=== PATIENT | female | born 1945 | race Caucasian/White ===

== ENCOUNTER 2018-01-26 10:36 | Inpatient (IN) | payer OTHER, SELFPAY ==
[2018-01-13 10:47] VITALS: BMI 28.1
[2018-01-26] VITALS (17 sets, daily range): BP systolic 82–134; BP diastolic 48–83; PULSE 60–78; RESP 8–18; TEMP 36.2–37.2; O2SAT 94–99; BMI 28.1
--- NOTE | 2018-01-26 | DI.RAD.S_ITS ---
PROCEDURE: XR LUMBAR SPINE 2-3V INDICATIONS: L4-5 XLIF TECHNIQUE: 2 intraoperative fluoroscopic views of the lumbar spine were acquired. COMPARISON: [facility], , L-SPINE 2-3 VIEWS, 11/13/2006, 13:15. FINDINGS: Bones: Intraoperative fluoroscopic images of lower lumbar spine shows transpedicular fusion of L4 and L5 vertebral bodies with intervertebral spacer placement. Grade 1 anterolisthesis of L4 on L5 is seen. IMPRESSION: Fluoroscopy guidance was provided intraoperatively for posterior fusion of L4 and L5 vertebral bodies. Dictated by: Santino Dupree M.D. on 01/26/2018 at 18:10 Approved by: Santino Dupree M.D. on 01/26/2018 at 18:11
[2018-01-26] MEDS: LACTATED RINGERS 1,000 ML 42 ML IV ×3 (11:45→16:58)
--- NOTE | 2018-01-26 11:46 | PM.PREOP ---
Pre-operative Note Interval Note Pre-op Check: Yes History & Physical Reviewed by Physician and Yes Exam Performed Changes: No
--- NOTE | 2018-01-26 11:48 | P.OP_ITS ---
Operative Date/Time/Diagnoses Date of procedure: 01/26/18 Time of procedure: 16:32 Pre-op diagnosis: Lumbar stenosis with radiculopathy Lumbar spondylolisthesis Post-op diagnosis: same Procedure & Clinicians Procedure: L4-5 anterior fusion with cage L4-5 posterior fusion with screws Iliac crest bone graft L4-5 laminectomy Use of microscope Placement of epidural catheter Same procedure as scheduled: Yes Indications: [age] year old female with intractable pain from stenosis. They had failed conservative management and requested operative intervention. Risks and benefits of surgery were discussed and appropriate consents were obtained. Surgeon: Alexander Hadley Physical Sciences Instructor: Candace Hudson Anesthesia Type: General Operative Notes Findings: Incidental durotomy, repaired primarily Closure Type: primary Specimen(s): none sent Implants & Drains: NuVasive XLIF cage and Reline MAS screws Applied: catheter Estimated Blood Loss (mL): 100 Procedure in detail: Patient was brought to the operating room and intubated on the table. Time-out was performed. They were then rolled over to the lateral decubitus position with the [id number]. The table was bent and they were taped down in the correct position. X-rays were taken to confirm a true AP and lateral. Preoperative antibiotics were given. The left flank was prepped and draped in standard sterile fashion. Using fluoroscopy, a 3 cm incision was made slightly anterior to the iliac crest oblique to the disc line. We bluntly dissected down with Metzenbaum scissors and split the 3 abdominal muscle layers. We dissected out the retroperitoneal space and used the lighted retractor to visualize the psoas. Using finger guidance, brought our 1st dilator down to the psoas muscle. Using neuromonitoring and fluoroscopy, we placed it through the psoas onto the L4-5 disc space in an anterior position. We placed our guidewire forward at an angle under fluoroscopy and measured our depth for the retractor. We then dilated with the next 2 dilators and then placed our retractor over the dilators. Position was confirmed with fluoroscopy and the retractor was locked down to the bar. We opened up the retractor and checked with neuro monitoring. An annulotomy was performed. We then passed an angled Mei down and across the opposite side and two views of fluoroscopy and released the lateral annulus. We then performed a complete diskectomy with pituitaries and curettes. We then used sequentially larger trials and confirmed under fluoroscopy. An XLIF cage was packed with Osteocell bone graft and impacted into the L4-5 disc space with fluoroscopy for the anterior fusion at this level. The wound was irrigated. The retractor was closed down. We carefully removed the retractor with direct visualization to make sure there was no neurovascular or abdominal injury. Final x-rays were taken. The muscle fascia was closed, superficial tissue was closed. The skin was closed. Sterile dressing was placed. The patient was then rolled over on the well-padded prone position on the John table. Using fluoroscopy, we made a 4 cm incision to the left of the midline. We then percutaneously placed a Jamshidi needles down the left pedicles of L4 and L5 with fluoroscopy and neuro monitoring. These were changed to guidewires, tapped and then the screws and retractor blades were placed. We opened up the retractor and cleared the soft tissue. We exposed the gutter and decorticated the transverse processes of L4 and L5 with a bur. We cleared out medially exposing the lamina. We brought in the microscope. A right-sided laminectomy was performed at L4-5 with a bur and Kerrison rongeurs. We carefully depressed the dura to reach to the opposite side and decompress the entire central canal. We cleared out the neural foramen. We performed the majority of a facetectomy at the L4-5 level. There was a very large adherent facet cyst coming off the joint. As we tried cleaning this up we did get a small gonzalez in the dura. This was primarily closed with a 6-0 silk. This was a watertight seal under Valsalva. We finished out her decompression. In the end the ball probe could be placed cephalad and caudally across to the opposite side in the foramen and everything was opened. The wound was copiously irrigated. An epidural catheter was primed with 4mL of 0.5% bupivacaine, 100 mcg fentanyl, 4 mg Duramorph, 1 mg Stadol. The dura was depressed under the cephalad lamina with a ball probe and the epidural catheter was gently advanced 6 cm cephalad. A piece of DuraGen was laid over the durotomy site. We then removed our retractor. We placed our Tulip heads on the screws. The tayo was measured placed and tightened down. A stab incision was made over the PSIS. We advanced a Jamshidi needle down the PSIS into the pelvis and aspirated 5 mL of bone marrow aspirate. This was mixed with the remaining bone graft as well as the locally harvested bone graft and placed on the posterolateral gutter for the posterior fusion at L4-5. The fascia was then closed. The epidural was then injected without resistance. The catheter was pulled and we closed more over the fascia. Vancomycin powder was placed in the wound. The superficial and skin were closed. We then made a 4 cm incision to the right of midline with fluoroscopy. Again using fluoroscopy and neuro monitoring Jamshidi needles were advanced on the right pedicles of L4 and L5. These were switched to guidewires, tapped and then percutaneous screws were placed. A tayo was placed and locked down. Final x-rays were taken. The wound was irrigated. The fascia was closed. Vancomycin powder was placed in the wound. Superficial skin were closed. Sterile dressing was placed. The patient was then rolled over, extubated, brought to the recovery room with no complications. Complications: none Condition: stable Disposition: PACU Plan for aftercare: Overnight bedrest for spinal leak precautions. She can get up in the morning as tolerated.
[2018-01-26] MEDS: CEFAZOLIN 2 GM/100 ML FROZ.PIGGY IV ×2 (12:50→20:53)
--- NOTE | 2018-01-26 13:30 | SUR.OPER ---
Right lateral on padded OR table. Head on pillow, gel axillary roll, pillow to support left arm. Legs flexed, pillows between legs, gel pad under down leg and ankle. Multiple passes of 3 inch cloth tape across shoulder, hip, upper and lower legs to secure patient on OR table.
[2018-01-26] MEDS: BUPIVACAINE 0.5% (PF) 4 ML, MORPHINE-PF 4 MG, BUTORPHANOL 1 MG, fentaNYL 100 MCG INJ (13:49)
[2018-01-26] MEDS: SODIUM CHLORIDE 0.9% 1,000 ML, GENTAMICIN 80 MG IRR (13:52)
[2018-01-26] MEDS: THROMBIN (BOVINE) 5,000 UNIT VIAL 5000 UNIT TOP (13:52)
[2018-01-26] MEDS: VANCOMYCIN 1,000 MG VIAL 1000 MG TOP (13:54)
--- NOTE | 2018-01-26 14:39 | SUR.OPER ---
Prone on spine table, head in foam head support, padded chest and pelvic supports, gel pad at knees, lower legs supported by pillows; nipples, genitalia and toes free of pressure, arms secured on foam padded arm boards at <90 degrees abduction. Tape over blanket at thigh secured to table.
--- NOTE | 2018-01-26 17:32 | SUR.PHASEI ---
care transferred to [facility] report given.
[2018-01-26] MEDS: HYDROMORPHONE 1 MG INJ 0.5 MG IV (18:54)
[2018-01-26] MEDS: LACTATED RINGERS 1,000 ML 125 ML IV (18:55)
--- NOTE | 2018-01-26 19:22 | PC.ADMIT ---
Addendum entered by Martina Wick R.N. 01/26/18 21:12: Pt remains supine. does not want to log roll at this time. Pt refusing oral medication as pt cannot swallow while laying flat. pt reports tolerable level of pain 05/06. PRADEEP scd on and functioning. aviles patent and draining clear yellow. tolerating fluids. eating ice chips and tolerating well. pt states she has a scratchy throat from she thinks her nose running. ice chips help though. Pt cousin, Ivon in town to help pt after discharge. not at bedside, but pt reports we can call her for anything. pt wrapped in blankets and feels fine. denies further needs at this time. bed alarm on, side rails upx4 per pt request. will continue to monitor. Original Note: [id number] Admission Note: The patient,Alice Arriaga,72 y/o, was given written information regarding hospital policies, unit procedures and contact persons. Patient's smoking status: Never smoker. Vital Signs - 8 hr 01/26/18 16:47 01/26/18 16:52 01/26/18 16:56 Temperature 97.1 F L Pulse Rate 60 61 60 Respiratory Rate 8 L 10 L 11 L Blood Pressure 82/48 L 82/50 L 84/51 L Pulse Oximetry 97 95 94 01/26/18 17:01 01/26/18 17:07 01/26/18 17:14 Temperature Pulse Rate 60 60 63 Respiratory Rate 10 L 10 L 12 Blood Pressure 85/51 L 85/51 L 99/74 Pulse Oximetry 96 96 97 01/26/18 17:21 01/26/18 17:30 01/26/18 17:45 Temperature 97.1 F L 97.6 F Pulse Rate 66 64 68 Respiratory Rate 11 L 16 17 Blood Pressure 101/65 114/69 113/73 Pulse Oximetry 98 99 98 01/26/18 18:00 01/26/18 18:20 Temperature 97.7 F Pulse Rate 69 70 Respiratory Rate 16 15 Blood Pressure 109/65 126/68 Pulse Oximetry 94 98 Pt arrived to floor at 1820. Pt awake and alert. aviles patent. pt lying flat. given ice chips at pts request and tolerating. refusing any oral medication ad pt cannot lift hob. Pt scds applied. family, ivon at bedside and will be back in am. fluids started. will hang abx. will continue to monitor. oriented to hospital room and procedures.
[2018-01-27] VITALS (7 sets, daily range): BP systolic 103–117; BP diastolic 55–65; PULSE 61–74; RESP 17–21; TEMP 36.4–37.1; O2SAT 93–100
[2018-01-27] MEDS: LACTATED RINGERS 1,000 ML 125 ML IV (03:30)
[2018-01-27] MEDS: CEFAZOLIN 2 GM/100 ML FROZ.PIGGY IV (05:05)
[2018-01-27] MEDS: HYDROMORPHONE 1 MG INJ 0.2 MG IV ×2 (05:27→12:52)
[2018-01-27 05:28] LABS: Hematocrit 34.9 % (36-46); Hemoglobin 12.1 g/dL (12.0-16.0)
--- NOTE | 2018-01-27 07:41 | PM.PNPO.1 ---
Subjective Date Patient Seen: 01/27/18 Time Patient Seen: 07:41 Interval history: back is starting to get more sore. legs fine. no LAZAR or nausea Exam Vital Signs (past 8 hours): - 01/27/18 00:35 01/27/18 04:45 Temperature 98.2 F 97.6 F Pulse Rate 61 63 Respiratory Rate 18 17 Blood Pressure 111/61 103/56 L Pulse Oximetry 100 98 Oxygen Delivery Method Room Air Oxygen Flow Rate 0 Const Orientation: alert and oriented x3 Back/Spine/Pelvis Other: cdi. 5/5 motor BLE Objective Labs Result Diagrams: 01/27/18 05:00 Labs: Laboratory Results - last 24 hr 01/27/18 05:00 Hgb 12.1 Hct 34.9 L Assessment & Plan Post-op Postoperative Procedures Operation Date: 01/26/18 12:15 Actual Procedures Side Surgeon p L4-5 Laminectomy & Anterior/Posterior Instru Fusion(XLIF)w/Bone Graft Alexander Hadley MD Doing well after surgery. I raised her HOB with no LAZAR or nausea or problems. Dural tear sealed and advance to activity as tolerated. Anticipate 1-2 more days in hospital Quality VTE Deep Vein Thrombosis/Pulmonary Embolism Present on Admission: No
[2018-01-27] MEDS: DOCUSATE 100 MG CAPSULE PO ×2 (07:50→22:16)
[2018-01-27] MEDS: OXYCODONE IR 5 MG TABLET 10 MG PO ×5 (07:51→22:14)
[2018-01-27] MEDS: lamoTRIgine 100 MG TABLET 200 MG PO (07:52)
--- NOTE | 2018-01-27 10:15 | PT.IIE ---
Current Diagnoses Spondylolisthesis, lumbar region (01/26/18) Spinal stenosis, lumbar region with neurogenic claudication (01/26/18) Surgery Performed Operation Date: 01/26/18 12:15 Actual Procedures p L4-5 Laminectomy & Anterior/Posterior Instru Fusion(XLIF)w/Bone Graft - Alexander Hadley MD Surgical History (Last Updated 01/13/18 @ 12:26 by Brianna Bronson, RN) History of arthroplasty of left shoulder (Acute) History of arthroscopy of right shoulder (Acute) Hx of arthroscopy of right knee (Acute) Hx of tubal ligation (Acute) S/P cervical spinal fusion (Acute) Status post bilateral cataract extraction (Acute) Medical History (Last Updated 01/13/18 @ 11:19 by Brianna Bronson RN) Anxiety (Acute) Depression (Acute) Diverticulitis (Acute) HTN (hypertension) (Acute) Hyperlipidemia (Acute) Kidney infection (Acute) Kidney stone (Acute) Numbness and tingling of both legs (Acute) Osteoarthritis (Acute) Amanda teeth removed (Acute) Physical Therapy Inpatient Evaluation/Re-Eval M1 PT/OT-IP Prior Functional Status Start: 01/27/18 13:03 Freq: NEEDED Status: Active Protocol: Document 01/27/18 10:15 AB (Rec: 01/27/18 13:25 AB [id number]) Medical Review Prior Functional Status Medical History Reviewed Yes Communication able to make needs known Mobility and Gait pt stated that she is independent with all mobilities and ambulation without AD Social History Household Members none Living Arrangements House Number of Floors (Floors) Two Floors Number of Stairs To Enter/Railing? has 2 steps to enter without rails but has L post; pt will stay on main level of the house Home Environment High Toilet Walk in Shower Home Equipment Front Wheel Walker Hand Held Shower Employment Status Retired Additional Social History Comment has vanity close by the toilet to assist her with getting up stated that her cousin will stay with her for ~ 1 weeks to assist her at home and afterwards, friends and neighbors can assist her if needed M2 PT-IP Current Condition Start: 01/27/18 13:03 Freq: NEEDED Status: Active Protocol: Document 01/27/18 10:15 AB (Rec: 01/27/18 13:25 AB [id number]) Physical Therapy Current Condition Current Condition Evaluation Date 01/27/18 Treatment Diagnosis s/p L4-5 anterior and posterior fusion & laminectomy ; difficulty in walking Onset Date 01/26/18 Precautions Lumbar Precautions Log Roll No Twisting Limit Bending Lifting Restriction of 10 lbs Gait Belt above Incisional Area M3 PT-IP Subjective Start: 01/27/18 13:03 Freq: NEEDED Status: Active Protocol: Document 01/27/18 10:15 AB (Rec: 01/27/18 13:25 AB [id number]) Subjective Physical Therapy Visit Type Type Initial Evaluation Visit Start Time 10:15 Visit Stop Time 10:55 Total Visit Minutes 40 Number of DRIFT MINER Visits 0 Physical Therapy Visit Comments Patient Comments Pt agreeable to do PT Therapy Pain Assessment Pain When Pain Assessed At Rest Pain Present Pain Present Pain Reported Location Left Leg Intensity 6 Scale Used Numeric (1 - 10) Pain Management Techniques Apply Cold Re-positioning Timing of Activity with Medications M4 PT-IP Mobility and Gait Start: 01/27/18 13:03 Freq: NEEDED Status: Active Protocol: Document 01/27/18 10:15 AB (Rec: 01/27/18 13:25 [id number]) PT-Bed Mobility Assessment Rolling Type of Rolling Log Rolling Level of Assist Contact Guard Assistance Supine to Sit Supine to Sit Standby Assistance Scooting Scooting to Edge of Bed Contact Guard Assistance PT-Transfer Assessment Sit to and From Stand Sit to and from Stand Contact Guard Assistance 1 Person Assistance Use of Upper Extremities Equipment Transfer Assistive Device Gait Belt Front Wheeled Walker Orthotic/Prosthetic Devices or Brace: No Transfers Transfer Destination Chair Transfer Technique pt ambulated to the chair using FWW Comments Mobility Comments BP supine in bed: 99/52 sitting on EOB: 106/54 with c/ o slight dizziness but decreases after a few minutes standing with FWW: 101/57 after ambulation sitting on chair: 103/51 with c/o increase dizziness after ambulation Gait Assessment Gait Gait Assistance Required: Contact Guard Assist Distance (Feet) 15 Able to Maintain Weight Bearing Status Yes During Gait Assistive Devices Assistive Device Gait Belt Front Wheeled Walker Gait Deviations General Gait Pattern Decreased Stride Length Decreased Feet Clearance Factors Limiting Gait Function Factors Limiting Gait Function Decreased Activity Tolerance Decreased Strength Limited Range of Motion Pain Poor Balance Poor Safety Awareness Comments Gait Comments positioned pt on chair after ambulation. cold pack provided. call light and table placed within reach. PT-Balance Assessment Sitting Balance and Reactions Static Sitting Balance Ability Good Dynamic Sitting Balance Ability Good Standing Balance and Reactions Static Standing Balance Ability Fair Dynamic Standing Balance Ability Fair Device Used FWW M5 PT-IP Objective Assessments Start: 01/27/18 13:03 Freq: NEEDED Status: Active Protocol: Document 01/27/18 10:15 AB (Rec: 01/27/18 13:25 AB [id number]) Orientation Orientation/Cognition Level of Alertness Alert Orientation Name Age Birthday Month Date Year Day of Week Place Situation Safety Awareness Understands Safety Issues Memory Description No Deficits Noted Gross Range of Motion Lower Extremity ROM Assessment Within Functional Limits Strength Lower Extremity Strength Assessment Bilaterally Impaired Hip 4-/5 Knee 3+/5 Sensation Assessment Sensation Gross Sensation WNL Muscle Tone Muscle Tone WNL Yes M6 PT-IP Treatment Start: 01/27/18 13:03 Freq: NEEDED Status: Active Protocol: Document 01/27/18 10:15 AB (Rec: 01/27/18 13:25 AB [id number]) Physical Therapy Treatment Education Education Provided Precautions Weight Bearing Status Post-Op Packet Safety M7 PT-IP Assessment and Plan Start: 01/27/18 13:03 Freq: NEEDED Status: Active Protocol: Document 01/27/18 10:15 AB (Rec: 01/27/18 13:25 AB [id number]) PT Summary Assessment and Plan Potential Rehabilitation Potential Good Status of Condition at Evaluation Stable Summary Impairments Pain ROM Strength Balance Coordination Sensation Tone Cognition Bed Mobility Transfers Gait Activity Tolerance Assessment Summary Pt requiring CGA with mobility and plans to go home with her cousin to assist her. caregiver training will be conducted when appropriate and stair climbing training to be completed prior to d/c. Goals Bed Mobility Goal Standby Assistance Transfer Goal Standby Assistance Gait Goal Standby Assistance Gait Distance 150 Other Goals up/down 2 steps without rail Days to Meet Goals 3 Frequency of Treatment Frequency Of Treatment Twice a Day Treatment Plan Physical Therapy Treatment Plan Bed Mobility Training Transfer Training Gait Training Therapeutic Exercise Balance Retraining Post Op Education Discharge Planning Hot or Cold Pack Neuromuscular Re-ed Coordination Retraining Manual Therapy Recommendations To Nursing Amount of Assist Needed 1 Person Assist Discharge Recommendations PT Discharge Recommendations Home with Assistance
[2018-01-27] MEDS: SODIUM CHLORIDE 0.9% FLUSH 10 ML IV (13:16)
--- NOTE | 2018-01-27 15:08 | CM.IDA ---
DCP Assessment Note: Pt is a 72 yo female, [place] resident. Pt admitted for a scheduled spinal surgery w/ Dr Hadley. Pt is indp at baseline. PT has assessed today and pt cleared for return home w/ her cousin to assist. Pt is eager to return home and expects no barriers to safe DC home. Pt/ staff aware this [employer]IV[employer]IES COORDINATOR is available if DC needs or concerns arise and plan changes. JANKI Marie Discharge Planning/Care Management CM Discharge Assessment Start: 01/27/18 15:03 Freq: Status: Active Protocol: Document 01/27/18 15:03 JARETT (Rec: 01/27/18 15:07 JARETT [id number]) Discharge Planning Assessment Assigned Hall Clerk JANKI Purdy DPOA/Assigned Designee Name eduard Del Valle Contact Information [phone] Advance Directives? No Advance Directives on File No History Provided By Patient Medical Record Prior Living Arrangements House Household Members none Type of transporation used prior to Drives own vehicle admit Independent with ADL's Yes Is patient alert and oriented? Yes Barriers to Discharge No Discharge Plan Home Transportation Arrangement Family/friend Referrals Initiated None needed Whiteboard Updated in Patient Room with Yes name and ext. # of Hall Clerk Please Provide Date Initial DC 01/27/18 Assessment Was Performed
--- NOTE | 2018-01-27 15:34 | PT.IPTN ---
Current Diagnoses Spondylolisthesis, lumbar region (01/26/18) Spinal stenosis, lumbar region with neurogenic claudication (01/26/18) Surgery Performed Operation Date: 01/26/18 12:15 Actual Procedures p L4-5 Laminectomy & Anterior/Posterior Instru Fusion(XLIF)w/Bone Graft - Alexander Hadley MD Physical Therapy Treatment Note M2 PT-IP Current Condition Start: 01/27/18 13:03 Freq: NEEDED Status: Active Protocol: Document 01/27/18 10:15 AB (Rec: 01/27/18 13:25 AB [id number]) Physical Therapy Current Condition Current Condition Evaluation Date 01/27/18 Treatment Diagnosis s/p L4-5 anterior and posterior fusion & laminectomy ; difficulty in walking Onset Date 01/26/18 Precautions Lumbar Precautions Log Roll No Twisting Limit Bending Lifting Restriction of 10 lbs Gait Belt above Incisional Area M3 PT-IP Subjective Start: 01/27/18 13:03 Freq: NEEDED Status: Active Protocol: Document 01/27/18 15:34 AB (Rec: 01/27/18 16:32 AB [id number]) Subjective Physical Therapy Visit Type Type Treatment Note Visit Start Time 15:34 Visit Stop Time 15:54 Total Visit Minutes 20 Number of SYNTHETIC SOIL BLOCKS PULPER Visits 0 Physical Therapy Visit Comments Patient Comments pt initially refused PT but then OT informed PT that pt wanted to go for a walk after using the toilet. pt refused to do stair climbing training at this time Therapy Pain Assessment Pain When Pain Assessed At Rest Pain Present Pain Present Pain Reported Location Left Leg Intensity 6 Scale Used Numeric (1 - 10) Pain Management Techniques Apply Cold Re-positioning Timing of Activity with Medications M4 PT-IP Mobility and Gait Start: 01/27/18 13:03 Freq: NEEDED Status: Active Protocol: Document 01/27/18 15:34 AB (Rec: 01/27/18 16:32 AB [id number]) PT-Transfer Assessment Sit to and From Stand Sit to and from Stand Standby Assistance 1 Person Assistance Gait Assessment Gait Gait Assistance Required: Standby Assistance Distance (Feet) 100 Able to Maintain Weight Bearing Status Yes During Gait Assistive Devices Assistive Device Gait Belt Front Wheeled Walker Factors Limiting Gait Function Factors Limiting Gait Function Decreased Activity Tolerance Decreased Strength Limited Range of Motion Pain Poor Balance Poor Safety Awareness M5 PT-IP Objective Assessments Start: 01/27/18 13:03 Freq: NEEDED Status: Active Protocol: Document 01/27/18 10:15 AB (Rec: 01/27/18 13:25 AB [id number]) Orientation Orientation/Cognition Level of Alertness Alert Orientation Name Age Birthday Month Date Year Day of Week Place Situation Safety Awareness Understands Safety Issues Memory Description No Deficits Noted Gross Range of Motion Lower Extremity ROM Assessment Within Functional Limits Strength Lower Extremity Strength Assessment Bilaterally Impaired Hip 4-/5 Knee 3+/5 Sensation Assessment Sensation Gross Sensation WNL Muscle Tone Muscle Tone WNL Yes M6 PT-IP Treatment Start: 01/27/18 13:03 Freq: NEEDED Status: Active Protocol: Document 01/27/18 15:34 AB (Rec: 01/27/18 16:32 AB [id number]) Physical Therapy Treatment Education Education Provided Precautions Weight Bearing Status Post-Op Packet Safety M7 PT-IP Assessment and Plan Start: 01/27/18 13:03 Freq: NEEDED Status: Active Protocol: Document 01/27/18 15:34 AB (Rec: 01/27/18 16:32 AB [id number]) PT Summary Assessment and Plan Potential Rehabilitation Potential Good Summary Impairments Pain ROM Strength Balance Coordination Sensation Tone Cognition Bed Mobility Transfers Gait Activity Tolerance Progress Towards Goals Slow Progress due to Pain Assessment Summary pt requiring SBA for trnasfers and ambulation. set up caregiver training tomorrow with pt's cousin and pt agreed to do stair climbing tomorrow . Goals Bed Mobility Goal Standby Assistance Transfer Goal Standby Assistance Gait Goal Standby Assistance Gait Distance 150 Other Goals up/down 2 steps without rail Days to Meet Goals 3 Frequency of Treatment Frequency Of Treatment Twice a Day Treatment Plan Physical Therapy Treatment Plan Bed Mobility Training Transfer Training Gait Training Therapeutic Exercise Balance Retraining Post Op Education Discharge Planning Hot or Cold Pack Neuromuscular Re-ed Coordination Retraining Manual Therapy Recommendations To Nursing Amount of Assist Needed 1 Person Assist Discharge Recommendations PT Discharge Recommendations Home with Assistance
--- NOTE | 2018-01-27 16:26 | OT.IP.EVAL ---
Current Diagnoses Spondylolisthesis, lumbar region (01/26/18) Spinal stenosis, lumbar region with neurogenic claudication (01/26/18) Surgery Performed Operation Date: 01/26/18 12:15 Actual Procedures p L4-5 Laminectomy & Anterior/Posterior Instru Fusion(XLIF)w/Bone Graft - Alexander Hdaley MD Past Medical History (Last Updated 01/13/18 @ 11:19 by Brianna Bronson, RN) Anxiety (Acute) Depression (Acute) Diverticulitis (Acute) HTN (hypertension) (Acute) Hyperlipidemia (Acute) Kidney infection (Acute) Kidney stone (Acute) Numbness and tingling of both legs (Acute) Osteoarthritis (Acute) [place] teeth removed (Acute) Surgical History (Last Updated 01/13/18 @ 12:26 by Brianna Bronson RN) History of arthroplasty of left shoulder (Acute) History of arthroscopy of right shoulder (Acute) Hx of arthroscopy of right knee (Acute) Hx of tubal ligation (Acute) S/P cervical spinal fusion (Acute) Status post bilateral cataract extraction (Acute) Occupational Therapy Inpatient Evaluation/Re-Eval M1 PT/OT-IP Prior Functional Status Start: 01/27/18 13:03 Freq: NEEDED Status: Active Protocol: Document 01/27/18 16:26 PJRicardo (Rec: 01/27/18 16:54 CONCEPCIÓN [id number]) Medical Review Prior Functional Status Medical History Reviewed Yes Communication WNL Mobility and Gait pt stated that she is independent with all mobilities and ambulation without AD Activities of Daily Living and IADL's Pt indep with self care, IADLS , driving. Social History Household Members none Living Arrangements House Number of Floors (Floors) One Floor Number of Stairs To Enter/Railing? 2 stairs to enter, no rail; pt has sunken living room with one step down, no rail but built in bookcase nearby Home Environment High Toilet Walk in Shower Home Equipment Front Wheel Walker Employment Status Retired Additional Social History Comment pt's cousin from out of state will stay with her for 1 week after d/c, then friends/ neighbors to assist PRN M2 OT-IP Current Condition Start: 01/27/18 16:29 Freq: Status: Active Protocol: Document 01/27/18 16:26 LUDY (Rec: 01/27/18 16:54 [facility] [id number]) Occupational Therapy Current Condition Current Condition Evaluation Date 01/27/18 Treatment Diagnosis decreased self care, functional mobility after L4-5 A/P LIF with aggarwal Diagnosis Onset Date 01/26/18 Post Operative Precautions Lumbar Precautions Log Roll No Twisting Limit Bending Lifting Restriction of 10 lbs Gait Belt above Incisional Area M3 OT- IP Subjective and Pain Start: 01/27/18 16:29 Freq: Status: Active Protocol: Document 01/27/18 16:26 PJ (Rec: 01/27/18 16:54 [facility] [id number]) OT- Subjective Occupational Therapy Visit Type Type Initial Evaluation Visit Start Time 15:49 Visit Stop Time 16:26 Total Visit Minutes 37 Notes Session interrupted; above is total minutes spent with pt Occupational Therapy Visit Comments Patient/Caregiver Goals to be able 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 Pain Assessment Pain When Pain Assessed After Treatment Pain Present Pain Present Pain Reported Location Left Leg Intensity 6 Scale Used Numeric (1 - 10) Description Aching Acute Pain Behaviors Guarding M4 OT- IP ADL's Start: 01/27/18 16:29 Freq: Status: Active Protocol: Document 01/27/18 16:26 PJ (Rec: 01/27/18 16:54 [facility] [id number]) OT [id number] General Evaluation Self-Feeding Ability Independent OT ADL-Grooming General Evaluation Grooming Ability Standby Assistance Areas Needing Assistance Retrieving/Set-up of Grooming Items Comments OT Grooming Comments to wash face in bed OT ADL-Oral Care Comments Oral Care Comments to be assessed, pt declined this session OT ADL-Dressing General Eval Upper Body Dressing Ability Standby Assistance Lower Body Dressing Ability Maximum Assistance Areas Needing Assistance Retrieving/Set-up of Clothing Comments OT Dressing Comments Began education re: use of pest locator and sock aid for lower body dressing; pt wears slip on shoes and declined long shoe horn OT ADL-Toileting General Evaluation Toileting Ability Contact Guard Assistance Areas Needing Assistance Perform Perineal Hygiene Devices Toileting Assistive Devices Commode Comments OT Toileting Comments Pt on BSC when therapist arrived. Pt SBA for reynold care after urination after education re: body mechanics OT ADL-Bathing Comments OT Bathing Comments to be assessed as activity tolerance improves M5 OT- IP IADL's Start: 01/27/18 16:29 Freq: Status: Active Protocol: Document 01/27/18 16:26 PJ (Rec: 01/27/18 16:54 [facility] [id number]) OT-Instrumental Activities of Daily Living Deficits IADL Deficits Identified Deficits Home Safety Awareness Awareness of Need for Assistance at Home Good Awareness Ability to Problem Solve Emergency Able to Problem Solve Situations Home Safety Comments Began education with pt/cousin re: options for feeding dog. Cousin to assist pt with set up for this at home. Medication Management Medication Management No Deficits Identified Money Management Money Management No Deficits Identified Meal Preparation Meal Preparation Caregiver Provides Assist Meal Preparation Comments will have assist for first week from cousin, then friends /neighbors can assist with grocery shopping Disability Liaison Officer Disability Liaison Officer Comments pt will arrange assist with cleaning; provided education re: body mechanics for laundry Driving Driving Caregiver Provides Assist Driving Comments pt will hire taxi or have friends assist until able to drive M6 OT- IP Functional Cognition Start: 01/27/18 16:29 Freq: Status: Active Protocol: Document 01/27/18 16:26 PJ (Rec: 01/27/18 16:54 [facility] [id number]) Cognitive Factors Limiting Selfcare Function Cognitive Ability Level of Alertness Alert Patient Orientation Name Age Birthday Month Date Year Day of Week Place Situation Attention Span Ability Capable of Focused Attention Capable of Sustained Attention Ability to Follow Commands Able to Follow One Step Commands Memory Description No Deficits Noted Safety Awareness No Deficits Noted Problem Solving Ability No deficits Noted Cognitive Comments Cognitive Assessment Comments Appears WNL OT- Vision and Hearing OT- Hearing Assessment OT- Hearing Assessment WFL OT- Vision Assessment Visual Acuity WFL Glasses For Reading Vision Assessment Comments Pt denies any recent changes M7 OT- IP Mobility and Balance Start: 01/27/18 16:29 Freq: Status: Active Protocol: Document 01/27/18 16:26 PJ (Rec: 01/27/18 16:54 [facility] [id number]) OT-Transfer Assessment Sit to and From Stand Sit to and from Stand Contact Guard Assistance Transfers Transfer Ability Contact Guard Assistance Technique Transfer Destination Bedside Commode Chair Transfer Technique Stand Step Pivot Devices Transfer Assistive Devices Gait Belt Front Wheeled Walker OT- Gait Assessment Gait Gait Assistance Required: Contact Guard Assist Distance (Feet) 10 Assistive Devices Assistive Device Gait Belt Front Wheeled Walker OT- Balance Assessment Sitting Balance and Reactions Static Sitting Balance Ability Good Standing Balance and Reactions Static Standing Balance Ability Good Dynamic Standing Balance Ability Good Comments Other Balance Tests/Deviations/Treatment during standing for reynold care : M8 OT- IP Objective Assessments Start: 01/27/18 16:29 Freq: Status: Active Protocol: Document 01/27/18 16:26 PJM (Rec: 01/27/18 16:54 [facility] [id number]) OT Gross Range of Motion Upper Extremity Range of Motion Assessment Within Functional Limits ROM Impairments B shoulder scaption limited to ~90 degrees by stiffness, pt s/p L partial shoulder replacement and needs R TSA eventually per pt OT Strength Upper Extremity Strength Assessment Within Functional Limits OT- Coordination Assessment Comments Coordination Comments BUE WFL OT-Muscle Tone Assessment Muscle Tone WNL Yes OT Sensation Assessment Comments Summary Comments Pt denies deficits in BUE's Edema Edema Absent M9 OT- IP Assessment and Plan Start: 01/27/18 16:29 Freq: Status: Active Protocol: Document 01/27/18 16:26 PJM (Rec: 01/27/18 16:54 PJM [id number]) OT Summary Assessment and Plan Potential Rehabilitation Potential Good Analytic Complexity at Evaluation Low Summary Assessment Summary Low complexity OT assessment completed with emphasis on self care skills within lumbar spine precautions. Began education re: posture, body mechanics and adapted ADLS/IADLS as pt normally lives alone. Pt currently has performance deficits in all functional mobility/transfers, standing tolerance for grooming/IADLS, lower body dressing, bathing and toileting. Anticipate pt will be able to d/c home with live in assist x 4-5 days when medically stable if she continues to progress here. Goals Grooming Goal Independent Dressing Goal Independent Rebar Worker Sock Aid Toileting Goal Independent Toilet Paper Aid Bathing Goal Standby Assistance Toilet Transfer Goal Independent ADA High Toilet Counter Next to Toilet Shower Transfer Goal Standby Assistance Patient/Caregiver Education Goal Demonstrate Post-Op Precautions Demonstrate Energy Conservation and Pacing Caregiver Independent Assisting Patient Days to Meet Goals 3 Frequency of Treatment Frequency Of Treatment Once a Day Treatment Plan OT Treatment Plan ADL Training Functional Mobility Patient/Family Education Discharge Planning Discharge Recommendations OT Discharge Recommendations Home with 17/11 Assist Home Equipment Needs shower seat, pest locator, sock aid
[2018-01-27] MEDS: SENNOSIDES 8.6 MG TABLET 17.2 MG PO (22:16)
[2018-01-27] MEDS: GABAPENTIN 300 MG CAPSULE PO (22:16)
[2018-01-27] MEDS: ROSUVASTATIN 10 MG TABLET PO (22:16)
[2018-01-28] VITALS (7 sets, daily range): BP systolic 117–133; BP diastolic 55–73; PULSE 65–75; RESP 16–20; TEMP 36.3–37.6; O2SAT 94–97
[2018-01-28] MEDS: OXYCODONE IR 5 MG TABLET 10 MG PO ×2 (00:51→07:35)
[2018-01-28] MEDS: ONDANSETRON 4 MG/2 ML INJ IV ×3 (00:55→14:03)
--- NOTE | 2018-01-28 07:32 | PM.PNPO.1 ---
Subjective Date Patient Seen: 01/28/18 Time Patient Seen: 07:32 Interval history: Pain about a 4 at rest. No more sciatic pain but some muscle achiness in legs as she is up with therapy. Mostly low back pain. Exam Vital Signs (past 8 hours): - 01/28/18 00:30 01/28/18 05:00 Temperature 99.7 F H 99.5 F Pulse Rate 75 73 Respiratory Rate 18 18 Blood Pressure 121/61 133/65 Pulse Oximetry 95 94 Oxygen Delivery Method Room Air Oxygen Flow Rate 0 Const Orientation: alert and oriented x3 Back/Spine/Pelvis Other: Dressing clean dry intact. 5/5 motor both lower extremities Objective Labs Result Diagrams: 01/27/18 05:00 Assessment & Plan Post-op Postoperative Procedures Operation Date: 01/26/18 12:15 Actual Procedures Side Surgeon p L4-5 Laminectomy & Anterior/Posterior Instru Fusion(XLIF)w/Bone Graft Alexander Hadley MD She is progressing as expected. Continue with mobilization with therapy. Anticipate discharge home tomorrow. Quality VTE Deep Vein Thrombosis/Pulmonary Embolism Present on Admission: No
[2018-01-28] MEDS: METOPROLOL ER 25 MG TABLET PO (07:34)
[2018-01-28] MEDS: lamoTRIgine 100 MG TABLET 200 MG PO (07:36)
[2018-01-28] MEDS: DOCUSATE 100 MG CAPSULE PO ×2 (07:36→20:45)
--- NOTE | 2018-01-28 10:00 | PT.IPTN ---
Current Diagnoses Spondylolisthesis, lumbar region (01/26/18) Spinal stenosis, lumbar region with neurogenic claudication (01/26/18) Surgery Performed Operation Date: 01/26/18 12:15 Actual Procedures p L4-5 Laminectomy & Anterior/Posterior Instru Fusion(XLIF)w/Bone Graft - Alexander Hadley MD Physical Therapy Treatment Note M2 PT-IP Current Condition Start: 01/27/18 13:03 Freq: NEEDED Status: Active Protocol: Document 01/27/18 10:15 AB (Rec: 01/27/18 13:25 AB [id number]) Physical Therapy Current Condition Current Condition Evaluation Date 01/27/18 Treatment Diagnosis s/p L4-5 anterior and posterior fusion & laminectomy ; difficulty in walking Onset Date 01/26/18 Precautions Lumbar Precautions Log Roll No Twisting Limit Bending Lifting Restriction of 10 lbs Gait Belt above Incisional Area M3 PT-IP Subjective Start: 01/27/18 13:03 Freq: NEEDED Status: Active Protocol: Document 01/28/18 10:00 DLM (Rec: 01/28/18 12:13 DL [id number]) Subjective Physical Therapy Visit Type Type Re-Evaluation Visit Start Time 10:00 Visit Stop Time 10:30 Total Visit Minutes 30 Notes Her Cousin is present for treatment session, she is a nurse Number of BLUEPRINT MACHINE OPERATOR Visits 0 Physical Therapy Visit Comments Patient Comments She got sleepy after taking her medications this AM Therapy Pain Assessment Pain When Pain Assessed At Rest Pain Present Pain Present Pain Reported Location Left Leg Intensity 4 Scale Used Numeric (1 - 10) Description Aching Pain Management Techniques Re-positioning M4 PT-IP Mobility and Gait Start: 01/27/18 13:03 Freq: NEEDED Status: Active Protocol: Document 01/28/18 10:00 DLM (Rec: 01/28/18 12:13 DL [id number]) PT-Bed Mobility Assessment Rolling Type of Rolling Log Rolling Level of Assist Standby Assistance Supine to Sit Supine to Sit Standby Assistance Sit to Supine Sit to Supine Standby Assistance Scooting Scooting to Edge of Bed Standby Assistance PT-Transfer Assessment Sit to and From Stand Sit to and from Stand Standby Assistance Use of Upper Extremities Equipment Transfer Assistive Device Gait Belt Front Wheeled Walker Transfers Transfer Destination Toilet Transfer Technique Stand Step Pivot Transfer Ability Level of Assist Standby Assistance Use of Upper Extremities Comments Mobility Comments reminders to sit slowly on toilet to manage her pain Gait Assessment Gait Gait Assistance Required: Standby Assistance Distance (Feet) 177 Assistive Devices Assistive Device Gait Belt Front Wheeled Walker Factors Limiting Gait Function Factors Limiting Gait Function Decreased Activity Tolerance Pain Comments Gait Comments pt reports needing the FWW to manage her pain Stair Climbing Assessment Evaluation Level of Assist On Stairs Contact Guard Assistance Devices Stair Climbing Assistive Devices Left Railing Right Railing Technique/Endurance Stair Climbing Direction Ascend and Descend Stair Climbing Technique Step to Step Number of Steps Climbed 3 Query Text: Stair Climbing Set # Repetitions (reps) 1 Comments Stair Climbing Comments plan to do stairs without rail to simulate home next visit, pt feels her stairs at home are a little shorter than standard PT-Balance Assessment Sitting Balance and Reactions Static Sitting Balance Ability Good Dynamic Sitting Balance Ability Good Standing Balance and Reactions Static Standing Balance Ability Good Dynamic Standing Balance Ability Good Device Used FWW M5 PT-IP Objective Assessments Start: 01/27/18 13:03 Freq: NEEDED Status: Active Protocol: Document 01/27/18 10:15 AB (Rec: 01/27/18 13:25 AB [id number]) Orientation Orientation/Cognition Level of Alertness Alert Orientation Name Age Birthday Month Date Year Day of Week Place Situation Safety Awareness Understands Safety Issues Memory Description No Deficits Noted Gross Range of Motion Lower Extremity ROM Assessment Within Functional Limits Strength Lower Extremity Strength Assessment Bilaterally Impaired Hip 4-/5 Knee 3+/5 Sensation Assessment Sensation Gross Sensation WNL Muscle Tone Muscle Tone WNL Yes M6 PT-IP Treatment Start: 01/27/18 13:03 Freq: NEEDED Status: Active Protocol: Document 01/28/18 10:00 DLM (Rec: 01/28/18 12:13 [facility] [id number]) Physical Therapy Treatment Exercises Exercises Ankle Pumps Education Education Provided Precautions Safety Other Treatments Other Treatment Performed incorporated caregiver training into treatment session M7 PT-IP Assessment and Plan Start: 01/27/18 13:03 Freq: NEEDED Status: Active Protocol: Document 01/28/18 10:00 DLM (Rec: 01/28/18 12:13 [facility] [id number]) PT Summary Assessment and Plan Treatment Plan Other Recommendations and Next Treatment stairs without rails to Focus simulate home environment Recommendations To Nursing Amount of Assist Needed 1 Person Assist Discharge Recommendations PT Discharge Recommendations Home with Assistance
--- NOTE | 2018-01-28 10:25 | PC.NURSE ---
Noted pt drowsy at beginning of shift but ambulating in hallway with PT midmorning. O2 Sats = 94%. Pt encouraged to take deep breaths and use IS. Dressing to back CDI.
--- NOTE | 2018-01-28 13:38 | CM.DPC ---
DCP Cont: Met w/pt and her cousin Ivon, explained role. Pt has been very drowsy today, RN aware and meds have been adjusted. Pt explains she is not confident about her return home because she didn't expect it to be this hard to move after surgery. PT/OT notes indicate pt is moving quite well for POD#2, Rec.= home w/cousin, which this WANIGAN CLERK shared w/pt. Pt concerned about laundry and house cleaning once her cousin needs to return home to [place]. Ivon expects to cancel her flight [id number] and push back for at least a few days to assist pt. Ivon understands pt will need assist w/ADLs once home. Encouraged pt to consider hiring a private cg and/or laborer hide house if this is financially feasible and pt agreed, stating she was looking into this prior to her surgery. The Dept is currently out of stock of the [facility] Resource Guide for 2018 but there should be copies available at either the [facility] and/or the [facility]. Pt appreciative. Reviewed HH; pt and cousin Ivon feel this might be helpful, no agency preference. This WANIGAN CLERK then left the room because pt was starting to feel nauseous. RN made aware. F2F needs to be signed by Dr Hadley in order for pt to get HH service. Following closely. JANKI Marie
[2018-01-28] MEDS: OXYCODONE IR 5 MG TABLET PO (14:02)
--- NOTE | 2018-01-28 14:39 | PC.NURSE ---
Pt continues to feel drowsy with nausea. She describes it as feeling queazy. Pt given percolone for pain and zofran for nausea at around 1400. Cousin in room assisting with cares..
--- NOTE | 2018-01-28 14:40 | PT.IPTN ---
Current Diagnoses Spondylolisthesis, lumbar region (01/26/18) Spinal stenosis, lumbar region with neurogenic claudication (01/26/18) Surgery Performed Operation Date: 01/26/18 12:15 Actual Procedures p L4-5 Laminectomy & Anterior/Posterior Instru Fusion(XLIF)w/Bone Graft - Alexander Hadley MD Physical Therapy Treatment Note M2 PT-IP Current Condition Start: 01/27/18 13:03 Freq: NEEDED Status: Active Protocol: Document 01/27/18 10:15 AB (Rec: 01/27/18 13:25 AB [id number]) Physical Therapy Current Condition Current Condition Evaluation Date 01/27/18 Treatment Diagnosis s/p L4-5 anterior and posterior fusion & laminectomy ; difficulty in walking Onset Date 01/26/18 Precautions Lumbar Precautions Log Roll No Twisting Limit Bending Lifting Restriction of 10 lbs Gait Belt above Incisional Area M3 PT-IP Subjective Start: 01/27/18 13:03 Freq: NEEDED Status: Active Protocol: Document 01/28/18 13:15 GGD (Rec: 01/28/18 16:13 GGD [id number]) Subjective Physical Therapy Visit Type Type Treatment Note Visit Start Time 14:45 Visit Stop Time 13:15 Total Visit Minutes 30 Number of STAFF PHARMACIST Visits 1 Physical Therapy Visit Comments Patient Comments Pt states she dosen't want to get up, but knows Therapy Pain Assessment Pain When Pain Assessed At Rest Pain Present Pain Present Pain Reported Location Left Leg Intensity 5 Scale Used Numeric (1 - 10) Description Aching M4 PT-IP Mobility and Gait Start: 01/27/18 13:03 Freq: NEEDED Status: Active Protocol: Document 01/28/18 13:15 GGD (Rec: 01/28/18 16:13 GGD [id number]) PT-Bed Mobility Assessment Rolling Type of Rolling Log Rolling Level of Assist Standby Assistance Supine to Sit Supine to Sit Standby Assistance Sit to Supine Sit to Supine Standby Assistance Scooting Scooting to Edge of Bed Standby Assistance PT-Transfer Assessment Sit to and From Stand Sit to and from Stand Standby Assistance Use of Upper Extremities Equipment Transfer Assistive Device Gait Belt Front Wheeled Walker Gait Assessment Gait Gait Assistance Required: Standby Assistance Distance (Feet) 100 Assistive Devices Assistive Device Gait Belt Front Wheeled Walker Factors Limiting Gait Function Factors Limiting Gait Function Decreased Strength Pain Stair Climbing Assessment Evaluation Level of Assist On Stairs Contact Guard Assistance Devices Stair Climbing Assistive Devices None Technique/Endurance Stair Climbing Direction Ascend and Descend Stair Climbing Technique Step to Step Number of Steps Climbed 3 Query Text: Stair Climbing Set # Repetitions (reps) 2 Comments Stair Climbing Comments Hand hold assist on right and family training for assist for stair mobility. M5 PT-IP Objective Assessments Start: 01/27/18 13:03 Freq: NEEDED Status: Active Protocol: Document 01/27/18 10:15 AB (Rec: 01/27/18 13:25 AB [id number]) Orientation Orientation/Cognition Level of Alertness Alert Orientation Name Age Birthday Month Date Year Day of Week Place Situation Safety Awareness Understands Safety Issues Memory Description No Deficits Noted Gross Range of Motion Lower Extremity ROM Assessment Within Functional Limits Strength Lower Extremity Strength Assessment Bilaterally Impaired Hip 4-/5 Knee 3+/5 Sensation Assessment Sensation Gross Sensation WNL Muscle Tone Muscle Tone WNL Yes M6 PT-IP Treatment Start: 01/27/18 13:03 Freq: NEEDED Status: Active Protocol: Document 01/28/18 13:15 GGD (Rec: 01/28/18 16:13 GGD [id number]) Physical Therapy Treatment Education Education Provided Precautions M7 PT-IP Assessment and Plan Start: 01/27/18 13:03 Freq: NEEDED Status: Active Protocol: Document 01/28/18 13:15 GGD (Rec: 01/28/18 16:13 GGD [id number]) PT Summary Assessment and Plan Summary Assessment Summary Pt improving with mobility. She was safe with stair mobility, using hand hold assist for balance. Family was able to assist with stair mobility safety. Frequency of Treatment Frequency Of Treatment Twice a Day Treatment Plan Physical Therapy Treatment Plan Bed Mobility Training Transfer Training Gait Training Therapeutic Exercise Balance Retraining Post Op Education Discharge Planning Hot or Cold Pack Neuromuscular Re-ed Coordination Retraining Manual Therapy Recommendations To Nursing Amount of Assist Needed 1 Person Assist Discharge Recommendations PT Discharge Recommendations Home with Assistance
--- NOTE | 2018-01-28 16:19 | OT.IP.TRT ---
Current Diagnoses Spondylolisthesis, lumbar region (01/26/18) Spinal stenosis, lumbar region with neurogenic claudication (01/26/18) Surgery Performed Operation Date: 01/26/18 12:15 Actual Procedures p L4-5 Laminectomy & Anterior/Posterior Instru Fusion(XLIF)w/Bone Graft - Alexander Hadley MD Occupational Therapy Treatment Note M2 OT-IP Current Condition Start: 01/27/18 16:29 Freq: Status: Active Protocol: Document 01/27/18 16:26 PJM (Rec: 01/27/18 16:54 PJM [id number]) Occupational Therapy Current Condition Current Condition Evaluation Date 01/27/18 Treatment Diagnosis decreased self care, functional mobility after L4-5 A/P LIF with aggarwal Diagnosis Onset Date 01/26/18 Post Operative Precautions Lumbar Precautions Log Roll No Twisting Limit Bending Lifting Restriction of 10 lbs Gait Belt above Incisional Area M3 OT- IP Subjective and Pain Start: 01/27/18 16:29 Freq: Status: Active Protocol: Document 01/28/18 16:08 [facility] (Rec: 01/28/18 16:19 [facility] [email or web address]) OT- Subjective Occupational Therapy Visit Type Type Treatment Note Visit Start Time 15:30 Visit Stop Time 16:00 Total Visit Minutes 30 Occupational Therapy Visit Comments Patient Comments Pt wanting to shower today. Cousin there for family training. OT Pain Assessment Pain When Pain Assessed At Rest Pain Present Pain Present Pain Reported Location Left Leg Intensity 6 Scale Used Numeric (1 - 10) Description Aching M4 OT- IP ADL's Start: 01/27/18 16:29 Freq: Status: Active Protocol: Document 01/28/18 16:08 [facility] (Rec: 01/28/18 16:19 [facility] [email or web address]) OT ADL-Dressing General Eval Upper Body Dressing Ability Standby Assistance Lower Body Dressing Ability Maximum Assistance Comments OT Dressing Comments Pt needing assist to don/doff socks for LB dressing. OT ADL-Toileting General Evaluation Toileting Ability Standby Assistance Devices Toileting Assistive Devices Grab Bars Comments OT Toileting Comments SBA while standing to do pericare needs. OT ADL-Bathing Bathing Type Bathing Type Shower General Evaluation Bathing Ability Moderate Assistance Areas Needing Assistance Wash/Dry Back Wash/Dry Lower Extremities Devices Bathing Equipment Shower Chair with Arms Grab Bars Comments OT Bathing Comments Pt needing assist to wash/dry back, hair and to dry her feet . Pt able to comfortable cross her legs over to wash her feet initially. Pt's family to assist her at home. To get shower chair for home in addition to AED for LB dressing needs. M5 OT- IP IADL's Start: 01/27/18 16:29 Freq: Status: Active Protocol: Document 01/27/18 16:26 PJM (Rec: 01/27/18 16:54 PJM [id number]) OT-Instrumental Activities of Daily Living Deficits IADL Deficits Identified Deficits Home Safety Awareness Awareness of Need for Assistance at Home Good Awareness Ability to Problem Solve Emergency Able to Problem Solve Situations Home Safety Comments Began education with pt/cousin re: options for feeding dog. Cousin to assist pt with set up for this at home. Medication Management Medication Management No Deficits Identified Money Management Money Management No Deficits Identified Meal Preparation Meal Preparation Caregiver Provides Assist Meal Preparation Comments will have assist for first week from cousin, then friends /neighbors can assist with grocery shopping Biometrics Technician Biometrics Technician Comments pt will arrange assist with cleaning; provided education re: body mechanics for laundry Driving Driving Caregiver Provides Assist Driving Comments pt will hire taxi or have friends assist until able to drive M6 OT- IP Functional Cognition Start: 01/27/18 16:29 Freq: Status: Active Protocol: Document 01/28/18 16:08 [facility] (Rec: 01/28/18 16:19 [facility] [id number]) Cognitive Factors Limiting Selfcare Function Cognitive Ability Level of Alertness Alert Patient Orientation Name Age Birthday Month Date Year Day of Week Place Situation Attention Span Ability Capable of Focused Attention Capable of Sustained Attention Ability to Follow Commands Able to Follow Multi-Step Commands Memory Description No Deficits Noted Safety Awareness No Deficits Noted Problem Solving Ability No deficits Noted M7 OT- IP Mobility and Balance Start: 01/27/18 16:29 Freq: Status: Active Protocol: Document 01/28/18 16:08 [facility] (Rec: 01/28/18 16:19 [facility] [email or web address]) OT- Bed Mobility Assessment Rolling Type of Rolling Roll to Right Level of Assistance Bedrails Supine to Sit Supine to Sit Assist Standby Assistance Sit to Supine Sit to Supine Assist Standby Assistance OT-Transfer Assessment Sit to and From Stand Sit to and from Stand Standby Assistance Contact Guard Assistance Transfers Transfer Ability Standby Assistance Contact Guard Assistance Technique Transfer Destination Bed Toilet Transfer Technique Stand Step Pivot Devices Transfer Assistive Devices Gait Belt Front Wheeled Walker Comments Mobility Comments CGA for balance while walking over thereshold of the shower. OT- Balance Assessment Sitting Balance and Reactions Static Sitting Balance Ability Normal Dynamic Sitting Balance Ability Good Standing Balance and Reactions Static Standing Balance Ability Good Dynamic Standing Balance Ability Fair M8 OT- IP Objective Assessments Start: 01/27/18 16:29 Freq: Status: Active Protocol: Document 01/27/18 16:26 PJM (Rec: 01/27/18 16:54 [facility] [id number]) OT Gross Range of Motion Upper Extremity Range of Motion Assessment Within Functional Limits ROM Impairments B shoulder scaption limited to ~90 degrees by stiffness, pt s/p L partial shoulder replacement and needs R TSA eventually per pt OT Strength Upper Extremity Strength Assessment Within Functional Limits OT- Coordination Assessment Comments Coordination Comments BUE WFL OT-Muscle Tone Assessment Muscle Tone WNL Yes OT Sensation Assessment Comments Summary Comments Pt denies deficits in BUE's Edema Edema Absent M9 OT- IP Assessment and Plan Start: 01/27/18 16:29 Freq: Status: Active Protocol: Document 01/28/18 16:08 [facility] (Rec: 01/28/18 16:19 [facility] [email or web address]) OT Summary Assessment and Plan Summary OT Impairments Pain Balance Functional Mobility Bathing Shower Transfers Progress Towards Goals Progressing Toward Goals Assessment Summary Pt and family has good understanding for all back precautions, equipment needs, and looking to go home tomorrow. Goals Days to Meet Goals 1 Frequency of Treatment Frequency Of Treatment Once a Day Treatment Plan OT Treatment Plan Patient/Family Education Discharge Planning Discharge Recommendations OT Discharge Recommendations Home with 17/11 Assist Home Equipment Needs shower seat, roulette dealer, sock aid
[2018-01-28] MEDS: SENNOSIDES 8.6 MG TABLET 17.2 MG PO (20:44)
[2018-01-28] MEDS: ROSUVASTATIN 10 MG TABLET PO (20:44)
[2018-01-28] MEDS: GABAPENTIN 300 MG CAPSULE PO (20:45)
[2018-01-28] MEDS: SODIUM CHLORIDE 0.9% FLUSH 10 ML IV (20:45)
[2018-01-29] VITALS: BP 107/59; PULSE 64; RESP 16; TEMP 37.8; O2SAT 96
[2018-01-29 01:09] VITALS: TEMP 37.5
[2018-01-29 04:20] VITALS: BP 102/53; PULSE 62; RESP 18; TEMP 37.1; O2SAT 95
[2018-01-29] MEDS: OXYCODONE IR 5 MG TABLET PO ×2 (04:36→08:21)
--- NOTE | 2018-01-29 06:19 | PC.NURSE ---
NOC pt AO and pleasant. Started shift denying pain and then increased to a 6/10 after ambulating to bathroom. Administered 5mg oxycodone, pt able to sleep afterwards. Patient has had a decrease in appetite, although denies nausea, did not eat dinner. I educated pt on why she needs to eat, and encouraged foods that she finds appealing. Ordered breakfast.
[2018-01-29 07:45] VITALS: BP 107/61; PULSE 70; RESP 20; TEMP 36.9; O2SAT 96
--- NOTE | 2018-01-29 08:01 | PM.DS.1 ---
History of Present Illness Date Patient Seen: 01/29/18 Time Patient Seen: 08:01 Chief complaint: [id number] L4-5 Narrative: [age] year old female with intractable pain from stenosis. They had failed conservative management and requested operative intervention. Risks and benefits of surgery were discussed and appropriate consents were obtained. Discharge Providers Date of admission: 01/26/18 10:36 Primary care physician: Yenifer Sin PA-C Consults: 01/26/18 18:24 Consult to Occupational Therapy Evaluate & Treat Comment: Physician Instructions: Evaluate and treat Consult to Physical Therapy Evaluate & Treat Comment: bedrest tonight, start PT tomorrow Physician Instructions: Evaluate and Treat Discharge provider: Sherie Alejandra PA-C Discharge Date: 01/29/18 Summary Discharge Diagnosis: s/p lumbar fusion GERD Hypertension Lumbar spinal stenosis hyperlipidemia hydronephrosis of left kidney Hospital Course: Alice was admitted for lumbar fusion with Dr. Hadley, and she consented to procedure. During her procedure she did have a dural tear, throughout her hospital stay she was asymptomatic for headaches. Hospital course was unremarkable. On postop day 3. She was feeling well and wanted to go home. Her pain was well controlled with oxycodone. She states she has a pain contract and her doctor is aware that she is having surgery. She was provided a prescription today for oxycodone to treat her postoperative pain. Through her stay she was up with physical therapy. She is aware of her precautions of no excessive bending, lifting, or twisting. She was eating and voiding without any difficulty or assistance. Exam Vital Signs (past 8 hours): - 01/29/18 01:09 01/29/18 04:20 Temperature 99.5 F 98.7 F Pulse Rate 62 Respiratory Rate 18 Blood Pressure 102/53 L Pulse Oximetry 95 Oxygen Delivery Method Room Air Oxygen Flow Rate 0 Narrative Exam Narrative: Patient lying in bed in no acute distress. Dressings are CDI. Calves are soft, compressible, nontender bilaterally. Sensation intact to light touch throughout bilateral lower extremities. Her pain is well controlled this morning. Denies any chest pain or shortness of breath. Objective Labs Result Diagrams: 01/27/18 05:00 Discharge Plan Discharge Plan Patient Disposition: Home Discharge comment: DC home today with coversite dressing on Discharge Med Rec/Prescriptions Prescriptions: New oxycodone 5 mg Tablet 5 mg PO Q4HR Qty: 40 RF: 0 acetaminophen [Tylenol] 325 mg tablet 325 mg PO Q4H PRN (Reason: pain) Qty: 20 RF: 0 Continue lorazepam 1 MG tablet 1 mg PO Q8HP PRN (Reason: Anxiety) Qty: 0 RF: 0 metoprolol succinate [Toprol XL] 25 MG tablet extended release 24 hr 25 mg PO QDAY Qty: 0 RF: 0 rosuvastatin [Crestor] 10 MG tablet 10 mg PO BEDTIME Qty: 0 RF: 0 ibuprofen [Advil] 200 MG tablet 600 mg PO Q6HP PRN (Reason: pain) Qty: 0 RF: 0 lamotrigine [Lamictal] 200 MG tablet 200 mg PO QDAY Qty: 90 RF: 2 oxycodone 5 MG tablet 5 mg PO Q4HP PRN (Reason: pain) RF: 0 Follow up/Referrals: Yenifer Sin PA-C [Primary Care Provider] - (please follow up with dewayne [phone]) Provider Discharge Instructions Diet: Diet as Tolerated Activity: No excessive bending, lifting, or twisting. Skin/Wound/Dressing Care Report to your healthcare provider any signs of infection, such as:: chills, fever and increased pain Dressing: Leave in place until first appointment Visit Report/Discharge Packet Visit Report Forms: Stroke Signs & Symptoms Discharge Data Primary Care Provider: Yenifer Sin Attending Provider: Alexander Hadley Admit Date/Time: 01/26/18 10:36 Quality VTE Deep Vein Thrombosis/Pulmonary Embolism Present on Admission: No
[2018-01-29] MEDS: lamoTRIgine 100 MG TABLET 200 MG PO (08:20)
[2018-01-29] MEDS: SODIUM CHLORIDE 0.9% FLUSH 10 ML IV (08:20)
[2018-01-29] MEDS: METOPROLOL ER 25 MG TABLET PO (08:20)
[2018-01-29] MEDS: DOCUSATE 100 MG CAPSULE PO (08:21)
--- NOTE | 2018-01-29 09:25 | PT.IPTN ---
Current Diagnoses Spondylolisthesis, lumbar region (01/26/18) Spinal stenosis, lumbar region with neurogenic claudication (01/26/18) Surgery Performed Operation Date: 01/26/18 12:15 Actual Procedures p L4-5 Laminectomy & Anterior/Posterior Instru Fusion(XLIF)w/Bone Graft - Alexander Hadley MD Physical Therapy Treatment Note M2 PT-IP Current Condition Start: 01/27/18 13:03 Freq: NEEDED Status: Active Protocol: Document 01/27/18 10:15 [facility] (Rec: 01/27/18 13:25 AB [id number]) Physical Therapy Current Condition Current Condition Evaluation Date 01/27/18 Treatment Diagnosis s/p L4-5 anterior and posterior fusion & laminectomy ; difficulty in walking Onset Date 01/26/18 Precautions Lumbar Precautions Log Roll No Twisting Limit Bending Lifting Restriction of 10 lbs Gait Belt above Incisional Area M3 PT-IP Subjective Start: 01/27/18 13:03 Freq: NEEDED Status: Active Protocol: Document 01/29/18 09:25 GGD (Rec: 01/29/18 11:01 GGD [id number]) Subjective Physical Therapy Visit Type Type Treatment Note Visit Start Time 09:10 Visit Stop Time 09:25 Total Visit Minutes 15 Number of BANKRUPTCY LEGAL ASSISTANT Visits 2 Physical Therapy Visit Comments Patient Comments Pt states she feeling better and ready to go home. Therapy Pain Assessment Pain When Pain Assessed At Rest Pain Present Pain Present Pain Reported Location Left Leg Intensity 4 Scale Used Numeric (1 - 10) Pain Management Techniques Timing of Activity with Medications M4 PT-IP Mobility and Gait Start: 01/27/18 13:03 Freq: NEEDED Status: Active Protocol: Document 01/29/18 10:57 GGD (Rec: 01/29/18 11:01 GGD [id number]) PT-Bed Mobility Assessment Rolling Type of Rolling Log Rolling Level of Assist Standby Assistance Supine to Sit Supine to Sit Standby Assistance Sit to Supine Sit to Supine Standby Assistance Scooting Scooting to Edge of Bed Standby Assistance PT-Transfer Assessment Sit to and From Stand Sit to and from Stand Standby Assistance Use of Upper Extremities Equipment Transfer Assistive Device Gait Belt Front Wheeled Walker Transfers Transfer Destination Toilet M5 PT-IP Objective Assessments Start: 01/27/18 13:03 Freq: NEEDED Status: Active Protocol: Document 01/27/18 10:15 AB (Rec: 01/27/18 13:25 AB [id number]) Orientation Orientation/Cognition Level of Alertness Alert Orientation Name Age Birthday Month Date Year Day of Week Place Situation Safety Awareness Understands Safety Issues Memory Description No Deficits Noted Gross Range of Motion Lower Extremity ROM Assessment Within Functional Limits Strength Lower Extremity Strength Assessment Bilaterally Impaired Hip 4-/5 Knee 3+/5 Sensation Assessment Sensation Gross Sensation WNL Muscle Tone Muscle Tone WNL Yes M6 PT-IP Treatment Start: 01/27/18 13:03 Freq: NEEDED Status: Active Protocol: Document 01/29/18 10:57 GGD (Rec: 01/29/18 11:01 GGD [id number]) Physical Therapy Treatment Education Education Provided Precautions M7 PT-IP Assessment and Plan Start: 01/27/18 13:03 Freq: NEEDED Status: Active Protocol: Document 01/29/18 10:57 GGD (Rec: 01/29/18 11:01 GGD [email or web address]) PT Summary Assessment and Plan Summary Assessment Summary Pt improving with mobility and pain control. She needs cues for log roll techinque. Frequency of Treatment Frequency Of Treatment Twice a Day Treatment Plan Physical Therapy Treatment Plan Bed Mobility Training Transfer Training Gait Training Therapeutic Exercise Balance Retraining Post Op Education Discharge Planning Hot or Cold Pack Neuromuscular Re-ed Coordination Retraining Manual Therapy Recommendations To Nursing Amount of Assist Needed 1 Person Assist Discharge Recommendations PT Discharge Recommendations Home with Assistance
--- NOTE | 2018-01-29 11:35 | CM.MNRNOTE ---
Discharge pt states pain present in AM especially with movement. pt up to chair and requested pain medication. states decreased her pain from a 4 down to a 3. up with SBA/1 person assist with FWW to bathroom and chair. prior to d/c, pt was asking cousin regarding pain medication at d/c. cousin relays that pt had a Rx for pain meds at home however she was in a lot of pain prior to surgery and she took about 1/3 of the meds already. Had conversation with pt regarding her pain contract with PCP and she states PCP is aware of extra medication intake for surgery. Rx for 40 oxycodone provided to pt's cousin (at pt's request) to get filled. This was filled in outpt pharmacy downstairs prior to d/c. D/c instructions provided to pt and cousin. Pt has apt already scheduled with Dr Hadley's office for f/u. Also notified to make f/u apt with PCP. Notified to contact surgeon with any additional questions or concerns. PIV removed prior to d/c. Pt states she took all belongings with her.
--- NOTE | 2018-01-29 14:24 | CM.DPC ---
DC Note: Reviewed pt's DCP with KATHLEEN Toussaint; Breana explained Dr Barker and Dr Hadley have left (out of town) so there is no one today to sign the F2F for pt's home health. Dr Hadley likes to review all HH requests. Relayed this to pt's cousin as she was heading to fill pt's Rx. She is planning on staying through Thursday and will explain above re: HH to the pt. P: Home today w/cousin via pov. Cousin to assist. They will call Ortho office to request Home Health if it seems pt would benefit once home (especially a bath aid). JANKI Marie
== END 2018-01-29 11:35 | disposition home or self-care (01) | DRG 454 ==
PROVIDERS: Admitting Provider Orthopaedic Surgery; Family Provider Physician Assistant; PCP Physician Assistant; Visit Provider Orthopaedic Surgery
PROC: 0SG00A0 Fusion of Lumbar Vertebral Joint with Interbody Fusion Device, Anterior Approach, Anterior Column, Open Approach (ICD-10-PCS; CPT 22558; principal; 2018-01-26 12:15)
DX: M43.16 Spondylolisthesis, lumbar region (principal); G97.41 Accidental puncture or laceration of dura during a procedure; M48.062 Spinal stenosis, lumbar region with neurogenic claudication; I10 Essential (primary) hypertension; E78.5 Hyperlipidemia, unspecified; K21.9 Gastro-esophageal reflux disease without esophagitis; F32.9 Major depressive disorder, single episode, unspecified; M85.48 Solitary bone cyst, other site
CPT/HCPCS: 36415; 72100; 76001; 85014; 85018; 97116; 97161; 97165; 97530; 97535; C1776; C1788; J0330; J0360; J0595; J0690; J1100; J1170; J2250; J2274; J2405; J2704; J3010

== ENCOUNTER 2018-08-19 13:45 | Outpatient (RCR) | payer OTHER, SELFPAY ==
[2018-01-26 18:58] VITALS: BMI 28.1
--- NOTE | 2018-04-13 17:10 | PT.OIE ---
Current Diagnoses Strain of muscle, fascia and tendon of lower back, subsequent encounter (04/13/18) Arthrodesis status (04/13/18) Past Medical History (Last Updated 01/13/18 @ 11:19 by Brianna Bronson RN) Anxiety (Acute) Depression (Acute) Diverticulitis (Acute) HTN (hypertension) (Acute) Hyperlipidemia (Acute) Kidney infection (Acute) Kidney stone (Acute) Numbness and tingling of both legs (Acute) Osteoarthritis (Acute) [place] teeth removed (Acute) Past Surgical History (Last Updated 01/13/18 @ 12:26 by Brianna Bronson RN) History of arthroplasty of left shoulder (Acute) History of arthroscopy of right shoulder (Acute) Hx of arthroscopy of right knee (Acute) Hx of tubal ligation (Acute) S/P cervical spinal fusion (Acute) Status post bilateral cataract extraction (Acute) Provider Visit Care Team Role Provider Type Yenifer Sin PA-C Family Provider Physician Primary Care Provider Specialty: Internal Medicine Address: [address] [place] [address], [facility] Email: Alexander Hadley MD Attending Provider Physician Specialty: Orthopedic Surgery Address: [address] [place] [address], [id number] Email: [email or web address] Physical Therapy Initial Evaluation PT-OP-A Visit Information Start: 04/13/18 13:41 Freq: Status: Active Protocol: Document 04/13/18 17:15 EA (Rec: 04/13/18 17:24 EA [id number]) Out-Patient Physical Therapy Visit Information Visit Information Visit Type Initial Evaluation Visit Start Time 14:30 Visit Stop Time 15:15 Total Visit Minutes 45 Visit Number 1 Evaluation Information Evaluation Date 04/13/18 Precautions Precautions S/P 8 wks L4-L5 TLIF: Lifting not more than 10 lbs No spinal bending FWD, No extreme rotation PT-OP-B Current Condition Start: 04/13/18 13:41 Freq: Status: Active Protocol: Document 04/13/18 17:15 EA (Rec: 04/13/18 17:24 EA [id number]) Current Condition History of Current Condition Onset Date 01/26/18 Current Complaints S/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 Patient reports low back pain and with numbness to LE happens on 07/2017; states no injury noted or previous surgery to low back prior to low back pain onset. Patient states went to PT but failed to recovered fully. Prior to year 2017, patient reports she has no limitation in mobility . Prior Treatments and Tests None identified after the surgery Future Testing and Treatments Planned None identified Treatment Goals Patient/Caregiver Goals Patient wants to be able to walk more than 15 minutes without increase of low back symptoms Patient would like to perform home activities with increase tolerance to > 30 mins without increase of back symptoms. Prior Functional Status Baseline Function- ADL's Independent Baseline Function- Mobility Independent Baseline Function- Gait Able to amb > 2 block with her dogs prior to initial onset on 07/2017 Baseline Function- Work/School Retired Current Functional Impairments (Reported) Functional Limitations- ADL's Requires frequent rest at home with all ADL's(Every 15 minutes) Functional Limitations- Mobility/Gait Requires to sit before 15 minutes of cont. walk Functional Limitations- Recreation/ Unable to walk with her dog Hobbies outside more than 5 minutes due to increase of back symptoms. PT-OP-C Subjective Start: 04/13/18 13:41 Freq: Status: Active Protocol: Document 04/13/18 17:08 ALEJANDRO (Rec: 04/13/18 17:14 ALEJANDRO [id number]) OP-PT Subjective Patient Comments Patient Comments Pt reports had a fall a week ago landed on her buttocks with no severe increased in low back pain; patient denies tingling and weakness to both LE after the fall; states she decided not to see her surgeon as she feels okay. Pt noted that she feels clumsy at times and feels legs moves in uncontrolled direction. Patient Reported Progress Same Patient Questionnaires Oswestry Low Back Index Oswestry Score 20 Oswestry Impairment 40 to 59% Impaired (Score 40- 59) OP-PT Pain Assessment Pain Assessment Grid Paper Pain Assessment Grid Completed Yes Location Bilateral Lower Back Pain Location Details Low back/paralumbars Intensity 5 Scale Used Numeric (1 - 10) Description Tender Tightness Frequency Intermittent Pain Aggravating Factors Position Standing Walking Lifting Pain Alleviating Factors Medication Home Pain Medication Use Pain Medications Used Yes Home Pain Medication Frequency PRN Pain Behaviors Pain Behaviors Guarding [place] PT-OP-D Balance Start: 04/13/18 13:41 Freq: Status: Active Protocol: Document 04/13/18 17:08 EA (Rec: 04/13/18 17:14 EA [id number]) Balance Tests Romberg Romberg <5 sec Single Limb Standing Single Limb- Right <2 sec Single Limb- Left < 2secs Tandem Tandem Standing unable PT-OP-E Functional Tests Start: 04/13/18 13:41 Freq: Status: Active Protocol: Document 04/13/18 17:52 EA (Rec: 04/14/18 07:53 EA [id number]) Functional Tests Squat Test Score 5 squat no hand support 90deg in 10 seconds PT-OP-G Mobility & Gait Start: 04/13/18 13:41 Freq: Status: Active Protocol: Document 04/14/18 07:53 EA (Rec: 04/14/18 07:55 EA [id number]) OP Mobility Evaluation Bed Mobility Rolling Difficulty due to back stiffness and pain Supine to and from Sit Low roll Transfers Sit to Stand Indep Bed to Chair Transfers inedp Functional Movements Lifting and Carrying 10 lbs restrictions Squats 90 deg indepdent with no hand support OP Gait Assessment Gait Gait Assistance Required: Independent Distance (Feet) 120 Able to Maintain Weight Bearing Status Yes During Gait Assistive Devices Assistive Device None Comments Gait Comments stiffed back with forward trunk beneding PT-OP-H Neuro Start: 04/13/18 13:41 Freq: Status: Active Protocol: Document 04/13/18 17:08 EA (Rec: 04/13/18 17:14 EA [id number]) Coordination Evaluation Lower Extremity Tests Left Alternate Heel to Knee; Heel to Toe Test Normal Performance Heel on [place]onzo Test Normal Performance Foot Tapping Test Normal Performance Toe to Examiner's Finger Test Normal Performance Drawing a [place] w/Foot Test Normal Performance Lower Extremity Fixation/Position Normal Performance Holding Test Right Alternate Heel to Knee; Heel to Toe Test Normal Performance Heel on [place] Test Normal Performance Foot Tapping Test Normal Performance Toe to Examiner's Finger Test Normal Performance Drawing a [place] w/Foot Test Normal Performance Lower Extremity Fixation/Position Normal Performance Holding Test Deep Tendon Reflex & Clonus Assessment Deep Tendon Reflex Bilateral Achilles Deep Tendon Reflex 2+ Normal Patellar Deep Tendon Reflex 2+ Normal PT-OP-J Posture/Palpation/Skin Start: 04/13/18 13:41 Freq: Status: Active Protocol: Document 04/13/18 17:02 EA (Rec: 04/13/18 17:08 EA [id number]) Posture Evaluation Position Standing Evaluation View Lateral Head/C-Spine Posture Forward Head Thorax Posture Neutral L-Spine Posture Flattened Shoulder Posture (L) Rounded (R) Rounded Arm Posture (L) Internally Rotated (R) Internally Rotated Pelvis Posture Posterior Tilted Hip Posture (L) Externally Rotated (R) Externally Rotated Palpation Assessment Location One Palpation Location Paralumbars Palpation Findings Soft Tissue Tightness Muscle Guarding Tenderness Palpation Details Grade 2/4 tenderness Skin Assessment Incisional Assessment Incision Appearance/Comments Healthy skin/scar with signs of good healing at L4-L5 level vertically PT-OP-K Range of Motion Start: 04/13/18 13:41 Freq: Status: Active Protocol: Document 04/13/18 17:02 EA (Rec: 04/13/18 17:08 EA [id number]) Lumbar Spine Range of Motion Lumbar Spine Active Percentage Testing Position Standing Flexion 75 Extension 50 Rotation Left 70 Rotation Right 80 Lateral Flexion Left 35 Lateral Flexion Right 35 ROM Limitations Soft Tissue Tightness Pain PT-OP-M Strength Start: 04/13/18 13:41 Freq: Status: Active Protocol: Document 04/13/18 17:08 EA (Rec: 04/13/18 17:14 EA [id number]) Trunk Strength Trunk Manual Muscle Testing Testing Position Sitting Flexion 4 Good Extension 4 Good Rotation Left 4 Good Rotation Right 4 Good Lateral Flexion Left 4 Good Lateral Flexion Right 4 Good Hip Strength Hip Manual Muscle Testing Left Flexion (L2) 4- Good- Extension (S1) 4- Good- Abduction 4- Good- Adduction 4- Good- External Rotation 4- Good- Internal Rotation 4- Good- Knee Strength Knee Manual Muscle Testing Right Flexion (S2) 5 Normal Extension (L3) 5 Normal Left Flexion (S2) 5 Normal Extension (L3) 5 Normal Ankle/Foot Strength Ankle and Foot Manual Muscle Testing Right Dorsiflexion (L4) 5 Normal Plantarflexion (S1) 5 Normal Inversion 5 Normal Eversion (S1) 5 Normal Left Dorsiflexion (L4) 5 Normal Plantarflexion (S1) 5 Normal Inversion 5 Normal Eversion (S1) 5 Normal PT-OP-Q Treatments Start: 04/13/18 13:41 Freq: Status: Active Protocol: Document 04/13/18 17:02 EA (Rec: 04/13/18 17:08 EA [id number]) Self-Care/Home Management Treatment Education Patient Education Body Mechanics Home Exercise Program Pain Management Posture Safety Other Education HEP given and educated PT-OP-T Assessment and Plan Start: 04/13/18 13:41 Freq: Status: Active Protocol: Document 04/13/18 17:02 EA (Rec: 04/13/18 17:08 EA [id number]) Physical Therapy Assessment Rehab Potential Rehabilitation Potential Good Impairments Impairments Activity Tolerance Pain Posture ROM Soft Tissue Mobility Tone Goals Five Impairment No HEP in place Halfway Goal (LTG) Patient will adhere/comply and perform HEP LTG Duration 3 wks Four Impairment 3 months post surgery 10 lbs lifting restrictions. Halfway Goal (LTG) Patient will lift more than 10 lbs with good body mechanics 3 months after the surgery. LTG Duration 4 wks Three Impairment Impaired walking tolerance Halfway Goal (LTG) Patient will walk more than 15 mins with no increase in low back symptoms LTG Duration 4 wks Two Impairment Impaired standing tolerance Halfway Goal (LTG) Patient will stand > 30 mins with no increase in low back symptoms LTG Duration 4 wks One Impairment Oswestry impairment scale score of 20/50 Halfway Goal (LTG) Patient will have Oswestry functional low back score of at least <10/50 LTG Duration 5 wks Assessment Summary Assessment 72 y/o F patient who is s/p L4 -L5 laminectomy and ant/post instrumented fusion w/ bone graft 01/26/18. Today patient demonstrates stiff back gait with limited trunk movement. Assessment reveals limited lumbosacral ROM and weak trunk control. Bilateral LE strength reveal disused weakness to both hip flexors, rotators and hip extensor with MMT of at least 4-/5. Palpation reveals tender to paralumbars, QL and upper gluteals areas with evidence of lumbar muscle guarding. Skin assessment reveals healthy ~ 2 vertical scars at L2-S1 level. Sensory tests from L1-S2 exhibits no deficits at this time. Due to above body dysfunction, patient has limited functional mobility and will benefit with skilled PT to address the aforementioned issues. Physical Therapy Plan Frequency and Duration Frequency of Treatment 2x/Week Plan of Care Start Date 04/13/18 Plan of Care End Date 06/08/18 Therapeutic Interventions Therapeutic Interventions Gait Training Home Exercise Program Joint Mobilizations Manual Therapy Patient/Caregiver Education Self-Care/Home Management Soft Tissue Mobilization Taping Therapeutic Exercises Modalities Cold Pack/Ice Massage Electric Stimulation Hot Packs Other Referrals/Consults Referrals/Consults Recommended Consult to her surgeon for low back assessment after last week home fall while undergoing to physical therapy with emphasis of focusing on decreasing low back pain. Next Visit Focus/Plan Next Note Type Treatment Note
--- NOTE | 2018-04-13 17:20 | PT.OPPOC ---
Current Diagnoses Strain of muscle, fascia and tendon of lower back, subsequent encounter (04/13/18) Arthrodesis status (04/13/18) Provider Visit Care Team Role Provider Type Yenifer Sin PA-C Family Provider Physician Primary Care Provider Specialty: Internal Medicine Address: [address] [place] [address], [id number] Email: Alexander Hadley MD Attending Provider Physician Specialty: Orthopedic Surgery Address: [address] [place] [address], [id number] Email: [email or web address] Of Care PT-OP-T Assessment and Plan Start: 04/13/18 13:41 Freq: Status: Active Protocol: Document 04/13/18 17:02 EA (Rec: 04/13/18 17:08 EA [id number]) Physical Therapy Assessment Rehab Potential Rehabilitation Potential Good Impairments Impairments Activity Tolerance Pain Posture ROM Soft Tissue Mobility Tone Goals Five Impairment No HEP in place Correction Goal (LTG) Patient will adhere/comply and perform HEP LTG Duration 3 wks Four Impairment 3 months post surgery 10 lbs lifting restrictions. Teacher Private Goal (LTG) Patient will lift more than 10 lbs with good body mechanics 3 months after the surgery. LTG Duration 4 wks Three Impairment Impaired walking tolerance Correction Goal (LTG) Patient will walk more than 15 mins with no increase in low back symptoms LTG Duration 4 wks Two Impairment Impaired standing tolerance Correction Goal (LTG) Patient will stand > 30 mins with no increase in low back symptoms LTG Duration 4 wks One Impairment Oswetry impairment scale score of 20/50 Correction Goal (LTG) Patient will have Oswestry functional low back score of at least <10/50 LTG Duration 5 wks Assessment Summary Assessment 72 y/o F patient who is s/p L4 -L5 laminectomy and ant/post intrumented fusion w/ bone graft 01/26/18. Today patient demonstrates stiff back gait with limited trunk movement. Assessment reveals limited lumbosacral ROM and weak trunk control. Bilateral LE strength reveal disused weakness to both hip flexors, rotators and hip extensor with MMT of at least 4-/5. Palpation reveals tender to paralumbars, QL and upper gluteals areas with evidence of lumbar muscle guarding. Skin assessment reveals healthy ~ 2 vertical scars at L2-S1 level. Sensory tests from L1-S2 exhibits no deficits at this time. Due to above body dysfunction, patient has limited functional mobility and will benefit with skilled PT to address the aforementioned issues. Physical Therapy Plan Frequency and Duration Frequency of Treatment 2x/Week Plan of Care Start Date 04/13/18 Plan of Care End Date 06/08/18 Therapeutic Interventions Therapeutic Interventions Gait Training Home Exercise Program Joint Mobilizations Manual Therapy Patient/Caregiver Education Self-Care/Home Management Soft Tissue Mobilization Taping Therapeutic Exercises Modalities Cold Pack/Ice Massage Electric Stimulation Hot Packs Other Referrals/Consults Referrals/Consults Recommended Consult to her surgeon for low back assessment after last week home fall while undergoing to physical therapy with emphasis of focusing on decreasing low back pain. Next Visit Focus/Plan Next Note Type Treatment Note Plan of Care Dates Plan of Care Start Date 04/13/18 Plan of Care End Date 06/08/18 Please Sign and Return: I have reviewed this Plan of Care and certify that the skilled therapy services above are required to meet the patient?s needs. Physician Signature Date Printed Name and Credentials Clinical Instructor Signature Printed Name and Credentials
--- NOTE | 2018-04-22 16:13 | PT.OTN ---
Current Diagnoses Strain of muscle, fascia and tendon of lower back, subsequent encounter (04/22/18) Arthrodesis status (04/22/18) Physical Therapy Treatment Note PT-OP-A Visit Information Start: 04/13/18 13:41 Freq: Status: Active Protocol: Document 04/22/18 15:19 EA (Rec: 04/22/18 15:24 EA [id number]) Out-Patient Physical Therapy Visit Information Visit Information Visit Type Treatment Note Visit Start Time 15:15 Visit Stop Time 16:00 Total Visit Minutes 45 Visit Number 2 PT-OP-B Current Condition Start: 04/13/18 13:41 Freq: Status: Active Protocol: Document 04/13/18 17:15 EA (Rec: 04/13/18 17:24 EA [id number]) Current Condition History of Current Condition Onset Date 01/26/18 Current Complaints S/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 Patient reports low back pain and with numbness to LE happens on 07/2017; states no injury noted or previous surgery to low back prior to low back pian onset. Patient states went to PT but failed to recovered fully. Prior to year 2017, patient reports she has no limitation in mobility . Prior Treatments and Tests None identified after the surgery Future Testing and Treatments Planned None identified Treatment Goals Patient/Caregiver Goals Patient wants to be able to walk more than 15 minutes without increase of low back symptoms Patient would like to perform home activities with increase tolerance to > 30 mins without increase of back symptoms. Prior Functional Status Baseline Function- ADL's Independent Baseline Function- Mobility Independent Baseline Function- Gait Able to amb > 2 block with her dogs prior to initial onset on 07/2017 Baseline Function- Work/School Retired Current Functional Impairments (Reported) Functional Limitations- ADL's Requires frequent rest at home with all ADL's(Every 15 minutes) Functional Limitations- Mobility/Gait Requires to sit before 15 minutes of cont. walk Functional Limitations- Recreation/ Unable to walk with her dog Hobbies outside more than 5 minutes due to increase of back symptoms. PT-OP-C Subjective Start: 04/13/18 13:41 Freq: Status: Active Protocol: Document 04/22/18 15:19 EA (Rec: 04/22/18 15:24 EA [id number]) OP-PT Subjective Patient Comments Patient Comments Pt reports still difficult to move and lift due to back pain ; states even coughing hurts low back. Patient Reported Progress Same PT-OP-D Balance Start: 04/13/18 13:41 Freq: Status: Active Protocol: Document 04/13/18 17:08 EA (Rec: 04/13/18 17:14 EA [id number]) Balance Tests Romberg Romberg <5 sec Single Limb Standing Single Limb- Right <2 sec Single Limb- Left < 2secs Tandem Tandem Standing unable PT-OP-E Functional Tests Start: 04/13/18 13:41 Freq: Status: Active Protocol: Document 04/13/18 17:52 EA (Rec: 04/14/18 07:53 EA [id number]) Functional Tests Squat Test Score 5 squat no hand support 90deg in 10 seconds PT-OP-G Mobility & Gait Start: 04/13/18 13:41 Freq: Status: Active Protocol: Document 04/14/18 07:53 EA (Rec: 04/14/18 07:55 EA [id number]) OP Mobility Evaluation Bed Mobility Rolling Difficulty due to back stiffness and pain Supine to and from Sit Low roll Transfers Sit to Stand Indep Bed to Chair Transfers inedp Functional Movements Lifting and Carrying 10 lbs restrictions Squats 90 deg indepdent with no hand support OP Gait Assessment Gait Gait Assistance Required: Independent Distance (Feet) 120 Able to Maintain Weight Bearing Status Yes During Gait Assistive Devices Assistive Device None Comments Gait Comments stiffed back with forward trunk beneding PT-OP-H Neuro Start: 04/13/18 13:41 Freq: Status: Active Protocol: Document 04/13/18 17:08 EA (Rec: 04/13/18 17:14 EA [id number]) Coordination Evaluation Lower Extremity Tests Left Alternate Heel to Knee; Heel to Toe Test Normal Performance Heel on [place] Test Normal Performance Foot Tapping Test Normal Performance Toe to Examiner's Finger Test Normal Performance Drawing a [place] w/Foot Test Normal Performance Lower Extremity Fixation/Position Normal Performance Holding Test Right Alternate Heel to Knee; Heel to Toe Test Normal Performance Heel on [place] Test Normal Performance Foot Tapping Test Normal Performance Toe to Examiner's Finger Test Normal Performance Drawing a [place] w/Foot Test Normal Performance Lower Extremity Fixation/Position Normal Performance Holding Test Deep Tendon Reflex & Clonus Assessment Deep Tendon Reflex Bilateral Achilles Deep Tendon Reflex 2+ Normal Patellar Deep Tendon Reflex 2+ Normal PT-OP-J Posture/Palpation/Skin Start: 04/13/18 13:41 Freq: Status: Active Protocol: Document 04/13/18 17:02 EA (Rec: 04/13/18 17:08 EA [id number]) Posture Evaluation Position Standing Evaluation View Lateral Head/C-Spine Posture Forward Head Thorax Posture Neutral L-Spine Posture Flattened Shoulder Posture (L) Rounded (R) Rounded Arm Posture (L) Internally Rotated (R) Internally Rotated Pelvis Posture Posterior Tilted Hip Posture (L) Externally Rotated (R) Externally Rotated Palpation Assessment Location One Palpation Location [place] Palpation Findings Soft Tissue Tightness Muscle Guarding Tenderness Palpation Details Grade 2/4 tenderness Skin Assessment Incisional Assessment Incision Appearance/Comments Healthy skin/scar with signs of good healing at L4-L5 level vertically PT-OP-K Range of Motion Start: 04/13/18 13:41 Freq: Status: Active Protocol: Document 04/13/18 17:02 EA (Rec: 04/13/18 17:08 EA [id number]) Lumbar Spine Range of Motion Lumbar Spine Active Percentage Testing Position Standing Flexion 75 Extension 50 Rotation Left 70 Rotation Right 80 Lateral Flexion Left 35 Lateral Flexion Right 35 ROM Limitations Soft Tissue Tightness Pain PT-OP-M Strength Start: 04/13/18 13:41 Freq: Status: Active Protocol: Document 04/13/18 17:08 EA (Rec: 04/13/18 17:14 EA [id number]) Trunk Strength Trunk Manual Muscle Testing Testing Position Sitting Flexion 4 Good Extension 4 Good Rotation Left 4 Good Rotation Right 4 Good Lateral Flexion Left 4 Good Lateral Flexion Right 4 Good Hip Strength Hip Manual Muscle Testing Left Flexion (L2) 4- Good- Extension (S1) 4- Good- Abduction 4- Good- Adduction 4- Good- External Rotation 4- Good- Internal Rotation 4- Good- Knee Strength Knee Manual Muscle Testing Right Flexion (S2) 5 Normal Extension (L3) 5 Normal Left Flexion (S2) 5 Normal Extension (L3) 5 Normal Ankle/Foot Strength Ankle and Foot Manual Muscle Testing Right Dorsiflexion (L4) 5 Normal Plantarflexion (S1) 5 Normal Inversion 5 Normal Eversion (S1) 5 Normal Left Dorsiflexion (L4) 5 Normal Plantarflexion (S1) 5 Normal Inversion 5 Normal Eversion (S1) 5 Normal PT-OP-Q Treatments Start: 04/13/18 13:41 Freq: Status: Active Protocol: Document 04/22/18 15:19 EA (Rec: 04/22/18 15:24 EA [id number]) Cardio Equipment Recumbent Bicycle Duration (Minutes) 7 Resistance 4 Seat Position 2 Gym Equipment Shuttle Recovery Unilateral Squats Resistance 1.5 Shuttle Recovery Platform Stable Reps/Time x 12 reps Bilateral Squats Details as tolerated range Resistance 2.5 cords Shuttle Recovery Platform Stable Reps/Time x 15 reps Therapeutic Exercises Supine Exercises 3 Supine Exercise Name Bridge as tolerated range Side bilateral Reps/Minutes x 5 reps x 2 sets 2 Supine Exercise Name PPT with SLR partial Side bilateral Reps/Minutes x 5 reps x 2 sets 1 Supine Exercise Name PPT Reps/Minutes x 5SH x 5 reps Standing Exercises 1 Standing Exercise Name Wall posture with PPT and APT Side bilateral Reps/Minutes x 10 reps Manual Therapy Treatment Soft Tissue Mobilization 1 Body Location paralumbars, QL Mobilization Type Myofascial Release Rolling Sustained Pressure Intensity/Depth Moderate Body Position Sitting Comments sitting leaning to the table PT-OP-R Modalities Start: 04/13/18 13:41 Freq: Status: Active Protocol: Document 04/22/18 15:59 EA (Rec: 04/22/18 16:00 EA [id number]) Electric Stimulation Electric Stimulation Interferential Current (IFC) Body Location paralumbars Intensity 16 Patient Position Sitting Combined With Heat/Cold Hot Pack PT-OP-T Assessment and Plan Start: 04/13/18 13:41 Freq: Status: Active Protocol: Document 04/22/18 16:12 EA (Rec: 04/22/18 16:13 EA [id number]) Physical Therapy Assessment Assessment Summary Assessment Patient tolerated treatment well but requires cues during bed mobility. Patient had improved symptoms after session. Physical Therapy Plan Next Visit Focus/Plan Next Note Type Treatment Note Next Visit Plan Continue with current plan.
--- NOTE | 2018-04-29 16:14 | PT.OTN ---
Current Diagnoses Strain of muscle, fascia and tendon of lower back, subsequent encounter (04/29/18) Arthrodesis status (04/29/18) Physical Therapy Treatment Note PT-OP-A Visit Information Start: 04/13/18 13:41 Freq: Status: Active Protocol: Document 04/29/18 16:06 EA (Rec: 04/29/18 16:14 EA [id number]) Out-Patient Physical Therapy Visit Information Visit Information Visit Type Treatment Note Visit Start Time 15:15 Visit Stop Time 16:08 Total Visit Minutes 53 Visit Number 3 PT-OP-B Current Condition Start: 04/13/18 13:41 Freq: Status: Active Protocol: Document 04/13/18 17:15 EA (Rec: 04/13/18 17:24 EA [id number]) Current Condition History of Current Condition Onset Date 01/26/18 Current Complaints S/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 Patient reports low back pain and with numbness to LE happens on 07/2017; states no injury noted or previous surgery to low back prior to low back pian onset. Patient states went to PT but failed to recovered fully. Prior to year 2017, patient reports she has no limitation in mobility . Prior Treatments and Tests None identified after the surgery Future Testing and Treatments Planned None identified Treatment Goals Patient/Caregiver Goals Patient wants to be able to walk more than 15 minutes without increase of low back symptoms Patient would like to perform home activities with increase tolerance to > 30 mins without increase of back symptoms. Prior Functional Status Baseline Function- ADL's Independent Baseline Function- Mobility Independent Baseline Function- Gait Able to amb > 2 block with her dogs prior to initial onset on 07/2017 Baseline Function- Work/School Retired Current Functional Impairments (Reported) Functional Limitations- ADL's Requires frequent rest at home with all ADL's(Every 15 minutes) Functional Limitations- Mobility/Gait Requires to sit before 15 minutes of cont. walk Functional Limitations- Recreation/ Unable to walk with her dog Hobbies outside more than 5 minutes due to increase of back symptoms. PT-OP-C Subjective Start: 04/13/18 13:41 Freq: Status: Active Protocol: Document 04/29/18 16:06 EA (Rec: 04/29/18 16:14 EA [id number]) OP-PT Subjective Patient Comments Patient Comments Pt reports good pain relief last after last session. Patient Reported Progress Improving PT-OP-D Balance Start: 04/13/18 13:41 Freq: Status: Active Protocol: Document 04/13/18 17:08 EA (Rec: 04/13/18 17:14 EA [id number]) Balance Tests Romberg Romberg <5 sec Single Limb Standing Single Limb- Right <2 sec Single Limb- Left < 2secs Tandem Tandem Standing unable PT-OP-E Functional Tests Start: 04/13/18 13:41 Freq: Status: Active Protocol: Document 04/13/18 17:52 EA (Rec: 04/14/18 07:53 EA [id number]) Functional Tests Squat Test Score 5 squat no hand support 90deg in 10 seconds PT-OP-G Mobility & Gait Start: 04/13/18 13:41 Freq: Status: Active Protocol: Document 04/14/18 07:53 EA (Rec: 04/14/18 07:55 EA [id number]) OP Mobility Evaluation Bed Mobility Rolling Difficulty due to back stiffness and pain Supine to and from Sit Low roll Transfers Sit to Stand Indep Bed to Chair Transfers inedp Functional Movements Lifting and Carrying 10 lbs restrictions Squats 90 deg indepdent with no hand support OP Gait Assessment Gait Gait Assistance Required: Independent Distance (Feet) 120 Able to Maintain Weight Bearing Status Yes During Gait Assistive Devices Assistive Device None Comments Gait Comments stiffed back with forward trunk beneding PT-OP-H Neuro Start: 04/13/18 13:41 Freq: Status: Active Protocol: Document 04/13/18 17:08 EA (Rec: 04/13/18 17:14 EA [id number]) Coordination Evaluation Lower Extremity Tests Left Alternate Heel to Knee; Heel to Toe Test Normal Performance Heel on [place] Test Normal Performance Foot Tapping Test Normal Performance Toe to Examiner's Finger Test Normal Performance Drawing a [place] w/Foot Test Normal Performance Lower Extremity Fixation/Position Normal Performance Holding Test Right Alternate Heel to Knee; Heel to Toe Test Normal Performance Heel on [place] Test Normal Performance Foot Tapping Test Normal Performance Toe to Examiner's Finger Test Normal Performance Drawing a [place] w/Foot Test Normal Performance Lower Extremity Fixation/Position Normal Performance Holding Test Deep Tendon Reflex & Clonus Assessment Deep Tendon Reflex Bilateral Achilles Deep Tendon Reflex 2+ Normal Patellar Deep Tendon Reflex 2+ Normal PT-OP-J Posture/Palpation/Skin Start: 04/13/18 13:41 Freq: Status: Active Protocol: Document 04/13/18 17:02 EA (Rec: 04/13/18 17:08 EA [id number]) Posture Evaluation Position Standing Evaluation View Lateral Head/C-Spine Posture Forward Head Thorax Posture Neutral L-Spine Posture Flattened Shoulder Posture (L) Rounded (R) Rounded Arm Posture (L) Internally Rotated (R) Internally Rotated Pelvis Posture Posterior Tilted Hip Posture (L) Externally Rotated (R) Externally Rotated Palpation Assessment Location One Palpation Location [place] Palpation Findings Soft Tissue Tightness Muscle Guarding Tenderness Palpation Details Grade 2/4 tenderness Skin Assessment Incisional Assessment Incision Appearance/Comments Healthy skin/scar with signs of good healing at L4-L5 level vertically PT-OP-K Range of Motion Start: 04/13/18 13:41 Freq: Status: Active Protocol: Document 04/13/18 17:02 EA (Rec: 04/13/18 17:08 EA [id number]) Lumbar Spine Range of Motion Lumbar Spine Active Percentage Testing Position Standing Flexion 75 Extension 50 Rotation Left 70 Rotation Right 80 Lateral Flexion Left 35 Lateral Flexion Right 35 ROM Limitations Soft Tissue Tightness Pain PT-OP-M Strength Start: 04/13/18 13:41 Freq: Status: Active Protocol: Document 04/13/18 17:08 EA (Rec: 04/13/18 17:14 EA [id number]) Trunk Strength Trunk Manual Muscle Testing Testing Position Sitting Flexion 4 Good Extension 4 Good Rotation Left 4 Good Rotation Right 4 Good Lateral Flexion Left 4 Good Lateral Flexion Right 4 Good Hip Strength Hip Manual Muscle Testing Left Flexion (L2) 4- Good- Extension (S1) 4- Good- Abduction 4- Good- Adduction 4- Good- External Rotation 4- Good- Internal Rotation 4- Good- Knee Strength Knee Manual Muscle Testing Right Flexion (S2) 5 Normal Extension (L3) 5 Normal Left Flexion (S2) 5 Normal Extension (L3) 5 Normal Ankle/Foot Strength Ankle and Foot Manual Muscle Testing Right Dorsiflexion (L4) 5 Normal Plantarflexion (S1) 5 Normal Inversion 5 Normal Eversion (S1) 5 Normal Left Dorsiflexion (L4) 5 Normal Plantarflexion (S1) 5 Normal Inversion 5 Normal Eversion (S1) 5 Normal PT-OP-Q Treatments Start: 04/13/18 13:41 Freq: Status: Active Protocol: Document 04/29/18 16:06 EA (Rec: 04/29/18 16:14 EA [id number]) Cardio Equipment Recumbent Bicycle Duration (Minutes) 8 Resistance 4 Seat Position 2 Therapeutic Exercises Supine Exercises 4 Supine Exercise Name Lower trunk isomet Reps/Minutes x 3SH x 10 reps each side 3 Supine Exercise Name Bridge as tolerated range Side bilateral Reps/Minutes x 5 reps x 2 sets 2 Supine Exercise Name PPT with SLR partial Side bilateral Reps/Minutes x 5 reps x 2 sets 1 Supine Exercise Name PPT with marching Reps/Minutes x 5SH x 5 reps Standing Exercises 1 Standing Exercise Name Wall posture with PPT and APT Side bilateral Reps/Minutes x 10 reps Manual Therapy Treatment Soft Tissue Mobilization 1 Body Location paralumbars, QL Mobilization Type Myofascial Release Rolling Sustained Pressure Intensity/Depth Moderate Body Position Sitting Comments sitting leaning to the table PT-OP-R Modalities Start: 04/13/18 13:41 Freq: Status: Active Protocol: Document 04/29/18 16:06 EA (Rec: 04/29/18 16:14 EA [id number]) Electric Stimulation Electric Stimulation Interferential Current (IFC) Body Location paralumbars Intensity 16 Patient Position Sitting Combined With Heat/Cold Hot Pack PT-OP-T Assessment and Plan Start: 04/13/18 13:41 Freq: Status: Active Protocol: Document 04/29/18 16:06 EA (Rec: 04/29/18 16:14 EA [id number]) Physical Therapy Assessment Assessment Summary Assessment Noted Improved strength with good mobility and less discomfort during therex. Patient is progressing well. Physical Therapy Plan Next Visit Focus/Plan Next Note Type Treatment Note Next Visit Plan Continue with current plan.
--- NOTE | 2018-05-04 16:48 | PT.OTN ---
Current Diagnoses Strain of muscle, fascia and tendon of lower back, subsequent encounter (05/04/18) Arthrodesis status (05/04/18) Physical Therapy Treatment Note PT-OP-A Visit Information Start: 04/13/18 13:41 Freq: Status: Active Protocol: Document 05/04/18 15:51 EA (Rec: 05/04/18 15:56 EA [id number]) Out-Patient Physical Therapy Visit Information Visit Information Visit Type Treatment Note Visit Start Time 15:15 Visit Stop Time 16:00 Total Visit Minutes 45 Visit Number 4 PT-OP-B Current Condition Start: 04/13/18 13:41 Freq: Status: Active Protocol: Document 04/13/18 17:15 EA (Rec: 04/13/18 17:24 EA [id number]) Current Condition History of Current Condition Onset Date 01/26/18 Current Complaints S/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 Patient reports low back pain and with numbness to LE happens on 07/2017; states no injury noted or previous surgery to low back prior to low back pian onset. Patient states went to PT but failed to recovered fully. Prior to year 2017, patient reports she has no limitation in mobility . Prior Treatments and Tests None identified after the surgery Future Testing and Treatments Planned None identified Treatment Goals Patient/Caregiver Goals Patient wants to be able to walk more than 15 minutes without increase of low back symptoms Patient would like to perform home activities with increase tolerance to > 30 mins without increase of back symptoms. Prior Functional Status Baseline Function- ADL's Independent Baseline Function- Mobility Independent Baseline Function- Gait Able to amb > 2 block with her dogs prior to initial onset on 07/2017 Baseline Function- Work/School Retired Current Functional Impairments (Reported) Functional Limitations- ADL's Requires frequent rest at home with all ADL's(Every 15 minutes) Functional Limitations- Mobility/Gait Requires to sit before 15 minutes of cont. walk Functional Limitations- Recreation/ Unable to walk with her dog Hobbies outside more than 5 minutes due to increase of back symptoms. PT-OP-C Subjective Start: 04/13/18 13:41 Freq: Status: Active Protocol: Document 05/04/18 15:51 EA (Rec: 05/04/18 15:56 EA [id number]) OP-PT Subjective Patient Comments Patient Comments Pt reports lots of bending on d light weight lifting at home ; states low back is a little sore today. Pt also reports that she has increased outside walking with her dog. Patient Reported Progress Improving PT-OP-D Balance Start: 04/13/18 13:41 Freq: Status: Active Protocol: Document 04/13/18 17:08 EA (Rec: 04/13/18 17:14 EA [id number]) Balance Tests Romberg Romberg <5 sec Single Limb Standing Single Limb- Right <2 sec Single Limb- Left < 2secs Tandem Tandem Standing unable PT-OP-E Functional Tests Start: 04/13/18 13:41 Freq: Status: Active Protocol: Document 04/13/18 17:52 EA (Rec: 04/14/18 07:53 EA [id number]) Functional Tests Squat Test Score 5 squat no hand support 90deg in 10 seconds PT-OP-G Mobility & Gait Start: 04/13/18 13:41 Freq: Status: Active Protocol: Document 04/14/18 07:53 EA (Rec: 04/14/18 07:55 EA [id number]) OP Mobility Evaluation Bed Mobility Rolling Difficulty due to back stiffness and pain Supine to and from Sit Low roll Transfers Sit to Stand Indep Bed to Chair Transfers inedp Functional Movements Lifting and Carrying 10 lbs restrictions Squats 90 deg indepdent with no hand support OP Gait Assessment Gait Gait Assistance Required: Independent Distance (Feet) 120 Able to Maintain Weight Bearing Status Yes During Gait Assistive Devices Assistive Device None Comments Gait Comments stiffed back with forward trunk beneding PT-OP-H Neuro Start: 04/13/18 13:41 Freq: Status: Active Protocol: Document 04/13/18 17:08 EA (Rec: 04/13/18 17:14 EA [id number]) Coordination Evaluation Lower Extremity Tests Left Alternate Heel to Knee; Heel to Toe Test Normal Performance Heel on [place] Test Normal Performance Foot Tapping Test Normal Performance Toe to Examiner's Finger Test Normal Performance Drawing a [place] w/Foot Test Normal Performance Lower Extremity Fixation/Position Normal Performance Holding Test Right Alternate Heel to Knee; Heel to Toe Test Normal Performance Heel on [place] Test Normal Performance Foot Tapping Test Normal Performance Toe to Examiner's Finger Test Normal Performance Drawing a [place] w/Foot Test Normal Performance Lower Extremity Fixation/Position Normal Performance Holding Test Deep Tendon Reflex & Clonus Assessment Deep Tendon Reflex Bilateral Achilles Deep Tendon Reflex 2+ Normal Patellar Deep Tendon Reflex 2+ Normal PT-OP-J Posture/Palpation/Skin Start: 04/13/18 13:41 Freq: Status: Active Protocol: Document 04/13/18 17:02 EA (Rec: 04/13/18 17:08 EA [id number]) Posture Evaluation Position Standing Evaluation View Lateral Head/C-Spine Posture Forward Head Thorax Posture Neutral L-Spine Posture Flattened Shoulder Posture (L) Rounded (R) Rounded Arm Posture (L) Internally Rotated (R) Internally Rotated Pelvis Posture Posterior Tilted Hip Posture (L) Externally Rotated (R) Externally Rotated Palpation Assessment Location One Palpation Location [place] Palpation Findings Soft Tissue Tightness Muscle Guarding Tenderness Palpation Details Grade 2/4 tenderness Skin Assessment Incisional Assessment Incision Appearance/Comments Healthy skin/scar with signs of good healing at L4-L5 level vertically PT-OP-K Range of Motion Start: 04/13/18 13:41 Freq: Status: Active Protocol: Document 04/13/18 17:02 EA (Rec: 04/13/18 17:08 EA [id number]) Lumbar Spine Range of Motion Lumbar Spine Active Percentage Testing Position Standing Flexion 75 Extension 50 Rotation Left 70 Rotation Right 80 Lateral Flexion Left 35 Lateral Flexion Right 35 ROM Limitations Soft Tissue Tightness Pain PT-OP-M Strength Start: 04/13/18 13:41 Freq: Status: Active Protocol: Document 04/13/18 17:08 EA (Rec: 04/13/18 17:14 EA [id number]) Trunk Strength Trunk Manual Muscle Testing Testing Position Sitting Flexion 4 Good Extension 4 Good Rotation Left 4 Good Rotation Right 4 Good Lateral Flexion Left 4 Good Lateral Flexion Right 4 Good Hip Strength Hip Manual Muscle Testing Left Flexion (L2) 4- Good- Extension (S1) 4- Good- Abduction 4- Good- Adduction 4- Good- External Rotation 4- Good- Internal Rotation 4- Good- Knee Strength Knee Manual Muscle Testing Right Flexion (S2) 5 Normal Extension (L3) 5 Normal Left Flexion (S2) 5 Normal Extension (L3) 5 Normal Ankle/Foot Strength Ankle and Foot Manual Muscle Testing Right Dorsiflexion (L4) 5 Normal Plantarflexion (S1) 5 Normal Inversion 5 Normal Eversion (S1) 5 Normal Left Dorsiflexion (L4) 5 Normal Plantarflexion (S1) 5 Normal Inversion 5 Normal Eversion (S1) 5 Normal PT-OP-Q Treatments Start: 04/13/18 13:41 Freq: Status: Active Protocol: Document 05/04/18 15:51 EA (Rec: 05/04/18 15:56 EA [id number]) Therapeutic Exercises Supine Exercises 5 Supine Exercise Name SKTC Reps/Minutes x 15SH x 2 reps 4 Supine Exercise Name Lower trunk isomet Reps/Minutes x 3SH x 10 reps each side 2 Supine Exercise Name PPT with SLR partial Side bilateral Reps/Minutes x 5 reps x 2 sets 1 Supine Exercise Name PPT with marching Reps/Minutes x 5SH x 5 reps Sidelying Exercises 2 Sidelying Exercise Name Clamshell Reps/Minutes x 15 reps 1 Sidelying Exercise Name HIP ABD Side bilateral Comments x 15 reps Standing Exercises 1 Standing Exercise Name Wall posture with PPT and APT Side bilateral Reps/Minutes x 10 reps Manual Therapy Treatment Soft Tissue Mobilization 1 Body Location [place]umb[place], QL Mobilization Type Myofascial Release Rolling Sustained Pressure Intensity/Depth Moderate Body Position Sitting Comments sitting leaning to the table PT-OP-R Modalities Start: 04/13/18 13:41 Freq: Status: Active Protocol: Document 05/04/18 15:51 EA (Rec: 05/04/18 15:56 EA [id number]) Electric Stimulation Electric Stimulation Interferential Current (IFC) Body Location paralumbars Intensity 16 Patient Position Sitting Combined With Heat/Cold Hot Pack PT-OP-T Assessment and Plan Start: 04/13/18 13:41 Freq: Status: Active Protocol: Document 05/04/18 15:51 EA (Rec: 05/04/18 15:56 EA [id number]) Physical Therapy Assessment Assessment Summary Assessment Tolerated treatment well. Decreased tenderness to low back noted at this time. Patient is progressing as to mobility. Physical Therapy Plan Next Visit Focus/Plan Next Note Type Treatment Note Next Visit Plan Progress therex as tolerated
--- NOTE | 2018-05-06 16:44 | PT.OTN ---
Current Diagnoses Strain of muscle, fascia and tendon of lower back, subsequent encounter (05/06/18) Arthrodesis status (05/06/18) Physical Therapy Treatment Note PT-OP-A Visit Information Start: 04/13/18 13:41 Freq: Status: Active Protocol: Document 05/06/18 15:20 EA (Rec: 05/06/18 15:24 EA [id number]) Out-Patient Physical Therapy Visit Information Visit Information Visit Type Treatment Note Visit Start Time 15:15 Visit Stop Time 16:00 Total Visit Minutes 45 Visit Number 5 PT-OP-B Current Condition Start: 04/13/18 13:41 Freq: Status: Active Protocol: Document 04/13/18 17:15 EA (Rec: 04/13/18 17:24 EA [id number]) Current Condition History of Current Condition Onset Date 01/26/18 Current Complaints S/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 Patient reports low back pain and with numbness to LE happens on 07/2017; states no injury noted or previous surgery to low back prior to low back pian onset. Patient states went to PT but failed to recovered fully. Prior to year 2017, patient reports she has no limitation in mobility . Prior Treatments and Tests None identified after the surgery Future Testing and Treatments Planned None identified Treatment Goals Patient/Caregiver Goals Patient wants to be able to walk more than 15 minutes without increase of low back symptoms Patient would like to perform home activities with increase tolerance to > 30 mins without increase of back symptoms. Prior Functional Status Baseline Function- ADL's Independent Baseline Function- Mobility Independent Baseline Function- Gait Able to amb > 2 block with her dogs prior to initial onset on 07/2017 Baseline Function- Work/School Retired Current Functional Impairments (Reported) Functional Limitations- ADL's Requires frequent rest at home with all ADL's(Every 15 minutes) Functional Limitations- Mobility/Gait Requires to sit before 15 minutes of cont. walk Functional Limitations- Recreation/ Unable to walk with her dog Hobbies outside more than 5 minutes due to increase of back symptoms. PT-OP-C Subjective Start: 04/13/18 13:41 Freq: Status: Active Protocol: Document 05/06/18 15:20 EA (Rec: 05/06/18 15:24 EA [id number]) OP-PT Subjective Patient Comments Patient Comments Pt reports last made her back less with pain; states PT is working well. Patient Reported Progress Improving PT-OP-D Balance Start: 04/13/18 13:41 Freq: Status: Active Protocol: Document 04/13/18 17:08 EA (Rec: 04/13/18 17:14 EA [id number]) Balance Tests Romberg Romberg <5 sec Single Limb Standing Single Limb- Right <2 sec Single Limb- Left < 2secs Tandem Tandem Standing unable PT-OP-E Functional Tests Start: 04/13/18 13:41 Freq: Status: Active Protocol: Document 04/13/18 17:52 EA (Rec: 04/14/18 07:53 EA [id number]) Functional Tests Squat Test Score 5 squat no hand support 90deg in 10 seconds PT-OP-G Mobility & Gait Start: 04/13/18 13:41 Freq: Status: Active Protocol: Document 04/14/18 07:53 EA (Rec: 04/14/18 07:55 EA [id number]) OP Mobility Evaluation Bed Mobility Rolling Difficulty due to back stiffness and pain Supine to and from Sit Low roll Transfers Sit to Stand Indep Bed to Chair Transfers inedp Functional Movements Lifting and Carrying 10 lbs restrictions Squats 90 deg indepdent with no hand support OP Gait Assessment Gait Gait Assistance Required: Independent Distance (Feet) 120 Able to Maintain Weight Bearing Status Yes During Gait Assistive Devices Assistive Device None Comments Gait Comments stiffed back with forward trunk beneding PT-OP-H Neuro Start: 04/13/18 13:41 Freq: Status: Active Protocol: Document 04/13/18 17:08 EA (Rec: 04/13/18 17:14 EA [id number]) Coordination Evaluation Lower Extremity Tests Left Alternate Heel to Knee; Heel to Toe Test Normal Performance Heel on [place] Test Normal Performance Foot Tapping Test Normal Performance Toe to Examiner's Finger Test Normal Performance Drawing a [place] w/Foot Test Normal Performance Lower Extremity Fixation/Position Normal Performance Holding Test Right Alternate Heel to Knee; Heel to Toe Test Normal Performance Heel on [place] Test Normal Performance Foot Tapping Test Normal Performance Toe to Examiner's Finger Test Normal Performance Drawing a [place] w/Foot Test Normal Performance Lower Extremity Fixation/Position Normal Performance Holding Test Deep Tendon Reflex & Clonus Assessment Deep Tendon Reflex Bilateral Achilles Deep Tendon Reflex 2+ Normal Patellar Deep Tendon Reflex 2+ Normal PT-OP-J Posture/Palpation/Skin Start: 04/13/18 13:41 Freq: Status: Active Protocol: Document 04/13/18 17:02 EA (Rec: 04/13/18 17:08 EA [id number]) Posture Evaluation Position Standing Evaluation View Lateral Head/C-Spine Posture Forward Head Thorax Posture Neutral L-Spine Posture Flattened Shoulder Posture (L) Rounded (R) Rounded Arm Posture (L) Internally Rotated (R) Internally Rotated Pelvis Posture Posterior Tilted Hip Posture (L) Externally Rotated (R) Externally Rotated Palpation Assessment Location One Palpation Location [place] Palpation Findings Soft Tissue Tightness Muscle Guarding Tenderness Palpation Details Grade 2/4 tenderness Skin Assessment Incisional Assessment Incision Appearance/Comments Healthy skin/scar with signs of good healing at L4-L5 level vertically PT-OP-K Range of Motion Start: 04/13/18 13:41 Freq: Status: Active Protocol: Document 04/13/18 17:02 EA (Rec: 04/13/18 17:08 EA [id number]) Lumbar Spine Range of Motion Lumbar Spine Active Percentage Testing Position Standing Flexion 75 Extension 50 Rotation Left 70 Rotation Right 80 Lateral Flexion Left 35 Lateral Flexion Right 35 ROM Limitations Soft Tissue Tightness Pain PT-OP-M Strength Start: 04/13/18 13:41 Freq: Status: Active Protocol: Document 04/13/18 17:08 EA (Rec: 04/13/18 17:14 EA [id number]) Trunk Strength Trunk Manual Muscle Testing Testing Position Sitting Flexion 4 Good Extension 4 Good Rotation Left 4 Good Rotation Right 4 Good Lateral Flexion Left 4 Good Lateral Flexion Right 4 Good Hip Strength Hip Manual Muscle Testing Left Flexion (L2) 4- Good- Extension (S1) 4- Good- Abduction 4- Good- Adduction 4- Good- External Rotation 4- Good- Internal Rotation 4- Good- Knee Strength Knee Manual Muscle Testing Right Flexion (S2) 5 Normal Extension (L3) 5 Normal Left Flexion (S2) 5 Normal Extension (L3) 5 Normal Ankle/Foot Strength Ankle and Foot Manual Muscle Testing Right Dorsiflexion (L4) 5 Normal Plantarflexion (S1) 5 Normal Inversion 5 Normal Eversion (S1) 5 Normal Left Dorsiflexion (L4) 5 Normal Plantarflexion (S1) 5 Normal Inversion 5 Normal Eversion (S1) 5 Normal PT-OP-Q Treatments Start: 04/13/18 13:41 Freq: Status: Active Protocol: Document 05/06/18 15:20 EA (Rec: 05/06/18 15:24 EA [id number]) Cardio Equipment Recumbent Stepper (Sci-Fit) Duration (Minutes) 5 Resistance 2 Seat Position 9 Gym Equipment Cable Column (Body Solid) Leg Extension Resistance 30# x 15 Hip Adduction Resistance 30# x 15 Hip Abduction Reps/Time 30# x 15 Shuttle Recovery Unilateral Squats Resistance 1.5 Shuttle Recovery Platform Stable Reps/Time x 12 reps Bilateral Squats Details as tolerated range Resistance 3.5cords Shuttle Recovery Platform Stable Reps/Time x 15 reps Therapeutic Exercises Supine Exercises 5 Supine Exercise Name SKTC Reps/Minutes x 15SH x 2 reps 4 Supine Exercise Name Lower trunk isomet Reps/Minutes x 3SH x 10 reps each side 3 Supine Exercise Name Bridge as tolerated range Side bilateral Reps/Minutes x 5 reps x 2 sets 2 Supine Exercise Name PPT with SLR partial Side bilateral Reps/Minutes x 5 reps x 2 sets 1 Supine Exercise Name PPT with marching Reps/Minutes x 5SH x 5 reps Sidelying Exercises 2 Sidelying Exercise Name Clamshell Reps/Minutes x 15 reps 1 Sidelying Exercise Name HIP ABD Side bilateral Comments x 15 reps Standing Exercises 1 Standing Exercise Name Wall posture with PPT and APT Side bilateral Reps/Minutes x 10 reps Manual Therapy Treatment Soft Tissue Mobilization 1 Body Location paralumbars, QL Mobilization Type Myofascial Release Rolling Sustained Pressure Intensity/Depth Moderate Body Position Sitting Comments sitting leaning to the table PT-OP-R Modalities Start: 04/13/18 13:41 Freq: Status: Active Protocol: Document 05/06/18 15:20 EA (Rec: 05/06/18 15:24 EA [id number]) Electric Stimulation Electric Stimulation Interferential Current (IFC) Body Location paralumbars Intensity 16 Patient Position Sitting Combined With Heat/Cold Hot Pack PT-OP-T Assessment and Plan Start: 04/13/18 13:41 Freq: Status: Active Protocol: Document 05/06/18 15:56 EA (Rec: 05/06/18 15:57 EA [id number]) Physical Therapy Assessment Assessment Summary Assessment Improved tolerance to therex at this time with no discomfort to low back. Tenderness is much less during manual. Patient is progressing well. Physical Therapy Plan Next Visit Focus/Plan Next Note Type Treatment Note Next Visit Plan Change HEP
--- NOTE | 2018-05-13 17:10 | PT.OTN ---
Current Diagnoses Strain of muscle, fascia and tendon of lower back, subsequent encounter (05/13/18) Arthrodesis status (05/13/18) Physical Therapy Treatment Note PT-OP-A Visit Information Start: 04/13/18 13:41 Freq: Status: Active Protocol: Document 05/13/18 15:52 EA (Rec: 05/13/18 15:57 EA [id number]) Out-Patient Physical Therapy Visit Information Visit Information Visit Type Treatment Note Visit Start Time 15:15 Visit Stop Time 16:08 Total Visit Minutes 53 Visit Number 5 PT-OP-B Current Condition Start: 04/13/18 13:41 Freq: Status: Active Protocol: Document 04/13/18 17:15 EA (Rec: 04/13/18 17:24 EA [id number]) Current Condition History of Current Condition Onset Date 01/26/18 Current Complaints S/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 Patient reports low back pain and with numbness to LE happens on 07/2017; states no injury noted or previous surgery to low back prior to low back pian onset. Patient states went to PT but failed to recovered fully. Prior to year 2017, patient reports she has no limitation in mobility . Prior Treatments and Tests None identified after the surgery Future Testing and Treatments Planned None identified Treatment Goals Patient/Caregiver Goals Patient wants to be able to walk more than 15 minutes without increase of low back symptoms Patient would like to perform home activities with increase tolerance to > 30 mins without increase of back symptoms. Prior Functional Status Baseline Function- ADL's Independent Baseline Function- Mobility Independent Baseline Function- Gait Able to amb > 2 block with her dogs prior to initial onset on 07/2017 Baseline Function- Work/School Retired Current Functional Impairments (Reported) Functional Limitations- ADL's Requires frequent rest at home with all ADL's(Every 15 minutes) Functional Limitations- Mobility/Gait Requires to sit before 15 minutes of cont. walk Functional Limitations- Recreation/ Unable to walk with her dog Hobbies outside more than 5 minutes due to increase of back symptoms. PT-OP-C Subjective Start: 04/13/18 13:41 Freq: Status: Active Protocol: Document 05/13/18 15:52 EA (Rec: 05/13/18 15:57 EA [id number]) OP-PT Subjective Patient Comments Patient Comments Pt reports had 12 blocks walk last week and feels it was too much to her back. PT-OP-D Balance Start: 04/13/18 13:41 Freq: Status: Active Protocol: Document 04/13/18 17:08 EA (Rec: 04/13/18 17:14 EA [id number]) Balance Tests Romberg Romberg <5 sec Single Limb Standing Single Limb- Right <2 sec Single Limb- Left < 2secs Tandem Tandem Standing unable PT-OP-E Functional Tests Start: 04/13/18 13:41 Freq: Status: Active Protocol: Document 04/13/18 17:52 EA (Rec: 04/14/18 07:53 EA [id number]) Functional Tests Squat Test Score 5 squat no hand support 90deg in 10 seconds PT-OP-G Mobility & Gait Start: 04/13/18 13:41 Freq: Status: Active Protocol: Document 04/14/18 07:53 EA (Rec: 04/14/18 07:55 EA [id number]) OP Mobility Evaluation Bed Mobility Rolling Difficulty due to back stiffness and pain Supine to and from Sit Low roll Transfers Sit to Stand Indep Bed to Chair Transfers inedp Functional Movements Lifting and Carrying 10 lbs restrictions Squats 90 deg indepdent with no hand support OP Gait Assessment Gait Gait Assistance Required: Independent Distance (Feet) 120 Able to Maintain Weight Bearing Status Yes During Gait Assistive Devices Assistive Device None Comments Gait Comments stiffed back with forward trunk beneding PT-OP-H Neuro Start: 04/13/18 13:41 Freq: Status: Active Protocol: Document 04/13/18 17:08 EA (Rec: 04/13/18 17:14 EA [id number]) Coordination Evaluation Lower Extremity Tests Left Alternate Heel to Knee; Heel to Toe Test Normal Performance Heel on [place] Test Normal Performance Foot Tapping Test Normal Performance Toe to Examiner's Finger Test Normal Performance Drawing a [place] w/Foot Test Normal Performance Lower Extremity Fixation/Position Normal Performance Holding Test Right Alternate Heel to Knee; Heel to Toe Test Normal Performance Heel on [place] Test Normal Performance Foot Tapping Test Normal Performance Toe to Examiner's Finger Test Normal Performance Drawing a [place] w/Foot Test Normal Performance Lower Extremity Fixation/Position Normal Performance Holding Test Deep Tendon Reflex & Clonus Assessment Deep Tendon Reflex Bilateral Achilles Deep Tendon Reflex 2+ Normal Patellar Deep Tendon Reflex 2+ Normal PT-OP-J Posture/Palpation/Skin Start: 04/13/18 13:41 Freq: Status: Active Protocol: Document 04/13/18 17:02 EA (Rec: 04/13/18 17:08 EA [id number]) Posture Evaluation Position Standing Evaluation View Lateral Head/C-Spine Posture Forward Head Thorax Posture Neutral L-Spine Posture Flattened Shoulder Posture (L) Rounded (R) Rounded Arm Posture (L) Internally Rotated (R) Internally Rotated Pelvis Posture Posterior Tilted Hip Posture (L) Externally Rotated (R) Externally Rotated Palpation Assessment Location One Palpation Location [place] Palpation Findings Soft Tissue Tightness Muscle Guarding Tenderness Palpation Details Grade 2/4 tenderness Skin Assessment Incisional Assessment Incision Appearance/Comments Healthy skin/scar with signs of good healing at L4-L5 level vertically PT-OP-K Range of Motion Start: 04/13/18 13:41 Freq: Status: Active Protocol: Document 04/13/18 17:02 EA (Rec: 04/13/18 17:08 EA [id number]) Lumbar Spine Range of Motion Lumbar Spine Active Percentage Testing Position Standing Flexion 75 Extension 50 Rotation Left 70 Rotation Right 80 Lateral Flexion Left 35 Lateral Flexion Right 35 ROM Limitations Soft Tissue Tightness Pain PT-OP-M Strength Start: 04/13/18 13:41 Freq: Status: Active Protocol: Document 04/13/18 17:08 EA (Rec: 04/13/18 17:14 EA [id number]) Trunk Strength Trunk Manual Muscle Testing Testing Position Sitting Flexion 4 Good Extension 4 Good Rotation Left 4 Good Rotation Right 4 Good Lateral Flexion Left 4 Good Lateral Flexion Right 4 Good Hip Strength Hip Manual Muscle Testing Left Flexion (L2) 4- Good- Extension (S1) 4- Good- Abduction 4- Good- Adduction 4- Good- External Rotation 4- Good- Internal Rotation 4- Good- Knee Strength Knee Manual Muscle Testing Right Flexion (S2) 5 Normal Extension (L3) 5 Normal Left Flexion (S2) 5 Normal Extension (L3) 5 Normal Ankle/Foot Strength Ankle and Foot Manual Muscle Testing Right Dorsiflexion (L4) 5 Normal Plantarflexion (S1) 5 Normal Inversion 5 Normal Eversion (S1) 5 Normal Left Dorsiflexion (L4) 5 Normal Plantarflexion (S1) 5 Normal Inversion 5 Normal Eversion (S1) 5 Normal PT-OP-Q Treatments Start: 04/13/18 13:41 Freq: Status: Active Protocol: Document 05/13/18 15:52 EA (Rec: 05/13/18 15:57 EA [id number]) Cardio Equipment Treadmill Duration (Minutes) 7 Speed 2-2.5 Incline 0-5 Gym Equipment Cable Column (Body Solid) Leg Extension Resistance 30# x 15 Hip Adduction Resistance 30# x 15 Hip Abduction Reps/Time 30# x 15 Shuttle Recovery Unilateral Squats Resistance 1.5 Shuttle Recovery Platform Stable Reps/Time x 12 reps Therapeutic Exercises Supine Exercises 5 Supine Exercise Name SKTC Reps/Minutes x 15SH x 2 reps 4 Supine Exercise Name Lower trunk isomet Reps/Minutes x 3SH x 10 reps each side 2 Supine Exercise Name PPT with SLR partial Side bilateral Reps/Minutes x 5 reps x 2 sets 1 Supine Exercise Name PPT with marching Reps/Minutes x 5SH x 5 reps Standing Exercises 2 Standing Exercise Name Rails fwd lunges Reps/Minutes x 12 ft x 4 lines 1 Standing Exercise Name side step squat Reps/Minutes x 12 ft lines x 2 Manual Therapy Treatment Soft Tissue Mobilization 1 Body Location [place]umb[place], QL Mobilization Type Myofascial Release Rolling Sustained Pressure Intensity/Depth Moderate Body Position Sitting Comments sitting leaning to the table PT-OP-R Modalities Start: 04/13/18 13:41 Freq: Status: Active Protocol: Document 05/13/18 15:52 EA (Rec: 05/13/18 15:57 EA [id number]) Electric Stimulation Electric Stimulation Interferential Current (IFC) Body Location paralumbars Intensity 16 Patient Position Sitting Combined With Heat/Cold Hot Pack PT-OP-T Assessment and Plan Start: 04/13/18 13:41 Freq: Status: Active Protocol: Document 05/13/18 15:52 EA (Rec: 05/13/18 15:57 EA [id number]) Physical Therapy Assessment Assessment Summary Assessment Noted foot dragged on the treadmill with increasing fatigue. Standing exercises requires rest as patient fatigue quick. Physical Therapy Plan Next Visit Focus/Plan Next Note Type Treatment Note
--- NOTE | 2018-05-18 16:26 | PT.OTN ---
Current Diagnoses Strain of muscle, fascia and tendon of lower back, subsequent encounter (05/18/18) Arthrodesis status (05/18/18) Physical Therapy Treatment Note PT-OP-A Visit Information Start: 04/13/18 13:41 Freq: Status: Active Protocol: Document 05/18/18 15:16 EA (Rec: 05/18/18 15:20 EA [id number]) Out-Patient Physical Therapy Visit Information Visit Information Visit Type Treatment Note Visit Start Time 15:15 Visit Stop Time 16:08 Total Visit Minutes 53 Visit Number 6 PT-OP-B Current Condition Start: 04/13/18 13:41 Freq: Status: Active Protocol: Document 04/13/18 17:15 EA (Rec: 04/13/18 17:24 EA [id number]) Current Condition History of Current Condition Onset Date 01/26/18 Current Complaints S/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 Patient reports low back pain and with numbness to LE happens on 07/2017; states no injury noted or previous surgery to low back prior to low back pian onset. Patient states went to PT but failed to recovered fully. Prior to year 2017, patient reports she has no limitation in mobility . Prior Treatments and Tests None identified after the surgery Future Testing and Treatments Planned None identified Treatment Goals Patient/Caregiver Goals Patient wants to be able to walk more than 15 minutes without increase of low back symptoms Patient would like to perform home activities with increase tolerance to > 30 mins without increase of back symptoms. Prior Functional Status Baseline Function- ADL's Independent Baseline Function- Mobility Independent Baseline Function- Gait Able to amb > 2 block with her dogs prior to initial onset on 07/2017 Baseline Function- Work/School Retired Current Functional Impairments (Reported) Functional Limitations- ADL's Requires frequent rest at home with all ADL's(Every 15 minutes) Functional Limitations- Mobility/Gait Requires to sit before 15 minutes of cont. walk Functional Limitations- Recreation/ Unable to walk with her dog Hobbies outside more than 5 minutes due to increase of back symptoms. PT-OP-C Subjective Start: 04/13/18 13:41 Freq: Status: Active Protocol: Document 05/18/18 15:16 EA (Rec: 05/18/18 15:20 EA [id number]) OP-PT Subjective Patient Comments Patient Comments Pt reports able to partipate on a 45 mins women june last Thursday; states she okay after that. PT-OP-D Balance Start: 04/13/18 13:41 Freq: Status: Active Protocol: Document 04/13/18 17:08 EA (Rec: 04/13/18 17:14 EA [id number]) Balance Tests Romberg Romberg <5 sec Single Limb Standing Single Limb- Right <2 sec Single Limb- Left < 2secs Tandem Tandem Standing unable PT-OP-E Functional Tests Start: 04/13/18 13:41 Freq: Status: Active Protocol: Document 04/13/18 17:52 EA (Rec: 04/14/18 07:53 EA [id number]) Functional Tests Squat Test Score 5 squat no hand support 90deg in 10 seconds PT-OP-G Mobility & Gait Start: 04/13/18 13:41 Freq: Status: Active Protocol: Document 04/14/18 07:53 EA (Rec: 04/14/18 07:55 EA [id number]) OP Mobility Evaluation Bed Mobility Rolling Difficulty due to back stiffness and pain Supine to and from Sit Low roll Transfers Sit to Stand Indep Bed to Chair Transfers inedp Functional Movements Lifting and Carrying 10 lbs restrictions Squats 90 deg indepdent with no hand support OP Gait Assessment Gait Gait Assistance Required: Independent Distance (Feet) 120 Able to Maintain Weight Bearing Status Yes During Gait Assistive Devices Assistive Device None Comments Gait Comments stiffed back with forward trunk beneding PT-OP-H Neuro Start: 04/13/18 13:41 Freq: Status: Active Protocol: Document 04/13/18 17:08 EA (Rec: 04/13/18 17:14 EA [id number]) Coordination Evaluation Lower Extremity Tests Left Alternate Heel to Knee; Heel to Toe Test Normal Performance Heel on [place] Test Normal Performance Foot Tapping Test Normal Performance Toe to Examiner's Finger Test Normal Performance Drawing a [place] w/Foot Test Normal Performance Lower Extremity Fixation/Position Normal Performance Holding Test Right Alternate Heel to Knee; Heel to Toe Test Normal Performance Heel on [place] Test Normal Performance Foot Tapping Test Normal Performance Toe to Examiner's Finger Test Normal Performance Drawing a [place] w/Foot Test Normal Performance Lower Extremity Fixation/Position Normal Performance Holding Test Deep Tendon Reflex & Clonus Assessment Deep Tendon Reflex Bilateral Achilles Deep Tendon Reflex 2+ Normal Patellar Deep Tendon Reflex 2+ Normal PT-OP-J Posture/Palpation/Skin Start: 04/13/18 13:41 Freq: Status: Active Protocol: Document 04/13/18 17:02 EA (Rec: 04/13/18 17:08 EA [id number]) Posture Evaluation Position Standing Evaluation View Lateral Head/C-Spine Posture Forward Head Thorax Posture Neutral L-Spine Posture Flattened Shoulder Posture (L) Rounded (R) Rounded Arm Posture (L) Internally Rotated (R) Internally Rotated Pelvis Posture Posterior Tilted Hip Posture (L) Externally Rotated (R) Externally Rotated Palpation Assessment Location One Palpation Location [place] Palpation Findings Soft Tissue Tightness Muscle Guarding Tenderness Palpation Details Grade 2/4 tenderness Skin Assessment Incisional Assessment Incision Appearance/Comments Healthy skin/scar with signs of good healing at L4-L5 level vertically PT-OP-K Range of Motion Start: 04/13/18 13:41 Freq: Status: Active Protocol: Document 04/13/18 17:02 EA (Rec: 04/13/18 17:08 EA [id number]) Lumbar Spine Range of Motion Lumbar Spine Active Percentage Testing Position Standing Flexion 75 Extension 50 Rotation Left 70 Rotation Right 80 Lateral Flexion Left 35 Lateral Flexion Right 35 ROM Limitations Soft Tissue Tightness Pain PT-OP-M Strength Start: 04/13/18 13:41 Freq: Status: Active Protocol: Document 04/13/18 17:08 EA (Rec: 04/13/18 17:14 EA [id number]) Trunk Strength Trunk Manual Muscle Testing Testing Position Sitting Flexion 4 Good Extension 4 Good Rotation Left 4 Good Rotation Right 4 Good Lateral Flexion Left 4 Good Lateral Flexion Right 4 Good Hip Strength Hip Manual Muscle Testing Left Flexion (L2) 4- Good- Extension (S1) 4- Good- Abduction 4- Good- Adduction 4- Good- External Rotation 4- Good- Internal Rotation 4- Good- Knee Strength Knee Manual Muscle Testing Right Flexion (S2) 5 Normal Extension (L3) 5 Normal Left Flexion (S2) 5 Normal Extension (L3) 5 Normal Ankle/Foot Strength Ankle and Foot Manual Muscle Testing Right Dorsiflexion (L4) 5 Normal Plantarflexion (S1) 5 Normal Inversion 5 Normal Eversion (S1) 5 Normal Left Dorsiflexion (L4) 5 Normal Plantarflexion (S1) 5 Normal Inversion 5 Normal Eversion (S1) 5 Normal PT-OP-Q Treatments Start: 04/13/18 13:41 Freq: Status: Active Protocol: Document 05/18/18 15:16 EA (Rec: 05/18/18 15:20 EA [id number]) Cardio Equipment Treadmill Duration (Minutes) 7 Speed 2-2.5 Incline 0-5 Gym Equipment Cable Column (Body Solid) Leg Extension Resistance 30# x 15 Hip Adduction Resistance 30# x 15 Hip Abduction Reps/Time 30# x 15 Shuttle Recovery Unilateral Squats Resistance 2 Shuttle Recovery Platform Stable Reps/Time x 12 reps Bilateral Squats Details as tolerated range Resistance 4 cords Shuttle Recovery Platform Stable Reps/Time x 15 reps Therapeutic Exercises Supine Exercises 5 Supine Exercise Name SKTC Reps/Minutes x 15SH x 2 reps Comments HEP 4 Supine Exercise Name Lower trunk isomet Reps/Minutes x 3SH x 10 reps each side 3 Supine Exercise Name Bridge as tolerated range Side bilateral Reps/Minutes x 5 reps x 2 sets Comments HEP com 2 Supine Exercise Name PPT with SLR partial Side bilateral Reps/Minutes x 5 reps x 2 sets Comments HEP comp 1 Supine Exercise Name PPT with marching Reps/Minutes x 5SH x 5 reps Sidelying Exercises 2 Sidelying Exercise Name Clamshell Reps/Minutes x 15 reps Comments HEP comp Standing Exercises 2 Standing Exercise Name Rails fwd lunges Reps/Minutes x 12 ft x 4 lines 1 Standing Exercise Name side step squat Reps/Minutes x 12 ft lines x 2 Self-Care/Home Management Treatment Education Patient Education [employer] Home Exercise Program Pain Management Posture PT-OP-R Modalities Start: 04/13/18 13:41 Freq: Status: Active Protocol: Document 05/18/18 15:59 EA (Rec: 05/18/18 15:59 EA [id number]) Electric Stimulation Electric Stimulation Interferential Current (IFC) Body Location [place]umbars Intensity 16 Patient Position Sitting Combined With Heat/Cold Hot Pack PT-OP-T Assessment and Plan Start: 04/13/18 13:41 Freq: Status: Active Protocol: Document 05/18/18 16:00 EA (Rec: 05/18/18 16:01 EA [id number]) Physical Therapy Assessment Assessment Summary Assessment Pt continued to show increased exercises tolerance and improve strength to both LE's. Physical Therapy Plan Next Visit Focus/Plan Next Note Type Treatment Note Next Visit Plan Advance as needed. standing functional exercises
--- NOTE | 2018-05-20 12:19 | PT.OTN ---
Current Diagnoses Strain of muscle, fascia and tendon of lower back, subsequent encounter (05/20/18) Arthrodesis status (05/20/18) Physical Therapy Treatment Note PT-OP-A Visit Information Start: 04/13/18 13:41 Freq: Status: Active Protocol: Document 05/20/18 10:33 EA (Rec: 05/20/18 10:37 EA [id number]) Out-Patient Physical Therapy Visit Information Visit Information Visit Type Treatment Note Total Visit Minutes 53 Visit Number 7 PT-OP-B Current Condition Start: 04/13/18 13:41 Freq: Status: Active Protocol: Document 04/13/18 17:15 EA (Rec: 04/13/18 17:24 EA [id number]) Current Condition History of Current Condition Onset Date 01/26/18 Current Complaints S/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 Patient reports low back pain and with numbness to LE happens on 07/2017; states no injury noted or previous surgery to low back prior to low back pian onset. Patient states went to PT but failed to recovered fully. Prior to year 2017, patient reports she has no limitation in mobility . Prior Treatments and Tests None identified after the surgery Future Testing and Treatments Planned None identified Treatment Goals Patient/Caregiver Goals Patient wants to be able to walk more than 15 minutes without increase of low back symptoms Patient would like to perform home activities with increase tolerance to > 30 mins without increase of back symptoms. Prior Functional Status Baseline Function- ADL's Independent Baseline Function- Mobility Independent Baseline Function- Gait Able to amb > 2 block with her dogs prior to initial onset on 07/2017 Baseline Function- Work/School Retired Current Functional Impairments (Reported) Functional Limitations- ADL's Requires frequent rest at home with all ADL's(Every 15 minutes) Functional Limitations- Mobility/Gait Requires to sit before 15 minutes of cont. walk Functional Limitations- Recreation/ Unable to walk with her dog Hobbies outside more than 5 minutes due to increase of back symptoms. PT-OP-C Subjective Start: 04/13/18 13:41 Freq: Status: Active Protocol: Document 05/20/18 10:33 EA (Rec: 05/20/18 10:37 EA [id number]) OP-PT Subjective Patient Comments Patient Comments Pt reports low pain is improving and her outdoors activities is improving. PT-OP-D Balance Start: 04/13/18 13:41 Freq: Status: Active Protocol: Document 04/13/18 17:08 EA (Rec: 04/13/18 17:14 EA [id number]) Balance Tests Romberg Romberg <5 sec Single Limb Standing Single Limb- Right <2 sec Single Limb- Left < 2secs Tandem Tandem Standing unable PT-OP-E Functional Tests Start: 04/13/18 13:41 Freq: Status: Active Protocol: Document 04/13/18 17:52 EA (Rec: 04/14/18 07:53 EA [id number]) Functional Tests Squat Test Score 5 squat no hand support 90deg in 10 seconds PT-OP-G Mobility & Gait Start: 04/13/18 13:41 Freq: Status: Active Protocol: Document 04/14/18 07:53 EA (Rec: 04/14/18 07:55 EA [id number]) OP Mobility Evaluation Bed Mobility Rolling Difficulty due to back stiffness and pain Supine to and from Sit Low roll Transfers Sit to Stand Indep Bed to Chair Transfers inedp Functional Movements Lifting and Carrying 10 lbs restrictions Squats 90 deg indepdent with no hand support OP Gait Assessment Gait Gait Assistance Required: Independent Distance (Feet) 120 Able to Maintain Weight Bearing Status Yes During Gait Assistive Devices Assistive Device None Comments Gait Comments stiffed back with forward trunk beneding PT-OP-H Neuro Start: 04/13/18 13:41 Freq: Status: Active Protocol: Document 04/13/18 17:08 EA (Rec: 04/13/18 17:14 EA [id number]) Coordination Evaluation Lower Extremity Tests Left Alternate Heel to Knee; Heel to Toe Test Normal Performance Heel on [place] Test Normal Performance Foot Tapping Test Normal Performance Toe to Examiner's Finger Test Normal Performance Drawing a [place] w/Foot Test Normal Performance Lower Extremity Fixation/Position Normal Performance Holding Test Right Alternate Heel to Knee; Heel to Toe Test Normal Performance Heel on [place] Test Normal Performance Foot Tapping Test Normal Performance Toe to Examiner's Finger Test Normal Performance Drawing a [place] w/Foot Test Normal Performance Lower Extremity Fixation/Position Normal Performance Holding Test Deep Tendon Reflex & Clonus Assessment Deep Tendon Reflex Bilateral Achilles Deep Tendon Reflex 2+ Normal Patellar Deep Tendon Reflex 2+ Normal PT-OP-J Posture/Palpation/Skin Start: 04/13/18 13:41 Freq: Status: Active Protocol: Document 04/13/18 17:02 EA (Rec: 04/13/18 17:08 EA [id number]) Posture Evaluation Position Standing Evaluation View Lateral Head/C-Spine Posture Forward Head Thorax Posture Neutral L-Spine Posture Flattened Shoulder Posture (L) Rounded (R) Rounded Arm Posture (L) Internally Rotated (R) Internally Rotated Pelvis Posture Posterior Tilted Hip Posture (L) Externally Rotated (R) Externally Rotated Palpation Assessment Location One Palpation Location [place] Palpation Findings Soft Tissue Tightness Muscle Guarding Tenderness Palpation Details Grade 2/4 tenderness Skin Assessment Incisional Assessment Incision Appearance/Comments Healthy skin/scar with signs of good healing at L4-L5 level vertically PT-OP-K Range of Motion Start: 04/13/18 13:41 Freq: Status: Active Protocol: Document 04/13/18 17:02 EA (Rec: 04/13/18 17:08 EA [id number]) Lumbar Spine Range of Motion Lumbar Spine Active Percentage Testing Position Standing Flexion 75 Extension 50 Rotation Left 70 Rotation Right 80 Lateral Flexion Left 35 Lateral Flexion Right 35 ROM Limitations Soft Tissue Tightness Pain PT-OP-M Strength Start: 04/13/18 13:41 Freq: Status: Active Protocol: Document 04/13/18 17:08 EA (Rec: 04/13/18 17:14 EA [id number]) Trunk Strength Trunk Manual Muscle Testing Testing Position Sitting Flexion 4 Good Extension 4 Good Rotation Left 4 Good Rotation Right 4 Good Lateral Flexion Left 4 Good Lateral Flexion Right 4 Good Hip Strength Hip Manual Muscle Testing Left Flexion (L2) 4- Good- Extension (S1) 4- Good- Abduction 4- Good- Adduction 4- Good- External Rotation 4- Good- Internal Rotation 4- Good- Knee Strength Knee Manual Muscle Testing Right Flexion (S2) 5 Normal Extension (L3) 5 Normal Left Flexion (S2) 5 Normal Extension (L3) 5 Normal Ankle/Foot Strength Ankle and Foot Manual Muscle Testing Right Dorsiflexion (L4) 5 Normal Plantarflexion (S1) 5 Normal Inversion 5 Normal Eversion (S1) 5 Normal Left Dorsiflexion (L4) 5 Normal Plantarflexion (S1) 5 Normal Inversion 5 Normal Eversion (S1) 5 Normal PT-OP-Q Treatments Start: 04/13/18 13:41 Freq: Status: Active Protocol: Document 05/20/18 10:33 EA (Rec: 05/20/18 10:37 EA [id number]) Cardio Equipment Treadmill Duration (Minutes) 7 Speed 2-3.0 Incline 0-5 Other HIIT Gym Equipment Cable Column (Body Solid) Leg Extension Resistance 30# x 15 Hip Adduction Resistance 30# x 15 Hip Abduction Reps/Time 30# x 15 Shuttle Recovery Unilateral Squats Resistance 2.5 Shuttle Recovery Platform Stable Reps/Time x 12 reps Bilateral Squats Details as tolerated range Resistance 4.5 cords Shuttle Recovery Platform Stable Reps/Time x 12-15 reps Therapeutic Exercises Supine Exercises 5 Supine Exercise Name SKTC Reps/Minutes x 15SH x 2 reps Comments HEP 4 Supine Exercise Name Lower trunk isomet Reps/Minutes x 3SH x 10 reps each side 3 Supine Exercise Name Bridge as tolerated range Side bilateral Reps/Minutes x 5 reps x 2 sets Comments HEP com 2 Supine Exercise Name PPT with SLR partial Side bilateral Reps/Minutes x 5 reps x 2 sets Comments HEP comp 1 Supine Exercise Name PPT with marching Reps/Minutes x 5SH x 5 reps Sidelying Exercises 2 Sidelying Exercise Name Clamshell Resistance BTB Reps/Minutes x 15 reps Comments HEP comp Standing Exercises 3 Standing Exercise Name toe and heel walks Reps/Minutes x 2 mins 2 Standing Exercise Name Rails fwd lunges Reps/Minutes x 12 ft x 4 lines 1 Standing Exercise Name side step squat with heel raises Resistance YTB Reps/Minutes x 12 ft lines x 2 PT-OP-R Modalities Start: 04/13/18 13:41 Freq: Status: Active Protocol: Document 05/20/18 10:33 EA (Rec: 05/20/18 10:37 EA [id number]) Electric Stimulation Electric Stimulation Interferential Current (IFC) Body Location [place]ars Intensity 16 Patient Position Sitting Combined With Heat/Cold Hot Pack PT-OP-T Assessment and Plan Start: 04/13/18 13:41 Freq: Status: Active Protocol: Document 05/20/18 10:33 EA (Rec: 05/20/18 10:37 EA [id number]) Physical Therapy Assessment Assessment Summary Assessment Tolerated treatment well. Physical Therapy Plan Next Visit Focus/Plan Next Note Type Treatment Note Next Visit Plan Advance as needed. standing functional exercises
--- NOTE | 2018-06-16 12:29 | PT.OTRE ---
Current Diagnoses Strain of muscle, fascia and tendon of lower back, subsequent encounter (06/16/18) Arthrodesis status (06/16/18) Past Medical History (Last Updated 01/13/18 @ 11:19 by Brianna Bronson RN) Anxiety (Acute) Depression (Acute) Diverticulitis (Acute) HTN (hypertension) (Acute) Hyperlipidemia (Acute) Kidney infection (Acute) Kidney stone (Acute) Numbness and tingling of both legs (Acute) Osteoarthritis (Acute) Bronte teeth removed (Acute) Surgical History (Last Updated 01/13/18 @ 12:26 by Brianna Bronson RN) History of arthroplasty of left shoulder (Acute) History of arthroscopy of right shoulder (Acute) Hx of arthroscopy of right knee (Acute) Hx of tubal ligation (Acute) S/P cervical spinal fusion (Acute) Status post bilateral cataract extraction (Acute) Provider Visit Care Team Role Provider Type Yenifer Sin PA-C Family Provider Physician Primary Care Provider Specialty: Internal Medicine Address: [address] [place] [address], [facility] Email: Alexander Hadley MD Attending Provider Physician Specialty: Orthopedic Surgery Address: [address] [place] [address], [id number] Email: [email or web address] Physical Therapy Re-Evaluation PT-OP-A Visit Information Start: 04/13/18 13:41 Freq: Status: Active Protocol: Document 06/16/18 10:29 EA (Rec: 06/16/18 11:13 EA [id number]) Out-Patient Physical Therapy Visit Information Visit Information Visit Type Treatment Note Visit Note Re-eval performed today Visit Start Time 09:45 Visit Stop Time 10:40 Total Visit Minutes 55 Visit Number 8 PT-OP-B Current Condition Start: 04/13/18 13:41 Freq: Status: Active Protocol: Document 04/13/18 17:15 EA (Rec: 04/13/18 17:24 EA [id number]) Current Condition History of Current Condition Onset Date 01/26/18 Current Complaints S/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 Patient reports low back pain and with numbness to LE happens on 07/2017; states no injury noted or previous surgery to low back prior to low back pian onset. Patient states went to PT but failed to recovered fully. Prior to year 2017, patient reports she has no limitation in mobility . Prior Treatments and Tests None identified after the surgery Future Testing and Treatments Planned None identified Treatment Goals Patient/Caregiver Goals Patient wants to be able to walk more than 15 minutes without increase of low back symptoms Patient would like to perform home activities with increase tolerance to > 30 mins without increase of back symptoms. Prior Functional Status Baseline Function- ADL's Independent Baseline Function- Mobility Independent Baseline Function- Gait Able to amb > 2 block with her dogs prior to initial onset on 07/2017 Baseline Function- Work/School Retired Current Functional Impairments (Reported) Functional Limitations- ADL's Requires frequent rest at home with all ADL's(Every 15 minutes) Functional Limitations- Mobility/Gait Requires to sit before 15 minutes of cont. walk Functional Limitations- Recreation/ Unable to walk with her dog Hobbies outside more than 5 minutes due to increase of back symptoms. PT-OP-C Subjective Start: 04/13/18 13:41 Freq: Status: Active Protocol: Document 06/16/18 10:29 EA (Rec: 06/16/18 11:13 EA [id number]) OP-PT Subjective Patient Comments Patient Comments Pt reports got sick in the past 3 weeks; states unable to perform HEP; states low pain pain rated 1/10. Pt complaint of decreased activity tolerance due to fatigue. PT-OP-D Balance Start: 04/13/18 13:41 Freq: Status: Active Protocol: Document 04/13/18 17:08 EA (Rec: 04/13/18 17:14 EA [id number]) Balance Tests Romberg Romberg <5 sec Single Limb Standing Single Limb- Right >2 sec Single Limb- Left > 2secs Tandem Tandem Standing unable PT-OP-E Functional Tests Start: 04/13/18 13:41 Freq: Status: Active Protocol: Document 04/13/18 17:52 EA (Rec: 04/14/18 07:53 EA [id number]) Functional Tests Squat Test Score 5 squat no hand support 90deg in 10 seconds PT-OP-G Mobility & Gait Start: 04/13/18 13:41 Freq: Status: Active Protocol: Document 06/16/18 10:29 EA (Rec: 06/16/18 11:13 EA [id number]) OP Mobility Evaluation Bed Mobility Rolling indep with no difficulty Supine to and from Sit Log roll Transfers Sit to Stand Indep Bed to Chair Transfers inedp PT-OP-H Neuro Start: 04/13/18 13:41 Freq: Status: Active Protocol: Document 04/13/18 17:08 EA (Rec: 04/13/18 17:14 EA [id number]) Coordination Evaluation Lower Extremity Tests Left Alternate Heel to Knee; Heel to Toe Test Normal Performance Heel on [place]on[place] Test Normal Performance Foot Tapping Test Normal Performance Toe to Examiner's Finger Test Normal Performance Drawing [place] w/Foot Test Normal Performance Lower Extremity Fixation/Position Normal Performance Holding Test Right Alternate Heel to Knee; Heel to Toe Test Normal Performance Heel on [place] Test Normal Performance Foot Tapping Test Normal Performance Toe to Examiner's Finger Test Normal Performance Drawing [place] w/Foot Test Normal Performance Lower Extremity Fixation/Position Normal Performance Holding Test Deep Tendon Reflex & Clonus Assessment Deep Tendon Reflex Bilateral Achilles Deep Tendon Reflex 2+ Normal Patellar Deep Tendon Reflex 2+ Normal PT-OP-J Posture/Palpation/Skin Start: 04/13/18 13:41 Freq: Status: Active Protocol: Document 06/16/18 10:29 EA (Rec: 06/16/18 11:13 EA [id number]) Posture Evaluation Position Standing Evaluation View Lateral Head/C-Spine Posture Forward Head Thorax Posture Neutral L-Spine Posture Flattened Shoulder Posture (L) Rounded (R) Rounded Arm Posture (L) Internally Rotated (R) Internally Rotated Pelvis Posture Posterior Tilted Hip Posture (L) Externally Rotated (R) Externally Rotated PT-OP-K Range of Motion Start: 04/13/18 13:41 Freq: Status: Active Protocol: Document 06/16/18 10:29 EA (Rec: 06/16/18 11:13 EA [id number]) Lumbar Spine Range of Motion Lumbar Spine Active Percentage Testing Position Standing Flexion 85 Extension 60 Rotation Left 85 Rotation Right 85 Lateral Flexion Left 35 Lateral Flexion Right 35 ROM Limitations Soft Tissue Tightness Pain PT-OP-M Strength Start: 04/13/18 13:41 Freq: Status: Active Protocol: Document 06/16/18 10:29 EA (Rec: 06/16/18 11:13 EA [id number]) Hip Strength Hip Manual Muscle Testing Left Flexion (L2) 4 Good Extension (S1) 4 Good Abduction 4 Good Adduction 4 Good External Rotation 4 Good Internal Rotation 4 Good Knee Strength Knee Manual Muscle Testing Right Flexion (S2) 5 Normal Extension (L3) 5 Normal Left Flexion (S2) 5 Normal Extension (L3) 5 Normal PT-OP-Q Treatments Start: 04/13/18 13:41 Freq: Status: Active Protocol: Document 06/16/18 10:29 EA (Rec: 06/16/18 11:13 EA [id number]) Cardio Equipment Treadmill Duration (Minutes) 8 Speed 2-5 Incline 0-5 Other cont Gym Equipment Shuttle Recovery Unilateral Squats Resistance 2.5 Shuttle Recovery Platform Stable Reps/Time x 12 reps x 2 Bilateral Squats Details as tolerated range Resistance 4.5 cords Shuttle Recovery Platform Stable Reps/Time x 12-15 reps x 2 Therapeutic Exercises Supine Exercises 5 Supine Exercise Name SKTC Reps/Minutes x 15SH x 2 reps 4 Supine Exercise Name Lower trunk rotation Reps/Minutes x 15 reps x 2 Comments pain free range 3 Supine Exercise Name Bridge as tolerated range Side bilateral Resistance GTB Reps/Minutes x 5 reps x 2 sets Comments with hip isomet ABD 2 Supine Exercise Name PPT with SLR partial Side bilateral Resistance 2 lbs AW Reps/Minutes x 5 reps x 2 sets 1 Supine Exercise Name PPT with marching Reps/Minutes x 5SH x 5 reps Sidelying Exercises 2 Sidelying Exercise Name Clamshell Resistance BTB Reps/Minutes x 15 reps Comments HEP comp 1 Sidelying Exercise Name HIP ABD Side bilateral Resistance 2 lbsAW Comments x 15 reps Standing Exercises 3 Standing Exercise Name toe and heel walks Reps/Minutes x 2 mins 2 Standing Exercise Name Rails fwd lunges Reps/Minutes x 12 ft x 4 lines 1 Standing Exercise Name side step squat with heel raises Resistance YTB Reps/Minutes x 12 ft lines x 2 Manual Therapy Treatment Soft Tissue Mobilization 1 Body Location paralumbars, QL Mobilization Type Myofascial Release Rolling Sustained Pressure Intensity/Depth Moderate Body Position Sitting Comments sitting leaning to the table PT-OP-R Modalities Start: 04/13/18 13:41 Freq: Status: Active Protocol: Document 06/16/18 10:29 EA (Rec: 06/16/18 11:13 ALEJANDRO [id number]) Hot Pack/Cold Pack Treatment Hot Pack Location low back Patient Position Sitting Treatment Duration (minutes) 15 PT-OP-T Assessment and Plan Start: 04/13/18 13:41 Freq: Status: Active Protocol: Document 06/16/18 10:29 ALEJANDRO (Rec: 06/16/18 11:13 ALEJANDRO [id number]) Physical Therapy Assessment Rehab Potential Rehabilitation Potential Good Impairments Impairments Activity Tolerance Pain Posture ROM Soft Tissue Mobility Tone Goals Five Impairment No HEP in place Occupancy Specialist Goal (LTG) Patient will adhere/comply and perform HEP LTG Duration goal reached Four Impairment 3 months post surgery 10 lbs lifting restrictions. Residential Goal (LTG) Patient will lift more than 15 lbs with good body mechanics 3 months after the surgery. LTG Duration 4 wks Three Impairment Impaired walking tolerance Occupancy Specialist Goal (LTG) Patient will walk more than 30 mins with no increase in low back symptoms LTG Duration 4 wks (progressing well) Two Impairment Impaired standing tolerance Occupancy Specialist Goal (LTG) Patient will stand > 60 mins with no increase in low back symptoms LTG Duration 4 wks One Impairment Oswetry impairment scale score of 20/50 Residential Goal (LTG) Patient will have Oswestry functional low back score of at least <10/50 LTG Duration Reach goal Assessment Summary Assessment 73 y/o female patient s/p lumbar surgery on . Patient has been under my care since March 2018 and shows good improvement as to pain, strength and ROM to lumbar region. In my professional opinion, patient will continue to benefit with skilled PT with less frequent session at this time with aim of improving activity tolerance, further strength to both LE's to reach high functional level . Physical Therapy Plan Frequency and Duration Frequency of Treatment 1x/Week Duration of Treatment 6 wks Plan of Care Start Date 06/16/18 Plan of Care End Date 07/28/18 Therapeutic Interventions Therapeutic Interventions Gait Training Home Exercise Program Joint Mobilizations Manual Therapy Patient/Caregiver Education Self-Care/Home Management Soft Tissue Mobilization Taping Therapeutic Exercises Modalities Cold Pack/Ice Massage Electric Stimulation Hot Packs Next Visit Focus/Plan Next Note Type Treatment Note Next Visit Plan Advance as needed. standing functional exercises
--- NOTE | 2018-06-16 12:29 | PT.OPPOC ---
Current Diagnoses Strain of muscle, fascia and tendon of lower back, subsequent encounter (06/16/18) Arthrodesis status (06/16/18) Provider Visit Care Team Role Provider Type Yenifer Sin PA-C Family Provider Physician Primary Care Provider Specialty: Internal Medicine Address: [address] [place] [address], [id number] Email: Alexander Hadley MD Attending Provider Physician Specialty: Orthopedic Surgery Address: [address] [place] [address], [id number] Email: [email or web address] Plan Of Care PT-OP-T Assessment and Plan Start: 04/13/18 13:41 Freq: Status: Active Protocol: Document 06/16/18 10:29 EA (Rec: 06/16/18 11:13 EA [id number]) Physical Therapy Assessment Rehab Potential Rehabilitation Potential Good Impairments Impairments Activity Tolerance Pain Posture ROM Soft Tissue Mobility Tone Goals Five Impairment No HEP in place Alf Goal (LTG) Patient will adhere/comply and perform HEP LTG Duration goal reached Four Impairment 3 months post surgery 10 lbs lifting restrictions. Alf Goal (LTG) Patient will lift more than 15 lbs with good body mechanics 3 months after the surgery. LTG Duration 4 wks Three Impairment Impaired walking tolerance Alf Goal (LTG) Patient will walk more than 30 mins with no increase in low back symptoms LTG Duration 4 wks (progressing well) Two Impairment Impaired standing tolerance [employer] Goal (LTG) Patient will stand > 60 mins with no increase in low back symptoms LTG Duration 4 wks One Impairment Oswetry impairment scale score of 20/50 [employer] Goal (LTG) Patient will have Oswestry functional low back score of at least <10/50 LTG Duration Reach goal Assessment Summary Assessment 73 y/o female patient s/p lumbar surgery on . Patient has been under my care since March 2018 and shows good improvement as to pain, strength and ROM to lumbar region. In my professional opinion, patient will continue to benefit with skilled PT with less frequent session at this time with aim of improving activity tolerance, further strength to both LE's to reach high functional level . Physical Therapy Plan Frequency and Duration Frequency of Treatment 1x/Week Duration of Treatment 6 wks Plan of Care Start Date 06/16/18 Plan of Care End Date 07/28/18 Therapeutic Interventions Therapeutic Interventions Gait Training Home Exercise Program Joint Mobilizations Manual Therapy Patient/Caregiver Education Self-Care/Home Management Soft Tissue Mobilization Taping Therapeutic Exercises Modalities Cold Pack/Ice Massage Electric Stimulation Hot Packs Next Visit Focus/Plan Next Note Type Treatment Note Next Visit Plan Advance as needed. standing functional exercises Plan of Care Dates Plan of Care Start Date 06/16/18 Plan of Care End Date 07/28/18 Please Sign and Return: I have reviewed this Plan of Care and certify that the skilled therapy services above are required to meet the patient?s needs. Physician Signature Date Printed Name and Credentials Clinical Instructor Signature Printed Name and Credentials
--- NOTE | 2018-06-23 17:14 | PT.OTN ---
Current Diagnoses Strain of muscle, fascia and tendon of lower back, subsequent encounter (06/23/18) Arthrodesis status (06/23/18) Physical Therapy Treatment Note PT-OP-A Visit Information Start: 04/13/18 13:41 Freq: Status: Active Protocol: Document 06/23/18 16:47 EA (Rec: 06/23/18 16:52 EA [id number]) Out-Patient Physical Therapy Visit Information Visit Information Visit Type Treatment Note Total Visit Minutes 55 Visit Number 9 PT-OP-B Current Condition Start: 04/13/18 13:41 Freq: Status: Active Protocol: Document 04/13/18 17:15 EA (Rec: 04/13/18 17:24 EA [id number]) Current Condition History of Current Condition Onset Date 01/26/18 Current Complaints S/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 Patient reports low back pain and with numbness to LE happens on 07/2017; states no injury noted or previous surgery to low back prior to low back pian onset. Patient states went to PT but failed to recovered fully. Prior to year 2017, patient reports she has no limitation in mobility . Prior Treatments and Tests None identified after the surgery Future Testing and Treatments Planned None identified Treatment Goals Patient/Caregiver Goals Patient wants to be able to walk more than 15 minutes without increase of low back symptoms Patient would like to perform home activities with increase tolerance to > 30 mins without increase of back symptoms. Prior Functional Status Baseline Function- ADL's Independent Baseline Function- Mobility Independent Baseline Function- Gait Able to amb > 2 block with her dogs prior to initial onset on 07/2017 Baseline Function- Work/School Retired Current Functional Impairments (Reported) Functional Limitations- ADL's Requires frequent rest at home with all ADL's(Every 15 minutes) Functional Limitations- Mobility/Gait Requires to sit before 15 minutes of cont. walk Functional Limitations- Recreation/ Unable to walk with her dog Hobbies outside more than 5 minutes due to increase of back symptoms. PT-OP-C Subjective Start: 04/13/18 13:41 Freq: Status: Active Protocol: Document 06/23/18 16:47 EA (Rec: 06/23/18 16:52 EA [id number]) OP-PT Subjective Patient Comments Patient Comments Pt reports both legs at times dont know were to place; states almost tripped but able to control; denies knee buckling. PT-OP-D Balance Start: 04/13/18 13:41 Freq: Status: Active Protocol: Document 04/13/18 17:08 EA (Rec: 04/13/18 17:14 EA [id number]) Balance Tests Romberg Romberg <5 sec Single Limb Standing Single Limb- Right >2 sec Single Limb- Left > 2secs Tandem Tandem Standing unable PT-OP-E Functional Tests Start: 04/13/18 13:41 Freq: Status: Active Protocol: Document 04/13/18 17:52 EA (Rec: 04/14/18 07:53 EA [id number]) Functional Tests Squat Test Score 5 squat no hand support 90deg in 10 seconds PT-OP-G Mobility & Gait Start: 04/13/18 13:41 Freq: Status: Active Protocol: Document 06/16/18 10:29 EA (Rec: 06/16/18 11:13 EA [id number]) OP Mobility Evaluation Bed Mobility Rolling indep with no difficulty Supine to and from Sit Log roll Transfers Sit to Stand Indep Bed to Chair Transfers inedp PT-OP-H Neuro Start: 04/13/18 13:41 Freq: Status: Active Protocol: Document 04/13/18 17:08 EA (Rec: 04/13/18 17:14 EA [id number]) Coordination Evaluation Lower Extremity Tests Left Alternate Heel to Knee; Heel to Toe Test Normal Performance Heel on [place]on[place] Test Normal Performance Foot Tapping Test Normal Performance Toe to Examiner's Finger Test Normal Performance Drawing [place] w/Foot Test Normal Performance Lower Extremity Fixation/Position Normal Performance Holding Test Right Alternate Heel to Knee; Heel to Toe Test Normal Performance Heel on [place] Test Normal Performance Foot Tapping Test Normal Performance Toe to Examiner's Finger Test Normal Performance Drawing [place] w/Foot Test Normal Performance Lower Extremity Fixation/Position Normal Performance Holding Test Deep Tendon Reflex & Clonus Assessment Deep Tendon Reflex Bilateral Achilles Deep Tendon Reflex 2+ Normal Patellar Deep Tendon Reflex 2+ Normal PT-OP-J Posture/Palpation/Skin Start: 04/13/18 13:41 Freq: Status: Active Protocol: Document 06/16/18 10:29 EA (Rec: 06/16/18 11:13 EA [id number]) Posture Evaluation Position Standing Evaluation View Lateral Head/C-Spine Posture Forward Head Thorax Posture Neutral L-Spine Posture Flattened Shoulder Posture (L) Rounded (R) Rounded Arm Posture (L) Internally Rotated (R) Internally Rotated Pelvis Posture Posterior Tilted Hip Posture (L) Externally Rotated (R) Externally Rotated PT-OP-K Range of Motion Start: 04/13/18 13:41 Freq: Status: Active Protocol: Document 06/16/18 10:29 EA (Rec: 06/16/18 11:13 EA [id number]) Lumbar Spine Range of Motion Lumbar Spine Active Percentage Testing Position Standing Flexion 85 Extension 60 Rotation Left 85 Rotation Right 85 Lateral Flexion Left 35 Lateral Flexion Right 35 ROM Limitations Soft Tissue Tightness Pain PT-OP-M Strength Start: 04/13/18 13:41 Freq: Status: Active Protocol: Document 06/16/18 10:29 EA (Rec: 06/16/18 11:13 EA [id number]) Hip Strength Hip Manual Muscle Testing Left Flexion (L2) 4 Good Extension (S1) 4 Good Abduction 4 Good Adduction 4 Good External Rotation 4 Good Internal Rotation 4 Good Knee Strength Knee Manual Muscle Testing Right Flexion (S2) 5 Normal Extension (L3) 5 Normal Left Flexion (S2) 5 Normal Extension (L3) 5 Normal PT-OP-Q Treatments Start: 04/13/18 13:41 Freq: Status: Active Protocol: Document 06/23/18 16:47 EA (Rec: 06/23/18 16:52 EA [id number]) Gym Equipment Cable Column (Body Solid) Leg Extension Resistance 30# x 15 Hip Adduction Resistance 30# x 15 Hip Abduction Reps/Time 30# x 15 Shuttle Recovery Unilateral Squats Resistance 2.5 Shuttle Recovery Platform Stable Reps/Time x 12 reps Bilateral Squats Details as tolerated range Resistance 4.5 cords Shuttle Recovery Platform Stable Reps/Time x 12-15 reps x 2 Therapeutic Exercises Supine Exercises 5 Supine Exercise Name SKTC Reps/Minutes x 15SH x 2 reps 4 Supine Exercise Name Lower trunk rotation Reps/Minutes x 15 reps x 2 Comments pain free range 3 Supine Exercise Name Bridge as tolerated range Side bilateral Resistance GTB Reps/Minutes x 5 reps x 2 sets Comments with hip isomet ABD 2 Supine Exercise Name PPT with SLR partial Side bilateral Resistance 2 lbs AW Reps/Minutes x 5 reps x 2 sets 1 Supine Exercise Name PPT with marching Reps/Minutes x 5SH x 5 reps Sidelying Exercises 1 Sidelying Exercise Name HIP ABD Side bilateral Resistance 2 lbsAW Comments x 15 reps Standing Exercises 3 Standing Exercise Name toe and heel walks Reps/Minutes x 2 mins 2 Standing Exercise Name Rails fwd lunges Reps/Minutes x 12 ft x 4 lines 1 Standing Exercise Name side step squat with heel raises Resistance YTB Reps/Minutes x 12 ft lines x 2 Manual Therapy Treatment Soft Tissue Mobilization 1 Body Location Upper gluteal and ITB both sides Mobilization Type Myofascial Release Rolling Sustained Pressure Intensity/Depth Moderate Body Position Sidelying PT-OP-R Modalities Start: 04/13/18 13:41 Freq: Status: Active Protocol: Document 06/23/18 16:52 EA (Rec: 06/23/18 16:52 EA [id number]) Hot Pack/Cold Pack Treatment Hot Pack Location low back Patient Position Sitting Treatment Duration (minutes) 15 PT-OP-T Assessment and Plan Start: 04/13/18 13:41 Freq: Status: Active Protocol: Document 06/23/18 16:47 EA (Rec: 06/23/18 16:52 EA [id number]) Physical Therapy Assessment Assessment Summary Assessment Quick assessment performed and reveal normal knee and ankle DTR's. Advise to cont HEP and add ITB band and piriformis stretch. Physical Therapy Plan Next Visit Focus/Plan Next Note Type Treatment Note Next Visit Plan Advance as needed. standing functional exercises
--- NOTE | 2018-07-01 16:43 | PT.OTN ---
Current Diagnoses Strain of muscle, fascia and tendon of lower back, subsequent encounter (07/01/18) Arthrodesis status (07/01/18) Physical Therapy Treatment Note PT-OP-A Visit Information Start: 04/13/18 13:41 Freq: Status: Active Protocol: Document 07/01/18 15:56 EA (Rec: 07/01/18 16:02 EA [id number]) Out-Patient Physical Therapy Visit Information Visit Information Visit Type Treatment Note Visit Start Time 15:15 Visit Stop Time 16:08 Total Visit Minutes 53 Visit Number 10 PT-OP-B Current Condition Start: 04/13/18 13:41 Freq: Status: Active Protocol: Document 04/13/18 17:15 EA (Rec: 04/13/18 17:24 EA [id number]) Current Condition History of Current Condition Onset Date 01/26/18 Current Complaints S/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 Patient reports low back pain and with numbness to LE happens on 07/2017; states no injury noted or previous surgery to low back prior to low back pian onset. Patient states went to PT but failed to recovered fully. Prior to year 2017, patient reports she has no limitation in mobility . Prior Treatments and Tests None identified after the surgery Future Testing and Treatments Planned None identified Treatment Goals Patient/Caregiver Goals Patient wants to be able to walk more than 15 minutes without increase of low back symptoms Patient would like to perform home activities with increase tolerance to > 30 mins without increase of back symptoms. Prior Functional Status Baseline Function- ADL's Independent Baseline Function- Mobility Independent Baseline Function- Gait Able to amb > 2 block with her dogs prior to initial onset on 07/2017 Baseline Function- Work/School Retired Current Functional Impairments (Reported) Functional Limitations- ADL's Requires frequent rest at home with all ADL's(Every 15 minutes) Functional Limitations- Mobility/Gait Requires to sit before 15 minutes of cont. walk Functional Limitations- Recreation/ Unable to walk with her dog Hobbies outside more than 5 minutes due to increase of back symptoms. PT-OP-C Subjective Start: 04/13/18 13:41 Freq: Status: Active Protocol: Document 07/01/18 15:56 EA (Rec: 07/01/18 16:02 EA [id number]) OP-PT Subjective Patient Comments Patient Comments Pt reports compliant with HEP; states she feels both legs are improved; states tends to lean fwd when back pain occurs . PT-OP-D Balance Start: 04/13/18 13:41 Freq: Status: Active Protocol: Document 04/13/18 17:08 EA (Rec: 04/13/18 17:14 EA [id number]) Balance Tests Romberg Romberg <5 sec Single Limb Standing Single Limb- Right >2 sec Single Limb- Left > 2secs Tandem Tandem Standing unable PT-OP-E Functional Tests Start: 04/13/18 13:41 Freq: Status: Active Protocol: Document 04/13/18 17:52 EA (Rec: 04/14/18 07:53 EA [id number]) Functional Tests Squat Test Score 5 squat no hand support 90deg in 10 seconds PT-OP-G Mobility & Gait Start: 04/13/18 13:41 Freq: Status: Active Protocol: Document 06/16/18 10:29 EA (Rec: 06/16/18 11:13 EA [id number]) OP Mobility Evaluation Bed Mobility Rolling indep with no difficulty Supine to and from Sit Log roll Transfers Sit to Stand Indep Bed to Chair Transfers inedp PT-OP-H Neuro Start: 04/13/18 13:41 Freq: Status: Active Protocol: Document 04/13/18 17:08 EA (Rec: 04/13/18 17:14 EA [id number]) Coordination Evaluation Lower Extremity Tests Left Alternate Heel to Knee; Heel to Toe Test Normal Performance Heel on [place]onzo Test Normal Performance Foot Tapping Test Normal Performance Toe to Examiner's Finger Test Normal Performance Drawing a [place] w/Foot Test Normal Performance Lower Extremity Fixation/Position Normal Performance Holding Test Right Alternate Heel to Knee; Heel to Toe Test Normal Performance Heel on [place] Test Normal Performance Foot Tapping Test Normal Performance Toe to Examiner's Finger Test Normal Performance Drawing a [place] w/Foot Test Normal Performance Lower Extremity Fixation/Position Normal Performance Holding Test Deep Tendon Reflex & Clonus Assessment Deep Tendon Reflex Bilateral Achilles Deep Tendon Reflex 2+ Normal Patellar Deep Tendon Reflex 2+ Normal PT-OP-J Posture/Palpation/Skin Start: 04/13/18 13:41 Freq: Status: Active Protocol: Document 06/16/18 10:29 EA (Rec: 06/16/18 11:13 EA [id number]) Posture Evaluation Position Standing Evaluation View Lateral Head/C-Spine Posture Forward Head Thorax Posture Neutral L-Spine Posture Flattened Shoulder Posture (L) Rounded (R) Rounded Arm Posture (L) Internally Rotated (R) Internally Rotated Pelvis Posture Posterior Tilted Hip Posture (L) Externally Rotated (R) Externally Rotated PT-OP-K Range of Motion Start: 04/13/18 13:41 Freq: Status: Active Protocol: Document 06/16/18 10:29 EA (Rec: 06/16/18 11:13 EA [id number]) Lumbar Spine Range of Motion Lumbar Spine Active Percentage Testing Position Standing Flexion 85 Extension 60 Rotation Left 85 Rotation Right 85 Lateral Flexion Left 35 Lateral Flexion Right 35 ROM Limitations Soft Tissue Tightness Pain PT-OP-M Strength Start: 04/13/18 13:41 Freq: Status: Active Protocol: Document 06/16/18 10:29 EA (Rec: 06/16/18 11:13 EA [id number]) Hip Strength Hip Manual Muscle Testing Left Flexion (L2) 4 Good Extension (S1) 4 Good Abduction 4 Good Adduction 4 Good External Rotation 4 Good Internal Rotation 4 Good Knee Strength Knee Manual Muscle Testing Right Flexion (S2) 5 Normal Extension (L3) 5 Normal Left Flexion (S2) 5 Normal Extension (L3) 5 Normal PT-OP-Q Treatments Start: 04/13/18 13:41 Freq: Status: Active Protocol: Document 07/01/18 15:56 EA (Rec: 07/01/18 16:02 EA [id number]) Cardio Equipment Treadmill Duration (Minutes) 8 Speed 2-5 Incline 0-5 Other cont Gym Equipment Shuttle Recovery Unilateral Squats Resistance 3 Shuttle Recovery Platform Stable Reps/Time x 12 repsx3 Bilateral Squats Details as tolerated range Resistance 4.5 cords Shuttle Recovery Platform Stable Reps/Time x 12-15 reps x 2 Therapeutic Exercises Supine Exercises 5 Supine Exercise Name SKTC Reps/Minutes x 15SH x 2 reps 4 Supine Exercise Name Lower trunk rotation Reps/Minutes x 15 reps x 2 Comments pain free range 3 Supine Exercise Name Bridge as tolerated range Side bilateral Reps/Minutes x 5 reps x 2 sets Comments with marching 2 Supine Exercise Name PPT with SLR partial Side bilateral Resistance 2 lbs AW Reps/Minutes x 5 reps x 2 sets Sidelying Exercises 2 Sidelying Exercise Name Clamshell Resistance BTB Reps/Minutes x 15 reps Comments HEP comp Standing Exercises 4 Standing Exercise Name Core: hip flexion, abduction Resistance 3 lbs AW Reps/Minutes x 10 reps each side Comments pole support: focus on engaging TA 2 Standing Exercise Name Rails fwd lunges Reps/Minutes x 12 ft x 4 lines 1 Standing Exercise Name side step squat with heel raises Resistance YTB Reps/Minutes x 12 ft lines x 2 PT-OP-R Modalities Start: 04/13/18 13:41 Freq: Status: Active Protocol: Document 07/01/18 15:56 EA (Rec: 07/01/18 16:02 EA [id number]) Hot Pack/Cold Pack Treatment Hot Pack Location low back Patient Position Sitting Treatment Duration (minutes) 15 PT-OP-T Assessment and Plan Start: 04/13/18 13:41 Freq: Status: Active Protocol: Document 07/01/18 15:56 EA (Rec: 07/01/18 16:02 EA [id number]) Physical Therapy Assessment Assessment Summary Assessment Improved exercises tolerance with good standing posture noted at this time. Patient is progresing well. Physical Therapy Plan Next Visit Focus/Plan Next Note Type Treatment Note Next Visit Plan Advance as needed. standing functionale= exercises
--- NOTE | 2018-07-15 11:01 | PT.OTN ---
Current Diagnoses Strain of muscle, fascia and tendon of lower back, subsequent encounter (07/15/18) Arthrodesis status (07/15/18) Physical Therapy Treatment Note PT-OP-A Visit Information Start: 04/13/18 13:41 Freq: Status: Active Protocol: Document 07/15/18 10:26 EA (Rec: 07/15/18 10:30 EA [id number]) Out-Patient Physical Therapy Visit Information Visit Information Visit Type Treatment Note Visit Note Re-eval performed today Visit Start Time 09:45 Visit Stop Time 10:30 Total Visit Minutes 50 Visit Number 11 PT-OP-B Current Condition Start: 04/13/18 13:41 Freq: Status: Active Protocol: Document 04/13/18 17:15 EA (Rec: 04/13/18 17:24 EA [id number]) Current Condition History of Current Condition Onset Date 01/26/18 Current Complaints S/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 Patient reports low back pain and with numbness to LE happens on 07/2017; states no injury noted or previous surgery to low back prior to low back pian onset. Patient states went to PT but failed to recovered fully. Prior to year 2017, patient reports she has no limitation in mobility . Prior Treatments and Tests None identified after the surgery Future Testing and Treatments Planned None identified Treatment Goals Patient/Caregiver Goals Patient wants to be able to walk more than 15 minutes without increase of low back symptoms Patient would like to perform home activities with increase tolerance to > 30 mins without increase of back symptoms. Prior Functional Status Baseline Function- ADL's Independent Baseline Function- Mobility Independent Baseline Function- Gait Able to amb > 2 block with her dogs prior to initial onset on 07/2017 Baseline Function- Work/School Retired Current Functional Impairments (Reported) Functional Limitations- ADL's Requires frequent rest at home with all ADL's(Every 15 minutes) Functional Limitations- Mobility/Gait Requires to sit before 15 minutes of cont. walk Functional Limitations- Recreation/ Unable to walk with her dog Hobbies outside more than 5 minutes due to increase of back symptoms. PT-OP-C Subjective Start: 04/13/18 13:41 Freq: Status: Active Protocol: Document 07/15/18 10:26 EA (Rec: 07/15/18 10:30 EA [id number]) OP-PT Subjective Patient Comments Patient Comments Pt reports I feel like I am back to [facility] again; states had a flu in the past weeks and has cancelled llast two session. PT-OP-D Balance Start: 04/13/18 13:41 Freq: Status: Active Protocol: Document 04/13/18 17:08 EA (Rec: 04/13/18 17:14 EA [id number]) Balance Tests Romberg Romberg <5 sec Single Limb Standing Single Limb- Right >2 sec Single Limb- Left > 2secs Tandem Tandem Standing unable PT-OP-E Functional Tests Start: 04/13/18 13:41 Freq: Status: Active Protocol: Document 04/13/18 17:52 EA (Rec: 04/14/18 07:53 EA [id number]) Functional Tests Squat Test Score 5 squat no hand support 90deg in 10 seconds PT-OP-G Mobility & Gait Start: 04/13/18 13:41 Freq: Status: Active Protocol: Document 06/16/18 10:29 EA (Rec: 06/16/18 11:13 EA [id number]) OP Mobility Evaluation Bed Mobility Rolling indep with no difficulty Supine to and from Sit Log roll Transfers Sit to Stand Indep Bed to Chair Transfers inedp PT-OP-H Neuro Start: 04/13/18 13:41 Freq: Status: Active Protocol: Document 04/13/18 17:08 EA (Rec: 04/13/18 17:14 EA [id number]) Coordination Evaluation Lower Extremity Tests Left Alternate Heel to Knee; Heel to Toe Test Normal Performance Heel on [place] Test Normal Performance Foot Tapping Test Normal Performance Toe to Examiner's Finger Test Normal Performance Drawing a [place] w/Foot Test Normal Performance Lower Extremity Fixation/Position Normal Performance Holding Test Right Alternate Heel to Knee; Heel to Toe Test Normal Performance Heel on [place] Test Normal Performance Foot Tapping Test Normal Performance Toe to Examiner's Finger Test Normal Performance Drawing a [place] w/Foot Test Normal Performance Lower Extremity Fixation/Position Normal Performance Holding Test Deep Tendon Reflex & Clonus Assessment Deep Tendon Reflex Bilateral Achilles Deep Tendon Reflex 2+ Normal Patellar Deep Tendon Reflex 2+ Normal PT-OP-J Posture/Palpation/Skin Start: 04/13/18 13:41 Freq: Status: Active Protocol: Document 06/16/18 10:29 EA (Rec: 06/16/18 11:13 EA [id number]) Posture Evaluation Position Standing Evaluation View Lateral Head/C-Spine Posture Forward Head Thorax Posture Neutral L-Spine Posture Flattened Shoulder Posture (L) Rounded (R) Rounded Arm Posture (L) Internally Rotated (R) Internally Rotated Pelvis Posture Posterior Tilted Hip Posture (L) Externally Rotated (R) Externally Rotated PT-OP-K Range of Motion Start: 04/13/18 13:41 Freq: Status: Active Protocol: Document 06/16/18 10:29 EA (Rec: 06/16/18 11:13 EA [id number]) Lumbar Spine Range of Motion Lumbar Spine Active Percentage Testing Position Standing Flexion 85 Extension 60 Rotation Left 85 Rotation Right 85 Lateral Flexion Left 35 Lateral Flexion Right 35 ROM Limitations Soft Tissue Tightness Pain PT-OP-M Strength Start: 04/13/18 13:41 Freq: Status: Active Protocol: Document 06/16/18 10:29 EA (Rec: 06/16/18 11:13 EA [id number]) Hip Strength Hip Manual Muscle Testing Left Flexion (L2) 4 Good Extension (S1) 4 Good Abduction 4 Good Adduction 4 Good External Rotation 4 Good Internal Rotation 4 Good Knee Strength Knee Manual Muscle Testing Right Flexion (S2) 5 Normal Extension (L3) 5 Normal Left Flexion (S2) 5 Normal Extension (L3) 5 Normal PT-OP-Q Treatments Start: 04/13/18 13:41 Freq: Status: Active Protocol: Document 07/15/18 10:26 EA (Rec: 07/15/18 10:30 EA [id number]) Cardio Equipment Recumbent Stepper (Sci-Fit) Duration (Minutes) 6 Resistance 3 Seat Position 9 Gym Equipment Cable Column (Body Solid) Hip Adduction Resistance 30# x 15 Hip Abduction Reps/Time 30# x 15 Shuttle Recovery Unilateral Squats Resistance 3 Shuttle Recovery Platform Stable Reps/Time x 12 repsx3 Bilateral Squats Details as tolerated range Resistance 4.5 cords Shuttle Recovery Platform Stable Reps/Time x 12-15 reps x 2 Therapeutic Exercises Supine Exercises 5 Supine Exercise Name SKTC Reps/Minutes x 15SH x 2 reps 4 Supine Exercise Name Lower trunk rotation Reps/Minutes x 15 reps x 2 Comments pain free range 3 Supine Exercise Name Bridge as tolerated range Side bilateral Reps/Minutes x 5 reps x 2 sets Comments with marching/ with hip ABD 2 Supine Exercise Name PPT with SLR partial Side bilateral Resistance 2 lbs AW Reps/Minutes x 5 reps x 2 sets 1 Supine Exercise Name PPT with marching Reps/Minutes x 5SH x 5 reps Sidelying Exercises 2 Sidelying Exercise Name Clamshell Resistance BTB Reps/Minutes x 15 reps Comments HEP comp 1 Sidelying Exercise Name HIP ABD Side bilateral Resistance 2 lbsAW Comments x 15 reps Standing Exercises 2 Standing Exercise Name Rails fwd lunges Reps/Minutes x 12 ft x 4 lines 1 Standing Exercise Name side step squat with heel raises Resistance YTB Reps/Minutes x 12 ft lines x 2 PT-OP-R Modalities Start: 04/13/18 13:41 Freq: Status: Active Protocol: Document 07/15/18 10:26 EA (Rec: 07/15/18 10:30 EA [id number]) Hot Pack/Cold Pack Treatment Hot Pack Location low back Patient Position Sitting Treatment Duration (minutes) 10 PT-OP-T Assessment and Plan Start: 04/13/18 13:41 Freq: Status: Active Protocol: Document 07/15/18 10:26 EA (Rec: 07/15/18 10:30 EA [id number]) Physical Therapy Assessment Assessment Summary Assessment Pt tolerated treatment well with no signs of discomfort or c/o pain during exercises. Patient will continue to benefit with PT. Physical Therapy Plan Next Visit Focus/Plan Next Note Type Treatment Note Next Visit Plan Advance as needed. standing functional exercises
--- NOTE | 2018-07-22 11:07 | PT.OTN ---
Current Diagnoses Strain of muscle, fascia and tendon of lower back, subsequent encounter (07/22/18) Arthrodesis status (07/22/18) Physical Therapy Treatment Note PT-OP-A Visit Information Start: 04/13/18 13:41 Freq: Status: Active Protocol: Document 07/22/18 09:54 EA (Rec: 07/22/18 11:05 EA [id number]) Out-Patient Physical Therapy Visit Information Visit Information Visit Type Treatment Note Visit Start Time 09:45 Visit Stop Time 10:40 Total Visit Minutes 53 Visit Number 12 PT-OP-B Current Condition Start: 04/13/18 13:41 Freq: Status: Active Protocol: Document 04/13/18 17:15 EA (Rec: 04/13/18 17:24 EA [id number]) Current Condition History of Current Condition Onset Date 01/26/18 Current Complaints S/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 Patient reports low back pain and with numbness to LE happens on 07/2017; states no injury noted or previous surgery to low back prior to low back pian onset. Patient states went to PT but failed to recovered fully. Prior to year 2017, patient reports she has no limitation in mobility . Prior Treatments and Tests None identified after the surgery Future Testing and Treatments Planned None identified Treatment Goals Patient/Caregiver Goals Patient wants to be able to walk more than 15 minutes without increase of low back symptoms Patient would like to perform home activities with increase tolerance to > 30 mins without increase of back symptoms. Prior Functional Status Baseline Function- ADL's Independent Baseline Function- Mobility Independent Baseline Function- Gait Able to amb > 2 block with her dogs prior to initial onset on 07/2017 Baseline Function- Work/School Retired Current Functional Impairments (Reported) Functional Limitations- ADL's Requires frequent rest at home with all ADL's(Every 15 minutes) Functional Limitations- Mobility/Gait Requires to sit before 15 minutes of cont. walk Functional Limitations- Recreation/ Unable to walk with her dog Hobbies outside more than 5 minutes due to increase of back symptoms. PT-OP-C Subjective Start: 04/13/18 13:41 Freq: Status: Active Protocol: Document 07/22/18 09:54 EA (Rec: 07/22/18 11:05 EA [id number]) OP-PT Subjective Patient Comments Patient Comments Pt reports both foot slapping still happening;states could be from firm she heel. PT-OP-D Balance Start: 04/13/18 13:41 Freq: Status: Active Protocol: Document 04/13/18 17:08 EA (Rec: 04/13/18 17:14 EA [id number]) Balance Tests Romberg Romberg <5 sec Single Limb Standing Single Limb- Right >2 sec Single Limb- Left > 2secs Tandem Tandem Standing unable PT-OP-E Functional Tests Start: 04/13/18 13:41 Freq: Status: Active Protocol: Document 04/13/18 17:52 EA (Rec: 04/14/18 07:53 EA [id number]) Functional Tests Squat Test Score 5 squat no hand support 90deg in 10 seconds PT-OP-G Mobility & Gait Start: 04/13/18 13:41 Freq: Status: Active Protocol: Document 06/16/18 10:29 EA (Rec: 06/16/18 11:13 EA [id number]) OP Mobility Evaluation Bed Mobility Rolling indep with no difficulty Supine to and from Sit Log roll Transfers Sit to Stand Indep Bed to Chair Transfers inedp PT-OP-H Neuro Start: 04/13/18 13:41 Freq: Status: Active Protocol: Document 04/13/18 17:08 EA (Rec: 04/13/18 17:14 EA [id number]) Coordination Evaluation Lower Extremity Tests Left Alternate Heel to Knee; Heel to Toe Test Normal Performance Heel on Alonzo Test Normal Performance Foot Tapping Test Normal Performance Toe to Examiner's Finger Test Normal Performance Drawing a [place] w/Foot Test Normal Performance Lower Extremity Fixation/Position Normal Performance Holding Test Right Alternate Heel to Knee; Heel to Toe Test Normal Performance Heel on [place] Test Normal Performance Foot Tapping Test Normal Performance Toe to Examiner's Finger Test Normal Performance Drawing a [place] w/Foot Test Normal Performance Lower Extremity Fixation/Position Normal Performance Holding Test Deep Tendon Reflex & Clonus Assessment Deep Tendon Reflex Bilateral Achilles Deep Tendon Reflex 2+ Normal Patellar Deep Tendon Reflex 2+ Normal PT-OP-J Posture/Palpation/Skin Start: 04/13/18 13:41 Freq: Status: Active Protocol: Document 06/16/18 10:29 EA (Rec: 06/16/18 11:13 EA [id number]) Posture Evaluation Position Standing Evaluation View Lateral Head/C-Spine Posture Forward Head Thorax Posture Neutral L-Spine Posture Flattened Shoulder Posture (L) Rounded (R) Rounded Arm Posture (L) Internally Rotated (R) Internally Rotated Pelvis Posture Posterior Tilted Hip Posture (L) Externally Rotated (R) Externally Rotated PT-OP-K Range of Motion Start: 04/13/18 13:41 Freq: Status: Active Protocol: Document 06/16/18 10:29 EA (Rec: 06/16/18 11:13 EA [id number]) Lumbar Spine Range of Motion Lumbar Spine Active Percentage Testing Position Standing Flexion 85 Extension 60 Rotation Left 85 Rotation Right 85 Lateral Flexion Left 35 Lateral Flexion Right 35 ROM Limitations Soft Tissue Tightness Pain PT-OP-M Strength Start: 04/13/18 13:41 Freq: Status: Active Protocol: Document 06/16/18 10:29 EA (Rec: 06/16/18 11:13 EA [id number]) Hip Strength Hip Manual Muscle Testing Left Flexion (L2) 4 Good Extension (S1) 4 Good Abduction 4 Good Adduction 4 Good External Rotation 4 Good Internal Rotation 4 Good Knee Strength Knee Manual Muscle Testing Right Flexion (S2) 5 Normal Extension (L3) 5 Normal Left Flexion (S2) 5 Normal Extension (L3) 5 Normal PT-OP-Q Treatments Start: 04/13/18 13:41 Freq: Status: Active Protocol: Document 07/22/18 09:54 EA (Rec: 07/22/18 11:05 EA [id number]) Cardio Equipment Treadmill Duration (Minutes) 8 Speed 2-5 Incline 0-5 Other cont Gym Equipment Cable Column (Body Solid) Leg Extension Resistance 30# x 15 Hip Adduction Resistance 30# x 15 Hip Abduction Reps/Time 30# x 15 Shuttle Recovery Unilateral Squats Resistance 3 Shuttle Recovery Platform Stable Reps/Time x 12 repsx3 Bilateral Squats Details as tolerated range Resistance 4.5 cords Shuttle Recovery Platform Stable Reps/Time x 12-15 reps x 2 Therapeutic Exercises Supine Exercises 5 Supine Exercise Name SKTC Reps/Minutes x 15SH x 2 reps 4 Supine Exercise Name Lower trunk rotation Reps/Minutes x 15 reps x 2 Comments pain free range 3 Supine Exercise Name Bridge as tolerated range Side bilateral Reps/Minutes x 5 reps x 2 sets Comments with marching/ with hip ABD 2 Supine Exercise Name PPT with SLR partial Side bilateral Resistance 2 lbs AW Reps/Minutes x 5 reps x 2 sets 1 Supine Exercise Name PPT with marching Reps/Minutes x 5SH x 5 reps Sidelying Exercises 2 Sidelying Exercise Name Clamshell Resistance BTB Reps/Minutes x 15 reps Comments HEP comp 1 Sidelying Exercise Name HIP ABD Side bilateral Resistance 2 lbsAW Comments x 15 reps Standing Exercises 4 Standing Exercise Name Core: hip flexion, abduction Resistance 3 lbs AW Reps/Minutes x 10 reps each side Comments pole support: focus on engaging TA 3 Standing Exercise Name toe and heel walks Reps/Minutes x 2 mins 2 Standing Exercise Name Rails fwd lunges Reps/Minutes x 12 ft x 4 lines 1 Standing Exercise Name side step squat with heel raises Resistance YTB Reps/Minutes x 12 ft lines x 2 PT-OP-R Modalities Start: 04/13/18 13:41 Freq: Status: Active Protocol: Document 07/22/18 09:54 EA (Rec: 07/22/18 11:05 EA [id number]) Hot Pack/Cold Pack Treatment Hot Pack Location low back Patient Position Sitting Treatment Duration (minutes) 10 PT-OP-T Assessment and Plan Start: 04/13/18 13:41 Freq: Status: Active Protocol: Document 07/22/18 09:54 EA (Rec: 07/22/18 11:05 EA [id number]) Physical Therapy Assessment Assessment Summary Assessment Tolerated treatment well; SOB noted at TM speed of 2.5mph. Patient will cont. to benefit with skilled PT. Physical Therapy Plan Next Visit Focus/Plan Next Note Type Re-Evaluation
--- NOTE | 2018-07-29 10:43 | PT.OIE ---
Current Diagnoses Strain of muscle, fascia and tendon of lower back, subsequent encounter (07/29/18) Arthrodesis status (07/29/18) Past Medical History (Last Updated 01/13/18 @ 11:19 by Brianna Bronson RN) Anxiety (Acute) Depression (Acute) Diverticulitis (Acute) HTN (hypertension) (Acute) Hyperlipidemia (Acute) Kidney infection (Acute) Kidney stone (Acute) Numbness and tingling of both legs (Acute) Osteoarthritis (Acute) [place] teeth removed (Acute) Past Surgical History (Last Updated 01/13/18 @ 12:26 by Brianna Bronson RN) History of arthroplasty of left shoulder (Acute) History of arthroscopy of right shoulder (Acute) Hx of arthroscopy of right knee (Acute) Hx of tubal ligation (Acute) S/P cervical spinal fusion (Acute) Status post bilateral cataract extraction (Acute) Provider Visit Care Team Role Provider Type Yenifer Sin PA-C Family Provider Physician Primary Care Provider Specialty: Internal Medicine Address: [address] [place] [address], [facility] Email: Alexander Hadley MD Attending Provider Physician Specialty: Orthopedic Surgery Address: [address] [place] [address], [id number] Email: [email or web address] Physical [facility] Initial Evaluation PT-OP-A Visit Information Start: 04/13/18 13:41 Freq: Status: Active Protocol: Document 07/29/18 10:29 EA (Rec: 07/29/18 10:42 EA [id number]) Out-Patient Physical Therapy Visit Information Visit Information Visit Type Treatment Note Visit Note Re-eval performed today Visit Start Time 09:45 Visit Stop Time 10:40 Total Visit Minutes 53 Visit Number 13 PT-OP-B Current Condition Start: 04/13/18 13:41 Freq: Status: Active Protocol: Document 04/13/18 17:15 EA (Rec: 04/13/18 17:24 EA [id number]) Current Condition History of Current Condition Onset Date 01/26/18 Current Complaints S/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 Patient reports low back pain and with numbness to LE happens on 07/2017; states no injury noted or previous surgery to low back prior to low back pian onset. Patient states went to PT but failed to recovered fully. Prior to year 2017, patient reports she has no limitation in mobility . Prior Treatments and Tests None identified after the surgery Future Testing and Treatments Planned None identified Treatment Goals Patient/Caregiver Goals Patient wants to be able to walk more than 15 minutes without increase of low back symptoms Patient would like to perform home activities with increase tolerance to > 30 mins without increase of back symptoms. Prior Functional Status Baseline Function- ADL's Independent Baseline Function- Mobility Independent Baseline Function- Gait Able to amb > 2 block with her dogs prior to initial onset on 07/2017 Baseline Function- Work/School Retired Current Functional Impairments (Reported) Functional Limitations- ADL's Requires frequent rest at home with all ADL's(Every 15 minutes) Functional Limitations- Mobility/Gait Requires to sit before 15 minutes of cont. walk Functional Limitations- Recreation/ Unable to walk with her dog Hobbies outside more than 5 minutes due to increase of back symptoms. PT-OP-C Subjective Start: 04/13/18 13:41 Freq: Status: Active Protocol: Document 07/29/18 10:29 EA (Rec: 07/29/18 10:42 EA [id number]) OP-PT Subjective Patient Comments Patient Comments Pt reports back to previous home activities; states low back soreness usually happes after long hour of yard work; overall she feels much improve functionally. PT-OP-D Balance Start: 04/13/18 13:41 Freq: Status: Active Protocol: Document 04/13/18 17:08 EA (Rec: 04/13/18 17:14 EA [id number]) Balance Tests Romberg Romberg <5 sec Single Limb Standing Single Limb- Right >2 sec Single Limb- Left > 2secs Tandem Tandem Standing unable PT-OP-E Functional Tests Start: 04/13/18 13:41 Freq: Status: Active Protocol: Document 04/13/18 17:52 EA (Rec: 04/14/18 07:53 EA [id number]) Functional Tests Squat Test Score 5 squat no hand support 90deg in 10 seconds PT-OP-G Mobility & Gait Start: 04/13/18 13:41 Freq: Status: Active Protocol: Document 06/16/18 10:29 EA (Rec: 06/16/18 11:13 EA [id number]) OP Mobility Evaluation Bed Mobility Rolling indep with no difficulty Supine to and from Sit Log roll Transfers Sit to Stand Indep Bed to Chair Transfers inedp PT-OP-H Neuro Start: 04/13/18 13:41 Freq: Status: Active Protocol: Document 04/13/18 17:08 EA (Rec: 04/13/18 17:14 EA [id number]) Coordination Evaluation Lower Extremity Tests Left Alternate Heel to Knee; Heel to Toe Test Normal Performance Heel on Alonzo Test Normal Performance Foot Tapping Test Normal Performance Toe to Examiner's Finger Test Normal Performance Drawing a [place] w/Foot Test Normal Performance Lower Extremity Fixation/Position Normal Performance Holding Test Right Alternate Heel to Knee; Heel to Toe Test Normal Performance Heel on Alonzo Test Normal Performance Foot Tapping Test Normal Performance Toe to Examiner's Finger Test Normal Performance Drawing a [place] w/Foot Test Normal Performance Lower Extremity Fixation/Position Normal Performance Holding Test Deep Tendon Reflex & Clonus Assessment Deep Tendon Reflex Bilateral Achilles Deep Tendon Reflex 2+ Normal Patellar Deep Tendon Reflex 2+ Normal PT-OP-J Posture/Palpation/Skin Start: 04/13/18 13:41 Freq: Status: Active Protocol: Document 06/16/18 10:29 EA (Rec: 06/16/18 11:13 EA [id number]) Posture Evaluation Position Standing Evaluation View Lateral Head/C-Spine Posture Forward Head Thorax Posture Neutral L-Spine Posture Flattened Shoulder Posture (L) Rounded (R) Rounded Arm Posture (L) Internally Rotated (R) Internally Rotated Pelvis Posture Posterior Tilted Hip Posture (L) Externally Rotated (R) Externally Rotated PT-OP-K Range of Motion Start: 04/13/18 13:41 Freq: Status: Active Protocol: Document 06/16/18 10:29 EA (Rec: 06/16/18 11:13 EA [id number]) Lumbar Spine Range of Motion Lumbar Spine Active Percentage Testing Position Standing Flexion 85 Extension 60 Rotation Left 85 Rotation Right 85 Lateral Flexion Left 35 Lateral Flexion Right 35 ROM Limitations Soft Tissue Tightness Pain PT-OP-M Strength Start: 04/13/18 13:41 Freq: Status: Active Protocol: Document 06/16/18 10:29 EA (Rec: 06/16/18 11:13 EA [id number]) Hip Strength Hip Manual Muscle Testing Left Flexion (L2) 4 Good Extension (S1) 4 Good Abduction 4 Good Adduction 4 Good External Rotation 4 Good Internal Rotation 4 Good Knee Strength Knee Manual Muscle Testing Right Flexion (S2) 5 Normal Extension (L3) 5 Normal Left Flexion (S2) 5 Normal Extension (L3) 5 Normal PT-OP-Q Treatments Start: 04/13/18 13:41 Freq: Status: Active Protocol: Document 07/29/18 10:29 EA (Rec: 07/29/18 10:42 EA [id number]) Cardio Equipment Treadmill Duration (Minutes) 8 Speed 2-3 Incline 0-5 Other cont Gym Equipment Cable Column (Body Solid) Other- 1 Details squat row Resistance 10# Reps/Time x 15 reps Shuttle Recovery Unilateral Squats Resistance 3 Shuttle Recovery Platform Stable Reps/Time x 12 repsx3 Bilateral Squats Details as tolerated range Resistance 4.5 cords Shuttle Recovery Platform Stable Reps/Time x 12-15 reps x 2 Shuttle Balance 1 Details For and posture with arm dynamic movement Reps/Duration 7 mins Comments WBOS/NBOS/ tandem Therapeutic Exercises Supine Exercises 5 Supine Exercise Name SKTC Reps/Minutes x 15SH x 2 reps 3 Supine Exercise Name Bridge as tolerated range Side bilateral Reps/Minutes x 5 reps x 2 sets Comments with marching/ with hip ABD 2 Supine Exercise Name PPT with SLR partial Side bilateral Resistance 2 lbs AW Reps/Minutes x 5 reps x 2 sets Standing Exercises 6 Standing Exercise Name FWD partial steady squat walks Resistance YTB Reps/Minutes x 12 ft x 4 lines Comments Focus on trunk stability and posture 5 Standing Exercise Name Partial steady squat side step Resistance GTB Reps/Minutes x 12 ft lines x 4 Comments Focus of trunk posture and stability 2 Standing Exercise Name Rails fwd lunges Reps/Minutes x 12 ft x 4 lines 1 Standing Exercise Name side step squat with heel raises Resistance YTB Reps/Minutes x 12 ft lines x 2 Manual Therapy Treatment Soft Tissue Mobilization 1 Body Location Upper gluteal and ITB both sides Mobilization Type Myofascial Release Rolling Sustained Pressure Intensity/Depth Moderate Body Position Sidelying PT-OP-R Modalities Start: 04/13/18 13:41 Freq: Status: Active Protocol: Document 07/29/18 10:29 EA (Rec: 07/29/18 10:42 ALEJANDRO [id number]) Hot Pack/Cold Pack Treatment Hot Pack Location low back Patient Position Sitting Treatment Duration (minutes) 10 PT-OP-T Assessment and Plan Start: 04/13/18 13:41 Freq: Status: Active Protocol: Document 07/29/18 10:29 ALEJANDRO (Rec: 07/29/18 10:42 ALEJANDRO [id number]) Physical Therapy Assessment Impairments Impairments Activity Tolerance Pain Posture ROM Soft Tissue Mobility Tone Goals Five Impairment No HEP in place Welding Machine Setter Goal (LTG) Patient will adhere/comply and perform HEP LTG Duration goal reached Four Impairment 3 months post surgery 10 lbs lifting restrictions. Correction Goal (LTG) Patient will lift more than 15 lbs with good body mechanics 3 months after the surgery. LTG Duration 4 wks (Excellent improvement) Three Impairment Impaired walking tolerance Correction Goal (LTG) Patient will walk more than 30 mins with no increase in low back symptoms LTG Duration Goal reached Two Impairment Impaired standing tolerance Welding Machine Setter Goal (LTG) Patient will stand > 60 mins with no increase in low back symptoms LTG Duration 4 wks (excellent improvement) One Impairment Oswetry impairment scale score of 20/50 Welding Machine Setter Goal (LTG) Patient will have Oswestry functional low back score of at least <10/50 LTG Duration Reach goal Progress Towards Goals Progress Towards Goals Progressing Toward Goals Assessment Summary Assessment Functional trunk control with improved stability in all dynamic LE movement. SOB is lesser than before with improved tolerance to > 35 mins therex. Overall patient is progressing well and will cont to benefit with skilled PT with main focusing of functional exercises with excellent trunk stability control. Physical Therapy Plan Frequency and Duration Frequency of Treatment 1x/Week Duration of Treatment 6 wks Plan of Care Start Date 07/28/18 Plan of Care End Date 09/09/18 Therapeutic Interventions Therapeutic Interventions Gait Training Home Exercise Program Joint Mobilizations Manual Therapy Patient/Caregiver Education Self-Care/Home Management Soft Tissue Mobilization Taping Therapeutic Exercises Modalities Cold Pack/Ice Massage Electric Stimulation Hot Packs Next Visit Focus/Plan Next Note Type Treatment Note Next Visit Plan Advance as needed. standing functionale exercises
--- NOTE | 2018-07-29 10:43 | PT.OPPOC ---
Current Diagnoses Strain of muscle, fascia and tendon of lower back, subsequent encounter (07/29/18) Arthrodesis status (07/29/18) Provider Visit Care Team Role Provider Type Yenifer Sin PA-C Family Provider Physician Primary Care Provider Specialty: Internal Medicine Address: [address] [place] [address], [id number] Email: Alexander Hadley MD Attending Provider Physician Specialty: Orthopedic Surgery Address: [address] [place] [address], [address] Email: [email or web address] Plan Of Care PT-OP-T Assessment and Plan Start: 04/13/18 13:41 Freq: Status: Active Protocol: Document 07/29/18 10:29 EA (Rec: 07/29/18 10:42 EA [id number]) Physical Therapy Assessment Impairments Impairments Activity Tolerance Pain Posture ROM Soft Tissue Mobility Tone Goals Five Impairment No HEP in place Pre Fabricator Goal (LTG) Patient will adhere/comply and perform HEP LTG Duration goal reached Four Impairment 3 months post surgery 10 lbs lifting restrictions. Alf Goal (LTG) Patient will lift more than 15 lbs with good body mechanics 3 months after the surgery. LTG Duration 4 wks (Excellent improvement) Three Impairment Impaired walking tolerance Pre Fabricator Goal (LTG) Patient will walk more than 30 mins with no increase in low back symptoms LTG Duration Goal reached Two Impairment Impaired standing tolerance Alf Goal (LTG) Patient will stand > 60 mins with no increase in low back symptoms LTG Duration 4 wks (excellent improvement) One Impairment Oswetry impairment scale score of 20/50 Alf Goal (LTG) Patient will have Oswestry functional low back score of at least <10/50 LTG Duration Reach goal Progress Towards Goals Progress Towards Goals Progressing Toward Goals Assessment Summary Assessment Functional trunk control with improved stability in all dynamic LE movement. SOB is lesser than before with improved tolerance to > 35 mins therex. Overall patient is progressing well and will cont to benefit with skilled PT with main focusing of functional exercises with excellent trunk stability control. Physical Therapy Plan Frequency and Duration Frequency of Treatment 1x/Week Duration of Treatment 6 wks Plan of Care Start Date 07/28/18 Plan of Care End Date 09/09/18 Therapeutic Interventions Therapeutic Interventions Gait Training Home Exercise Program Joint Mobilizations Manual Therapy Patient/Caregiver Education Self-Care/Home Management Soft Tissue Mobilization Taping Therapeutic Exercises Modalities Cold Pack/Ice Massage Electric Stimulation Hot Packs Next Visit Focus/Plan Next Note Type Treatment Note Next Visit Plan Advance as needed. standing functionale exercises Plan of Care Dates Plan of Care Start Date 07/28/18 Plan of Care End Date 09/09/18 Please Sign and Return: I have reviewed this Plan of Care and certify that the skilled therapy services above are required to meet the patient?s needs. Physician Signature Date Printed Name and Credentials Clinical Instructor Signature Printed Name and Credentials
--- NOTE | 2018-08-12 16:04 | PT.OTN ---
Current Diagnoses Strain of muscle, fascia and tendon of lower back, subsequent encounter (08/12/18) Arthrodesis status (08/12/18) Physical Therapy Treatment Note PT-OP-A Visit Information Start: 04/13/18 13:41 Freq: Status: Active Protocol: Document 08/12/18 15:19 EA (Rec: 08/12/18 16:04 EA [id number]) Out-Patient Physical Therapy Visit Information Visit Information Visit Type Treatment Note Visit Start Time 13:00 Visit Stop Time 13:55 Total Visit Minutes 55 Visit Number 14 PT-OP-B Current Condition Start: 04/13/18 13:41 Freq: Status: Active Protocol: Document 04/13/18 17:15 EA (Rec: 04/13/18 17:24 EA [id number]) Current Condition History of Current Condition Onset Date 01/26/18 Current Complaints S/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 Patient reports low back pain and with numbness to LE happens on 07/2017; states no injury noted or previous surgery to low back prior to low back pian onset. Patient states went to PT but failed to recovered fully. Prior to year 2017, patient reports she has no limitation in mobility . Prior Treatments and Tests None identified after the surgery Future Testing and Treatments Planned None identified Treatment Goals Patient/Caregiver Goals Patient wants to be able to walk more than 15 minutes without increase of low back symptoms Patient would like to perform home activities with increase tolerance to > 30 mins without increase of back symptoms. Prior Functional Status Baseline Function- ADL's Independent Baseline Function- Mobility Independent Baseline Function- Gait Able to amb > 2 block with her dogs prior to initial onset on 07/2017 Baseline Function- Work/School Retired Current Functional Impairments (Reported) Functional Limitations- ADL's Requires frequent rest at home with all ADL's(Every 15 minutes) Functional Limitations- Mobility/Gait Requires to sit before 15 minutes of cont. walk Functional Limitations- Recreation/ Unable to walk with her dog Hobbies outside more than 5 minutes due to increase of back symptoms. PT-OP-C Subjective Start: 04/13/18 13:41 Freq: Status: Active Protocol: Document 08/12/18 15:19 EA (Rec: 08/12/18 16:04 EA [id number]) OP-PT Subjective Patient Comments Patient Comments Pt reports back is feeling much better and she has been compliant with HEP. Patient Reported Progress Improving PT-OP-D Balance Start: 04/13/18 13:41 Freq: Status: Active Protocol: Document 04/13/18 17:08 EA (Rec: 04/13/18 17:14 EA [id number]) Balance Tests Romberg Romberg <5 sec Single Limb Standing Single Limb- Right >2 sec Single Limb- Left > 2secs Tandem Tandem Standing unable PT-OP-E Functional Tests Start: 04/13/18 13:41 Freq: Status: Active Protocol: Document 04/13/18 17:52 EA (Rec: 04/14/18 07:53 EA [id number]) Functional Tests Squat Test Score 5 squat no hand support 90deg in 10 seconds PT-OP-G Mobility & Gait Start: 04/13/18 13:41 Freq: Status: Active Protocol: Document 06/16/18 10:29 EA (Rec: 06/16/18 11:13 EA [id number]) OP Mobility Evaluation Bed Mobility Rolling indep with no difficulty Supine to and from Sit Log roll Transfers Sit to Stand Indep Bed to Chair Transfers inedp PT-OP-H Neuro Start: 04/13/18 13:41 Freq: Status: Active Protocol: Document 04/13/18 17:08 EA (Rec: 04/13/18 17:14 EA [id number]) Coordination Evaluation Lower Extremity Tests Left Alternate Heel to Knee; Heel to Toe Test Normal Performance Heel on Alonzo Test Normal Performance Foot Tapping Test Normal Performance Toe to Examiner's Finger Test Normal Performance Drawing a [place] w/Foot Test Normal Performance Lower Extremity Fixation/Position Normal Performance Holding Test Right Alternate Heel to Knee; Heel to Toe Test Normal Performance Heel on [place] Test Normal Performance Foot Tapping Test Normal Performance Toe to Examiner's Finger Test Normal Performance Drawing a [place] w/Foot Test Normal Performance Lower Extremity Fixation/Position Normal Performance Holding Test Deep Tendon Reflex & Clonus Assessment Deep Tendon Reflex Bilateral Achilles Deep Tendon Reflex 2+ Normal Patellar Deep Tendon Reflex 2+ Normal PT-OP-J Posture/Palpation/Skin Start: 04/13/18 13:41 Freq: Status: Active Protocol: Document 06/16/18 10:29 EA (Rec: 06/16/18 11:13 EA [id number]) Posture Evaluation Position Standing Evaluation View Lateral Head/C-Spine Posture Forward Head Thorax Posture Neutral L-Spine Posture Flattened Shoulder Posture (L) Rounded (R) Rounded Arm Posture (L) Internally Rotated (R) Internally Rotated Pelvis Posture Posterior Tilted Hip Posture (L) Externally Rotated (R) Externally Rotated PT-OP-K Range of Motion Start: 04/13/18 13:41 Freq: Status: Active Protocol: Document 06/16/18 10:29 EA (Rec: 06/16/18 11:13 EA [id number]) Lumbar Spine Range of Motion Lumbar Spine Active Percentage Testing Position Standing Flexion 85 Extension 60 Rotation Left 85 Rotation Right 85 Lateral Flexion Left 35 Lateral Flexion Right 35 ROM Limitations Soft Tissue Tightness Pain PT-OP-M Strength Start: 04/13/18 13:41 Freq: Status: Active Protocol: Document 06/16/18 10:29 EA (Rec: 06/16/18 11:13 EA [id number]) Hip Strength Hip Manual Muscle Testing Left Flexion (L2) 4 Good Extension (S1) 4 Good Abduction 4 Good Adduction 4 Good External Rotation 4 Good Internal Rotation 4 Good Knee Strength Knee Manual Muscle Testing Right Flexion (S2) 5 Normal Extension (L3) 5 Normal Left Flexion (S2) 5 Normal Extension (L3) 5 Normal PT-OP-Q Treatments Start: 04/13/18 13:41 Freq: Status: Active Protocol: Document 08/12/18 15:19 EA (Rec: 08/12/18 16:04 EA [id number]) Cardio Equipment Recumbent Stepper (Sci-Fit) Duration (Minutes) 6 Resistance 3 Seat Position 9 Gym Equipment Cable Column (Body Solid) Hip Adduction Resistance 30# x 15 Shuttle Recovery Unilateral Squats Resistance 3 Shuttle Recovery Platform Stable Reps/Time x 12 repsx3 Bilateral Squats Details as tolerated range Resistance 4.5 cords Shuttle Recovery Platform Stable Reps/Time x 12-15 reps x 2 Shuttle Balance 1 Details For and posture with arm dynamic movement Reps/Duration 7 mins Comments WBOS/NBOS/ tandem: shoulder front raise and trunk rotation Therapeutic Exercises Supine Exercises 5 Supine Exercise Name SKTC Reps/Minutes x 15SH x 2 reps 4 Supine Exercise Name Lower trunk rotation Reps/Minutes x 15 reps x 2 Comments pain free range 3 Supine Exercise Name Bridge as tolerated range Side bilateral Reps/Minutes x 5 reps x 2 sets Comments with marching/ with hip ABD 2 Supine Exercise Name PPT with SLR partial Side bilateral Resistance 2 lbs AW Reps/Minutes x 5 reps x 2 sets 1 Supine Exercise Name PPT with marching Reps/Minutes x 5SH x 5 reps Sidelying Exercises 2 Sidelying Exercise Name Clamshell Resistance BTB Reps/Minutes x 15 reps Comments HEP comp 1 Sidelying Exercise Name HIP ABD Side bilateral Resistance 2 lbsAW Comments x 15 reps Standing Exercises 7 Standing Exercise Name cable sit to stand 6 Standing Exercise Name FWD partial steady squat walks Resistance YTB Reps/Minutes x 12 ft x 4 lines Comments Focus on trunk stability and posture 5 Standing Exercise Name Partial steady squat side step Resistance GTB Reps/Minutes x 12 ft lines x 4 Comments Focus of trunk posture and stability 4 Standing Exercise Name Core: hip flexion, abduction Resistance 3 lbs AW Reps/Minutes x 10 reps each side Comments pole support: focus on engaging TA 3 Standing Exercise Name toe and heel walks Reps/Minutes x 2 mins 2 Standing Exercise Name Rails fwd lunges Reps/Minutes x 12 ft x 4 lines 1 Standing Exercise Name side step squat with heel raises Resistance RTB Reps/Minutes x 12 ft lines x 2 PT-OP-R Modalities Start: 04/13/18 13:41 Freq: Status: Active Protocol: Document 08/12/18 15:19 EA (Rec: 08/12/18 16:04 EA [id number]) Electric Stimulation Electric Stimulation Interferential Current (IFC) Body Location paralumbars Intensity 16 Patient Position Sitting Combined With Heat/Cold Hot Pack PT-OP-T Assessment and Plan Start: 04/13/18 13:41 Freq: Status: Active Protocol: Document 08/12/18 15:19 EA (Rec: 08/12/18 16:04 EA [id number]) Physical Therapy Assessment Assessment Summary Assessment Patient is progressing well. Physical Therapy Plan Next Visit Focus/Plan Next Note Type Treatment Note Next Visit Plan Advance as needed. standing functionale exercises
--- NOTE | 2018-08-19 16:15 | PT.OTN ---
Current Diagnoses Strain of muscle, fascia and tendon of lower back, subsequent encounter (08/19/18) Arthrodesis status (08/19/18) Physical Therapy Treatment Note PT-OP-A Visit Information Start: 04/13/18 13:41 Freq: Status: Active Protocol: Document 08/19/18 17:33 EA (Rec: 08/19/18 17:38 EA [id number]) Out-Patient Physical Therapy Visit Information Visit Information Visit Type Treatment Note Visit Note discharge to this date Total Visit Minutes 38 Visit Number 15 PT-OP-B Current Condition Start: 04/13/18 13:41 Freq: Status: Active Protocol: Document 04/13/18 17:15 EA (Rec: 04/13/18 17:24 EA [id number]) Current Condition History of Current Condition Onset Date 01/26/18 Current Complaints S/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 Patient reports low back pain and with numbness to LE happens on 07/2017; states no injury noted or previous surgery to low back prior to low back pian onset. Patient states went to PT but failed to recovered fully. Prior to year 2017, patient reports she has no limitation in mobility . Prior Treatments and Tests None identified after the surgery Future Testing and Treatments Planned None identified Treatment Goals Patient/Caregiver Goals Patient wants to be able to walk more than 15 minutes without increase of low back symptoms Patient would like to perform home activities with increase tolerance to > 30 mins without increase of back symptoms. Prior Functional Status Baseline Function- ADL's Independent Baseline Function- Mobility Independent Baseline Function- Gait Able to amb > 2 block with her dogs prior to initial onset on 07/2017 Baseline Function- Work/School Retired Current Functional Impairments (Reported) Functional Limitations- ADL's Requires frequent rest at home with all ADL's(Every 15 minutes) Functional Limitations- Mobility/Gait Requires to sit before 15 minutes of cont. walk Functional Limitations- Recreation/ Unable to walk with her dog Hobbies outside more than 5 minutes due to increase of back symptoms. PT-OP-C Subjective Start: 04/13/18 13:41 Freq: Status: Active Protocol: Document 08/19/18 17:33 EA (Rec: 08/19/18 17:38 EA [id number]) OP-PT Subjective Patient Comments Patient Comments Pt reports went to her doctor and everything is healing well ; reports would like to learn more HEP. PT-OP-D Balance Start: 04/13/18 13:41 Freq: Status: Active Protocol: Document 04/13/18 17:08 EA (Rec: 04/13/18 17:14 EA [id number]) Balance Tests Romberg Romberg <5 sec Single Limb Standing Single Limb- Right >2 sec Single Limb- Left > 2secs Tandem Tandem Standing unable PT-OP-E Functional Tests Start: 04/13/18 13:41 Freq: Status: Active Protocol: Document 04/13/18 17:52 EA (Rec: 04/14/18 07:53 EA [id number]) Functional Tests Squat Test Score 5 squat no hand support 90deg in 10 seconds PT-OP-G Mobility & Gait Start: 04/13/18 13:41 Freq: Status: Active Protocol: Document 06/16/18 10:29 EA (Rec: 06/16/18 11:13 EA [id number]) OP Mobility Evaluation Bed Mobility Rolling indep with no difficulty Supine to and from Sit Log roll Transfers Sit to Stand Indep Bed to Chair Transfers inedp PT-OP-H Neuro Start: 04/13/18 13:41 Freq: Status: Active Protocol: Document 04/13/18 17:08 EA (Rec: 04/13/18 17:14 EA [id number]) Coordination Evaluation Lower Extremity Tests Left Alternate Heel to Knee; Heel to Toe Test Normal Performance Heel on Alonzo Test Normal Performance Foot Tapping Test Normal Performance Toe to Examiner's Finger Test Normal Performance Drawing a [place] w/Foot Test Normal Performance Lower Extremity Fixation/Position Normal Performance Holding Test Right Alternate Heel to Knee; Heel to Toe Test Normal Performance Heel on Alonzo Test Normal Performance Foot Tapping Test Normal Performance Toe to Examiner's Finger Test Normal Performance Drawing a [place] w/Foot Test Normal Performance Lower Extremity Fixation/Position Normal Performance Holding Test Deep Tendon Reflex & Clonus Assessment Deep Tendon Reflex Bilateral Achilles Deep Tendon Reflex 2+ Normal Patellar Deep Tendon Reflex 2+ Normal PT-OP-J Posture/Palpation/Skin Start: 04/13/18 13:41 Freq: Status: Active Protocol: Document 06/16/18 10:29 EA (Rec: 06/16/18 11:13 EA [id number]) Posture Evaluation Position Standing Evaluation View Lateral Head/C-Spine Posture Forward Head Thorax Posture Neutral L-Spine Posture Flattened Shoulder Posture (L) Rounded (R) Rounded Arm Posture (L) Internally Rotated (R) Internally Rotated Pelvis Posture Posterior Tilted Hip Posture (L) Externally Rotated (R) Externally Rotated PT-OP-K Range of Motion Start: 04/13/18 13:41 Freq: Status: Active Protocol: Document 06/16/18 10:29 EA (Rec: 06/16/18 11:13 EA [id number]) Lumbar Spine Range of Motion Lumbar Spine Active Percentage Testing Position Standing Flexion 85 Extension 60 Rotation Left 85 Rotation Right 85 Lateral Flexion Left 35 Lateral Flexion Right 35 ROM Limitations Soft Tissue Tightness Pain PT-OP-M Strength Start: 04/13/18 13:41 Freq: Status: Active Protocol: Document 06/16/18 10:29 EA (Rec: 06/16/18 11:13 EA [id number]) Hip Strength Hip Manual Muscle Testing Left Flexion (L2) 4 Good Extension (S1) 4 Good Abduction 4 Good Adduction 4 Good External Rotation 4 Good Internal Rotation 4 Good Knee Strength Knee Manual Muscle Testing Right Flexion (S2) 5 Normal Extension (L3) 5 Normal Left Flexion (S2) 5 Normal Extension (L3) 5 Normal PT-OP-Q Treatments Start: 04/13/18 13:41 Freq: Status: Active Protocol: Document 08/19/18 17:33 EA (Rec: 08/19/18 17:38 EA [id number]) Cardio Equipment Recumbent Stepper (Sci-Fit) Duration (Minutes) 6 Resistance 3 Seat Position 9 Gym Equipment Shuttle Recovery Unilateral Squats Resistance 3 Shuttle Recovery Platform Stable Reps/Time x 12 repsx3 Bilateral Squats Details as tolerated range Resistance 4.5 cords Shuttle Recovery Platform Stable Reps/Time x 12-15 reps x 2 Shuttle Balance 1 Details For and posture with arm dynamic movement Reps/Duration 7 mins Comments WBOS/NBOS/ tandem: shoulder front raise and trunk rotation Therapeutic Exercises Supine Exercises 5 Supine Exercise Name SKTC Reps/Minutes x 15SH x 2 reps Comments HEP 4 Supine Exercise Name Lower trunk rotation Reps/Minutes x 15 reps x 2 Comments pain free range 3 Supine Exercise Name Bridge as tolerated range Side bilateral Reps/Minutes x 5 reps x 2 sets Comments with marching/ with hip ABD 2 Supine Exercise Name PPT with SLR partial Side bilateral Resistance 2 lbs AW Reps/Minutes x 5 reps x 2 sets 1 Supine Exercise Name PPT with marching Reps/Minutes x 5SH x 5 reps Comments HEP comp Sidelying Exercises 2 Sidelying Exercise Name Clamshell Resistance BTB Reps/Minutes x 15 reps Comments HEP comp Standing Exercises 8 Standing Exercise Name floor to waist lift Resistance 10-15-20# Reps/Minutes x 5 reps x 3 sets 7 Standing Exercise Name cable sit to stand Self-Care/Home Management Treatment Education Patient Education Body Mechanics Home Exercise Program Pain Management Posture Other Education Educated with lifting mechanics; explained pre- cautions and HEP safety. PT-OP-R Modalities Start: 04/13/18 13:41 Freq: Status: Active Protocol: Document 08/12/18 15:19 EA (Rec: 08/12/18 16:04 EA [id number]) Electric Stimulation Electric Stimulation Interferential Current (IFC) Body Location paralumbars Intensity 16 Patient Position Sitting Combined With Heat/Cold Hot Pack PT-OP-T Assessment and Plan Start: 04/13/18 13:41 Freq: Status: Active Protocol: Document 08/19/18 17:33 EA (Rec: 08/19/18 17:38 EA [id number]) Physical Therapy Assessment Assessment Summary Assessment Patient is discharge today. Patient is rehabilitated upon discharge and is fully indep with slight limitation in long distance walk. Physical Therapy Plan Discharge Physical Therapy Discharge Reasons Patient Request
== END 2018-09-07 11:16 ==
LOC: PHYS 13:45
PROVIDERS: Family Provider Physician Assistant; PCP Physician Assistant; Visit Provider Orthopaedic Surgery
DX: Z98.1 Arthrodesis status (principal); S39.012D Strain of muscle, fascia and tendon of lower back, subsequent encounter
CPT/HCPCS: 97010; 97014; 97110; 97140; 97162; 97535; G0283

== ENCOUNTER → 2018-09-10 13:22 | Outpatient (CLI) | payer OTHER, SELFPAY ==
[2018-01-26 18:58] VITALS: BMI 28.1
--- NOTE | 2018-09-10 | DI.MG.S_ITS ---
BILATERAL DIGITAL SCREENING MAMMOGRAM 3D/2D WITH CAD: 09/10/2018 CLINICAL: Routine screening. Comparison is made to exam dated: 04/02/2010 [facility]. The tissue of both breasts is heterogeneously dense. This may lower the sensitivity of mammography. Current study was also evaluated with a Computer Aided Detection (CAD) system. There is an 8 mm oval asymmetry in the left breast anterior depth medial region seen on the craniocaudal view only. No other significant masses, calcifications, or other findings are seen in either breast. IMPRESSION: INCOMPLETE: NEEDS ADDITIONAL IMAGING EVALUATION The 8 mm oval asymmetry in the left breast is indeterminate. A diagnostic mammogram and ultrasound is recommended. This exam was interpreted at Station ID: [id number]. NOTE: For mammograms, a report in lay terms will be sent to the patient. Approximately 15% of breast malignancies will not be visualized mammographically. In the management of a palpable breast mass, a negative mammogram must not discourage biopsy of a clinically suspicious lesion. Electronically Signed By: Mile rosenbaum/:09/10/2018 16:47:27 letter sent: Additional Imaging Needed ACR BI-RADS Category 0: Incomplete [id number]
== END ==
PROVIDERS: Family Provider Physician Assistant; PCP Physician Assistant; Visit Provider Physician Assistant
DX: Z00.00 Encounter for general adult medical examination without abnormal findings (principal); Z12.31 Encounter for screening mammogram for malignant neoplasm of breast; Z78.0 Asymptomatic menopausal state
CPT/HCPCS: 77063; 77067; 77080

== ENCOUNTER → 2018-09-27 10:04 | Outpatient (CLI) | payer OTHER, SELFPAY ==
[2018-01-26 18:58] VITALS: BMI 28.1
--- NOTE | 2018-09-27 | DI.MG.S_ITS ---
UNILATERAL LEFT DIGITAL DIAGNOSTIC MAMMOGRAM 3D/2D WITH ADDITIONAL VIEWS: 09/27/2018 CLINICAL: Additional evaluation requested from prior study. Family history of breast cancer. Comparison is made to exams dated: 09/10/2018 mammogram and 04/02/2010 mammogram - [facility]. The tissue of left breast is heterogeneously dense. This may lower the sensitivity of mammography. Previously noted 8 mm oval asymmetry in the left breast anterior to middle depth medial region seen on the craniocaudal view only on comparison screening mammogram of 09/27/2018 persists with additional views. There are scattered areas of calcified fat necrosis predominantly within the lateral left breast. IMPRESSION: INCOMPLETE: NEEDS ADDITIONAL IMAGING EVALUATION Previously noted 8 mm oval asymmetry in the left breast anterior to middle depth medial region seen on the craniocaudal view only on comparison screening mammogram of 09/27/2018 persists with additional views. A targeted ultrasound is recommended and will be performed immediately following this exam. This exam was interpreted at Station ID: [id number]. NOTE: For mammograms, a report in lay terms will be sent to the patient. Approximately 15% of breast malignancies will not be visualized mammographically. In the management of a palpable breast mass, a negative mammogram must not discourage biopsy of a clinically suspicious lesion. Electronically Signed By: Enrique Shi M.D. ecl/:09/27/2018 11:30:32 copy to: Meli Sabillon [facility] BI-RADS Category 0: Incomplete [id number]
--- NOTE | 2018-09-27 | DI.US.S_ITS ---
LIMITED ULTRASOUND OF LEFT BREAST: 09/27/2018 CLINICAL: Patient returns today to evaluate a focal asymmetry in the left breast. Comparison is made to exams dated: 09/27/2018 mammogram, 09/10/2018 mammogram, and 04/02/2010 mammogram - [facility]. Real-time and Doppler ultrasound of the left breast inner aspect were performed. Billingsley scale images of the real-time examination were reviewed. There is a 0.9 x 0.7 x 0.6 cm oval indistinct hypoechoic probable cyst versus hypoechoic mass in the left breast at 9:00 position 2 cm from the nipple. This finding demonstrates mixed posterior acoustic enhancement and posterior shadowing. There is no vascularity on Doppler ultrasound. This may or may not correlate with findings seen on comparison mammography; while the finding appears to be in a corresponding position, the finding on ultrasound appears to located in the posterior depth of the finding seen on comparison mammography was seen closer to middle depth. IMPRESSION: SUSPICIOUS OF MALIGNANCY 0.9 x 0.7 x 0.6 cm oval indistinct probable complicated cyst versus hypoechoic mass in the left breast at 9:00 position 2 cm from the nipple is at low suspicion for malignancy. An ultrasound guided diagnostic cyst aspiration is recommended for further evaluation, with conversion to ultrasound guided diagnostic biopsy should the finding of concern fail to resolve with aspiration. These results and recommendations were discussed with the patient at the time of the exam by the [facility] Radiologist Dr. Wilver Maguire in person. This exam was interpreted at Station ID: [id number]. Electronically Signed By: Enrique Shi M.D. ecl/:09/27/2018 11:37:36 copy to: Meli Sabillon letter sent: Biopsy Required Ultrasound BI-RADS: 4a Suspicious abnormality - low suspicion for malignancy
== END ==
PROVIDERS: PCP Student in an Organized Health Care Education/Training Program; Visit Provider Physician Assistant
DX: R92.8 Other abnormal and inconclusive findings on diagnostic imaging of breast (principal); Z80.3 Family history of malignant neoplasm of breast; N63.20 Unspecified lump in the left breast, unspecified quadrant
CPT/HCPCS: 76642; 77065; G0279

== ENCOUNTER → 2018-10-13 11:13 | Outpatient (CLI) | payer OTHER, SELFPAY ==
[2018-01-26 18:58] VITALS: BMI 28.1
--- NOTE | 2018-10-13 | DI.US.S_ITS ---
ULTRASOUND GUIDED FINE NEEDLE ASPIRATION LEFT BREAST WITH POST ULTRASOUND IMAGIN10/13/2018 CLINICAL: Left breast mass FNA. Correlation is made to exams dated: 09/27/2018 ultrasound, 09/27/2018 mammogram, 09/10/2018 mammogram, and 04/02/2010 mammogram - [facility]. A fine needle aspiration was performed for the 6 mm cystic mass located in the left breast at 9 o'clock posterior depth 2 cm from the nipple. The skin was prepped in the usual manner. Local anesthetic was administered to the access site. The abnormality was approached from the lateral aspect. Needle was percutaneously placed into the abnormality under ultrasound guidance. Once the needle was documented to be in the correct location, a specimen was obtained. A skin adhesive was applied to the access site. Post procedure ultrasound imaging was obtained. The specimen was sent to the laboratory for cytological analysis. IMPRESSION: FINE NEEDLE ASPIRATION BENIGN Fine needle aspiration of the 6 mm cystic mass in the left breast posterior depth was successful with no apparent post procedure complications. The cyst completely decompressed during aspiration without residual solid component. Cytology indicates no malignant cells with macrophages suggestive of cyst formation. Cytology results are concordant with imaging findings. Return to annual mammogram screening schedule is recommended. This exam was interpreted at Station ID: [id number]. Santino little,aty/:10/27/2018 19:35:02
--- NOTE | 2018-10-13 | PATH_ITS ---
Note [facility] Accession Number: [id number] TESTS RESULT FLAG UNITS REF RANGE LAB Clinician Provided Cytology Information No. of containers..01 ThinPrep Vial LEFT BREAST MASS DIAGNOSIS: LEFT BREAST MASS, FINE NEEDLE ASPIRATION. NEGATIVE FOR MALIGNANT CELLS. MACROPHAGES ARE PRESENT, SUGGESTIVE OF CYST. CLINICAL AND RADIOLOGIC CORRELATION IS RECOMMENDED. THIS INTERPRETATION INCLUDES EVALUATION OF A CELL BLOCK. Pathologist ICD10: N63.20 Efraín Calderon MD, Pathologist NPI- [id number] Papo Lux, Production Statistical Clerk ([facility]) 01 25 CC, PINK, CLOUDY /LCS FLAG LEGEND: L-Low Normal,H-High Normal,LL-Alert Low,HH-Alert High <-Panic Low,>-Panic High,A-Abnormal,AA-Critical Abnormal Performed at: 01 =Z [facility] [address], [place] [address] Mario Patino MD, Performed at: [address] [facility] [address], [place], [place] [id number] MD Mario Patino MD Phone: [phone]
== END ==
PROVIDERS: PCP Student in an Organized Health Care Education/Training Program; Visit Provider Student in an Organized Health Care Education/Training Program
DX: N60.02 Solitary cyst of left breast (principal)
CPT/HCPCS: 10005; 19084

== ENCOUNTER → 2018-12-30 08:17 | Outpatient (CLI) | payer OTHER, SELFPAY ==
[2018-01-26 18:58] VITALS: BMI 28.1
[2018-12-30 09:22] LABS: Add Manual Diff / Slide Review NO; Basophils Absolute Auto 0 /uL (0-100); Basophils Percent Auto 0.7 % (0-2); Eosinophils Absolute Auto 300 /uL (0-450); Eosinophils Percent Auto 4.8 % (2-4); Hematocrit 38.9 % (36-46); Hemoglobin 13.4 g/dL (12.0-16.0); Lymphocytes Absolute Auto 1400 /uL (1100-4500); Lymphocytes Percent Auto 27.1 % (25-40); Mean Corpuscular HGB Conc 34.5 % (30-36); Mean Corpuscular Hemoglobin 29.7 PG (26-34); Monocytes Absolute Auto 400 /uL (0-900); Monocytes Percent Auto 6.7 % (3-14); Neutrophils Absolute Auto 3200 /uL (1500-7000); Neutrophils Percent Auto 60.7 % (50-75); Platelet Count 172 X10^3/uL (150-400); Red Blood Cell Count 4.52 X10^6/uL (4.0-5.2); Red Cell Distribution Width 12.7 % (11.6-14.8); White Blood Cell Count 5.3 X10^3/uL (4.5-11.0)
[2018-12-30 09:50] LABS: Alanine Aminotransferase 23 IU/L (9-52); Albumin 4.2 g/dL (3.5-5.0); Albumin Globulin Ratio 1.8 (1.0-2.8); Alkaline Phosphatase 89 U/L (38-126); Aspartate Aminotransferase 28 IU/L (14-36); BUN Creatinine Ratio 26.7 (6-22); Bilirubin Total 0.3 mg/dL (0.2-1.3); Blood Urea Nitrogen 24 mg/dL (7-17); Calcium 9.1 mg/dL (8.4-10.2); Carbon Dioxide 26 mmol/L (22-32); Chloride 103 mmol/L (98-107); Cholesterol 137 mg/dL (140-199); Estimated Glomerular Filt Rate > 60.0 mL/min (>60); Globulin 2.4 g/dL (1.7-4.1); Glucose 94 mg/dL (80-110); HDL Cholesterol 50 mg/dL (40-60); HEMOLYSIS < 15 (0-50); LDL Cholesterol Calculated 46 mg/dL (<100); Potassium 4.5 mmol/L (3.4-5.1); Sodium 139 mmol/L (137-145); Total Protein 6.6 g/dL (6.3-8.2); Triglycerides 207 mg/dL (35-150)
== END ==
PROVIDERS: PCP Student in an Organized Health Care Education/Training Program; Visit Provider Physician Assistant
DX: I10 Essential (primary) hypertension (principal); E78.2 Mixed hyperlipidemia
CPT/HCPCS: 36415; 80053; 80061; 85025

== ENCOUNTER → 2019-03-11 11:51 | Outpatient (CLI) | payer OTHER, SELFPAY ==
[2018-01-26 18:58] VITALS: BMI 28.1
[2019-03-11 12:43] LABS: Add Manual Diff / Slide Review NO; Basophils Absolute Auto 0 /uL (0-100); Basophils Percent Auto 0.7 % (0-2); Eosinophils Absolute Auto 400 /uL (0-450); Eosinophils Percent Auto 5.5 % (2-4); Hematocrit 40.8 % (36-46); Hemoglobin 13.8 g/dL (12.0-16.0); Lymphocytes Absolute Auto 1500 /uL (1100-4500); Lymphocytes Percent Auto 22.4 % (25-40); Mean Corpuscular HGB Conc 33.8 % (30-36); Mean Corpuscular Hemoglobin 29.3 PG (26-34); Mean Corpuscular Volume 86.8 fL (80-100); Monocytes Absolute Auto 300 /uL (0-900); Monocytes Percent Auto 5.2 % (3-14); Neutrophils Absolute Auto 4300 /uL (1500-7000); Neutrophils Percent Auto 66.2 % (50-75); Platelet Count 190 X10^3/uL (150-400); Red Cell Distribution Width 13.4 % (11.6-14.8); White Blood Cell Count 6.5 X10^3/uL (4.5-11.0)
[2019-03-11 13:06] LABS: Erythrocyte Sedimentation Rate 5 MM/HR (0-20)
[2019-03-11 13:28] LABS: Alanine Aminotransferase 27 IU/L (<35); Albumin 4.4 g/dL (3.5-5.0); Alkaline Phosphatase 93 U/L (38-126); Aspartate Aminotransferase 38 IU/L (14-36); BUN Creatinine Ratio 27.5 (6-22); Bilirubin Total 0.6 mg/dL (0.2-1.3); Blood Urea Nitrogen 22 mg/dL (7-17); Calcium 10.4 mg/dL (8.4-10.2); Carbon Dioxide 27 mmol/L (22-32); Chloride 105 mmol/L (98-107); Estimated Glomerular Filt Rate > 60.0 mL/min (>60); Globulin 2.2 g/dL (1.7-4.1); Glucose 93 mg/dL (80-110); HEMOLYSIS < 15 (0-50); Potassium 4.6 mmol/L (3.4-5.1); Sodium 141 mmol/L (137-145); Total Protein 6.6 g/dL (6.3-8.2)
[2019-03-11 13:30] LABS: C-Reactive Protein Quant < 0.5 mg/dL (<1.0)
[2019-03-11 14:09] LABS: Vitamin B12 466 pg/mL (239-931)
[2019-03-11 15:00] LABS: Vitamin D 25 Hydroxy (D3) 24.4 ng/mL (30.0-100.0)
[2019-03-15 15:55] LABS: Vitamin B6 22.3 ng/mL (2.1-21.7)
[2019-03-15 16:26] LABS: Parathyroid Hormone Int 11 pg/mL (14-64)
== END ==
PROVIDERS: PCP Student in an Organized Health Care Education/Training Program; Visit Provider Physician Assistant
DX: M54.2 Cervicalgia (principal); M25.511 Pain in right shoulder; M25.512 Pain in left shoulder; G56.91 Unspecified mononeuropathy of right upper limb; G56.92 Unspecified mononeuropathy of left upper limb; G62.9 Polyneuropathy, unspecified; E55.9 Vitamin D deficiency, unspecified; E83.52 Hypercalcemia
CPT/HCPCS: 36415; 80053; 82306; 82607; 83970; 84207; 85025; 85651; 86140

== ENCOUNTER → 2019-04-03 09:40 | Outpatient (CLI) | payer OTHER, SELFPAY ==
[2018-01-26 18:58] VITALS: BMI 28.1
--- NOTE | 2019-04-03 | DI.MRI.S_ITS ---
PROCEDURE: MR CERVICAL SPINE WO CON INDICATIONS: Other cervical disc degeneration, unspecified cerv TECHNIQUE: Noncontrast sagittal T1 spin echo and T2 fast spin echo, sagittal STIR, foraminal oblique sagittal T2 fast spin echo, and axial gradient echo or T2 fast spin echo through the cervical spine. COMPARISON: [facility], , CHEST 2 VIEW, 06/04/2016, 9:41. [facility], , C-SPINE WITHOUT CONTRAST, 01/14/2012, 14:44. [facility], , CERVICAL SPINE 2 OR 3 VIEWS, 04/03/2010, 11:56. [facility], CR, CERVICAL SPINE 2 OR 3 VIEWS, 06/08/2012, 15:51. [facility], , THORACIC SPINE 3 VIEWS, 12/07/2016, 13:30. FINDINGS: Image quality: Excellent. Alignment and Curvature: Bony of C3-C5. Anterior fusion at C6-C7. There is normal bony alignment. Bone Marrow: Marrow demonstrates normal overall signal. Spinal Cord: Visualized spinal cord has normal size and signal. No cerebellar tonsillar herniation. Paraspinous Soft Tissues: No paravertebral masses. Prevertebral soft tissues are normal in thickness. C2-C3: Mild loss of disc height and disc desiccation. There is mild posterior disc bulge. The central canal is patent. Mild bilateral foraminal stenosis. C3-C4: Surgically fused. Mild posterior disc osteophyte. Mild central canal stenosis. Severe bilateral foraminal stenosis. C4-C5: Surgically fused. Mild posterior disc osteophyte. There is severe central canal stenosis and severe bilateral foraminal stenosis. Likely bilateral nerve root impingement. C5-C6: Mild loss of disc height and moderate disc desiccation. There is circumferential disc bulge and posterior disc osteophyte complex. The central canal is severely narrowed. Moderate bilateral foraminal stenosis. C6-C7: Severe loss of disc height and moderate disc desiccation. There is circumferential disc bulge and posterior disc osteophyte complex. The central canal is severely narrowed. Moderate left and no right foraminal stenosis. C7-T1: Mild loss of disc height and moderate disc desiccation. There is mild posterior disc bulge. The central canal is patent. No foraminal stenosis. IMPRESSION: 1. Multilevel degenerative and postsurgical changes in cervical spine as described. 2. Severe central canal stenosis C4-C5, C5-C6 and C6-C7. 3. Multilevel foraminal stenosis as described, severe at C3-C4 bilaterally and C4-C5 bilaterally. Dictated by: Bradley Garza M.D. on 04/04/2019 at 11:37 Approved by: Bradley Garza M.D. on 04/04/2019 at 11:53
== END ==
PROVIDERS: PCP Student in an Organized Health Care Education/Training Program; Visit Provider Physician Assistant
DX: M50.322 Other cervical disc degeneration at C5-C6 level (principal); M48.02 Spinal stenosis, cervical region; Z98.1 Arthrodesis status
CPT/HCPCS: 72141

== ENCOUNTER → 2019-06-14 10:24 | Outpatient (CLI) | payer OTHER, SELFPAY ==
[2018-01-26 18:58] VITALS: BMI 28.1
--- NOTE | 2019-06-14 10:27 | DI.RAD.S_ITS ---
PROCEDURE: XR SHOULDER RT MIN 2V INDICATIONS: Progressive right shoulder pain, adhesive capsulitis TECHNIQUE: 3 views of the shoulder were acquired. COMPARISON: [facility], , CHEST 2 VIEW, 06/04/2016, 9:41. [facility], , CHEST 2 VIEW, 12/07/2016, 13:30. [facility], , SHOULDER 1 VIEW LEFT, 08/05/2016, 10:43. 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 Prior acromioplasty has been performed, present on prior chest plain films, and no acute disease is seen. No suspicious bony lesions. Visualized ribs appear intact. Soft tissues: No suspicious soft tissue calcifications. IMPRESSION: Severe arthritic change at the glenohumeral joint, prior acromioplasty, no acute trauma found. Dictated by: Jorge Singh M.D. on 06/14/2019 at 11:22 Approved by: Jorge Singh M.D. on 06/14/2019 at 11:23
== END ==
PROVIDERS: PCP Family Medicine; Referring Provider Family Medicine; Visit Provider Family Medicine
DX: M25.511 Pain in right shoulder (principal); M75.91 Shoulder lesion, unspecified, right shoulder
CPT/HCPCS: 73030

== ENCOUNTER → 2019-11-23 10:26 | Outpatient (CLI) | payer OTHER, SELFPAY ==
[2019-11-15 10:12] VITALS: BMI 28.1
[2019-11-23 12:02] LABS: Add Manual Diff / Slide Review NO; Basophils Absolute Auto 0 /uL (0-100); Basophils Percent Auto 0.9 % (0-2); Eosinophils Absolute Auto 200 /uL (0-450); Eosinophils Percent Auto 4.6 % (2-4); Hematocrit 40.8 % (36-46); Hemoglobin 13.7 g/dL (12.0-16.0); Lymphocytes Absolute Auto 1200 /uL (1100-4500); Lymphocytes Percent Auto 24.2 % (25-40); Mean Corpuscular HGB Conc 33.5 % (30-36); Mean Corpuscular Volume 86.5 fL (80-100); Monocytes Absolute Auto 300 /uL (0-900); Monocytes Percent Auto 5.5 % (3-14); Neutrophils Absolute Auto 3200 /uL (1500-7000); Neutrophils Percent Auto 64.8 % (50-75); Platelet Count 163 X10^3/uL (150-400); Red Blood Cell Count 4.71 X10^6/uL (4.0-5.2); Red Cell Distribution Width 13.2 % (11.6-14.8); White Blood Cell Count 4.9 X10^3/uL (4.5-11.0)
[2019-11-23 12:27] LABS: Creatinine Urine Random 246.9 mg/dL
[2019-11-23 12:30] LABS: Cholesterol 141 mg/dL (140-199); HDL Cholesterol 49 mg/dL (40-60); LDL Cholesterol Calculated 50 mg/dL (<100); Triglycerides 208 mg/dL (35-150)
[2019-11-23 12:42] LABS: Free T4, Direct Thyroxine 0.97 ng/dL (0.78-2.19)
[2019-11-23 12:43] LABS: Microalbumi Creatinin Ratio Ur 7.6 ug/mg CR (<30); Microalbumin Urine Random 1.9 mg/dL (0-1.6)
[2019-11-23 12:56] LABS: Thyroid Stimulating Hormone 0.469 uIU/mL (0.47-4.68)
== END ==
PROVIDERS: PCP Nurse Practitioner; Referring Provider Nurse Practitioner; Visit Provider Nurse Practitioner
DX: R53.83 Other fatigue (principal); R68.89 Other general symptoms and signs; I10 Essential (primary) hypertension; E78.5 Hyperlipidemia, unspecified; Z79.899 Other long term (current) drug therapy
CPT/HCPCS: 36415; 80061; 82043; 82570; 84439; 84443; 85025

== ENCOUNTER → 2020-02-03 07:56 | Outpatient (CLI) | payer OTHER, SELFPAY ==
[2019-11-15 10:12] VITALS: BMI 28.1
[2020-02-03 08:49] LABS: Add Manual Diff / Slide Review NO; Basophils Absolute Auto 0 /uL (0-100); Basophils Percent Auto 0.5 % (0-2); Eosinophils Absolute Auto 300 /uL (0-450); Hematocrit 39.5 % (36-46); Hemoglobin 13.3 g/dL (12.0-16.0); Lymphocytes Absolute Auto 1600 /uL (1100-4500); Lymphocytes Percent Auto 27.7 % (25-40); Mean Corpuscular HGB Conc 33.5 % (30-36); Mean Corpuscular Hemoglobin 28.4 PG (26-34); Mean Corpuscular Volume 84.6 fL (80-100); Monocytes Absolute Auto 300 /uL (0-900); Monocytes Percent Auto 5.4 % (3-14); Neutrophils Absolute Auto 3400 /uL (1500-7000); Neutrophils Percent Auto 60.4 % (50-75); Platelet Count 169 X10^3/uL (150-400); Red Blood Cell Count 4.67 X10^6/uL (4.0-5.2); Red Cell Distribution Width 13.2 % (11.6-14.8); White Blood Cell Count 5.7 X10^3/uL (4.5-11.0)
[2020-02-03 09:27] LABS: Albumin 3.9 g/dL (3.5-5.0); BUN Creatinine Ratio 22.1 (6-22); Blood Urea Nitrogen 19 mg/dL (7-17); Calcium 8.9 mg/dL (8.4-10.2); Carbon Dioxide 30 mmol/L (22-32); Chloride 104 mmol/L (98-107); Estimated Glomerular Filt Rate > 60.0 mL/min (>60); Glucose 99 mg/dL (80-110); HEMOLYSIS < 15 (0-50); Phosphorous 3.8 mg/dL (2.8-4.1); Potassium 4.6 mmol/L (3.4-5.1); Sodium 139 mmol/L (137-145)
[2020-02-03 09:57] LABS: Cortisol AM (Before 10AM) 12.6 ug/dL (4.46-22.7)
[2020-02-03 09:58] LABS: Thyroid Stimulating Hormone 0.016 uIU/mL (0.47-4.68)
[2020-02-03 16:28] LABS: Vitamin D 25 Hydroxy (D3) 21.9 ng/mL (30.0-100.0)
[2020-02-04 12:56] LABS: Parathyroid Hormone Int 45 pg/mL (15-65)
== END ==
PROVIDERS: PCP Nurse Practitioner; Referring Provider Internal Medicine Endocrinology, Diabetes & Metabolism; Visit Provider Internal Medicine Endocrinology, Diabetes & Metabolism
DX: R53.83 Other fatigue (principal); R94.6 Abnormal results of thyroid function studies; E55.9 Vitamin D deficiency, unspecified
CPT/HCPCS: 36415; 80069; 82306; 82533; 83970; 84443; 85025

== ENCOUNTER → 2020-03-28 16:34 | Outpatient (CLI) | payer OTHER, SELFPAY ==
[2019-11-15 10:12] VITALS: BMI 28.1
[2020-03-28 17:08] LABS: COVID19 -Nasal RAPID Negative (Negative)
== END ==
PROVIDERS: PCP Nurse Practitioner; Visit Provider Family Medicine
DX: J34.89 Other specified disorders of nose and nasal sinuses (principal)
CPT/HCPCS: 87635

== ENCOUNTER → 2020-05-31 09:45 | Outpatient (CLI) | payer OTHER, SELFPAY ==
[2019-11-15 10:12] VITALS: BMI 28.1
[2020-05-31 10:59] LABS: Add Manual Diff / Slide Review NO; Basophils Absolute Auto 0 /uL (0-100); Basophils Percent Auto 0.6 % (0-2); Eosinophils Absolute Auto 200 /uL (0-450); Hemoglobin 13.9 g/dL (12.0-16.0); Lymphocytes Absolute Auto 1500 /uL (1100-4500); Lymphocytes Percent Auto 31.1 % (25-40); Mean Corpuscular Hemoglobin 28.8 PG (26-34); Mean Corpuscular Volume 84.8 fL (80-100); Monocytes Absolute Auto 200 /uL (0-900); Monocytes Percent Auto 4.7 % (3-14); Neutrophils Absolute Auto 3000 /uL (1500-7000); Neutrophils Percent Auto 59.6 % (50-75); Platelet Count 163 X10^3/uL (150-400); Red Blood Cell Count 4.84 X10^6/uL (4.0-5.2); Red Cell Distribution Width 13.9 % (11.6-14.8)
[2020-05-31 11:17] LABS: Alanine Aminotransferase 27 IU/L (<35); Albumin 4.4 g/dL (3.5-5.0); Albumin Globulin Ratio 1.6 (1.0-2.8); Alkaline Phosphatase 107 U/L (38-126); Aspartate Aminotransferase 36 IU/L (14-36); BUN Creatinine Ratio 26.4 (6-22); Bilirubin Total 0.4 mg/dL (0.2-1.3); Blood Urea Nitrogen 23 mg/dL (7-17); Calcium 9.3 mg/dL (8.4-10.2); Carbon Dioxide 25 mmol/L (22-32); Chloride 106 mmol/L (98-107); Estimated Glomerular Filt Rate > 60.0 mL/min (>60); Globulin 2.7 g/dL (1.7-4.1); Glucose 104 mg/dL (80-110); HEMOLYSIS < 15 (0-50); Potassium 4.4 mmol/L (3.4-5.1); Sodium 140 mmol/L (137-145); Total Protein 7.1 g/dL (6.3-8.2)
[2020-05-31 11:37] LABS: Vitamin D 25 Hydroxy (D3) 21.2 ng/mL (30.0-100.0)
[2020-05-31 11:52] LABS: Thyroid Stimulating Hormone 1.23 uIU/mL (0.47-4.68)
[2020-06-01 12:38] LABS: Parathyroid Hormone Int 62 pg/mL (15-65)
== END ==
PROVIDERS: PCP Nurse Practitioner; Referring Provider Registered Nurse; Visit Provider Registered Nurse
DX: R53.83 Other fatigue (principal); R68.89 Other general symptoms and signs; R89.9 Unspecified abnormal finding in specimens from other organs, systems and tissues
CPT/HCPCS: 36415; 80053; 82306; 82533; 83970; 84443; 85025

== ENCOUNTER → 2020-07-04 14:20 | Outpatient (CLI) | payer MEDICARE, SELFPAY ==
[2020-06-26 14:03] VITALS: BMI 28.1
[2020-07-04] MEDS: COVID-19 VACC, Ad26(JANSSEN)/PF 0.5 ML IM (14:35)
== END ==
PROVIDERS: PCP Nurse Practitioner; Visit Provider Internal Medicine
DX: Z23 Encounter for immunization (principal)
CPT/HCPCS: 0031A; 91303

== ENCOUNTER 2020-09-12 12:00 | Outpatient (RCR) | payer OTHER, SELFPAY ==
[2020-06-26 14:03] VITALS: BMI 28.1
--- NOTE | 2020-08-06 12:06 | PT.OIE ---
Current Diagnoses Strain of muscle, fascia and tendon of lower back, subsequent encounter (08/06/20) Arthrodesis status (08/06/20) Past Medical History (Last Reviewed 07/16/20 @ 14:51 by Josr Camarillo DO) Anxiety Anxiety disorder due to general medical condition Back pain Breast screening declined Cervical facet syndrome Cervicogenic headache Chronic neck pain Chronic pain syndrome Depression Diverticulitis DJD of right shoulder Fatigue GERD (gastroesophageal reflux disease) HTN (hypertension) Hydronephrosis of left kidney Hyperlipidemia Intolerance to cold Kidney infection Kidney stone Major depressive disorder, recurrent, mild Nephrolithiasis Numbness and tingling of both legs Osteoarthritis Osteoarthritis of shoulder 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 Seasonal allergies Ureterolithiasis Past Surgical History (Last Reviewed 07/16/20 @ 14:51 by Josr Camarillo DO) History of arthroplasty of left shoulder History of arthroscopy of right shoulder History of total replacement of left shoulder joint Hx of arthroscopy of right knee Hx of tubal ligation S/P cervical spinal fusion Status post bilateral cataract extraction Status post cervical spinal fusion Status post lumbar and lumbosacral fusion by anterior technique [place] teeth removed Visit Care Team Role Provider Type MITCH [facility] Family Provider 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 Primary Care Provider Specialty: Family Practice Address: [address] [place] [address], [id number] Email: [email or web address] Marlin Barker MD Attending Provider Physician Referring Provider Specialty: Orthopedic Surgery Address: [address] [place] [address], [id number] Email: [email or web address] Physical Therapy Initial Evaluation PT-OP-A Visit Information Start: 08/06/20 11:26 Freq: Status: Active Protocol: Document 08/06/20 11:31 HH (Rec: 08/06/20 12:06 [email or web address]) Out-Patient Physical Therapy Visit Information Visit Information Visit Type Initial Evaluation Visit Start Time 09:00 Visit Stop Time 09:40 Total Visit Minutes 40 Visit Number 1/15 Number of BRAKE RIDER Visits 0 Evaluation Information Evaluation Date 08/06/20 Precautions Precautions adhesive tape Allergy depression PT-OP-B Current Condition Start: 08/06/20 11:26 Freq: Status: Active Protocol: Document 08/06/20 11:31 (Rec: 08/06/20 12:06 [email or web address]) Current Condition History of Current Condition Onset Date many years ago Current Complaints Chronic neck pain R>L, tension headache History of Current Condition Alice is a 75 yo female here for her chronic neck pain R worse than L , along with tension headache on the R side . Pt reports she has been having worsening neck pain 5/ 10 mostly towards the R side of the neck with tension headache located at her R temporal area in a daily basis . It tends to get worse towards the end of the day and better with laying down/ sitting with good head/ neck support. She has difficulty turning her head especially driving, and doing chores at work such as lifting and using vacuum to clean. Pt has been taking Gabapentin at night and as needed in the morning for pain management. She denies any signifcant numbness/ tingling sensation. Pt had ACDF at C3 through C5 2012 C6-7ACDF, S/P Left Total Shoulder, Right shoulder DJD, status post L4-5 laminectomy and anterior posterior instrumented fusion and bone graft on 01/26/[address] Hadley. Prior Treatments and Tests osteophytic complexes at the C6-7 level with associated facet arthropathy at C5-6 and 6 7 as well as at C3-4 level above and below her fusion Treatment Goals Patient/Caregiver Goals 1. To regain her cervical mobility with less pain 2. To be able to turn her neck to check traffic while driving 3. to be able to complete house chores without discomfort. Personal Factors Other Personal Factors That May Effect depression Therapy/Recovery anxiety disorder chronic pain syndrome multiple surgeries (see above) PT-OP-C Subjective Start: 08/06/20 11:26 Freq: Status: Active Protocol: Document 08/06/20 11:31 (Rec: 08/06/20 12:06 [email or web address]) Patient Questionnaires Neck Disability Index NDI Score 25 Neck Disability Index Impairment 40 to 59% Impaired (Score 20- 29) Quick Dash- Upper Extremity Quick Dash UE Score 50 Quick Dash UE Impairment 40 to 59% Impaired (Score 40- 59) OP-PT Pain Assessment Location neck Pain Location Details C6-C7 Intensity 5 Scale Used Numeric (0 - 10) Description Aching,Dull,Pressure Frequency Constant Pain Aggravating Factors ADL's,Activity,Exercise, Standing,Walking,Bending, Lifting Pain Alleviating Factors Inactivity,Lying Supine PT-OP-F Manual Assessment Start: 08/06/20 11:26 Freq: Status: Active Protocol: Document 08/06/20 11:31 (Rec: 08/06/20 12:06 [email or web address]) Manual Assessments Soft Tissue Assessment Soft Tissue Mobility Assessment hypertonicity at proximal insertion at R suboccipital, bilateral pectoral muscles, SCM and levator scap and trapezius muscle significant tenderness to pressure at R mastoid process Joint Mobility Assessment Joint Mobility Assessment hypomobility noted at CT junction and T1-T3 PT-OP-J Posture/Palpation/Skin Start: 08/06/20 11:26 Freq: Status: Active Protocol: Document 08/06/20 11:31 (Rec: 08/06/20 12:06 [email or web address]) Posture Evaluation Position Standing Evaluation View Lateral Head/C-Spine Posture Forward Head T-Spine Posture Increased Kyphosis Shoulder Posture (L) Rounded,(R) Rounded PT-OP-K Range of Motion Start: 08/06/20 11:26 Freq: Status: Active Protocol: Document 08/06/20 11:31 HH (Rec: 08/06/20 12:06 [email or web address]) Cervical Spine Range of Motion Cervical Spine Active Degrees Testing Position Sitting Flexion 45 Extension 38 Rotation Left 30 Rotation Right 25 Lateral Flexion Left 24 Lateral Flexion Right 22 ROM Limitations Soft Tissue Tightness,Bony Restriction,Muscle Weakness, Muscle Tone,Pain Comments pain@ C6-C7 with extension, R lateral flexion and R rotation Lumbar Spine Range of Motion Lumbar Spine Active Degrees Testing Position Sitting Comments thoracic rotation in seated R= 38 degrees L= 30 degrees PT-OP-L Special Tests Start: 08/06/20 11:26 Freq: Status: Active Protocol: Document 08/06/20 11:31 (Rec: 08/06/20 12:06 [email or web address]) Special Tests Cervical Spine Special Tests Spurling's Test Test Results -ve Comments no neuro sign noted. Passive Neck Flexion Test Results -ve Comments stretching sensation only Traction Test Results +ve Comments pain relief with traction PT-OP-M Strength Start: 08/06/20 11:26 Freq: Status: Active Protocol: Document 08/06/20 11:31 (Rec: 08/06/20 12:06 [email or web address]) Cervical Spine Strength Cervical Spine Manual Muscle Testing Comments will assess next visit. PT-OP-Q Treatments Start: 08/06/20 11:26 Freq: Status: Active Protocol: Document 08/06/20 11:31 HH (Rec: 08/06/20 12:06 [email or web address]) Self-Care/Home Management Treatment Education Patient Education Body Mechanics,Home Exercise Program,Joint Protection,Pain Management,Posture Other Education educated patient on the importance of the effect of increasing thoracic mobility on reducing mechanical stress on lower cervical region. PT-OP-T Assessment and Plan Start: 08/06/20 11:26 Freq: Status: Active Protocol: Document 08/06/20 11:31 HH (Rec: 08/06/20 12:06 [email or web address]) Physical Therapy Assessment Rehab Potential Rehabilitation Potential Good Evaluation Complexity Number of Personal Factors/Comorbidities 3 or More Number of Body Systems Impaired 4 or More Clinical Presentation at Evaluation Stable Impairments Impairments Activity Tolerance,Functional Activities,Functional Mobility ,Pain,Posture,ROM,Sensation, Soft Tissue Mobility,Strength, Tone Goals cervicogenic headache Impairment pt has cervicogenic headache in a daily basis Short Term Goal (STG) pt will not have R sided headache more than 4 times a week to improve her overall quality of life STG Duration 5 weeks Fci Goal (LTG) pt will not have R sided headache more than 2 times a week to improve her overall quality of life LTG Duration 10 weeks ROM Impairment pt lacks of cervical ROM Short Term Goal (STG) pt will shows greater than 15 degrees of ROM improvements in all planes. STG Duration 5 weeks Cigarette Paper Tester Goal (LTG) pt will shows greater than 25 degrees of ROM improvements in all planes so she can turn her head without trunk compensation while checking traffic during driving. LTG Duration 10 weeks NDI Impairment pt scores 25 on NDI Short Term Goal (STG) pt will scores < 18 on NDI to shows improvements of pain and cervical mobility STG Duration 5 weeks Fci Goal (LTG) pt will scores < 12 on NDI to shows improvements of pain and cervical mobility LTG Duration 10 weeks quickdash Impairment pt scores 50 on quickdash Short Term Goal (STG) pt will score <40 on quickdash to show improvements in quality of life which involves UE activities such as openin jars/ house cleaning etc. STG Duration 5 weeks Cigarette Paper Tester Goal (LTG) pt will score <30 on quickdash to show improvements in quality of life which involves UE activities such as openin jars/ house cleaning etc. LTG Duration 10 weeks Assessment Summary Assessment Alice is a 75 yo female here for her chronic neck pain R worse than L , along with tension headache on the R side . Pt also has ACDF at C3 through C5 , C6-7ACDF, S/P Left Total Shoulder, Right shoulder DJD, status post L4-5 fusion over the years. Upon assessment, this therapist noticed pt has very limited upper thoracic rotational and extension mobility ( significant Dowager's hump) which excessively placed mechanical stress at her lower cervical region whose primary pain locates at. Pt also has hypertonicity at proximal insertion of R SCM, trapezius and levator scap region which possibly causes her tension headache. Pt will benefit from skilled therapy to address her aforementioned impairments by improving her upper thoracic mobility, deep cervical muscular strength and postural awareness. However, this is possibly going to be a long course of rehab since pt has chronic pain, multiple DJD, orthopedic surgeries and other commorbidities. Physical Therapy Plan Frequency and Duration Frequency of Treatment 2x/wkx4, 1x/wkx4 Duration of Treatment 10 weeks Plan of Care Start Date 08/06/20 Plan of Care End Date 10/20/20 Therapeutic Interventions Therapeutic Interventions Home Exercise Program,Joint Mobilizations,Manual Therapy, Neuromuscular Re-education, Patient/Caregiver Education, Self-Care/Home Management,Soft Tissue Mobilization,Taping, Therapeutic Activities, Therapeutic Exercises Modalities Biofeedback,Cold Pack/Ice Massage,Electric Stimulation, Hot Packs,Infrared Therapy, Traction- Mechanical, Ultrasound Next Visit Focus/Plan Next Note Type Treatment Note Next Visit Plan check cerical endurance start STM at pec, suboccipital , SCM, trap traction if needed upper thoracic PA mob open book chin tuck
--- NOTE | 2020-08-09 09:49 | PT.OTN ---
Current Diagnoses Strain of muscle, fascia and tendon of lower back, subsequent encounter (08/09/20) Arthrodesis status (08/09/20) Physical Therapy Treatment Note PT-OP-A Visit Information Start: 08/06/20 11:26 Freq: Status: Active Protocol: Document 08/09/20 09:10 HH (Rec: 08/09/20 09:49 HH [id number]) Out-Patient Physical Therapy Visit Information Visit Information Visit Type Treatment Note Visit Start Time 09:04 Visit Stop Time 09:54 Total Visit Minutes 50 Visit Number 06/11 Number of PIANO ASSEMBLER Visits 0 PT-OP-B Current Condition Start: 08/06/20 11:26 Freq: Status: Active Protocol: Document 08/06/20 11:31 HH (Rec: 08/06/20 12:06 HH [email or web address]) Current Condition History of Current Condition Onset Date many years ago Current Complaints Chronic neck pain R>L, tension headache History of Current Condition Alice is a 75 yo female here for her chronic neck pain R worse than L , along with tension headache on the R side . Pt reports she has been having worsening neck pain 5/ 10 mostly towards the R side of the neck with tension headache located at her R temporal area in a daily basis . It tends to get worse towards the end of the day and better with laying down/ sitting with good head/ neck support. She has difficulty turning her head especially driving, and doing chores at work such as lifting and using vacuum to clean. Pt has been taking Gabapentin at night and as needed in the morning for pain management. She denies any signifcant numbness/ tingling sensation. Pt had ACDF at C3 through C5 2012 C6-7ACDF, S/P Left Total Shoulder, Right shoulder DJD, status post L4-5 laminectomy and anterior posterior instrumented fusion and bone graft on 01/26/[address] Hadley. Prior Treatments and Tests osteophytic complexes at the C6-7 level with associated facet arthropathy at C5-6 and 6 7 as well as at C3-4 level above and below her fusion Treatment Goals Patient/Caregiver Goals 1. To regain her cervical mobility with less pain 2. To be able to turn her neck to check traffic while driving 3. to be able to complete house chores without discomfort. Personal Factors Other Personal Factors That May Effect depression Therapy/Recovery anxiety disorder chronic pain syndrome multiple surgeries (see above) PT-OP-C Subjective Start: 08/06/20 11:26 Freq: Status: Active Protocol: Document 08/09/20 09:10 HH (Rec: 08/09/20 09:49 [id number]) OP-PT Subjective Patient Comments Patient Comments I was so sore and painful just from the evaluation Patient Reported Progress Same PT-OP-F Manual Assessment Start: 08/06/20 11:26 Freq: Status: Active Protocol: Document 08/06/20 11:31 HH (Rec: 08/06/20 12:06 [email or web address]) Manual Assessments Soft Tissue Assessment Soft Tissue Mobility Assessment hypertonicity at proximal insertion at R suboccipital, bilateral pectoral muscles, SCM and levator scap and trapezius muscle significant tenderness to pressure at R mastoid process Joint Mobility Assessment Joint Mobility Assessment hypomobility noted at CT junction and T1-T3 PT-OP-J Posture/Palpation/Skin Start: 08/06/20 11:26 Freq: Status: Active Protocol: Document 08/06/20 11:31 HH (Rec: 08/06/20 12:06 [email or web address]) Posture Evaluation Position Standing Evaluation View Lateral Head/C-Spine Posture Forward Head T-Spine Posture Increased Kyphosis Shoulder Posture (L) Rounded,(R) Rounded PT-OP-K Range of Motion Start: 08/06/20 11:26 Freq: Status: Active Protocol: Document 08/06/20 11:31 HH (Rec: 08/06/20 12:06 [email or web address]) Cervical Spine Range of Motion Cervical Spine Active Degrees Testing Position Sitting Flexion 45 Extension 38 Rotation Left 30 Rotation Right 25 Lateral Flexion Left 24 Lateral Flexion Right 22 ROM Limitations Soft Tissue Tightness,Bony Restriction,Muscle Weakness, Muscle Tone,Pain Comments pain@ C6-C7 with extension, R lateral flexion and R rotation Lumbar Spine Range of Motion Lumbar Spine Active Degrees Testing Position Sitting Comments thoracic rotation in seated R= 38 degrees L= 30 degrees PT-OP-L Special Tests Start: 08/06/20 11:26 Freq: Status: Active Protocol: Document 08/06/20 11:31 HH (Rec: 08/06/20 12:06 [email or web address]) Special Tests Cervical Spine Special Tests Spurling's Test Test Results -ve Comments no neuro sign noted. Passive Neck Flexion Test Results -ve Comments stretching sensation only Traction Test Results +ve Comments pain relief with traction PT-OP-M Strength Start: 08/06/20 11:26 Freq: Status: Active Protocol: Document 08/06/20 11:31 HH (Rec: 08/06/20 12:06 [email or web address]) Cervical Spine Strength Cervical Spine Manual Muscle Testing Comments will assess next visit. PT-OP-Q Treatments Start: 08/06/20 11:26 Freq: Status: Active Protocol: Document 08/09/20 09:10 HH (Rec: 08/09/20 09:49 [id number]) Therapeutic Exercises Supine Exercises supine chest stretch Comments unable to tolerate d/t limited shoulder abductoin. Sidelying Exercises open book Side bilateral Reps/Minutes 8 x2 Comments with cervical rotation, R shoulder has limited abd Sitting Exercises neck lateral flexion Side bilateral Reps/Minutes 15 sec hold x 3 Comments for HEP Standing Exercises scap pinch Standing Exercise Name against wall Side bilateral Reps/Minutes 8 x1 Comments cues on scap retraction Manual Therapy Treatment Soft Tissue Mobilization SCM, levator scap Mobilization Type Sustained Pressure,Trigger Point Release Intensity/Depth Moderate Body Position Supine Comments proximal insertion tenderness noted. suboccipital Mobilization Type Sustained Pressure,Trigger Point Release Intensity/Depth Moderate Body Position Supine Comments significant tenderness noted at R >L pecs Mobilization Type Sustained Pressure,Trigger Point Release Intensity/Depth Moderate Body Position Supine Comments significant tenderness noted at R >L PT-OP-R Modalities Start: 08/06/20 11:26 Freq: Status: Active Protocol: Document 08/09/20 09:10 HH (Rec: 08/09/20 09:49 [email or web address]) Hot Pack/Cold Pack Treatment Hot Pack Location lumbar Patient Position Hooklying Treatment Duration (minutes) 10 Patient Tolerance Good PT-OP-T Assessment and Plan Start: 08/06/20 11:26 Freq: Status: Active Protocol: Document 08/09/20 09:10 HH (Rec: 08/09/20 09:49 [id number]) Physical Therapy Assessment Goals cervicogenic headache Impairment pt has cervicogenic headache in a daily basis Short Term Goal (STG) pt will not have R sided headache more than 4 times a week to improve her overall quality of life STG Duration 5 weeks Prison Goal (LTG) pt will not have R sided headache more than 2 times a week to improve her overall quality of life LTG Duration 10 weeks ROM Impairment pt lacks of cervical ROM Short Term Goal (STG) pt will shows greater than 15 degrees of ROM improvements in all planes. STG Duration 5 weeks Supervisor Throwing Department Goal (LTG) pt will shows greater than 25 degrees of ROM improvements in all planes so she can turn her head without trunk compensation while checking traffic during driving. LTG Duration 10 weeks NDI Impairment pt scores 25 on NDI Short Term Goal (STG) pt will scores < 18 on NDI to shows improvements of pain and cervical mobility STG Duration 5 weeks Supervisor Throwing Department Goal (LTG) pt will scores < 12 on NDI to shows improvements of pain and cervical mobility LTG Duration 10 weeks quickdash Impairment pt scores 50 on quickdash Short Term Goal (STG) pt will score <40 on quickdash to show improvements in quality of life which involves UE activities such as openin jars/ house cleaning etc. STG Duration 5 weeks Supervisor Throwing Department Goal (LTG) pt will score <30 on quickdash to show improvements in quality of life which involves UE activities such as openin jars/ house cleaning etc. LTG Duration 10 weeks Assessment Summary Assessment first tx session today and she presents significant tonicity at SCM, levator scap, and pecs. Pt also has very limited R shoulder abd who can not tolerate chest stretch in supine. She overall felt more mobile and less pain after manual therapy. will f.u her symptoms next visit. Physical Therapy Plan Frequency and Duration Frequency of Treatment 2x/wkx4, 1x/wkx4 Duration of Treatment 10 weeks Plan of Care Start Date 08/06/20 Plan of Care End Date 10/20/20 Next Visit Focus/Plan Next Note Type Treatment Note Next Visit Plan check cerical endurance start STM at pec, suboccipital , SCM, trap traction if needed upper thoracic PA mob open book chin tuck
--- NOTE | 2020-08-09 09:52 | PT.OTN ---
Current Diagnoses Strain of muscle, fascia and tendon of lower back, subsequent encounter (08/09/20) Arthrodesis status (08/09/20) Physical Therapy Treatment Note PT-OP-A Visit Information Start: 08/06/20 11:26 Freq: Status: Active Protocol: Document 08/09/20 09:10 HH (Rec: 08/09/20 09:49 HH [id number]) Out-Patient Physical Therapy Visit Information Visit Information Visit Type Treatment Note Visit Start Time 09:04 Visit Stop Time 09:54 Total Visit Minutes 50 Visit Number 06/11 Number of PIGMENT MAKING SUPERVISOR Visits 0 PT-OP-B Current Condition Start: 08/06/20 11:26 Freq: Status: Active Protocol: Document 08/06/20 11:31 HH (Rec: 08/06/20 12:06 HH [email or web address]) Current Condition History of Current Condition Onset Date many years ago Current Complaints Chronic neck pain R>L, tension headache History of Current Condition Alice is a 75 yo female here for her chronic neck pain R worse than L , along with tension headache on the R side . Pt reports she has been having worsening neck pain 5/ 10 mostly towards the R side of the neck with tension headache located at her R temporal area in a daily basis . It tends to get worse towards the end of the day and better with laying down/ sitting with good head/ neck support. She has difficulty turning her head especially driving, and doing chores at work such as lifting and using vacuum to clean. Pt has been taking Gabapentin at night and as needed in the morning for pain management. She denies any signifcant numbness/ tingling sensation. Pt had ACDF at C3 through C5 2012 C6-7ACDF, S/P Left Total Shoulder, Right shoulder DJD, status post L4-5 laminectomy and anterior posterior instrumented fusion and bone graft on 01/26/[address] Hadley. Prior Treatments and Tests osteophytic complexes at the C6-7 level with associated facet arthropathy at C5-6 and 6 7 as well as at C3-4 level above and below her fusion Treatment Goals Patient/Caregiver Goals 1. To regain her cervical mobility with less pain 2. To be able to turn her neck to check traffic while driving 3. to be able to complete house chores without discomfort. Personal Factors Other Personal Factors That May Effect depression Therapy/Recovery anxiety disorder chronic pain syndrome multiple surgeries (see above) PT-OP-C Subjective Start: 08/06/20 11:26 Freq: Status: Active Protocol: Document 08/09/20 09:10 HH (Rec: 08/09/20 09:49 [id number]) OP-PT Subjective Patient Comments Patient Comments I was so sore and painful just from the evaluation Patient Reported Progress Same PT-OP-F Manual Assessment Start: 08/06/20 11:26 Freq: Status: Active Protocol: Document 08/06/20 11:31 HH (Rec: 08/06/20 12:06 [email or web address]) Manual Assessments Soft Tissue Assessment Soft Tissue Mobility Assessment hypertonicity at proximal insertion at R suboccipital, bilateral pectoral muscles, SCM and levator scap and trapezius muscle significant tenderness to pressure at R mastoid process Joint Mobility Assessment Joint Mobility Assessment hypomobility noted at CT junction and T1-T3 PT-OP-J Posture/Palpation/Skin Start: 08/06/20 11:26 Freq: Status: Active Protocol: Document 08/06/20 11:31 HH (Rec: 08/06/20 12:06 [email or web address]) Posture Evaluation Position Standing Evaluation View Lateral Head/C-Spine Posture Forward Head T-Spine Posture Increased Kyphosis Shoulder Posture (L) Rounded,(R) Rounded PT-OP-K Range of Motion Start: 08/06/20 11:26 Freq: Status: Active Protocol: Document 08/06/20 11:31 HH (Rec: 08/06/20 12:06 [email or web address]) Cervical Spine Range of Motion Cervical Spine Active Degrees Testing Position Sitting Flexion 45 Extension 38 Rotation Left 30 Rotation Right 25 Lateral Flexion Left 24 Lateral Flexion Right 22 ROM Limitations Soft Tissue Tightness,Bony Restriction,Muscle Weakness, Muscle Tone,Pain Comments pain@ C6-C7 with extension, R lateral flexion and R rotation Lumbar Spine Range of Motion Lumbar Spine Active Degrees Testing Position Sitting Comments thoracic rotation in seated R= 38 degrees L= 30 degrees PT-OP-L Special Tests Start: 08/06/20 11:26 Freq: Status: Active Protocol: Document 08/06/20 11:31 HH (Rec: 08/06/20 12:06 [email or web address]) Special Tests Cervical Spine Special Tests Spurling's Test Test Results -ve Comments no neuro sign noted. Passive Neck Flexion Test Results -ve Comments stretching sensation only Traction Test Results +ve Comments pain relief with traction PT-OP-M Strength Start: 08/06/20 11:26 Freq: Status: Active Protocol: Document 08/06/20 11:31 HH (Rec: 08/06/20 12:06 [email or web address]) Cervical Spine Strength Cervical Spine Manual Muscle Testing Comments will assess next visit. PT-OP-Q Treatments Start: 08/06/20 11:26 Freq: Status: Active Protocol: Document 08/09/20 09:10 HH (Rec: 08/09/20 09:49 [id number]) Therapeutic Exercises Supine Exercises supine chest stretch Comments unable to tolerate d/t limited shoulder abductoin. Sidelying Exercises open book Side bilateral Reps/Minutes 8 x2 Comments with cervical rotation, R shoulder has limited abd Sitting Exercises neck lateral flexion Side bilateral Reps/Minutes 15 sec hold x 3 Comments for HEP Standing Exercises scap pinch Standing Exercise Name against wall Side bilateral Reps/Minutes 8 x1 Comments cues on scap retraction Manual Therapy Treatment Soft Tissue Mobilization SCM, levator scap Mobilization Type Sustained Pressure,Trigger Point Release Intensity/Depth Moderate Body Position Supine Comments proximal insertion tenderness noted. suboccipital Mobilization Type Sustained Pressure,Trigger Point Release Intensity/Depth Moderate Body Position Supine Comments significant tenderness noted at R >L pecs Mobilization Type Sustained Pressure,Trigger Point Release Intensity/Depth Moderate Body Position Supine Comments significant tenderness noted at R >L PT-OP-R Modalities Start: 08/06/20 11:26 Freq: Status: Active Protocol: Document 08/09/20 09:10 HH (Rec: 08/09/20 09:49 [id number]) Hot Pack/Cold Pack Treatment Hot Pack Location lumbar Patient Position Hooklying Treatment Duration (minutes) 10 Patient Tolerance Good PT-OP-T Assessment and Plan Start: 08/06/20 11:26 Freq: Status: Active Protocol: Document 08/09/20 09:10 HH (Rec: 08/09/20 09:49 [id number]) Physical Therapy Assessment Goals cervicogenic headache Impairment pt has cervicogenic headache in a daily basis Short Term Goal (STG) pt will not have R sided headache more than 4 times a week to improve her overall quality of life STG Duration 5 weeks Halfway Goal (LTG) pt will not have R sided headache more than 2 times a week to improve her overall quality of life LTG Duration 10 weeks ROM Impairment pt lacks of cervical ROM Short Term Goal (STG) pt will shows greater than 15 degrees of ROM improvements in all planes. STG Duration 5 weeks Cigar Brander Goal (LTG) pt will shows greater than 25 degrees of ROM improvements in all planes so she can turn her head without trunk compensation while checking traffic during driving. LTG Duration 10 weeks NDI Impairment pt scores 25 on NDI Short Term Goal (STG) pt will scores < 18 on NDI to shows improvements of pain and cervical mobility STG Duration 5 weeks Cigar Brander Goal (LTG) pt will scores < 12 on NDI to shows improvements of pain and cervical mobility LTG Duration 10 weeks quickdash Impairment pt scores 50 on quickdash Short Term Goal (STG) pt will score <40 on quickdash to show improvements in quality of life which involves UE activities such as openin jars/ house cleaning etc. STG Duration 5 weeks Cigar Brander Goal (LTG) pt will score <30 on quickdash to show improvements in quality of life which involves UE activities such as openin jars/ house cleaning etc. LTG Duration 10 weeks Assessment Summary Assessment first tx session today and she presents significant tonicity at SCM, levator scap, and pecs. Pt also has very limited R shoulder abd who can not tolerate chest stretch in supine. She overall felt more mobile and less pain after manual therapy. will f.u her symptoms next visit. Physical Therapy Plan Frequency and Duration Frequency of Treatment 2x/wkx4, 1x/wkx4 Duration of Treatment 10 weeks Plan of Care Start Date 08/06/20 Plan of Care End Date 10/20/20 Next Visit Focus/Plan Next Note Type Treatment Note Next Visit Plan check cerical endurance start STM at pec, suboccipital , SCM, trap traction if needed upper thoracic PA mob open book chin tuck
--- NOTE | 2020-08-13 15:18 | PT.OTN ---
Current Diagnoses Strain of muscle, fascia and tendon of lower back, subsequent encounter (08/13/20) Arthrodesis status (08/13/20) Physical Therapy Treatment Note PT-OP-A Visit Information Start: 08/06/20 11:26 Freq: Status: Active Protocol: Document 08/13/20 14:37 MA (Rec: 08/13/20 15:18 MA [id number]) Out-Patient Physical Therapy Visit Information Visit Information Visit Type Treatment Note Visit Start Time 14:30 Visit Stop Time 15:10 Total Visit Minutes 40 Visit Number 3/ Number of CABLE MECHANIC Visits 1 PT-OP-B Current Condition Start: 08/06/20 11:26 Freq: Status: Active Protocol: Document 08/06/20 11:31 HH (Rec: 08/06/20 12:06 HH [email or web address]) Current Condition History of Current Condition Onset Date many years ago Current Complaints Chronic neck pain R>L, tension headache History of Current Condition Alice is a 75 yo female here for her chronic neck pain R worse than L , along with tension headache on the R side . Pt reports she has been having worsening neck pain 5/ 10 mostly towards the R side of the neck with tension headache located at her R temporal area in a daily basis . It tends to get worse towards the end of the day and better with laying down/ sitting with good head/ neck support. She has difficulty turning her head especially driving, and doing chores at work such as lifting and using vacuum to clean. Pt has been taking Gabapentin at night and as needed in the morning for pain management. She denies any signifcant numbness/ tingling sensation. Pt had ACDF at C3 through C5 2012 C6-7ACDF, S/P Left Total Shoulder, Right shoulder DJD, status post L4-5 laminectomy and anterior posterior instrumented fusion and bone graft on 01/26/[address] Hadley. Prior Treatments and Tests osteophytic complexes at the C6-7 level with associated facet arthropathy at C5-6 and 6 7 as well as at C3-4 level above and below her fusion Treatment Goals Patient/Caregiver Goals 1. To regain her cervical mobility with less pain 2. To be able to turn her neck to check traffic while driving 3. to be able to complete house chores without discomfort. Personal Factors Other Personal Factors That May Effect depression Therapy/Recovery anxiety disorder chronic pain syndrome multiple surgeries (see above) PT-OP-C Subjective Start: 08/06/20 11:26 Freq: Status: Active Protocol: Document 08/13/20 14:37 MA (Rec: 08/13/20 15:18 MA [id number]) OP-PT Subjective Patient Comments Patient Comments my right side is super sore. I woke up and got an ice pack in the middle of the night last night. PT-OP-F Manual Assessment Start: 08/06/20 11:26 Freq: Status: Active Protocol: Document 08/06/20 11:31 HH (Rec: 08/06/20 12:06 HH [email or web address]) Manual Assessments Soft Tissue Assessment Soft Tissue Mobility Assessment hypertonicity at proximal insertion at R suboccipital, bilateral pectoral muscles, SCM and levator scap and trapezius muscle significant tenderness to pressure at R mastoid process Joint Mobility Assessment Joint Mobility Assessment hypomobility noted at CT junction and T1-T3 PT-OP-J Posture/Palpation/Skin Start: 08/06/20 11:26 Freq: Status: Active Protocol: Document 08/06/20 11:31 HH (Rec: 08/06/20 12:06 HH [email or web address]) Posture Evaluation Position Standing Evaluation View Lateral Head/C-Spine Posture Forward Head T-Spine Posture Increased Kyphosis Shoulder Posture (L) Rounded,(R) Rounded PT-OP-K Range of Motion Start: 08/06/20 11:26 Freq: Status: Active Protocol: Document 08/06/20 11:31 HH (Rec: 08/06/20 12:06 HH [email or web address]) Cervical Spine Range of Motion Cervical Spine Active Degrees Testing Position Sitting Flexion 45 Extension 38 Rotation Left 30 Rotation Right 25 Lateral Flexion Left 24 Lateral Flexion Right 22 ROM Limitations Soft Tissue Tightness,Bony Restriction,Muscle Weakness, Muscle Tone,Pain Comments pain@ C6-C7 with extension, R lateral flexion and R rotation Lumbar Spine Range of Motion Lumbar Spine Active Degrees Testing Position Sitting Comments thoracic rotation in seated R= 38 degrees L= 30 degrees PT-OP-L Special Tests Start: 08/06/20 11:26 Freq: Status: Active Protocol: Document 08/06/20 11:31 HH (Rec: 08/06/20 12:06 HH [email or web address]) Special Tests Cervical Spine Special Tests Spurling's Test Test Results -ve Comments no neuro sign noted. Passive Neck Flexion Test Results -ve Comments stretching sensation only Traction Test Results +ve Comments pain relief with traction PT-OP-M Strength Start: 08/06/20 11:26 Freq: Status: Active Protocol: Document 08/06/20 11:31 HH (Rec: 08/06/20 12:06 HH [email or web address]) Cervical Spine Strength Cervical Spine Manual Muscle Testing Comments will assess next visit. PT-OP-Q Treatments Start: 08/06/20 11:26 Freq: Status: Active Protocol: Document 08/13/20 14:37 MA (Rec: 08/13/20 15:18 MA [id number]) Therapeutic Exercises Supine Exercises Cervical Rotation Side bilateral Reps/Minutes 4x 10 sec hold Chin Tuck Reps/Minutes 5x 5 sec hold Comments added to HEP Sidelying Exercises open book Side bilateral Reps/Minutes 8 x2 Comments with cervical rotation, R shoulder has limited abd Manual Therapy Treatment Soft Tissue Mobilization SCM, levator scap Mobilization Type Sustained Pressure,Trigger Point Release Intensity/Depth Moderate Body Position Supine Comments proximal insertion tenderness noted. suboccipital Mobilization Type Sustained Pressure,Trigger Point Release Intensity/Depth Moderate Body Position Supine Comments significant tenderness noted at R >L pecs Mobilization Type Sustained Pressure,Trigger Point Release Intensity/Depth Moderate Body Position Supine Comments significant tenderness noted at R >L Self-Care/Home Management Treatment Education Patient Education Home Exercise Program Other Education Supine chin tucks added to HEP PT-OP-R Modalities Start: 08/06/20 11:26 Freq: Status: Active Protocol: Document 08/09/20 09:10 HH (Rec: 08/09/20 09:49 HH [id number]) Hot Pack/Cold Pack Treatment Hot Pack Location lumbar Patient Position Hooklying Treatment Duration (minutes) 10 Patient Tolerance Good PT-OP-T Assessment and Plan Start: 08/06/20 11:26 Freq: Status: Active Protocol: Document 08/13/20 14:37 MA (Rec: 08/13/20 15:18 MA [id number]) Physical Therapy Assessment Goals cervicogenic headache Impairment pt has cervicogenic headache in a daily basis Short Term Goal (STG) pt will not have R sided headache more than 4 times a week to improve her overall quality of life STG Duration 5 weeks Detention Goal (LTG) pt will not have R sided headache more than 2 times a week to improve her overall quality of life LTG Duration 10 weeks ROM Impairment pt lacks of cervical ROM Short Term Goal (STG) pt will shows greater than 15 degrees of ROM improvements in all planes. STG Duration 5 weeks Detention Goal (LTG) pt will shows greater than 25 degrees of ROM improvements in all planes so she can turn her head without trunk compensation while checking traffic during driving. LTG Duration 10 weeks NDI Impairment pt scores 25 on NDI Short Term Goal (STG) pt will scores < 18 on NDI to shows improvements of pain and cervical mobility STG Duration 5 weeks Detention Goal (LTG) pt will scores < 12 on NDI to shows improvements of pain and cervical mobility LTG Duration 10 weeks quickdash Impairment pt scores 50 on quickdash Short Term Goal (STG) pt will score <40 on quickdash to show improvements in quality of life which involves UE activities such as openin jars/ house cleaning etc. STG Duration 5 weeks Detention Goal (LTG) pt will score <30 on quickdash to show improvements in quality of life which involves UE activities such as openin jars/ house cleaning etc. LTG Duration 10 weeks Assessment Summary Assessment Pt continues to be tight at SCM, levator, and pecs. She feels the STM helps for a day or two and then she tightens back up. Added chin tucks to HEP 5x5 sec hold while supine. Pt would continue to benefit from skilled therapy to increase cervical ROM and decrease R CS pain and headaches. Physical Therapy Plan Frequency and Duration Frequency of Treatment 2x/wkx4, 1x/wkx4 Duration of Treatment 10 weeks Plan of Care Start Date 08/06/20 Plan of Care End Date 10/20/20 Therapeutic Interventions Therapeutic Interventions Home Exercise Program,Joint Mobilizations,Manual Therapy, Neuromuscular Re-education, Patient/Caregiver Education, Self-Care/Home Management,Soft Tissue Mobilization,Taping, Therapeutic Activities, Therapeutic Exercises Modalities Biofeedback,Cold Pack/Ice Massage,Electric Stimulation, Hot Packs,Infrared Therapy, Traction- Mechanical, Ultrasound Next Visit Focus/Plan Next Note Type Treatment Note Next Visit Plan check cerical endurance start STM at pec, suboccipital , SCM, trap traction if needed upper thoracic PA mob open book chin tuck
--- NOTE | 2020-08-20 14:30 | PT.OTN ---
Current Diagnoses Strain of muscle, fascia and tendon of lower back, subsequent encounter (08/20/20) Arthrodesis status (08/20/20) Physical Therapy Treatment Note PT-OP-A Visit Information Start: 08/06/20 11:26 Freq: Status: Active Protocol: Document 08/20/20 13:47 HH (Rec: 08/20/20 14:30 HH [id number]) Out-Patient Physical Therapy Visit Information Visit Information Visit Type Treatment Note Visit Start Time 13:47 Visit Stop Time 14:30 Total Visit Minutes 43 Visit Number 4/15 Number of LCAC RADAR OPERATOR/NAVIGATOR Visits 0 PT-OP-B Current Condition Start: 08/06/20 11:26 Freq: Status: Active Protocol: Document 08/06/20 11:31 HH (Rec: 08/06/20 12:06 HH [email or web address]) Current Condition History of Current Condition Onset Date many years ago Current Complaints Chronic neck pain R>L, tension headache History of Current Condition Alice is a 75 yo female here for her chronic neck pain R worse than L , along with tension headache on the R side . Pt reports she has been having worsening neck pain 5/ 10 mostly towards the R side of the neck with tension headache located at her R temporal area in a daily basis . It tends to get worse towards the end of the day and better with laying down/ sitting with good head/ neck support. She has difficulty turning her head especially driving, and doing chores at work such as lifting and using vacuum to clean. Pt has been taking Gabapentin at night and as needed in the morning for pain management. She denies any signifcant numbness/ tingling sensation. Pt had ACDF at C3 through C5 2012 C6-7ACDF, S/P Left Total Shoulder, Right shoulder DJD, status post L4-5 laminectomy and anterior posterior instrumented fusion and bone graft on 01/26/[address] Hadley. Prior Treatments and Tests osteophytic complexes at the C6-7 level with associated facet arthropathy at C5-6 and 6 7 as well as at C3-4 level above and below her fusion Treatment Goals Patient/Caregiver Goals 1. To regain her cervical mobility with less pain 2. To be able to turn her neck to check traffic while driving 3. to be able to complete house chores without discomfort. Personal Factors Other Personal Factors That May Effect depression Therapy/Recovery anxiety disorder chronic pain syndrome multiple surgeries (see above) PT-OP-C Subjective Start: 08/06/20 11:26 Freq: Status: Active Protocol: Document 08/20/20 13:47 HH (Rec: 08/20/20 14:30 HH [id number]) OP-PT Subjective Patient Comments Patient Comments I am stiff especially this weekend because of the weather . However, My headaches are not as often. Its every other day now. Patient Reported Progress Improving PT-OP-F Manual Assessment Start: 08/06/20 11:26 Freq: Status: Active Protocol: Document 08/06/20 11:31 HH (Rec: 08/06/20 12:06 [email or web address]) Manual Assessments Soft Tissue Assessment Soft Tissue Mobility Assessment hypertonicity at proximal insertion at R suboccipital, bilateral pectoral muscles, SCM and levator scap and trapezius muscle significant tenderness to pressure at R mastoid process Joint Mobility Assessment Joint Mobility Assessment hypomobility noted at CT junction and T1-T3 PT-OP-J Posture/Palpation/Skin Start: 08/06/20 11:26 Freq: Status: Active Protocol: Document 08/06/20 11:31 HH (Rec: 08/06/20 12:06 [email or web address]) Posture Evaluation Position Standing Evaluation View Lateral Head/C-Spine Posture Forward Head T-Spine Posture Increased Kyphosis Shoulder Posture (L) Rounded,(R) Rounded PT-OP-K Range of Motion Start: 08/06/20 11:26 Freq: Status: Active Protocol: Document 08/06/20 11:31 HH (Rec: 08/06/20 12:06 [email or web address]) Cervical Spine Range of Motion Cervical Spine Active Degrees Testing Position Sitting Flexion 45 Extension 38 Rotation Left 30 Rotation Right 25 Lateral Flexion Left 24 Lateral Flexion Right 22 ROM Limitations Soft Tissue Tightness,Bony Restriction,Muscle Weakness, Muscle Tone,Pain Comments pain@ C6-C7 with extension, R lateral flexion and R rotation Lumbar Spine Range of Motion Lumbar Spine Active Degrees Testing Position Sitting Comments thoracic rotation in seated R= 38 degrees L= 30 degrees PT-OP-L Special Tests Start: 08/06/20 11:26 Freq: Status: Active Protocol: Document 08/06/20 11:31 HH (Rec: 08/06/20 12:06 [email or web address]) Special Tests Cervical Spine Special Tests Spurling's Test Test Results -ve Comments no neuro sign noted. Passive Neck Flexion Test Results -ve Comments stretching sensation only Traction Test Results +ve Comments pain relief with traction PT-OP-M Strength Start: 08/06/20 11:26 Freq: Status: Active Protocol: Document 08/06/20 11:31 HH (Rec: 08/06/20 12:06 HH [email or web address]) Cervical Spine Strength Cervical Spine Manual Muscle Testing Comments will assess next visit. PT-OP-Q Treatments Start: 08/06/20 11:26 Freq: Status: Active Protocol: Document 08/20/20 13:47 HH (Rec: 08/20/20 14:30 HH [id number]) Therapeutic Exercises Supine Exercises Cervical Rotation Side bilateral Reps/Minutes 4x 10 sec hold Chin Tuck Reps/Minutes 5x 5 sec hold Comments added to HEP Sidelying Exercises open book Side bilateral Reps/Minutes 8 x2 Comments with cervical rotation, R shoulder has limited abd Sitting Exercises OH sujata Sitting Exercise Name AAROM for flexion and abduction Side bilateral Reps/Minutes 1 min each direction Standing Exercises scap pinch Standing Exercise Name against wall Side bilateral Equipment Used against bolster Reps/Minutes 8 x2 Comments cues on scap retraction Manual Therapy Treatment Soft Tissue Mobilization SCM, levator scap Mobilization Type Sustained Pressure,Trigger Point Release Intensity/Depth Moderate Body Position Supine Comments proximal insertion tenderness noted. suboccipital Mobilization Type Sustained Pressure,Trigger Point Release Intensity/Depth Moderate Body Position Supine Comments significant tenderness noted at R >L pecs Mobilization Type Sustained Pressure,Trigger Point Release Intensity/Depth Moderate Body Position Supine Comments significant tenderness noted at R >L PT-OP-R Modalities Start: 08/06/20 11:26 Freq: Status: Active Protocol: Document 08/09/20 09:10 HH (Rec: 08/09/20 09:49 HH [id number]) Hot Pack/Cold Pack Treatment Hot Pack Location lumbar Patient Position Hooklying Treatment Duration (minutes) 10 Patient Tolerance Good PT-OP-T Assessment and Plan Start: 08/06/20 11:26 Freq: Status: Active Protocol: Document 08/20/20 13:47 HH (Rec: 08/20/20 14:30 HH [id number]) Physical Therapy Assessment Goals cervicogenic headache Impairment pt has cervicogenic headache in a daily basis Short Term Goal (STG) pt will not have R sided headache more than 4 times a week to improve her overall quality of life STG Duration 5 weeks Detention Goal (LTG) pt will not have R sided headache more than 2 times a week to improve her overall quality of life LTG Duration 10 weeks ROM Impairment pt lacks of cervical ROM Short Term Goal (STG) pt will shows greater than 15 degrees of ROM improvements in all planes. STG Duration 5 weeks Physical Therapy Aides Teacher Goal (LTG) pt will shows greater than 25 degrees of ROM improvements in all planes so she can turn her head without trunk compensation while checking traffic during driving. LTG Duration 10 weeks NDI Impairment pt scores 25 on NDI Short Term Goal (STG) pt will scores < 18 on NDI to shows improvements of pain and cervical mobility STG Duration 5 weeks Physical Therapy Aides Teacher Goal (LTG) pt will scores < 12 on NDI to shows improvements of pain and cervical mobility LTG Duration 10 weeks quickdash Impairment pt scores 50 on quickdash Short Term Goal (STG) pt will score <40 on quickdash to show improvements in quality of life which involves UE activities such as openin jars/ house cleaning etc. STG Duration 5 weeks Detention Goal (LTG) pt will score <30 on quickdash to show improvements in quality of life which involves UE activities such as openin jars/ house cleaning etc. LTG Duration 10 weeks Three LTG Duration Goal reached Assessment Summary Assessment pt stated her headahce is less often ( about every other day .) but it is easily to have flare ups. Pt yael session very well and no c/o in increase discomfort. Physical Therapy Plan Frequency and Duration Frequency of Treatment 2x/wkx4, 1x/wkx4 Duration of Treatment 10 weeks Plan of Care Start Date 08/06/20 Plan of Care End Date 10/20/20 Therapeutic Interventions Therapeutic Interventions Home Exercise Program,Joint Mobilizations,Manual Therapy, Neuromuscular Re-education, Patient/Caregiver Education, Self-Care/Home Management,Soft Tissue Mobilization,Taping, Therapeutic Activities, Therapeutic Exercises Modalities Biofeedback,Cold Pack/Ice Massage,Electric Stimulation, Hot Packs,Infrared Therapy, Traction- Mechanical, Ultrasound Discharge Physical Therapy Discharge Reasons Patient Request Next Visit Focus/Plan Next Note Type Treatment Note Next Visit Plan check cerical endurance start STM at pec, suboccipital , SCM, trap traction if needed upper thoracic PA mob open book chin tuck
--- NOTE | 2020-08-22 17:56 | PT.OTN ---
Current Diagnoses Strain of muscle, fascia and tendon of lower back, subsequent encounter (08/22/20) Arthrodesis status (08/22/20) Physical Therapy Treatment Note PT-OP-A Visit Information Start: 08/06/20 11:26 Freq: Status: Active Protocol: Document 08/22/20 14:34 MA (Rec: 08/22/20 15:16 MA [id number]) Out-Patient Physical Therapy Visit Information Visit Information Visit Type Treatment Note Visit Start Time 14:30 Visit Stop Time 15:15 Total Visit Minutes 45 Visit Number 5/ Number of CAREER CENTER ADVISOR Visits 1 Precautions Precautions adhesive tape Allergy depression PT-OP-B Current Condition Start: 08/06/20 11:26 Freq: Status: Active Protocol: Document 08/06/20 11:31 HH (Rec: 08/06/20 12:06 HH [email or web address]) Current Condition History of Current Condition Onset Date many years ago Current Complaints Chronic neck pain R>L, tension headache History of Current Condition Alice is a 75 yo female here for her chronic neck pain R worse than L , along with tension headache on the R side . Pt reports she has been having worsening neck pain 5/ 10 mostly towards the R side of the neck with tension headache located at her R temporal area in a daily basis . It tends to get worse towards the end of the day and better with laying down/ sitting with good head/ neck support. She has difficulty turning her head especially driving, and doing chores at work such as lifting and using vacuum to clean. Pt has been taking Gabapentin at night and as needed in the morning for pain management. She denies any signifcant numbness/ tingling sensation. Pt had ACDF at C3 through C5 2012 C6-7ACDF, S/P Left Total Shoulder, Right shoulder DJD, status post L4-5 laminectomy and anterior posterior instrumented fusion and bone graft on 01/26/[address] Hadley. Prior Treatments and Tests osteophytic complexes at the C6-7 level with associated facet arthropathy at C5-6 and 6 7 as well as at C3-4 level above and below her fusion Treatment Goals Patient/Caregiver Goals 1. To regain her cervical mobility with less pain 2. To be able to turn her neck to check traffic while driving 3. to be able to complete house chores without discomfort. Personal Factors Other Personal Factors That May Effect depression Therapy/Recovery anxiety disorder chronic pain syndrome multiple surgeries (see above) PT-OP-C Subjective Start: 08/06/20 11:26 Freq: Status: Active Protocol: Document 08/22/20 14:34 MA (Rec: 08/22/20 15:16 MA [id number]) OP-PT Subjective Patient Comments Patient Comments I just got done using an ice pack PT-OP-F Manual Assessment Start: 08/06/20 11:26 Freq: Status: Active Protocol: Document 08/06/20 11:31 HH (Rec: 08/06/20 12:06 HH [email or web address]) Manual Assessments Soft Tissue Assessment Soft Tissue Mobility Assessment hypertonicity at proximal insertion at R suboccipital, bilateral pectoral muscles, SCM and levator scap and trapezius muscle significant tenderness to pressure at R mastoid process Joint Mobility Assessment Joint Mobility Assessment hypomobility noted at CT junction and T1-T3 PT-OP-J Posture/Palpation/Skin Start: 08/06/20 11:26 Freq: Status: Active Protocol: Document 08/06/20 11:31 HH (Rec: 08/06/20 12:06 [email or web address]) Posture Evaluation Position Standing Evaluation View Lateral Head/C-Spine Posture Forward Head T-Spine Posture Increased Kyphosis Shoulder Posture (L) Rounded,(R) Rounded PT-OP-K Range of Motion Start: 08/06/20 11:26 Freq: Status: Active Protocol: Document 08/06/20 11:31 HH (Rec: 08/06/20 12:06 HH [email or web address]) Cervical Spine Range of Motion Cervical Spine Active Degrees Testing Position Sitting Flexion 45 Extension 38 Rotation Left 30 Rotation Right 25 Lateral Flexion Left 24 Lateral Flexion Right 22 ROM Limitations Soft Tissue Tightness,Bony Restriction,Muscle Weakness, Muscle Tone,Pain Comments pain@ C6-C7 with extension, R lateral flexion and R rotation Lumbar Spine Range of Motion Lumbar Spine Active Degrees Testing Position Sitting Comments thoracic rotation in seated R= 38 degrees L= 30 degrees PT-OP-L Special Tests Start: 08/06/20 11:26 Freq: Status: Active Protocol: Document 08/06/20 11:31 HH (Rec: 08/06/20 12:06 HH [email or web address]) Special Tests Cervical Spine Special Tests Spurling's Test Test Results -ve Comments no neuro sign noted. Passive Neck Flexion Test Results -ve Comments stretching sensation only Traction Test Results +ve Comments pain relief with traction PT-OP-M Strength Start: 08/06/20 11:26 Freq: Status: Active Protocol: Document 08/06/20 11:31 HH (Rec: 08/06/20 12:06 HH [email or web address]) Cervical Spine Strength Cervical Spine Manual Muscle Testing Comments will assess next visit. PT-OP-Q Treatments Start: 08/06/20 11:26 Freq: Status: Active Protocol: Document 08/22/20 14:34 MA (Rec: 08/22/20 15:16 MA [id number]) Therapeutic Exercises Supine Exercises Cervical Rotation Side bilateral Reps/Minutes 4x 10 sec hold Chin Tuck Reps/Minutes 5x 5 sec hold Comments added to HEP Sidelying Exercises open book Side bilateral Reps/Minutes 8 x2 Comments with cervical rotation, R shoulder has limited abd Sitting Exercises Cervical Rotation Sitting Exercise Name holding chair and turning contralaterally Side bilateral Reps/Minutes 2x30 sec hold neck lateral flexion Side bilateral Reps/Minutes 2x 30 sec hold Manual Therapy Treatment Soft Tissue Mobilization SCM, levator scap Mobilization Type Sustained Pressure,Trigger Point Release Intensity/Depth Moderate Body Position Supine Comments proximal insertion tenderness noted. suboccipital Mobilization Type Sustained Pressure,Trigger Point Release Intensity/Depth Moderate Body Position Supine Comments significant tenderness noted at R >L Manual Traction Cervical Details CS traction Body Position Supine Reps/Duration 2x 1 min PT-OP-R Modalities Start: 08/06/20 11:26 Freq: Status: Active Protocol: Document 08/09/20 09:10 HH (Rec: 08/09/20 09:49 HH [id number]) Hot Pack/Cold Pack Treatment Hot Pack Location lumbar Patient Position Hooklying Treatment Duration (minutes) 10 Patient Tolerance Good PT-OP-T Assessment and Plan Start: 08/06/20 11:26 Freq: Status: Active Protocol: Document 08/22/20 14:34 MA (Rec: 08/22/20 15:16 MA [id number]) Physical Therapy Assessment Goals cervicogenic headache Impairment pt has cervicogenic headache in a daily basis Short Term Goal (STG) pt will not have R sided headache more than 4 times a week to improve her overall quality of life STG Duration 5 weeks Cell Plasterer Goal (LTG) pt will not have R sided headache more than 2 times a week to improve her overall quality of life LTG Duration 10 weeks ROM Impairment pt lacks of cervical ROM Short Term Goal (STG) pt will shows greater than 15 degrees of ROM improvements in all planes. STG Duration 5 weeks Skilled Nursing Goal (LTG) pt will shows greater than 25 degrees of ROM improvements in all planes so she can turn her head without trunk compensation while checking traffic during driving. LTG Duration 10 weeks NDI Impairment pt scores 25 on NDI Short Term Goal (STG) pt will scores < 18 on NDI to shows improvements of pain and cervical mobility STG Duration 5 weeks Cell Plasterer Goal (LTG) pt will scores < 12 on NDI to shows improvements of pain and cervical mobility LTG Duration 10 weeks quickdash Impairment pt scores 50 on quickdash Short Term Goal (STG) pt will score <40 on quickdash to show improvements in quality of life which involves UE activities such as openin jars/ house cleaning etc. STG Duration 5 weeks Cell Plasterer Goal (LTG) pt will score <30 on quickdash to show improvements in quality of life which involves UE activities such as openin jars/ house cleaning etc. LTG Duration 10 weeks Assessment Summary Assessment Pt feels improvement after manual work today. She feels she is better able to turn her neck seated at end of session compared to when she was driving to therapy. During supine cervical rotation pt had some neck pain on the right side. Once therapist manually assisted with cervical traction while pt kept chin tucked and rotated CS, she had no pain. Physical Therapy Plan Frequency and Duration Frequency of Treatment 2x/wkx4, 1x/wkx4 Duration of Treatment 10 weeks Plan of Care Start Date 08/06/20 Plan of Care End Date 10/20/20 Therapeutic Interventions Therapeutic Interventions Home Exercise Program,Joint Mobilizations,Manual Therapy, Neuromuscular Re-education, Patient/Caregiver Education, Self-Care/Home Management,Soft Tissue Mobilization,Taping, Therapeutic Activities, Therapeutic Exercises Modalities Biofeedback,Cold Pack/Ice Massage,Electric Stimulation, Hot Packs,Infrared Therapy, Traction- Mechanical, Ultrasound Next Visit Focus/Plan Next Note Type Treatment Note Next Visit Plan check cerical endurance start STM at pec, suboccipital , SCM, trap traction if needed upper thoracic PA mob open book chin tuck
--- NOTE | 2020-08-27 14:31 | PT.OTN ---
Current Diagnoses Strain of muscle, fascia and tendon of lower back, subsequent encounter (08/27/20) Arthrodesis status (08/27/20) Physical Therapy Treatment Note PT-OP-A Visit Information Start: 08/06/20 11:26 Freq: Status: Active Protocol: Document 08/27/20 13:44 HH (Rec: 08/27/20 14:31 HH [id number]) Out-Patient Physical Therapy Visit Information Visit Information Visit Type Treatment Note Visit Start Time 13:48 Visit Stop Time 14:30 Total Visit Minutes 42 Visit Number 10/09 Number of PHARMACY SERVICES REPRESENTATIVE Visits 0 PT-OP-B Current Condition Start: 08/06/20 11:26 Freq: Status: Active Protocol: Document 08/06/20 11:31 HH (Rec: 08/06/20 12:06 HH [email or web address]) Current Condition History of Current Condition Onset Date many years ago Current Complaints Chronic neck pain R>L, tension headache History of Current Condition Alice is a 75 yo female here for her chronic neck pain R worse than L , along with tension headache on the R side . Pt reports she has been having worsening neck pain 5/ 10 mostly towards the R side of the neck with tension headache located at her R temporal area in a daily basis . It tends to get worse towards the end of the day and better with laying down/ sitting with good head/ neck support. She has difficulty turning her head especially driving, and doing chores at work such as lifting and using vacuum to clean. Pt has been taking Gabapentin at night and as needed in the morning for pain management. She denies any signifcant numbness/ tingling sensation. Pt had ACDF at C3 through C5 2012 C6-7ACDF, S/P Left Total Shoulder, Right shoulder DJD, status post L4-5 laminectomy and anterior posterior instrumented fusion and bone graft on 01/26/[address] Hadley. Prior Treatments and Tests osteophytic complexes at the C6-7 level with associated facet arthropathy at C5-6 and 6 7 as well as at C3-4 level above and below her fusion Treatment Goals Patient/Caregiver Goals 1. To regain her cervical mobility with less pain 2. To be able to turn her neck to check traffic while driving 3. to be able to complete house chores without discomfort. Personal Factors Other Personal Factors That May Effect depression Therapy/Recovery anxiety disorder chronic pain syndrome multiple surgeries (see above) PT-OP-C Subjective Start: 08/06/20 11:26 Freq: Status: Active Protocol: Document 08/27/20 13:44 HH (Rec: 08/27/20 14:31 [id number]) OP-PT Subjective Patient Comments Patient Comments I was pretty good from last visit until Thursday. Then i had a headache and needed to take some pills to manage that . I think i can turn my head better whle driving too Patient Reported Progress Improving PT-OP-F Manual Assessment Start: 08/06/20 11:26 Freq: Status: Active Protocol: Document 08/06/20 11:31 HH (Rec: 08/06/20 12:06 [email or web address]) Manual Assessments Soft Tissue Assessment Soft Tissue Mobility Assessment hypertonicity at proximal insertion at R suboccipital, bilateral pectoral muscles, SCM and levator scap and trapezius muscle significant tenderness to pressure at R mastoid process Joint Mobility Assessment Joint Mobility Assessment hypomobility noted at CT junction and T1-T3 PT-OP-J Posture/Palpation/Skin Start: 08/06/20 11:26 Freq: Status: Active Protocol: Document 08/06/20 11:31 HH (Rec: 08/06/20 12:06 [email or web address]) Posture Evaluation Position Standing Evaluation View Lateral Head/C-Spine Posture Forward Head T-Spine Posture Increased Kyphosis Shoulder Posture (L) Rounded,(R) Rounded PT-OP-K Range of Motion Start: 08/06/20 11:26 Freq: Status: Active Protocol: Document 08/06/20 11:31 HH (Rec: 08/06/20 12:06 [email or web address]) Cervical Spine Range of Motion Cervical Spine Active Degrees Testing Position Sitting Flexion 45 Extension 38 Rotation Left 30 Rotation Right 25 Lateral Flexion Left 24 Lateral Flexion Right 22 ROM Limitations Soft Tissue Tightness,Bony Restriction,Muscle Weakness, Muscle Tone,Pain Comments pain@ C6-C7 with extension, R lateral flexion and R rotation Lumbar Spine Range of Motion Lumbar Spine Active Degrees Testing Position Sitting Comments thoracic rotation in seated R= 38 degrees L= 30 degrees PT-OP-L Special Tests Start: 08/06/20 11:26 Freq: Status: Active Protocol: Document 08/06/20 11:31 HH (Rec: 08/06/20 12:06 [email or web address]) Special Tests Cervical Spine Special Tests Spurling's Test Test Results -ve Comments no neuro sign noted. Passive Neck Flexion Test Results -ve Comments stretching sensation only Traction Test Results +ve Comments pain relief with traction PT-OP-M Strength Start: 08/06/20 11:26 Freq: Status: Active Protocol: Document 08/06/20 11:31 HH (Rec: 08/06/20 12:06 [email or web address]) Cervical Spine Strength Cervical Spine Manual Muscle Testing Comments will assess next visit. PT-OP-Q Treatments Start: 08/06/20 11:26 Freq: Status: Active Protocol: Document 08/27/20 13:44 HH (Rec: 08/27/20 14:31 [id number]) Therapeutic Exercises Supine Exercises Cervical Rotation Side bilateral Reps/Minutes 4x 10 sec hold supine chest stretch Supine Exercise Name with scap pinch Reps/Minutes 8 x2 Sidelying Exercises open book Side bilateral Reps/Minutes 8 x2 Comments with cervical rotation, R shoulder has limited abd Sitting Exercises seated thoracic rotation Sitting Exercise Name PT assisted. pt's arm crossed Side bilateral Reps/Minutes 5 x2 Cervical Rotation Sitting Exercise Name holding chair and turning contralaterally Side bilateral Reps/Minutes 2x30 sec hold Standing Exercises scap pinch Standing Exercise Name against wall Side bilateral Equipment Used against bolster Reps/Minutes 8 x2 Comments cues on scap retraction Manual Therapy Treatment Soft Tissue Mobilization SCM, levator scap Mobilization Type Sustained Pressure,Trigger Point Release Intensity/Depth Moderate Body Position Supine Comments proximal insertion tenderness noted. suboccipital Mobilization Type Sustained Pressure,Trigger Point Release Intensity/Depth Moderate Body Position Supine Comments significant tenderness noted at R >L pecs Mobilization Type Sustained Pressure,Trigger Point Release Intensity/Depth Moderate Body Position Supine Comments significant tenderness noted at R >L Manual Traction Cervical Details CS traction Body Position Supine Reps/Duration 2x 1 min PT-OP-R Modalities Start: 08/06/20 11:26 Freq: Status: Active Protocol: Document 08/09/20 09:10 HH (Rec: 08/09/20 09:49 [id number]) Hot Pack/Cold Pack Treatment Hot Pack Location lumbar Patient Position Hooklying Treatment Duration (minutes) 10 Patient Tolerance Good PT-OP-T Assessment and Plan Start: 08/06/20 11:26 Freq: Status: Active Protocol: Document 08/27/20 13:44 HH (Rec: 08/27/20 14:31 [id number]) Physical Therapy Assessment Goals cervicogenic headache Impairment pt has cervicogenic headache in a daily basis Short Term Goal (STG) pt will not have R sided headache more than 4 times a week to improve her overall quality of life STG Duration 5 weeks Alf Goal (LTG) pt will not have R sided headache more than 2 times a week to improve her overall quality of life LTG Duration 10 weeks ROM Impairment pt lacks of cervical ROM Short Term Goal (STG) pt will shows greater than 15 degrees of ROM improvements in all planes. STG Duration 5 weeks Alf Goal (LTG) pt will shows greater than 25 degrees of ROM improvements in all planes so she can turn her head without trunk compensation while checking traffic during driving. LTG Duration 10 weeks NDI Impairment pt scores 25 on NDI Short Term Goal (STG) pt will scores < 18 on NDI to shows improvements of pain and cervical mobility STG Duration 5 weeks Calender Machine Operator Helper Goal (LTG) pt will scores < 12 on NDI to shows improvements of pain and cervical mobility LTG Duration 10 weeks quickdash Impairment pt scores 50 on quickdash Short Term Goal (STG) pt will score <40 on quickdash to show improvements in quality of life which involves UE activities such as openin jars/ house cleaning etc. STG Duration 5 weeks Alf Goal (LTG) pt will score <30 on quickdash to show improvements in quality of life which involves UE activities such as openin jars/ house cleaning etc. LTG Duration 10 weeks Assessment Summary Assessment Pt overall feels improvements for her mobility, pain and headache but slowly. Continue to focus on thoracic mobility today and she yael session well. Physical Therapy Plan Frequency and Duration Frequency of Treatment 2x/wkx4, 1x/wkx4 Duration of Treatment 10 weeks Plan of Care Start Date 08/06/20 Plan of Care End Date 10/20/20 Therapeutic Interventions Therapeutic Interventions Home Exercise Program,Joint Mobilizations,Manual Therapy, Neuromuscular Re-education, Patient/Caregiver Education, Self-Care/Home Management,Soft Tissue Mobilization,Taping, Therapeutic Activities, Therapeutic Exercises Modalities Biofeedback,Cold Pack/Ice Massage,Electric Stimulation, Hot Packs,Infrared Therapy, Traction- Mechanical, Ultrasound Discharge Physical Therapy Discharge Reasons Patient Request Next Visit Focus/Plan Next Note Type Treatment Note Next Visit Plan check cerical endurance start STM at pec, suboccipital , SCM, trap traction if needed upper thoracic PA mob open book chin juany
--- NOTE | 2020-08-29 12:46 | PT.OTN ---
Current Diagnoses Strain of muscle, fascia and tendon of lower back, subsequent encounter (08/29/20) Arthrodesis status (08/29/20) Physical Therapy Treatment Note PT-OP-A Visit Information Start: 08/06/20 11:26 Freq: Status: Active Protocol: Document 08/29/20 12:05 MA (Rec: 08/29/20 12:46 MA [id number]) Out-Patient Physical Therapy Visit Information Visit Information Visit Type Treatment Note Visit Start Time 12:00 Visit Stop Time 12:40 Total Visit Minutes 45 Visit Number 11/08 Number of ATTACHER Visits 1 Precautions Precautions adhesive tape Allergy depression PT-OP-B Current Condition Start: 08/06/20 11:26 Freq: Status: Active Protocol: Document 08/06/20 11:31 HH (Rec: 08/06/20 12:06 HH [email or web address]) Current Condition History of Current Condition Onset Date many years ago Current Complaints Chronic neck pain R>L, tension headache History of Current Condition Alice is a 75 yo female here for her chronic neck pain R worse than L , along with tension headache on the R side . Pt reports she has been having worsening neck pain 5/ 10 mostly towards the R side of the neck with tension headache located at her R temporal area in a daily basis . It tends to get worse towards the end of the day and better with laying down/ sitting with good head/ neck support. She has difficulty turning her head especially driving, and doing chores at work such as lifting and using vacuum to clean. Pt has been taking Gabapentin at night and as needed in the morning for pain management. She denies any signifcant numbness/ tingling sensation. Pt had ACDF at C3 through C5 2012 C6-7ACDF, S/P Left Total Shoulder, Right shoulder DJD, status post L4-5 laminectomy and anterior posterior instrumented fusion and bone graft on 01/26/[address] Hadley. Prior Treatments and Tests osteophytic complexes at the C6-7 level with associated facet arthropathy at C5-6 and 6 7 as well as at C3-4 level above and below her fusion Treatment Goals Patient/Caregiver Goals 1. To regain her cervical mobility with less pain 2. To be able to turn her neck to check traffic while driving 3. to be able to complete house chores without discomfort. Personal Factors Other Personal Factors That May Effect depression Therapy/Recovery anxiety disorder chronic pain syndrome multiple surgeries (see above) PT-OP-C Subjective Start: 08/06/20 11:26 Freq: Status: Active Protocol: Document 08/29/20 12:05 MA (Rec: 08/29/20 12:46 MA [id number]) OP-PT Subjective Patient Comments Patient Comments I had to get up and go back to bed with a heating pad this morning because my neck was sore PT-OP-F Manual Assessment Start: 08/06/20 11:26 Freq: Status: Active Protocol: Document 08/06/20 11:31 HH (Rec: 08/06/20 12:06 HH [email or web address]) Manual Assessments Soft Tissue Assessment Soft Tissue Mobility Assessment hypertonicity at proximal insertion at R suboccipital, bilateral pectoral muscles, SCM and levator scap and trapezius muscle significant tenderness to pressure at R mastoid process Joint Mobility Assessment Joint Mobility Assessment hypomobility noted at CT junction and T1-T3 PT-OP-J Posture/Palpation/Skin Start: 08/06/20 11:26 Freq: Status: Active Protocol: Document 08/06/20 11:31 HH (Rec: 08/06/20 12:06 HH [email or web address]) Posture Evaluation Position Standing Evaluation View Lateral Head/C-Spine Posture Forward Head T-Spine Posture Increased Kyphosis Shoulder Posture (L) Rounded,(R) Rounded PT-OP-K Range of Motion Start: 08/06/20 11:26 Freq: Status: Active Protocol: Document 08/06/20 11:31 HH (Rec: 08/06/20 12:06 HH [email or web address]) Cervical Spine Range of Motion Cervical Spine Active Degrees Testing Position Sitting Flexion 45 Extension 38 Rotation Left 30 Rotation Right 25 Lateral Flexion Left 24 Lateral Flexion Right 22 ROM Limitations Soft Tissue Tightness,Bony Restriction,Muscle Weakness, Muscle Tone,Pain Comments pain@ C6-C7 with extension, R lateral flexion and R rotation Lumbar Spine Range of Motion Lumbar Spine Active Degrees Testing Position Sitting Comments thoracic rotation in seated R= 38 degrees L= 30 degrees PT-OP-L Special Tests Start: 08/06/20 11:26 Freq: Status: Active Protocol: Document 08/06/20 11:31 HH (Rec: 08/06/20 12:06 HH [email or web address]) Special Tests Cervical Spine Special Tests Spurling's Test Test Results -ve Comments no neuro sign noted. Passive Neck Flexion Test Results -ve Comments stretching sensation only Traction Test Results +ve Comments pain relief with traction PT-OP-M Strength Start: 08/06/20 11:26 Freq: Status: Active Protocol: Document 08/06/20 11:31 HH (Rec: 08/06/20 12:06 HH [email or web address]) Cervical Spine Strength Cervical Spine Manual Muscle Testing Comments will assess next visit. PT-OP-Q Treatments Start: 08/06/20 11:26 Freq: Status: Active Protocol: Document 08/29/20 12:05 MA (Rec: 08/29/20 12:46 MA [id number]) Therapeutic Exercises Supine Exercises Cervical Rotation Side bilateral Reps/Minutes 4x 10 sec hold Chin Tuck Reps/Minutes 5x 5 sec hold Comments added to HEP Sidelying Exercises open book Side bilateral Reps/Minutes 8 x2 Comments with cervical rotation, R shoulder has limited abd Sitting Exercises seated thoracic rotation Sitting Exercise Name PT assisted. pt's arm crossed Side bilateral Reps/Minutes 5 x2 Cervical Rotation Sitting Exercise Name contralateral arm IR behind back Side bilateral Reps/Minutes 2x30 sec hold neck lateral flexion Sitting Exercise Name stretch with contralateral hand holding plinth Side bilateral Reps/Minutes 2x 30 sec hold Manual Therapy Treatment Soft Tissue Mobilization SCM, levator scap Mobilization Type Sustained Pressure,Trigger Point Release Intensity/Depth Moderate Body Position Supine Comments proximal insertion tenderness noted. suboccipital Mobilization Type Sustained Pressure,Trigger Point Release Intensity/Depth Moderate Body Position Supine Comments significant tenderness noted at R >L Manual Traction Cervical Details CS traction Body Position Supine Reps/Duration 2x 1 min PT-OP-R Modalities Start: 08/06/20 11:26 Freq: Status: Active Protocol: Document 08/09/20 09:10 HH (Rec: 08/09/20 09:49 HH [id number]) Hot Pack/Cold Pack Treatment Hot Pack Location lumbar Patient Position Hooklying Treatment Duration (minutes) 10 Patient Tolerance Good PT-OP-T Assessment and Plan Start: 08/06/20 11:26 Freq: Status: Active Protocol: Document 08/29/20 12:05 MA (Rec: 08/29/20 12:46 MA [id number]) Physical Therapy Assessment Goals cervicogenic headache Impairment pt has cervicogenic headache in a daily basis Short Term Goal (STG) pt will not have R sided headache more than 4 times a week to improve her overall quality of life STG Duration 5 weeks Car Lot Attendant Goal (LTG) pt will not have R sided headache more than 2 times a week to improve her overall quality of life LTG Duration 10 weeks ROM Impairment pt lacks of cervical ROM Short Term Goal (STG) pt will shows greater than 15 degrees of ROM improvements in all planes. STG Duration 5 weeks Penitentiary Goal (LTG) pt will shows greater than 25 degrees of ROM improvements in all planes so she can turn her head without trunk compensation while checking traffic during driving. LTG Duration 10 weeks NDI Impairment pt scores 25 on NDI Short Term Goal (STG) pt will scores < 18 on NDI to shows improvements of pain and cervical mobility STG Duration 5 weeks Car Lot Attendant Goal (LTG) pt will scores < 12 on NDI to shows improvements of pain and cervical mobility LTG Duration 10 weeks quickdash Impairment pt scores 50 on quickdash Short Term Goal (STG) pt will score <40 on quickdash to show improvements in quality of life which involves UE activities such as openin jars/ house cleaning etc. STG Duration 5 weeks Car Lot Attendant Goal (LTG) pt will score <30 on quickdash to show improvements in quality of life which involves UE activities such as openin jars/ house cleaning etc. LTG Duration 10 weeks Assessment Summary Assessment Pt feels her headaches have improved the most since coming to therapy. She feels she can always rotate her CS better after therapy. She had good improvements with CS rotations after STM today. During thoracic rotation she needs manual cues to relax shds and keep hips from rotating while she rotates trunk. Pt would continue to benefit from therapy for increasing CS mobility and decreasing neck/ shd pain. Physical Therapy Plan Frequency and Duration Frequency of Treatment 2x/wkx4, 1x/wkx4 Duration of Treatment 10 weeks Plan of Care Start Date 08/06/20 Plan of Care End Date 10/20/20 Therapeutic Interventions Therapeutic Interventions Home Exercise Program,Joint Mobilizations,Manual Therapy, Neuromuscular Re-education, Patient/Caregiver Education, Self-Care/Home Management,Soft Tissue Mobilization,Taping, Therapeutic Activities, Therapeutic Exercises Modalities Biofeedback,Cold Pack/Ice Massage,Electric Stimulation, Hot Packs,Infrared Therapy, Traction- Mechanical, Ultrasound Next Visit Focus/Plan Next Note Type Treatment Note Next Visit Plan check cerical endurance start STM at pec, suboccipital , SCM, trap traction if needed upper thoracic PA mob open book chin tuck
--- NOTE | 2020-09-03 14:34 | PT.OTN ---
Current Diagnoses Strain of muscle, fascia and tendon of lower back, subsequent encounter (09/03/20) Arthrodesis status (09/03/20) Physical Therapy Treatment Note PT-OP-A Visit Information Start: 08/06/20 11:26 Freq: Status: Active Protocol: Document 09/03/20 13:48 HH (Rec: 09/03/20 14:34 HH [id number]) Out-Patient Physical Therapy Visit Information Visit Information Visit Type Treatment Note Visit Start Time 13:48 Visit Stop Time 14:30 Total Visit Minutes 42 Visit Number 8/15 Number of FLEECER Visits 0 PT-OP-B Current Condition Start: 08/06/20 11:26 Freq: Status: Active Protocol: Document 08/06/20 11:31 HH (Rec: 08/06/20 12:06 HH [email or web address]) Current Condition History of Current Condition Onset Date many years ago Current Complaints Chronic neck pain R>L, tension headache History of Current Condition Alice is a 75 yo female here for her chronic neck pain R worse than L , along with tension headache on the R side . Pt reports she has been having worsening neck pain 5/ 10 mostly towards the R side of the neck with tension headache located at her R temporal area in a daily basis . It tends to get worse towards the end of the day and better with laying down/ sitting with good head/ neck support. She has difficulty turning her head especially driving, and doing chores at work such as lifting and using vacuum to clean. Pt has been taking Gabapentin at night and as needed in the morning for pain management. She denies any signifcant numbness/ tingling sensation. Pt had ACDF at C3 through C5 2012 C6-7ACDF, S/P Left Total Shoulder, Right shoulder DJD, status post L4-5 laminectomy and anterior posterior instrumented fusion and bone graft on 01/26/[address] Hadley. Prior Treatments and Tests osteophytic complexes at the C6-7 level with associated facet arthropathy at C5-6 and 6 7 as well as at C3-4 level above and below her fusion Treatment Goals Patient/Caregiver Goals 1. To regain her cervical mobility with less pain 2. To be able to turn her neck to check traffic while driving 3. to be able to complete house chores without discomfort. Personal Factors Other Personal Factors That May Effect depression Therapy/Recovery anxiety disorder chronic pain syndrome multiple surgeries (see above) PT-OP-C Subjective Start: 08/06/20 11:26 Freq: Status: Active Protocol: Document 09/03/20 13:48 HH (Rec: 09/03/20 14:34 HH [id number]) OP-PT Subjective Patient Comments Patient Comments everything is getting better. My headahce is 98% getting better and usually only happen in the morning then it will go away. My head turns is better too Patient Reported Progress Improving PT-OP-F Manual Assessment Start: 08/06/20 11:26 Freq: Status: Active Protocol: Document 08/06/20 11:31 HH (Rec: 08/06/20 12:06 [email or web address]) Manual Assessments Soft Tissue Assessment Soft Tissue Mobility Assessment hypertonicity at proximal insertion at R suboccipital, bilateral pectoral muscles, SCM and levator scap and trapezius muscle significant tenderness to pressure at R mastoid process Joint Mobility Assessment Joint Mobility Assessment hypomobility noted at CT junction and T1-T3 PT-OP-J Posture/Palpation/Skin Start: 08/06/20 11:26 Freq: Status: Active Protocol: Document 08/06/20 11:31 HH (Rec: 08/06/20 12:06 [email or web address]) Posture Evaluation Position Standing Evaluation View Lateral Head/C-Spine Posture Forward Head T-Spine Posture Increased Kyphosis Shoulder Posture (L) Rounded,(R) Rounded PT-OP-K Range of Motion Start: 08/06/20 11:26 Freq: Status: Active Protocol: Document 08/06/20 11:31 HH (Rec: 08/06/20 12:06 [email or web address]) Cervical Spine Range of Motion Cervical Spine Active Degrees Testing Position Sitting Flexion 45 Extension 38 Rotation Left 30 Rotation Right 25 Lateral Flexion Left 24 Lateral Flexion Right 22 ROM Limitations Soft Tissue Tightness,Bony Restriction,Muscle Weakness, Muscle Tone,Pain Comments pain@ C6-C7 with extension, R lateral flexion and R rotation Lumbar Spine Range of Motion Lumbar Spine Active Degrees Testing Position Sitting Comments thoracic rotation in seated R= 38 degrees L= 30 degrees PT-OP-L Special Tests Start: 08/06/20 11:26 Freq: Status: Active Protocol: Document 08/06/20 11:31 HH (Rec: 08/06/20 12:06 [email or web address]) Special Tests Cervical Spine Special Tests Spurling's Test Test Results -ve Comments no neuro sign noted. Passive Neck Flexion Test Results -ve Comments stretching sensation only Traction Test Results +ve Comments pain relief with traction PT-OP-M Strength Start: 08/06/20 11:26 Freq: Status: Active Protocol: Document 08/06/20 11:31 HH (Rec: 08/06/20 12:06 HH [email or web address]) Cervical Spine Strength Cervical Spine Manual Muscle Testing Comments will assess next visit. PT-OP-Q Treatments Start: 08/06/20 11:26 Freq: Status: Active Protocol: Document 09/03/20 13:48 HH (Rec: 09/03/20 14:34 [id number]) Therapeutic Exercises Supine Exercises Chin Tuck Reps/Minutes 5x 5 sec hold Comments added to HEP Sidelying Exercises open book Side bilateral Reps/Minutes 8 x2 Comments with cervical rotation, R shoulder has limited abd Sitting Exercises seated thoracic rotation Sitting Exercise Name PT assisted. pt's arm crossed Side bilateral Reps/Minutes 5 x2 OH sujata Sitting Exercise Name AAROM for flexion and scaption Side bilateral Reps/Minutes 1 min each direction Comments flexion up to 90-100, scaption 90-100 neck lateral flexion Sitting Exercise Name stretch with contralateral hand holding plinth Side bilateral Reps/Minutes 2x 30 sec hold Manual Therapy Treatment Soft Tissue Mobilization SCM, levator scap Mobilization Type Sustained Pressure,Trigger Point Release Intensity/Depth Moderate Body Position Supine Comments proximal insertion tenderness noted. suboccipital Mobilization Type Sustained Pressure,Trigger Point Release Intensity/Depth Moderate Body Position Supine Comments significant tenderness noted at R >L Joint Mobilizations R GHJ Direction posterior, inferior Grade II Body Position Supine Reps/Duration 4 mins Manual Traction Cervical Details CS traction Body Position Supine Reps/Duration 2x 1 min PT-OP-R Modalities Start: 08/06/20 11:26 Freq: Status: Active Protocol: Document 08/09/20 09:10 HH (Rec: 08/09/20 09:49 HH [id number]) Hot Pack/Cold Pack Treatment Hot Pack Location lumbar Patient Position Hooklying Treatment Duration (minutes) 10 Patient Tolerance Good PT-OP-T Assessment and Plan Start: 08/06/20 11:26 Freq: Status: Active Protocol: Document 09/03/20 13:48 HH (Rec: 09/03/20 14:34 [id number]) Physical Therapy Assessment Goals cervicogenic headache Impairment pt has cervicogenic headache in a daily basis Short Term Goal (STG) pt will not have R sided headache more than 4 times a week to improve her overall quality of life STG Duration 5 weeks Jail Goal (LTG) pt will not have R sided headache more than 2 times a week to improve her overall quality of life LTG Duration 10 weeks ROM Impairment pt lacks of cervical ROM Short Term Goal (STG) pt will shows greater than 15 degrees of ROM improvements in all planes. STG Duration 5 weeks [employer] Goal (LTG) pt will shows greater than 25 degrees of ROM improvements in all planes so she can turn her head without trunk compensation while checking traffic during driving. LTG Duration 10 weeks NDI Impairment pt scores 25 on NDI Short Term Goal (STG) pt will scores < 18 on NDI to shows improvements of pain and cervical mobility STG Duration 5 weeks [employer] Goal (LTG) pt will scores < 12 on NDI to shows improvements of pain and cervical mobility LTG Duration 10 weeks quickdash Impairment pt scores 50 on quickdash Short Term Goal (STG) pt will score <40 on quickdash to show improvements in quality of life which involves UE activities such as openin jars/ house cleaning etc. STG Duration 5 weeks [employer] Goal (LTG) pt will score <30 on quickdash to show improvements in quality of life which involves UE activities such as openin jars/ house cleaning etc. LTG Duration 10 weeks Assessment Summary Assessment Pt reports her headahce and pain are getting better, so does her R shoulder pain but continues to be very limited in ROM. Educated pt to acquire shoulder sujata for HEP. Physical Therapy Plan Frequency and Duration Frequency of Treatment 2x/wkx4, 1x/wkx4 Duration of Treatment 10 weeks Plan of Care Start Date 08/06/20 Plan of Care End Date 10/20/20 Therapeutic Interventions Therapeutic Interventions Home Exercise Program,Joint Mobilizations,Manual Therapy, Neuromuscular Re-education, Patient/Caregiver Education, Self-Care/Home Management,Soft Tissue Mobilization,Taping, Therapeutic Activities, Therapeutic Exercises Modalities Biofeedback,Cold Pack/Ice Massage,Electric Stimulation, Hot Packs,Infrared Therapy, Traction- Mechanical, Ultrasound Next Visit Focus/Plan Next Note Type Treatment Note Next Visit Plan check cerical endurance start STM at pec, suboccipital , SCM, trap traction if needed upper thoracic PA mob open book chin tuck
--- NOTE | 2020-09-10 11:23 | PT-OP ANOTE ---
pt called in and cancelled appt since she is feeling sick.
--- NOTE | 2020-09-12 12:50 | PT.OTN ---
Current Diagnoses Strain of muscle, fascia and tendon of lower back, subsequent encounter (09/12/20) Arthrodesis status (09/12/20) Physical Therapy Treatment Note PT-OP-A Visit Information Start: 08/06/20 11:26 Freq: Status: Active Protocol: Document 09/12/20 12:06 MA (Rec: 09/12/20 12:50 MA [id number]) Out-Patient Physical Therapy Visit Information Visit Information Visit Type Treatment Note Visit Start Time 12:05 Visit Stop Time 12:45 Total Visit Minutes 40 Visit Number 01/09 Number of REHAB SPEC Visits 1 Precautions Precautions adhesive tape Allergy depression PT-OP-B Current Condition Start: 08/06/20 11:26 Freq: Status: Active Protocol: Document 08/06/20 11:31 HH (Rec: 08/06/20 12:06 HH [email or web address]) Current Condition History of Current Condition Onset Date many years ago Current Complaints Chronic neck pain R>L, tension headache History of Current Condition Alice is a 75 yo female here for her chronic neck pain R worse than L , along with tension headache on the R side . Pt reports she has been having worsening neck pain 5/ 10 mostly towards the R side of the neck with tension headache located at her R temporal area in a daily basis . It tends to get worse towards the end of the day and better with laying down/ sitting with good head/ neck support. She has difficulty turning her head especially driving, and doing chores at work such as lifting and using vacuum to clean. Pt has been taking Gabapentin at night and as needed in the morning for pain management. She denies any signifcant numbness/ tingling sensation. Pt had ACDF at C3 through C5 2012 C6-7ACDF, S/P Left Total Shoulder, Right shoulder DJD, status post L4-5 laminectomy and anterior posterior instrumented fusion and bone graft on 01/26/[address] Hadley. Prior Treatments and Tests osteophytic complexes at the C6-7 level with associated facet arthropathy at C5-6 and 6 7 as well as at C3-4 level above and below her fusion Treatment Goals Patient/Caregiver Goals 1. To regain her cervical mobility with less pain 2. To be able to turn her neck to check traffic while driving 3. to be able to complete house chores without discomfort. Personal Factors Other Personal Factors That May Effect depression Therapy/Recovery anxiety disorder chronic pain syndrome multiple surgeries (see above) PT-OP-C Subjective Start: 08/06/20 11:26 Freq: Status: Active Protocol: Document 09/12/20 12:06 MA (Rec: 09/12/20 12:50 MA [id number]) OP-PT Subjective Patient Comments Patient Comments I was very stiff all week. It may have to do with me not being able to make it into therapy because my gut was acting up PT-OP-F Manual Assessment Start: 08/06/20 11:26 Freq: Status: Active Protocol: Document 08/06/20 11:31 HH (Rec: 08/06/20 12:06 HH [email or web address]) Manual Assessments Soft Tissue Assessment Soft Tissue Mobility Assessment hypertonicity at proximal insertion at R suboccipital, bilateral pectoral muscles, SCM and levator scap and trapezius muscle significant tenderness to pressure at R mastoid process Joint Mobility Assessment Joint Mobility Assessment hypomobility noted at CT junction and T1-T3 PT-OP-J Posture/Palpation/Skin Start: 08/06/20 11:26 Freq: Status: Active Protocol: Document 08/06/20 11:31 HH (Rec: 08/06/20 12:06 HH [email or web address]) Posture Evaluation Position Standing Evaluation View Lateral Head/C-Spine Posture Forward Head T-Spine Posture Increased Kyphosis Shoulder Posture (L) Rounded,(R) Rounded PT-OP-K Range of Motion Start: 08/06/20 11:26 Freq: Status: Active Protocol: Document 08/06/20 11:31 HH (Rec: 08/06/20 12:06 HH [email or web address]) Cervical Spine Range of Motion Cervical Spine Active Degrees Testing Position Sitting Flexion 45 Extension 38 Rotation Left 30 Rotation Right 25 Lateral Flexion Left 24 Lateral Flexion Right 22 ROM Limitations Soft Tissue Tightness,Bony Restriction,Muscle Weakness, Muscle Tone,Pain Comments pain@ C6-C7 with extension, R lateral flexion and R rotation Lumbar Spine Range of Motion Lumbar Spine Active Degrees Testing Position Sitting Comments thoracic rotation in seated R= 38 degrees L= 30 degrees PT-OP-L Special Tests Start: 08/06/20 11:26 Freq: Status: Active Protocol: Document 08/06/20 11:31 HH (Rec: 08/06/20 12:06 HH [email or web address]) Special Tests Cervical Spine Special Tests Spurling's Test Test Results -ve Comments no neuro sign noted. Passive Neck Flexion Test Results -ve Comments stretching sensation only Traction Test Results +ve Comments pain relief with traction PT-OP-M Strength Start: 08/06/20 11:26 Freq: Status: Active Protocol: Document 08/06/20 11:31 HH (Rec: 08/06/20 12:06 HH [email or web address]) Cervical Spine Strength Cervical Spine Manual Muscle Testing Comments will assess next visit. PT-OP-Q Treatments Start: 08/06/20 11:26 Freq: Status: Active Protocol: Document 09/12/20 12:06 MA (Rec: 09/12/20 12:50 MA [id number]) Therapeutic Exercises Supine Exercises Chin Tuck Reps/Minutes 5x 5 sec hold Sidelying Exercises open book Side bilateral Reps/Minutes 8 x2 Comments with cervical rotation, R shoulder has limited abd Sitting Exercises OH sujata Sitting Exercise Name AAROM for flexion and scaption Side bilateral Reps/Minutes 1 min each direction Comments flexion up to 90-100, scaption 90-100 neck lateral flexion Sitting Exercise Name stretch with contralateral hand holding plinth Side bilateral Reps/Minutes 2x 30 sec hold Manual Therapy Treatment Soft Tissue Mobilization SCM, levator scap Mobilization Type Sustained Pressure,Trigger Point Release Intensity/Depth Moderate Body Position Supine Comments proximal insertion tenderness noted. suboccipital Mobilization Type Sustained Pressure,Trigger Point Release Intensity/Depth Moderate Body Position Supine Comments significant tenderness noted at R >L pecs Mobilization Type Sustained Pressure,Trigger Point Release Intensity/Depth Moderate Body Position Supine Comments significant tenderness noted at R >L Manual Traction Cervical Details CS traction Body Position Supine Reps/Duration 2x 1 min PT-OP-R Modalities Start: 08/06/20 11:26 Freq: Status: Active Protocol: Document 08/09/20 09:10 HH (Rec: 08/09/20 09:49 HH [id number]) Hot Pack/Cold Pack Treatment Hot Pack Location lumbar Patient Position Hooklying Treatment Duration (minutes) 10 Patient Tolerance Good PT-OP-T Assessment and Plan Start: 08/06/20 11:26 Freq: Status: Active Protocol: Document 09/12/20 12:06 MA (Rec: 09/12/20 12:50 MA [id number]) Physical Therapy Assessment Goals cervicogenic headache Impairment pt has cervicogenic headache in a daily basis Short Term Goal (STG) pt will not have R sided headache more than 4 times a week to improve her overall quality of life STG Duration 5 weeks Mcfp Goal (LTG) pt will not have R sided headache more than 2 times a week to improve her overall quality of life LTG Duration 10 weeks ROM Impairment pt lacks of cervical ROM Short Term Goal (STG) pt will shows greater than 15 degrees of ROM improvements in all planes. STG Duration 5 weeks [employer] Goal (LTG) pt will shows greater than 25 degrees of ROM improvements in all planes so she can turn her head without trunk compensation while checking traffic during driving. LTG Duration 10 weeks NDI Impairment pt scores 25 on NDI Short Term Goal (STG) pt will scores < 18 on NDI to shows improvements of pain and cervical mobility STG Duration 5 weeks Mcfp Goal (LTG) pt will scores < 12 on NDI to shows improvements of pain and cervical mobility LTG Duration 10 weeks quickdash Impairment pt scores 50 on quickdash Short Term Goal (STG) pt will score <40 on quickdash to show improvements in quality of life which involves UE activities such as openin jars/ house cleaning etc. STG Duration 5 weeks [employer] Goal (LTG) pt will score <30 on quickdash to show improvements in quality of life which involves UE activities such as openin jars/ house cleaning etc. LTG Duration 10 weeks Assessment Summary Assessment Pt reports she always feels better for 2-3 days after PT and then will stiffen up again . Discussed pt setting up her pulleys today to use at home. Pt needs minor cues to avoid R shd elevation when L shoulder is flexed. She has relief after STM but continues to be limited in shd ROM causing discomfort when self- stretching CS laterally. Pt would continue to benefit from skilled therapy for increasing cervical and shoulder ROM bilaterally to decrease pain and increase functional mobility for driving. Physical Therapy Plan Frequency and Duration Frequency of Treatment 2x/wkx4, 1x/wkx4 Duration of Treatment 10 weeks Plan of Care Start Date 08/06/20 Plan of Care End Date 10/20/20 Therapeutic Interventions Therapeutic Interventions Home Exercise Program,Joint Mobilizations,Manual Therapy, Neuromuscular Re-education, Patient/Caregiver Education, Self-Care/Home Management,Soft Tissue Mobilization,Taping, Therapeutic Activities, Therapeutic Exercises Modalities Biofeedback,Cold Pack/Ice Massage,Electric Stimulation, Hot Packs,Infrared Therapy, Traction- Mechanical, Ultrasound Next Visit Focus/Plan Next Note Type Treatment Note Next Visit Plan check cerical endurance start STM at pec, suboccipital , SCM, trap traction if needed upper thoracic PA mob open book chin tuck
--- NOTE | 2020-12-20 12:56 | PT.OPDS ---
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 Primary Care Provider Specialty: Family Practice Address: [address] [place] [address], [id number] Email: [email or web address] Marlin Barker MD Attending Provider Physician Referring Provider Specialty: Orthopedic Surgery Address: [address] [place] [address], [id number] Email: [email or web address] Visit Number Visit Number 01/09 Discharge Summary PT-OP-B Current Condition Start: 08/06/20 11:26 Freq: Status: Active Protocol: Document 08/06/20 11:31 HH (Rec: 08/06/20 12:06 [email or web address]) Current Condition History of Current Condition Onset Date many years ago Current Complaints Chronic neck pain R>L, tension headache History of Current Condition Alice is a 75 yo female here for her chronic neck pain R worse than L , along with tension headache on the R side . Pt reports she has been having worsening neck pain 5/ 10 mostly towards the R side of the neck with tension headache located at her R temporal area in a daily basis . It tends to get worse towards the end of the day and better with laying down/ sitting with good head/ neck support. She has difficulty turning her head especially driving, and doing chores at work such as lifting and using vacuum to clean. Pt has been taking Gabapentin at night and as needed in the morning for pain management. She denies any signifcant numbness/ tingling sensation. Pt had ACDF at C3 through C5 2012 C6-7ACDF, S/P Left Total Shoulder, Right shoulder DJD, status post L4-5 laminectomy and anterior posterior instrumented fusion and bone graft on 01/26/[address] Hadley. Prior Treatments and Tests osteophytic complexes at the C6-7 level with associated facet arthropathy at C5-6 and 6 7 as well as at C3-4 level above and below her fusion Treatment Goals Patient/Caregiver Goals 1. To regain her cervical mobility with less pain 2. To be able to turn her neck to check traffic while driving 3. to be able to complete house chores without discomfort. Personal Factors Other Personal Factors That May Effect depression Therapy/Recovery anxiety disorder chronic pain syndrome multiple surgeries (see above) PT-OP-C Subjective Start: 08/06/20 11:26 Freq: Status: Active Protocol: Document 09/12/20 12:06 MA (Rec: 09/12/20 12:50 MA [id number]) OP-PT Subjective Patient Comments Patient Comments I was very stiff all week. It may have to do with me not being able to make it into therapy because my gut was acting up PT-OP-F Manual Assessment Start: 08/06/20 11:26 Freq: Status: Active Protocol: Document 08/06/20 11:31 HH (Rec: 08/06/20 12:06 HH [email or web address]) Manual Assessments Soft Tissue Assessment Soft Tissue Mobility Assessment hypertonicity at proximal insertion at R suboccipital, bilateral pectoral muscles, SCM and levator scap and trapezius muscle significant tenderness to pressure at R mastoid process Joint Mobility Assessment Joint Mobility Assessment hypomobility noted at CT junction and T1-T3 PT-OP-J Posture/Palpation/Skin Start: 08/06/20 11:26 Freq: Status: Active Protocol: Document 08/06/20 11:31 HH (Rec: 08/06/20 12:06 HH [email or web address]) Posture Evaluation Position Standing Evaluation View Lateral Head/C-Spine Posture Forward Head T-Spine Posture Increased Kyphosis Shoulder Posture (L) Rounded,(R) Rounded PT-OP-K Range of Motion Start: 08/06/20 11:26 Freq: Status: Active Protocol: Document 08/06/20 11:31 HH (Rec: 08/06/20 12:06 HH [email or web address]) Cervical Spine Range of Motion Cervical Spine Active Degrees Testing Position Sitting Flexion 45 Extension 38 Rotation Left 30 Rotation Right 25 Lateral Flexion Left 24 Lateral Flexion Right 22 ROM Limitations Soft Tissue Tightness,Bony Restriction,Muscle Weakness, Muscle Tone,Pain Comments pain@ C6-C7 with extension, R lateral flexion and R rotation Lumbar Spine Range of Motion Lumbar Spine Active Degrees Testing Position Sitting Comments thoracic rotation in seated R= 38 degrees L= 30 degrees PT-OP-L Special Tests Start: 08/06/20 11:26 Freq: Status: Active Protocol: Document 08/06/20 11:31 HH (Rec: 08/06/20 12:06 [email or web address]) Special Tests Cervical Spine Special Tests Spurling's Test Test Results -ve Comments no neuro sign noted. Passive Neck Flexion Test Results -ve Comments stretching sensation only Traction Test Results +ve Comments pain relief with traction PT-OP-M Strength Start: 08/06/20 11:26 Freq: Status: Active Protocol: Document 08/06/20 11:31 HH (Rec: 08/06/20 12:06 [email or web address]) Cervical Spine Strength Cervical Spine Manual Muscle Testing Comments will assess next visit. PT-OP-T Assessment and Plan Start: 08/06/20 11:26 Freq: Status: Active Protocol: Document 12/20/20 12:56 HH (Rec: 12/20/20 12:56 [email or web address]) Physical Therapy Plan Discharge Physical Therapy Discharge Reasons No Longer Attending PT Discharge Comments pt is no longer attending PT. DC from PT today.
== END 2020-12-20 14:59 | disposition home or self-care (01) ==
LOC: PHYS 12:00
PROVIDERS: Family Provider Nurse Practitioner; PCP Nurse Practitioner; Referring Provider Orthopaedic Surgery Orthopaedic Surgery of the Spine; Visit Provider Orthopaedic Surgery Orthopaedic Surgery of the Spine
DX: Z98.1 Arthrodesis status (principal); S39.012D Strain of muscle, fascia and tendon of lower back, subsequent encounter
CPT/HCPCS: 97110; 97140; 97162

== ENCOUNTER → 2020-12-27 14:33 | Outpatient (CLI) | payer OTHER, SELFPAY ==
[2020-12-18 14:26] VITALS: BMI 28.1
[2020-12-27 16:15] LABS: Add Manual Diff / Slide Review NO; Basophils Absolute Auto 100 /uL (0-100); Basophils Percent Auto 0.9 % (0-2); Eosinophils Absolute Auto 300 /uL (0-450); Eosinophils Percent Auto 3.8 % (2-4); Hematocrit 39.8 % (36-46); Hemoglobin 13.2 g/dL (12.0-16.0); Lymphocytes Absolute Auto 1600 /uL (1100-4500); Lymphocytes Percent Auto 19.6 % (25-40); Mean Corpuscular HGB Conc 33.1 % (30-36); Mean Corpuscular Volume 84.8 fL (80-100); Monocytes Absolute Auto 400 /uL (0-900); Monocytes Percent Auto 4.7 % (3-14); Neutrophils Absolute Auto 5700 /uL (1500-7000); Platelet Count 255 X10^3/uL (150-400); Red Blood Cell Count 4.69 X10^6/uL (4.0-5.2); Red Cell Distribution Width 13.1 % (11.6-14.8)
[2020-12-27 16:27] LABS: C-Reactive Protein Quant 2.7 mg/dL (<1.0)
[2020-12-27 16:28] LABS: Erythrocyte Sedimentation Rate 20 MM/HR (0-20); Rheumatoid Factor < 8.6 IU/mL (<12.0)
[2020-12-29 14:07] LABS: ANA Screen, IFA Negative (.)
== END ==
PROVIDERS: Family Provider Nurse Practitioner; PCP Nurse Practitioner; Referring Provider Nurse Practitioner; Visit Provider Nurse Practitioner
DX: M25.50 Pain in unspecified joint (principal)
CPT/HCPCS: 36415; 85025; 85651; 86038; 86140; 86430

== ENCOUNTER → 2021-05-10 15:32 | Outpatient (CLI) | payer OTHER, SELFPAY ==
[2020-12-18 14:26] VITALS: BMI 28.1
[2021-05-10 16:51] LABS: Add Manual Diff / Slide Review NO; Basophils Absolute Auto 0 /uL (0-100); Basophils Percent Auto 0.7 % (0-2); Eosinophils Absolute Auto 200 /uL (0-450); Eosinophils Percent Auto 2.9 % (2-4); Hematocrit 41.6 % (36-46); Hemoglobin 13.7 g/dL (12.0-16.0); Lymphocytes Absolute Auto 1400 /uL (1100-4500); Lymphocytes Percent Auto 22.5 % (25-40); Mean Corpuscular Hemoglobin 27.2 PG (26-34); Mean Corpuscular Volume 82.4 fL (80-100); Monocytes Absolute Auto 400 /uL (0-900); Monocytes Percent Auto 6.2 % (3-14); Neutrophils Absolute Auto 4100 /uL (1500-7000); Neutrophils Percent Auto 67.7 % (50-75); Platelet Count 232 X10^3/uL (150-400); Red Blood Cell Count 5.05 X10^6/uL (4.0-5.2); Red Cell Distribution Width 15.7 % (11.6-14.8)
[2021-05-10 17:08] LABS: Alanine Aminotransferase 19 IU/L (<35); Albumin 4.4 g/dL (3.5-5.0); Albumin Globulin Ratio 1.6 (1.0-2.8); Alkaline Phosphatase 129 U/L (38-126); Aspartate Aminotransferase 27 IU/L (14-36); BUN Creatinine Ratio 21.8 (6-22); Bilirubin Total 0.7 mg/dL (0.2-1.3); Blood Urea Nitrogen 19 mg/dL (7-17); Calcium 9.6 mg/dL (8.4-10.2); Carbon Dioxide 27 mmol/L (22-32); Chloride 106 mmol/L (98-107); Estimated Glomerular Filt Rate > 60.0 mL/min (>60); Globulin 2.8 g/dL (1.7-4.1); Glucose 97 mg/dL (80-110); HEMOLYSIS < 15 (0-50); Potassium 4.6 mmol/L (3.4-5.1); Sodium 140 mmol/L (137-145); Total Protein 7.2 g/dL (6.3-8.2)
[2021-05-10 18:05] LABS: C-Reactive Protein Quant < 0.5 mg/dL (<1.0)
[2021-05-10 18:55] LABS: Erythrocyte Sedimentation Rate 4 MM/HR (0-20)
== END ==
PROVIDERS: Family Provider Nurse Practitioner; PCP Nurse Practitioner; Referring Provider Specialist/Technologist Athletic Trainer; Visit Provider Specialist/Technologist Athletic Trainer
DX: I10 Essential (primary) hypertension (principal); M12.9 Arthropathy, unspecified
CPT/HCPCS: 36415; 80053; 85025; 85651; 86140

== ENCOUNTER → 2021-08-28 14:32 | Outpatient (CLI) | payer OTHER, SELFPAY ==
[2020-12-18 14:26] VITALS: BMI 28.1
[2021-08-28 14:59] LABS: Appearance Urine UA CLEAR; Bilirubin Urine UA NEGATIVE (NEGATIVE); Color Urine UA YELLOW; Glucose Urine UA NEGATIVE (Negative); Ketones Urine UA NEGATIVE (NEGATIVE); Leukocyte Esterase Urine UA TRACE (NEGATIVE); Nitrite Urine UA NEGATIVE (Negative); Occult Blood Urine UA TRACE-INTACT (Negative); Protein Urine UA NEGATIVE (Negative); Specific Gravity Urine UA >=1.030 (1.000-1.035); Urobilinogen Urine UA 0.2 E.U./dL (0.2)
[2021-08-28 15:03] LABS: Bacteria Urine None Seen; Culture Indicated Urine Cult Not Indicated; RBC Urine 1-5/HPF (0-5/HPF); Squamous Epithelial Cell Urine 1-5 /HPF (0-5/HPF); WBC Urine None Seen (0-5/HPF)
[2021-08-28 15:04] LABS: Hemoglobin A1C% w Est Avg Glu 5.6 % (4.0-6.0)
[2021-08-28 15:07] LABS: Add Manual Diff / Slide Review NO; Basophils Absolute Auto 0 /uL (0-100); Basophils Percent Auto 0.8 % (0-2); Eosinophils Absolute Auto 100 /uL (0-450); Eosinophils Percent Auto 1.8 % (2-4); Hematocrit 39.1 % (36-46); Hemoglobin 13.2 g/dL (12.0-16.0); Lymphocytes Absolute Auto 1000 /uL (1100-4500); Lymphocytes Percent Auto 18.1 % (25-40); Mean Corpuscular HGB Conc 33.7 % (30-36); Mean Corpuscular Hemoglobin 28.6 PG (26-34); Mean Corpuscular Volume 84.8 fL (80-100); Monocytes Absolute Auto 300 /uL (0-900); Monocytes Percent Auto 5.9 % (3-14); Neutrophils Absolute Auto 4200 /uL (1500-7000); Neutrophils Percent Auto 73.4 % (50-75); Platelet Count 175 X10^3/uL (150-400); Red Blood Cell Count 4.61 X10^6/uL (4.0-5.2); Red Cell Distribution Width 14.6 % (11.6-14.8); White Blood Cell Count 5.7 X10^3/uL (4.5-11.0)
[2021-08-28 15:08] LABS: HEMOLYSIS < 15 (0-50)
[2021-08-28 15:09] LABS: BUN Creatinine Ratio 22.6 (6-22); Blood Urea Nitrogen 21 mg/dL (7-17); Calcium 8.9 mg/dL (8.4-10.2); Carbon Dioxide 24 mmol/L (22-32); Chloride 106 mmol/L (98-107); Estimated Glomerular Filt Rate > 60 mL/min (>60); Glucose 96 mg/dL (80-110); Sodium 140 mmol/L (137-145)
[2021-08-28 15:13] LABS: Potassium 4.2 mmol/L (3.4-5.1)
== END ==
PROVIDERS: Family Provider Nurse Practitioner; PCP Nurse Practitioner; Referring Provider Orthopaedic Surgery; Visit Provider Orthopaedic Surgery
DX: Z01.818 Encounter for other preprocedural examination (principal); R73.9 Hyperglycemia, unspecified; Z01.812 Encounter for preprocedural laboratory examination; N39.0 Urinary tract infection, site not specified
CPT/HCPCS: 36415; 80048; 81001; 83036; 85025; 93005; 93010

== ENCOUNTER → 2021-09-16 13:18 | Outpatient (CLI) | payer OTHER, SELFPAY ==
[2020-12-18 14:26] VITALS: BMI 28.1
[2021-09-16 15:26] LABS: COVID19 -Nasal RAPID Negative (Negative)
== END ==
PROVIDERS: Family Provider Nurse Practitioner; PCP Nurse Practitioner; Visit Provider Family Medicine Sleep Medicine
DX: Z20.822 Contact with and (suspected) exposure to COVID-19 (principal)
CPT/HCPCS: 87635; C9803

== ENCOUNTER 2021-09-17 06:09 | Day surgery (SDC) | payer OTHER, SELFPAY ==
[2020-12-18 14:26] VITALS: BMI 28.1
[2021-09-09 12:47] VITALS: BMI 27.4
[2021-09-17] VITALS (15 sets, daily range): BP systolic 101–147; BP diastolic 54–88; PULSE 63–98; RESP 12–18; TEMP 36.2–36.8; O2SAT 93–100; BMI 27.4
--- NOTE | 2021-09-17 06:34 | DI.RAD.S_ITS ---
PROCEDURE: XR HIP W PEL IF DONE LT 2V INDICATIONS: prosthesis placement TECHNIQUE: 4 intraoperative fluoroscopic of the left hip acquired. COMPARISON: None. FINDINGS: Intraoperative fluoroscopic images shows left total hip arthroplasty in progress. IMPRESSION: Fluoro was provided intraoperatively for left total hip arthroplasty. Dictated by: Santino Dupree M.D. on 09/17/2021 at 11:31 Approved by: Santino Dupree M.D. on 09/17/2021 at 11:33
[2021-09-17] MEDS: ACETAMINOPHEN 325 MG TABLET 975 MG PO (07:11)
[2021-09-17] MEDS: PREGABALIN 75 MG CAPSULE PO (07:12)
[2021-09-17] MEDS: CELECOXIB 200 MG CAPSULE PO (07:12)
[2021-09-17] MEDS: LACTATED RINGERS 1,000 ML 100 ML IV ×3 (07:14→12:58)
[2021-09-17] MEDS: VANCOMYCIN 1,000 MG/200 ML PIGGYBACK 200 MG IV (07:15)
--- NOTE | 2021-09-17 07:45 | P.OP_ITS ---
Operative Date/Time/Diagnoses Date of procedure: 09/17/21 Time of procedure: 08:00 Pre-op diagnosis: left hip OA Post-op diagnosis: same Procedure & Clinicians Procedure: Left total hip arthroplasty anterior approach Same procedure as scheduled: Yes Indications: The patient has had progressively worsening left hip pain with radiographic morris ges consistent with arthritis. Non-operative management has failed and the patient has requested total hip replacement. The risks, benefits and alternatives to surgery were discussed with the patient prior to proceeding. Risks discussed included, but were not limited to, failure to relieve pain, leg length discrepancy, dislocation, stiffness, infection, nerve damage, deep venous thrombosis, pulmonary embolism, stroke, coma, heart attack, permanent paralysis and , as well as the potential need for eventual revision of the prosthetic. Surgeon: Macie Barlow Named Account Executive: Jag Teixeira Anesthesia Type: General and Spinal Operative Notes Findings: Severe left hip osteoarthritis, soft bone adequate stability Closure Type: primary Prosthetic devices, grafts, tissues, transplants, or devices: Barlow [employer] Nephew R3 50, anthology standard offset size 4, neutral poly 32 mm, 32-3 Oxinium, 2 screws Estimated Blood Loss (mL): 250 Procedure in detail: The patient was brought to the operating room. Patient was carefully positioned in the supine position. Time-out was performed and antibiotics were given. Anesthesia was induced. She was positioned in the on the table in order to allow hyperextension of the hip. The leftlower extremity was prepped and draped in a standard sterile fashion. An anterior left hip incision was made 1 fingerbreadth lateral to the anterior superior iliac spine and extended distally towards the greater trochanter. Dissection was carried out through skin and subcutaneous ti ssues. Superficial hemostasis was achieved. The fascia over the tensor fascia aakash was defined and incised with a knife. Two Allis clamps were used to grasp the fascia. Tensor fascia aakash was retracted laterally. A gelpi retractor was placed. Dissection was carried out down along the neck. The circumflex vessels were carefully identified and cauterized with the Aqua Mantis. There was good visualization of the femoral neck. A Cobra was placed superior to the neck and the gluteus fibers were carefully stripped from that superior aspect of the capsule. A 2nd retractor was placed along the inferior aspect of the neck. The rectus insertion along the capsule was partially released. A 3rd retractor that was then gently placed over the rim of the acetabulum under the rectus. Capsule was carefully incised and released from the intertrochanteric line circumferentially superior to the mid sagittal line and inferiorly to the mid sagittal line until the lesser trochanter was palpable. A tag stitch was placed both in the superior and inferior limb of the capsular insertion. Along the acetabulum capsule was also released up to the mid sagittal 12:00 position. A portion of the labrum was resected. A saw was used to perform an osteotomy at the level of the intertrochanteric line and the junction of the superior femoral neck leaving approximately 1 finger breath of residual inferior neck above the lesser trochanter. A 2nd cut was made along the femoral neck at the base of the head and a napkin ring of neck was removed. Corkscrew was placed in the femoral head and the head was removed without difficulty. Retractors were then repositioned around the acetabulum. Residual labrum was resected and additional osteophytes were removed. A reamer that was 4 mm below the templated size was placed by hand in the acetabulum and it was reamed to centralize the acetabulum. It was then reamed up to 2 under the templated size and fluoroscopy was brought in to confirm the position of the reaming and depth of reaming. I reamed 1 under the anticipated size. A trial cup was placed and noted that it was appropriately sized and fluoroscopy confirmed position and depth. The component was open and inserted without difficulty fluoroscopic imaging was used to confirm that the cup had been adequately seated and was well positioned. It was further stabilized with 2 screws. Neutral poly liner was placed. The cup was tested and noted to be stable. Attention was then directed to the femur. The femur was gently hyperextended additional capsular release was performed as needed in order to allow adequate visualization of the proximal femur with elevation of the femur. Patient was placed in a hyperextended slightly adducted position with maximum external rotation. Box osteotome was used to check for any residual neck as well as sclerotic bone along the trochanter. [place] pepper was placed in the femur. Additional broaching was performed. Canal finder was used to determine the al ignment of the canal and position. Size 1 broach was placed. The canal was then appropriately broached up to the templated size as long as there was adequate stability of the broach and serial advancement of the broach without excessive impingement. Specific attention was directed at avoiding varus attempting to direct the distal aspect of the broach more anteriorly and avoiding excessive anteversion. Trial reduction showed acceptable range of motion, good stability, no posterior impingement, scientologist of leg length and appropriate lateral shuck. I also hyperflexed the hip and checked that there was no impingement anteriorly and there was good stability with flexion, adduction and internal rotation. Marcaine and Exparel were injected. The stem was placed without difficulty. Repeat trial reduction and x-ray showed acceptable overall position, length, and no evidence of the femoral fracture. Final head was placed. Wound was meticulously irrigated with normal saline. The hip was reduced and additional Exparel and Marcaine were injected. The capsule was closed with interrupted nonabsorbable sutures. The fascia of the tensor was closed with interrupted and running Vicryl. No drain was placed. Any tensor fascia aakash muscle that appeared to be contused or injured which was a minimal amount was carefully resected. Capsule around the tensor was injected with Exparel and Marcaine. The skin was closed with barbed stitches for the subcutaneous tissue and skin. We also used surgical glue. The wound was dressed sterilely. Brief Betadine soak was also used and was meticulously irrigated with normal saline. Patient was transferred to recovery room in satisfactory condition. Post-operative Condition: stable Disposition: observation Plan for aftercare: The patient will be maintained on a standard total hip replacement protocol with weight bearing as tolerated and anterior hip precautions. The patient will receive Aspirin and sequential compression devices for DVT prophylaxis. The patient will be discharged home when safe for the home environment.
--- NOTE | 2021-09-17 07:45 | PM.PREOP ---
Pre-operative Note COVID-19 COVID-19 status: Negative Interval Note History & Physical reviewed/Exam performed by Physician: Yes Changes to H&P: No
[2021-09-17] MEDS: TRANEXAMIC ACID 1,000 MG VIAL 1000 MG INJ ×2 (08:15→10:47)
[2021-09-17] MEDS: CEFAZOLIN 2 GM/20 ML SYRINGE IV ×2 (08:17→19:43)
--- NOTE | 2021-09-17 08:48 | SUR.OPER ---
Supine on padded [place] table with bilateral legs secured in padded positioning boots and suspended in positioning spars, operative leg in traction per surgeon. Head on one pillow. Arm on non-operative side secured on padded armboard <90 degrees abduction. Arm on operative side padded and resting across chest then secured with tape over sheet. Padded perineal post in place per surgeon.
[2021-09-17] MEDS: BUPIVACAINE 0.25% W/ EPI 30 ML VIAL 60 ML INJ (09:08)
[2021-09-17] MEDS: BUPIVACAINE LIPOSOME 266 MG/20 ML VIAL INJ (09:08)
--- NOTE | 2021-09-17 10:49 | DI.RAD.S_ITS ---
PROCEDURE: XR HIP W PEL IF DONE LT 2V INDICATIONS: POST OP LEFT HIP TECHNIQUE: AP pelvis with lateral view(s) of the left hip(s). COMPARISON: [facility], CR, XR HIP W PEL IF DONE LT 2V, 09/17/2021, 9:45. FINDINGS: Bones: No fractures or dislocations. Pelvic ring appears intact. No suspicious bony lesions. Left hip arthroplasty has been performed. Hardware is intact. Severe right hip joint space narrowing and periarticular osteophyte formation is present. Soft tissues: The visualized bowel gas pattern is normal. No suspicious soft tissue calcifications. IMPRESSION: 1. Expected appearance of left hip arthroplasty. 2. Right hip osteoarthritis. Dictated by: Arun Lr M.D. on 09/17/2021 at 11:49 Approved by: Arun Lr M.D. on 09/17/2021 at 11:49
[2021-09-17] MEDS: fentaNYL 100 MCG/2 ML INJ IV (11:21)
[2021-09-17] MEDS: OXYCODONE/ACETAMINOPHEN 5/325 TABLET 1 TAB PO (11:27)
--- NOTE | 2021-09-17 11:54 | SUR.PHASEI ---
Report called to Francisco NICOLE and an opportunity for questions was given. Return phone number at time of report [phone]. pt being transferred to room 210. pt updated on plan of care and is agreeable.
--- NOTE | 2021-09-17 12:13 | PC.NURSE ---
Addendum entered by Francisco Phillips R.N. 09/17/21 14:56: Pt sleeping soundly. facial expression calm rr even an unlaboured. Original Note: Pt arrived via PACU accompanied by Riky NICOLE. Pt alert and oriented on arrival, aware of change of room. Pt oriented to room. Pt asking appropriate questions. Left hip dressing CDI. no aquacell as Pt is allergic to this tape. Pedal pulses are good bilaterally. Toes warm to touch. Pt able to move leg though tentatively.IV intact. CJ RN doing admit.
[2021-09-17] MEDS: ACETAMINOPHEN 325 MG TABLET 650 MG PO ×2 (12:33→19:42)
[2021-09-17] MEDS: DOCUSATE 100 MG CAPSULE PO (20:02)
[2021-09-17] MEDS: ATORVASTATIN 20 MG TABLET PO (20:02)
[2021-09-17] MEDS: VENLAFAXINE ER 75 MG CAP PO (20:02)
[2021-09-18 00:06] VITALS: BP 115/62; PULSE 82; RESP 17; TEMP 36.4; O2SAT 93
[2021-09-18] MEDS: LACTATED RINGERS 1,000 ML 100 ML IV (00:27)
[2021-09-18] MEDS: ACETAMINOPHEN 325 MG TABLET 650 MG PO ×3 (01:47→12:30)
[2021-09-18] MEDS: CEFAZOLIN 2 GM/20 ML SYRINGE IV (03:24)
[2021-09-18 04:42] VITALS: BP 118/65; PULSE 71; RESP 17; TEMP 36.6; O2SAT 96
[2021-09-18 05:42] LABS: Hematocrit 26.7 % (36-46); Hemoglobin 9.1 g/dL (12.0-16.0)
[2021-09-18 07:00] VITALS: BP 122/57; PULSE 64; RESP 17; TEMP 36.2; O2SAT 97
--- NOTE | 2021-09-18 07:46 | P.DS_ITS ---
History of Present Illness History of Present Illness Chief complaint: LEFT SHERYL *OPB* Discharge Providers Provider Discharge Date: 09/18/21 Primary care physician: MITCH Mccord Consults: 09/17/21 06:34 Consult to Anesthesiology Routine Comment: Consulting Provider: Anesthesiologist Reason for consultation: Regional block for post operative pain control 09/17/21 11:57 Consult to Discharge Planning Routine Comment: Consult to Physical Therapy Evaluate & Treat Comment: Physician Instructions: post op SHERYL protocol Consult to Respiratory Therapy Evaluate & Treat Comment: Physician Instructions: Evaluate and treat Discharge provider: Jag Teixeira PA-C Exam Vital Signs (past 8 hours): - 09/18/21 00:06 09/18/21 04:42 Temperature 97.6 F 97.9 F Pulse Rate 82 71 Respiratory Rate 17 17 Blood Pressure 115/62 118/65 Pulse Oximetry 93 96 Oxygen Delivery Method Nasal Cannula Oxygen Flow Rate 2 Objective Labs Result Diagrams: 09/18/21 05:09 Labs: Laboratory Results - last 24 hr 09/18/21 05:09 Hgb 9.1 L Hct 26.7 L PFSH Medical History (Updated 12/27/20 @ 10:59 by MITCH Mccord) Anxiety Anxiety disorder due to general medical condition Back pain Breast screening declined Cervical facet syndrome Cervicogenic headache Chronic neck pain Chronic pain syndrome Depression Diverticulitis DJD of right shoulder Fatigue GERD (gastroesophageal reflux disease) HTN (hypertension) Hydronephrosis of left kidney Hyperlipidemia Intolerance to cold Joint pain Kidney infection Kidney stone Major depressive disorder, recurrent, mild Nephrolithiasis Numbness and tingling of both legs Osteoarthritis Osteoarthritis of shoulder 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 Seasonal allergies Ureterolithiasis Surgical History (Updated 09/09/21 @ 12:53 by Brianna Bronson RN) History of arthroplasty of left shoulder History of arthroscopy of right shoulder History of lumbar fusion (01/26/18) History of total replacement of left shoulder joint Hx of arthroscopy of right knee Hx of tubal ligation S/P cervical spinal fusion (06/08/12) Status post bilateral cataract extraction Status post cervical spinal fusion Status post lumbar and lumbosacral fusion by anterior technique [place] teeth removed Social History household members: none Smoking Status: Never smoker second hand exposure: Yes (childhood ) alcohol intake: current substance use type: does not use Discharge Plan Discharge Plan Patient Disposition: Home Discharge orders & Medications Discharge Orders: Discharge (Order); Ordered 09/18/21 Ordered By: Jag Teixeira Prescriptions: New acetaminophen 325 mg Tablet 650 mg PO Q6HR Qty: 60 0RF polyethylene glycol 3350 17 gram Powder In Packet 17 g PO DAILY PRN (Reason: Constipation) Qty: 14 0RF oxycodone 5 mg Tablet 5 mg PO Q3HR PRN (Reason: Pain, Moderate (4-6)) Qty: 60 0RF Continued venlafaxine 225 mg tablet extended release 24hr See Rx Instructions .ROUTE .COMPLEX Qty: 30 3RF Dose Instruction: TAKE 1 TABLET BY MOUTH AT BEDTIME Rx Instructions: TAKE 1 TABLET BY MOUTH AT BEDTIME metoprolol succinate 25 mg tablet extended release 24 hr See Rx Instructions .ROUTE .COMPLEX Qty: 90 3RF Dose Instruction: TAKE 1 TABLET BY MOUTH DAILY FOR HYPERTENSION Rx Instructions: TAKE 1 TABLET BY MOUTH DAILY FOR HYPERTENSION rosuvastatin 10 mg tablet See Rx Instructions .ROUTE .COMPLEX Qty: 90 3RF Dose Instruction: TAKE 1 TABLET(10 MG) BY MOUTH DAILY AT BEDTIME FOR CHOLESTEROL Rx Instructions: TAKE 1 TABLET(10 MG) BY MOUTH DAILY AT BEDTIME FOR CHOLESTEROL Discontinued acetaminophen 500 mg Tablet 1,000 mg PO DAILY PRN (Reason: Pain) 0RF Follow up/Referrals: Olya Valencia ARNP [Primary Care Provider] - Macie Barlow MD [Physician] - (2 weeks) Diet/Activity/Treatments Diet: Diet as Tolerated Activity: Weight-bearing as tolerated, anterior hip precautions Cold/Heat Therapy: Ice to hip as needed Skin/Wound/Dressing Care Report to your healthcare provider any signs of infection, such as:: chills, fe mitzy, increased pain, unusual drainage and unusual redness Dressing: Keep incision clean and dry, may remove dressing as needed if any irritation Visit Report/Discharge Packet Instructions: DI for Hip Replacement Stand Alone Forms: Surgery Discharge Discharge Data Primary Care Provider: Olya Valencia Attending Provider: Macie Barlow
--- NOTE | 2021-09-18 08:27 | P.DS_ITS ---
History of Present Illness History of Present Illness Date Patient Seen: 09/18/21 Time Patient Seen: 08:28 Chief complaint: left hip pain Narrative: Left hip pain is mild. Denies fever or chills. No nausea /vomiting. Patient states she is feeling better than she has for months. Discharge Providers Provider Discharge Date: 09/18/21 Primary care physician: MITCH Mccord Consults: 09/17/21 06:34 Consult to Anesthesiology Routine Comment: Consulting Provider: Anesthesiologist Reason for consultation: Regional block for post operative pain control 09/17/21 11:57 Consult to Discharge Planning Routine Comment: Consult to Physical Therapy Evaluate & Treat Comment: Physician Instructions: post op SHERYL protocol Consult to Respiratory Therapy Evaluate & Treat Comment: Physician Instructions: Evaluate and treat Discharge provider: Jag Teixeira PA-C Summary Hospital Course Discharge Diagnosis: Left hip osteoarthritis Hospital Course: Left total hip arthroplasty anterior approach Same procedure as scheduled: Yes Indications: The patient has had progressively worsening left hip pain with radiographic changes consistent with arthritis. Non-operative management has failed and the patient has requested total hip replacement. The risks, benefits and alternatives to surgery were discussed with the patient prior to proceeding. Risks discussed included, but were not limited to, failure to relieve pain, leg length discrepancy, dislocation, stiffness, infection, nerve damage, deep venous thrombosis, pulmonary embolism, stroke, coma, heart attack, permanent paralysis and , as well as the potential need for eventual revision of the prosth etic. Surgeon: Macie Barlow Pre Sales Technical Consultant: Jag Teixeira Anesthesia Type: General and Spinal Operative Notes Findings: Severe left hip osteoarthritis, soft bone adequate stability Closure Type: primary Prosthetic devices, grafts, tissues, transplants, or devices: Barlow [employer] Nephew R3 50, anthology standard offset size 4, neutral poly 32 mm, 32-3 Oxinium, 2 screws Estimated Blood Loss (mL): 250 Patient admitted to the hospital for left total hip arthroplasty, anterior approach. Patient consented to the same. Patient taken operating room on September 17, 2021. Patient back in her room recovering well as in stable condition. Patient be discharged home today after physical therapy if safe for home environment. Exam Vital Signs (past 8 hours): - 09/18/21 04:42 09/18/21 07:00 Temperature 97.9 F 97.2 F L Pulse Rate 71 64 Respiratory Rate 17 17 Blood Pressure 118/65 122/57 L Pulse Oximetry 96 97 Oxygen Delivery Method Nasal Cannula Oxygen Flow Rate 2 Narrative Exam Narrative: Pleasant 76-year-old female resting comfortably in bed in no apparent distress. Motor functions intact bilateral lower extremities. Sensation grossly intact to light touch bilateral lower extremities. Left hip dressing is clean dry and intact. Objective Labs Result Diagrams: 09/18/21 05:09 Labs: Laboratory Results - last 24 hr 09/18/21 05:09 Hgb 9.1 L Hct 26.7 L PFSH Medical History Anxiety Anxiety disorder due to general medical condition Back pain Breast screening declined Cervical facet syndrome Cervicogenic headache Chronic neck pain Chronic pain syndrome Depression Diverticulitis DJD of right shoulder Fatigue GERD (gastroesophageal reflux disease) HTN (hypertension) Hydronephrosis of left kidney Hyperlipidemia Intolerance to cold Joint pain Kidney infection Kidney stone Major depressive disorder, recurrent, mild Nephrolithiasis Numbness and tingling of both legs Osteoarthritis Osteoarthritis of shoulder 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 Seasonal allergies Ureterolithiasis Surgical History History of arthroplasty of left shoulder History of arthroscopy of right shoulder History of lumbar fusion (01/26/18) History of total replacement of left shoulder joint Hx of arthroscopy of right knee Hx of tubal ligation S/P cervical spinal fusion (06/08/12) Status post bilateral cataract extraction Status post cervical spinal fusion Status post lumbar and lumbosacral fusion by anterior technique [place] teeth removed Social History household members: none Smoking Status: Never smoker second hand exposure: Yes (childhood ) alcohol intake: current substance use type: does not use Discharge Assessment & Plan Assessment and Plan Assessment: Patient progressing as expected status post left total hip arthroplasty, anterior approach Plan of Treatment: Anterior hip precautions Multimodal pain management Discharge home today in stable condition. Discharge Plan Discharge Plan Patient Disposition: Home Discharge orders & Medications Discharge Orders: Discharge (Order); Ordered 09/18/21 Ordered By: Jag Teixeira Prescriptions: New acetaminophen 325 mg Tablet 650 mg PO Q6HR Qty: 60 0RF polyethylene glycol 3350 17 gram Powder In Packet 17 g PO DAILY PRN (Reason: Constipation) Qty: 14 0RF oxycodone 5 mg Tablet 5 mg PO Q3HR PRN (Reason: Pain, Moderate (4-6)) Qty: 60 0RF Continued venlafaxine 225 mg tablet extended release 24hr See Rx Instructions .ROUTE .COMPLEX Qty: 30 3RF Dose Instruction: TAKE 1 TABLET BY MOUTH AT BEDTIME Rx Instructions: TAKE 1 TABLET BY MOUTH AT BEDTIME metoprolol succinate 25 mg tablet extended release 24 hr See Rx Instructions .ROUTE .COMPLEX Qty: 90 3RF Dose Instruction: TAKE 1 TABLET BY MOUTH DAILY FOR HYPERTENSION Rx Instructions: TAKE 1 TABLET BY MOUTH DAILY FOR HYPERTENSION rosuvastatin 10 mg tablet See Rx Instructions .ROUTE .COMPLEX Qty: 90 3RF Dose Instruction: TAKE 1 TABLET(10 MG) BY MOUTH DAILY AT BEDTIME FOR CHOLESTEROL Rx Instructions: TAKE 1 TABLET(10 MG) BY MOUTH DAILY AT BEDTIME FOR CHOLESTEROL Discontinued acetaminophen 500 mg Tablet 1,000 mg PO DAILY PRN (Reason: Pain) 0RF Follow up/Referrals: Olya Valencia ARNP [Primary Care Provider] - Macie Barlow MD [Physician] - (2 weeks) Diet/Activity/Treatments Diet: Diet as Tolerated Activity: Weight-bearing as tolerated, anterior hip precautions Cold/Heat Therapy: Ice to hip as needed Skin/Wound/Dressing Care Report to your healthcare provider any signs of infection, such as:: chills, fever, increased pain, unusual drainage and unusual redness Dressing: Keep incision clean and dry, may remove dressing as needed if any irritation Visit Report/Discharge Packet Instructions: DI for Hip Replacement Stand Alone Forms: Surgery Discharge Discharge Data Primary Care Provider: Olya Valencia Attending Provider: Macie Barlow
[2021-09-18 10:00] VITALS: BP 113/56; PULSE 86; RESP 18; O2SAT 96
[2021-09-18] MEDS: DOCUSATE 100 MG CAPSULE PO (10:21)
[2021-09-18 10:57] VITALS: TEMP 36.6
--- NOTE | 2021-09-18 11:35 | PT.IIE ---
Current Diagnoses Unilateral primary osteoarthritis, left hip (09/17/21) Surgery Performed Operation Date: 09/17/21 07:45 Actual Procedures p Total Hip Arthroplasty/Anterior Approach(Left) - Macie Barlow MD Medical History (Last Reviewed 09/18/21 @ 08:31 by Jag Teixeira PA-C) Anxiety Anxiety disorder due to general medical condition Back pain Breast screening declined Cervical facet syndrome Cervicogenic headache Chronic neck pain Chronic pain syndrome Depression Diverticulitis DJD of right shoulder Fatigue GERD (gastroesophageal reflux disease) HTN (hypertension) Hydronephrosis of left kidney Hyperlipidemia Intolerance to cold Joint pain Kidney infection Kidney stone Major depressive disorder, recurrent, mild Nephrolithiasis Numbness and tingling of both legs Osteoarthritis Osteoarthritis of shoulder 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 Seasonal allergies Ureterolithiasis Physical Therapy Inpatient Evaluation/Re-Eval M1 PT/OT-IP Prior Functional Status Start: 09/18/21 13:23 Freq: NEEDED Status: Active Protocol: Document 09/18/21 11:35 AB (Rec: 09/18/21 13:32 AB [id number]) Medical Review Prior Functional Status Medical History Reviewed Yes Communication able to make needs known Mobility and Gait pt stated that she is modified independent withall mobilities and ambulation using a FWW indoors and uses a SPC for outdoor mobility Social History Household Members none Living Arrangements House Number of Floors (Floors) One Floor Number of Stairs To Enter/Railing? 2 platform steps to enter the house 1 step down to kitchen Home Environment High Toilet,Walk in Shower,Tub /Shower Home Equipment Front Wheel Walker,Straight Cane,Hand Held Shower Additional Social History Comment pt plans to just sponge bathe initially upon d/c pt's friend is going to stay with pt for a week to assist her M2 PT-IP Current Condition Start: 09/18/21 13:23 Freq: NEEDED Status: Active Protocol: Document 09/18/21 11:35 AB (Rec: 09/18/21 13:32 AB [id number]) Physical Therapy Current Condition Current Condition Evaluation Date 09/18/21 Treatment Diagnosis s/p L SHERYL anterior approach; difficulty n walking Onset Date 09/17/21 M3 PT-IP Subjective Start: 09/18/21 13:23 Freq: NEEDED Status: Active Protocol: Document 09/18/21 11:35 AB (Rec: 09/18/21 13:32 [id number]) Subjective Physical Therapy Visit Type Type Initial Evaluation Visit Start Time 11:35 Visit Stop Time 12:15 Total Visit Minutes 40 Number of HOSE TESTER Visits 0 Physical Therapy Visit Comments Patient Comments pt is agreeable to do PT Therapy Pain Assessment Pain Present Pain Present Denied Pain M4 PT-IP Mobility and Gait Start: 09/18/21 13:23 Freq: NEEDED Status: Active Protocol: Document 09/18/21 11:35 AB (Rec: 09/18/21 13:32 [id number]) PT-Bed Mobility Assessment Supine to Sit Supine to Sit Standby Assistance PT-Transfer Assessment Sit to and From Stand Sit to and from Stand Standby Assistance,1 Person Assistance,Use of Upper Extremities Equipment Transfer Assistive Device Gait Belt,Front Wheeled Walker Orthotic/Prosthetic Devices or Brace: No Transfers Transfer Destination Chair Transfer Technique ambulated Transfer Ability Level of Assist Standby Assistance,1 Person Assistance,Use of Upper Extremities Comments Mobility Comments pt's friend in room. educated pt and friend regarding pt's anterior hip precautions. pt completed supine to sit SBA. completed sit to stand SBA and ambulated in room using FWW SBA. pt sat on the chair and rested. agreed to do stairs. pt ambulated ~ 30 ft using FWW SBA and completed up/down platform step using FWW CGA and cues. educated friend on how to assist pt. pt repeated stairs with friend assisting and completed SBA. pt ambulated in the hallway ~ 40 ft using FWW SBA. ambulated back to her chair and positioned. call light and table placed within reach. pt and caregiver without any other concerns. Gait Assessment Gait Gait Assistance Required: Standby Assistance Distance (Feet) 40 Able to Maintain Weight Bearing Status Yes During Gait Assistive Devices Assistive Device Gait Belt,Front Wheeled Walker Orthotic/Prosthetic Devices or Brace: No Gait Deviations General Gait Pattern Decreased Stride Length, Decreased Feet Clearance Factors Limiting Gait Function Factors Limiting Gait Function Decreased Activity Tolerance, Decreased Strength,Poor Balance Stair Climbing Assessment Evaluation Level of Assist On Stairs Standby Assistance,Contact Guard Assistance Devices Stair Climbing Assistive Devices Front Wheel Walker Technique/Endurance Stair Climbing Direction Ascend and Descend Stair Climbing Technique Step to Step Number of Steps Climbed 1 Query Text: Stair Climbing Set # Repetitions (reps) 2 PT-Balance Assessment Sitting Balance and Reactions Static Sitting Balance Ability Good Dynamic Sitting Balance Ability Good Standing Balance and Reactions Static Standing Balance Ability Fair Dynamic Standing Balance Ability Fair Device Used FWW M5 PT-IP Objective Assessments Start: 09/18/21 13:23 Freq: NEEDED Status: Active Protocol: Document 09/18/21 11:35 AB (Rec: 09/18/21 13:32 AB [id number]) Orientation Orientation/Cognition Level of Alertness Alert Orientation Name,Age,Birthday,Month,Date, Year,Day of Week,Place, Situation Language Function Ability No Deficits Noted Safety Awareness Understands Safety Issues Memory Description No Deficits Noted Gross Range of Motion Lower Extremity ROM Assessment Within Functional Limits Strength Lower Extremity Strength Assessment Left Impaired Hip 3+/5 Knee 4-/5 Coordination Assessment Gross Coordination Gross Coordination WNL Sensation Assessment Sensation Gross Sensation WNL Muscle Tone Muscle Tone WNL Yes M6 PT-IP Treatment Start: 09/18/21 13:23 Freq: NEEDED Status: Active Protocol: Document 09/18/21 11:35 AB (Rec: 09/18/21 13:32 AB [id number]) Physical Therapy Treatment Education Education Provided Precautions,Weight Bearing Status,Post-Op Packet,Safety M7 PT-IP Assessment and Plan Start: 09/18/21 13:23 Freq: NEEDED Status: Active Protocol: Document 09/18/21 11:35 AB (Rec: 09/18/21 13:32 AB [id number]) PT Summary Assessment and Plan Potential Rehabilitation Potential Good Status of Condition at Evaluation Stable Summary Impairments Pain,ROM,Strength,Balance, Coordination,Sensation,Tone, Cognition,Bed Mobility, Transfers,Gait,Activity Tolerance Assessment Summary pt requiring SBA with mobility using FWW and plans to go home with her friend to assist her. pt may go home when stable. Goals Bed Mobility Goal Independent Transfer Goal Independent,Front Wheeled Walker Gait Goal Independent,Front Wheel Walker Gait Distance 300 Other Goals up/down platform step using FWW mod I Days to Meet Goals 3 Frequency of Treatment Frequency Of Treatment Twice a Day Treatment Plan Physical Therapy Treatment Plan Bed Mobility Training,Transfer Training,Gait Training, Therapeutic Exercise,Balance Retraining,Post Op Education, Discharge Planning,Hot or Cold Pack,Neuromuscular Re-ed, Coordination Retraining,Manual Therapy Precautions Anterior Hip Precautions No Hip Extension,No Hip External Rotation Weight Bearing Status Weight Bearing Status Weight Bear as Tolerated Allowed Weight Bearing Amount (enter % LLE WBAT or #) (%) Recommendations To Nursing Amount of Assist Needed 1 Person Assist Discharge Recommendations PT Discharge Recommendations Home with Assistance, Outpatient PT Transportation Needs at Discharge Private Vehicle
--- NOTE | 2021-09-18 13:20 | PC.NURSE ---
Addendum entered by Wilver Lopez R.N. 09/18/21 13:22: Pt was escorted via wheelchair by hospital personnel to [facility] of support person on 09/18/2021 at 1245. Original Note: pt received discharge paperwork and reports no further questions. All personal effects pt admitted with, were discharged with pt
--- NOTE | 2021-09-18 14:04 | CM.DANOTE ---
Patient is a 76 yo female who was admitted on 09/17/21 for LTHA. Pt has [facility] for insurance and her PCP is Olya Valencia. EMR was reviewed. Per Ortho PA, pt tolerated procedure well and stable for d/c home today pending PT eval. Per PT, pt's cousin was bedside and participated in CG training and recommending d/c home with assist and outpt PT. SW met bedside briefly with pt and explained role and she confirms she lives in [place] alone and is independent with ADL's at baseline and uses a walker and cane at baseline. Pt confirms that she was last admitted in 2018 for Ortho back surgery and was able to d/c home with family staying with her to assist and SW provided her with information on PP CG resources at that time. Pt denies having any other supportive services in place and has not gotten a caregiver or tree and shrub worker yet but is interested and states her cousin staying with her will help. Pt preference is to d/c home with cousin to assist and does not anticipate any SW needs at d/c. Plan: Patient to d/c home today via cousin POV and to stay and assist and outpt PT. No further SW needs at this time. JANKI Borrego Discharge Planning/Care Management CM Discharge Assessment Start: 09/18/21 14:00 Freq: Status: Active Protocol: Document 09/18/21 14:00 (Rec: 09/18/21 14:04 [id number]) Discharge Planning Assessment Assigned Warehouse Shipping Associate JANKI Mckeon Advance Directives? No Advance Directives on File No History Provided By Patient,Family Member,Medical Record Has Patient been admitted in last 30 No days? Prior Living Arrangements House Household Members none Type of transporation used prior to Drives own vehicle admit Independent with ADL's Yes Is patient alert and oriented? Yes Needs Assistance With Home Chores / Shopping Caregiver for Another No DME Already Rented / Owned FWW / Walker,Cane Patient/Family Preference OP PT Therapy Barriers to Discharge No Discharge Plan Home Community Services Physical Therapy Transportation Arrangement Family/friend Referrals Initiated None needed Whiteboard Updated in Patient Room with Yes name and ext. # of Warehouse Shipping Associate Review Status In Process Please Provide Date Initial DC 09/18/21 Assessment Was Performed Next Review Type Continued Stay Review Pre-Anesthesia Assessment Start: 09/09/21 12:47 Freq: Status: Discharge Protocol: Document 09/09/21 12:47 CAB (Rec: 09/09/21 13:19 CAB [id number]) Pre-Anesthesia Assessment Patient Information Reviewed Via Phone Assessment Assessment Completed With Patient Diagnostic Results BMP/CMP,CBC Comment LABS/ECG @ 08/28/21, COVID screen @ 09/16/21 Primary Care Provider Olya Valencia Seen Specialist in Last 12 Months Yes Specialist Seen Orthopedist,Other Primary Language Egyptian Preferred Language Egyptian Inclined Railway Operator Required No Height 157.48 cm Weight 68.039 kg Body Mass Index (BMI) 27.4 Hearing Ability Normal Visual Assist Magnifying Glass Dentition Type Teeth, Natural Present,Teeth, Missing Barriers to Learning None Other Aids No Hx Anesthesia Reactions Yes: Hard to wake me after wisdom teeth removed, hypotension w/RAHUL Hx Family Anesthesia Reaction No Hx Malignant Hyperthermia No Hx Blood Transfusions No Anesthesia Review Requested No Ship Unloader No alcohol intake current alcohol intake frequency a few times a month Smoking Status Never smoker Substance Use Type does not use Pain Present Pain Reported Musculoskeletal Symptoms Abnormal Gait,Difficulty Walking,Joint Pain History of Falling (Recent or History of Yes ) Patient is completely paralyzed or No completely immobile Prosthesis or Orthotic Device Front Wheel Walker Mental Status Oriented to own ability Is patient on oxygen? 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 No Cardiac Clearance Received Not Applicable Diet Type At Home Regular dysphagia No Gastrointestinal Symptoms Reflux Bladder Pattern Incontinent,Nocturia Urinary Catheter Present No Hx Urinary Self Catheterization No Diabetes No HgbA1C 5.6 Date 08/28/21 Patient No Lactating No Hx Drug Resistant Organism No Presence of External or Internal Medical Yes: Lumbar/cervical spine, Devices left shoulder, bilat eye IOLs Have you had any close contact with No someone diagnosed with COVID-19? Received a COVID vaccine? Yes Received all doses? Yes Marital Status / Lives With none Prior Living Arrangements House Number of Floors (Floors) Two Floors Support System Family Does the Patient Have Assistance After Yes Surgery Patient Discharge Plan Description Return Home Comment Cousin will stay with patient to assist with care at [place] Feels Safe in Current Environment Yes Been Physically Hurt or Threatened By a No Person in Current Environment Do you have thoughts of harming yourself None or others? Are you currently considering suicide? No Do you have a plan to hurt yourself or No Plan others? Do You Have Any Spiritual Beliefs That No May Affect Your HC Choices? Do You Have Any Cultural Practices That No May Affect Your HC Choices? Who Can We Speak to About Patient's Care Family, friends Identifying Code for Release of Patient Declines to issue Information Health Care Proxy/Next of Kin Ivon (cousin) Health Care Proxy Emergency Contact Name Ivon (cousin) Emergency Contact Advance Directives? No Advance Directives on File No Power of Compo Caster No PAC Instructions Do not shave/clip surgical site,Durable medical equipment ,Medications to take/avoid, Nasal antibiotic,No ETOH/ petroleum product on skin DOS, NPO,Pre-surgical wash,Sensory aids,Sturdy shoes/comfortable clothes,Do not bring valuables and remove jewelry
== END 2021-09-18 12:55 | disposition home or self-care (01) ==
LOC: OR 06:11 → AC 06:11
PROVIDERS: Family Provider Nurse Practitioner; PCP Nurse Practitioner; Referring Provider Physician Assistant; Visit Provider Orthopaedic Surgery
PROC: (CPT 27130; principal; 2021-09-17 07:45)
DX: M16.12 Unilateral primary osteoarthritis, left hip (principal); M87.052 Idiopathic aseptic necrosis of left femur; I10 Essential (primary) hypertension; E78.5 Hyperlipidemia, unspecified
CPT/HCPCS: 27130; 36415; 73502; 76000; 85014; 85018; 97161; 97530; C1776; C9290; J0690; J1100; J2250; J2274; J2405; J2704; J3010

== ENCOUNTER 2021-09-22 11:33 | Emergency (ER) | payer OTHER, SELFPAY ==
[2021-09-17 12:08] VITALS: BMI 27.4
[2021-09-22 12:00] VITALS: BP 143/66; PULSE 84; RESP 18; TEMP 36.9; O2SAT 98; BMI 27.4
--- NOTE | 2021-09-22 12:32 | DI.US.S_ITS ---
PROCEDURE: US EXTREMITY NONVASC LOWER LT INDICATIONS: RECENT HIP SURGERY. LEFT LEG EDEMA TECHNIQUE: Real-time scanning was performed of the left lower extremity , with image documentation. COMPARISON: None. FINDINGS: The deep veins of the left lower extremity are patent and compressible as visualized with normal waveforms. IMPRESSION: No evidence of left lower extremity DVT. Dictated by: Arun Lr M.D. on 09/22/2021 at 13:23 Approved by: Arun Lr M.D. on 09/22/2021 at 13:24
--- NOTE | 2021-09-22 15:23 | ED.LOWEXIN ---
HPI - Extremity Injury (Lower) General Chief Complaint: Extremity Injury, Lower Stated Complaint: had surgery thursday leg swollen Time Seen by Provider: 09/22/21 12:32 Source: patient Mode of arrival: Ambulatory History of Present Illness HPI Narrative: The patient underwent left SHERYL 5 days ago for osteoarthritis. She has been doing well, up and ambulatory. Her gait is improved since surgery. She has pain that is under control. She has developed persistent left leg edema. She has no chest pain, dyspnea, hemoptysis or syncope. Clinic nurse advised her to be evaluated for DVT. She has no history of DVT. She has no numbness or weakness in the left leg. Right leg is not affected. Related Data Previous Rx's Medication Instructions Recorded metoprolol succinate 25 mg See Rx Instructions .ROUTE 12/17/20 tablet,extended release 24 hr .COMPLEX #90 tab rosuvastatin 10 mg tablet See Rx Instructions .ROUTE 05/23/21 .COMPLEX #90 tab venlafaxine 225 mg tablet,extended See Rx Instructions .ROUTE 08/21/21 release 24 hr .COMPLEX #30 tab acetaminophen 325 mg tablet 650 mg PO Q6HR #60 tab 09/18/21 oxycodone 5 mg tablet 5 mg PO Q3HR PRN #60 tab 09/18/21 polyethylene glycol 3350 17 gram 17 g PO DAILY PRN #14 ea 09/18/21 oral powder packet Allergies Allergy/AdvReac Type Severity Reaction Status Date / Time adhesive tape Allergy Severe Blisters Verified 09/17/21 07:05 chloramphenicol Allergy Mild joints Verified 03/19/21 13:35 [From CHLOROMYCETIN] itchy, red, swollen naproxen [From Aleve] Allergy Mild hands and Verified 09/17/21 07:05 face itching/ red Review of Systems Review of Systems ROS Unobtainable: All systems reviewed & are unremarkable except as noted in HPI and below Patient History Medical History (Updated 09/22/21 @ 15:32 by Josr Clements MD) Anxiety Anxiety disorder due to general medical condition Back pain Breast screening declined Cervical facet syndrome Cervicogenic headache Chronic neck pain Chronic pain syndrome Depression Diverticulitis DJD of right shoulder Fatigue GERD (gastroesophageal reflux disease) HTN (hypertension) Hydronephrosis of left kidney Hyperlipidemia Intolerance to cold Joint pain Kidney infection Kidney stone Major depressive disorder, recurrent, mild Nephrolithiasis Numbness and tingling of both legs Osteoarthritis Osteoarthritis of shoulder Other correction (current) drug therapy Seasonal allergies Ureterolithiasis Surgical History (Updated 09/22/21 @ 15:32 by Josr Clements MD) History of arthroplasty of left shoulder History of arthroscopy of right shoulder History of lumbar fusion (01/26/18) History of total replacement of left shoulder joint Hx of arthroscopy of right knee Hx of tubal ligation S/P cervical spinal fusion (06/08/12) Status post bilateral cataract extraction Status post cervical spinal fusion Status post left hip replacement Status post lumbar and lumbosacral fusion by anterior technique [place] teeth removed Social History household members: none Smoking Status: Never smoker second hand exposure: Yes (childhood ) alcohol intake: current substance use type: does not use Smoking Status: Never smoker alcohol intake frequency: a few times a month Substance Use Type: does not use Exam Initial Vital Signs Initial Vital Signs: Vital Signs Temperature 98.4 F 09/22/21 12:00 Pulse Rate 84 09/22/21 12:00 Respiratory Rate 18 09/22/21 12:00 Blood Pressure 143/66 H 09/22/21 12:00 Pulse Oximetry 98 09/22/21 12:00 Const General: cooperative, healthy appearing, comfortable and No acute distress HENNE Head: normocephalic and atraumatic Resp Auscultation: clear to auscultation bilaterally Cardio Rate: regular rate Rhythm: regular rhythm Heart Sounds: S1 normal, S2 normal and no murmurs Neuro General: patient alert, patient awake, patient oriented x3 and no focal motor deficits Extrem Other: The left hip incision site is healing well. No erythema or edema. Appropriate range of motion left hip. Left leg shows edema down to the foot. Left dorsalis pedis pulses normal. Homans sign is negative. Psych Mental Status: mental status grossly normal Course Course Course Narrative: The patient has postop edema. The wound site is healing well. There is no ultrasound evidence of DVT. If symptoms escalate she should return for repeat analysis. Orders Ordered: ED Orders 09/22/21 12:32 US extremity nonvasc lower lt Stat Vital Signs Vital signs: Vital Signs - 8 hr 09/22/21 12:00 Temperature 98.4 F Pulse Rate 84 Respiratory Rate 18 Blood Pressure 143/66 H Pulse Oximetry 98 MDM - Extremity Injury (Lower) Imaging Data Left leg Doppler ultrasound:: Radiologist's Impression: No evidence of DVT Discharge Plan Departure Patient Disposition: Home Clinical Impression: Postoperative edema Instructions: Edema Activity Restrictions/Additional Instructions: Continue your postop management plan. Elevate your leg and rest her leg periodically. If you develop increasing pain, chest pain or difficulty breathing you should be evaluated again Prescriptions: No Action venlafaxine 225 mg tablet extended release 24hr See Rx Instructions .ROUTE .COMPLEX Qty: 30 3RF Dose Instruction: TAKE 1 TABLET BY MOUTH AT BEDTIME Rx Instructions: TAKE 1 TABLET BY MOUTH AT BEDTIME metoprolol succinate 25 mg tablet extended release 24 hr See Rx Instructions .ROUTE .COMPLEX Qty: 90 3RF Dose Instruction: TAKE 1 TABLET BY MOUTH DAILY FOR HYPERTENSION Rx Instructions: TAKE 1 TABLET BY MOUTH DAILY FOR HYPERTENSION rosuvastatin 10 mg tablet See Rx Instructions .ROUTE .COMPLEX Qty: 90 3RF Dose Instruction: TAKE 1 TABLET(10 MG) BY MOUTH DAILY AT BEDTIME FOR CHOLESTEROL Rx Instructions: TAKE 1 TABLET(10 MG) BY MOUTH DAILY AT BEDTIME FOR CHOLESTEROL acetaminophen 325 mg Tablet 650 mg PO Q6HR Qty: 60 0RF polyethylene glycol 3350 17 gram Powder In Packet 17 g PO DAILY PRN (Reason: Constipation) Qty: 14 0RF oxycodone 5 mg Tablet 5 mg PO Q3HR PRN (Reason: Pain, Moderate (4-6)) Qty: 60 0RF Referrals: Olya Valencia ARNP [Primary Care Provider] -
[2021-09-22 15:49] VITALS: BP 135/69; PULSE 71; RESP 18; O2SAT 100
--- NOTE | 2021-09-22 15:50 | PC.NURSE ---
Wound dressing change @ provider request. Wound appears to be healing well.
== END 2021-09-22 15:51 | disposition home or self-care (01) ==
PROVIDERS: Emergency Provider Emergency Medicine; Family Provider Nurse Practitioner; PCP Nurse Practitioner
DX: Z98.890 Other specified postprocedural states (principal); R60.0 Localized edema
CPT/HCPCS: 76882; 99281; 99283

== ENCOUNTER → 2022-06-16 09:50 | Outpatient (CLI) | payer OTHER, SELFPAY ==
[2021-09-17 12:08] VITALS: BMI 27.4
[2022-06-16 11:21] LABS: Creatinine Urine Random 178.7 mg/dL
[2022-06-16 11:39] LABS: Alanine Aminotransferase 39 IU/L (<35); Albumin 4.3 g/dL (3.5-5.0); Albumin Globulin Ratio 1.5 (1.0-2.8); Alkaline Phosphatase 97 U/L (38-126); Aspartate Aminotransferase 41 IU/L (14-36); BUN Creatinine Ratio 17.9 (6-22); Bilirubin Total 0.8 mg/dL (0.2-1.3); Blood Urea Nitrogen 17 mg/dL (7-17); Calcium 9.3 mg/dL (8.4-10.2); Carbon Dioxide 24 mmol/L (22-32); Chloride 105 mmol/L (98-107); Cholesterol 150 mg/dL (140-199); Estimated Glomerular Filt Rate > 60 mL/min (>60); Globulin 2.8 g/dL (1.7-4.1); Glucose 97 mg/dL (80-110); HDL Cholesterol 45 mg/dL (40-60); HEMOLYSIS 25 (0-50); LDL Cholesterol Calculated 53 mg/dL (<100); Potassium 4.6 mmol/L (3.4-5.1); Sodium 141 mmol/L (137-145); Total Protein 7.1 g/dL (6.3-8.2); Triglycerides 260 mg/dL (35-150)
[2022-06-16 12:07] LABS: Free T3, Triiodothyronine Free 3.83 pg/mL (2.77-5.27); Free T4, Direct Thyroxine 1.18 ng/dL (0.78-2.19)
[2022-06-16 12:20] LABS: Thyroid Stimulating Hormone 1.73 uIU/mL (0.47-4.68)
[2022-06-16 15:53] LABS: Hep C Virus Ab w/Reflex Quant NEGATIVE s/c (NEGATIVE)
[2022-06-18 15:54] LABS: Microalbumi Creatinin Ratio Ur 17.9 ug/mg CR (<30); Microalbumin Urine Random 3.2 mg/dL (0-1.6)
== END ==
PROVIDERS: Family Provider Nurse Practitioner; PCP Nurse Practitioner; Referring Provider Nurse Practitioner; Visit Provider Nurse Practitioner
DX: E78.5 Hyperlipidemia, unspecified (principal); F33.1 Major depressive disorder, recurrent, moderate; I10 Essential (primary) hypertension; R53.82 Chronic fatigue, unspecified; Z79.899 Other long term (current) drug therapy; Z11.59 Encounter for screening for other viral diseases
CPT/HCPCS: 36415; 80053; 80061; 82043; 82570; 84439; 84443; 84481; 86803

== ENCOUNTER → 2022-08-07 14:14 | Outpatient (CLI) | payer OTHER, SELFPAY ==
[2021-09-17 12:08] VITALS: BMI 27.4
--- NOTE | 2022-08-07 14:16 | DI.RAD.S_ITS ---
Bone Density Report Name: LENNY ROBLES Age: 77 Sex: Female Ethnicity: White Date of : 1945 Indication: osteopenia; Referring Provider: GRACE WILSON Study: Bone densitometry was performed. Exam Date: August 07, 2022 Accession number: [id number] Bone Density: Region BMD T-score Z-score Classification Femoral Neck (Right) 0.828 -0.2 2.0 Normal Total Hip (Right) 0.815 -1.0 0.9 Normal Total Forearm (Left) 0.513 -1.2 1.6 Osteopenia 1/3 Forearm (Left) 0.601 -1.5 1.4 Osteopenia UD Forearm (Left) 0.401 -0.7 1.4 Normal World Health Organization criteria for BMD impression classify patients as: Normal (T-score at or above -1.0), Osteopenia (T-score between -1.0 and -2.5), or Osteoporosis (T-score at or below -2.5). 10-year Fracture Risk: FRAX not reported because: All T-scores for Spine Total, Hip Total, Femoral Neck at or above -1.0 Previous Exams: -- Region Exam Age BMD T-score BMD Change BMD Change Date g/cm2 vs Baseline vs Previous -- Total Hip(Right) 08/07/2022 77 0.815 -1.0 0.002 (0.3%)# 0.002 (0.3%)# 09/10/2018 73 0.813 -1.1 -- *Denotes significance at 95% confidence level, LSC for Total Hip = 0.027 g/cm2 # Denotes dissimilar scan types or analysis methods Impression: The patient has normal bone mass. No significant bone loss was observed. Discussion: BONE DENSITY IS ABOVE THE MINIMUM DESIRABLE LEVEL AT ALL SKELETAL SITES TESTED. This patient's bone mineral density is above the minimum desirable level (T-score -1.0 or better) at all sites measured. The patient should follow a healthful lifestyle (good nutrition with adequate calcium and vitamin D, and appropriate weight-bearing exercise). Follow-Up: Consider repeating this study in 5 years or sooner if there is some new clinical indication. Reported by: GERARDO LUTHER M.D. on 08/07/2022 3:04:00 PM.
--- NOTE | 2022-08-07 14:16 | DI.MG.S_ITS ---
BILATERAL DIGITAL SCREENING MAMMOGRAM 3D/2D WITH CAD: 08/07/2022 CLINICAL: Routine screening. Comparison is made to exams dated: 09/27/2018 ultrasound, 09/27/2018 mammogram, 09/10/2018 mammogram, and 04/02/2010 mammogram - [facility]. Both breasts are heterogeneously dense, which may obscure small masses (category c / 51-75% glandular tissue). Current study was also evaluated with a Computer Aided Detection (CAD) system. There are benign calcifications in both breasts. No significant masses, calcifications, or other findings are seen in either breast. There has been no significant interval change. IMPRESSION: BENIGN There is no mammographic evidence of malignancy. A 1 year screening mammogram is recommended. Based on the Tyrer Cuzick model (a risk assessment model) the patient's lifetime risk is 3.1% and her 10 year risk is 0.0%. According to the ACR, ACS, and NCCN guidelines, an annual breast MRI exam along with mammogram is recommended if the patient's lifetime risk is 20% or greater. This exam was interpreted at Station ID: [id number]. NOTE: For mammograms, a report in lay terms will be sent to the patient. Approximately 15% of breast malignancies will not be visualized mammographically. In the management of a palpable breast mass, a negative mammogram must not discourage biopsy of a clinically suspicious lesion. Electronically Signed By: Dao rangel/yumiko:08/08/2022 12:25:19 letter sent: Normal Exam ACR BI-RADS Category 2: Benign Finding(s) [id number]
== END ==
PROVIDERS: Family Provider Nurse Practitioner; PCP Nurse Practitioner; Referring Provider Nurse Practitioner; Visit Provider Nurse Practitioner
DX: Z12.31 Encounter for screening mammogram for malignant neoplasm of breast (principal); Z78.0 Asymptomatic menopausal state
CPT/HCPCS: 77063; 77067; 77080; 77081

== ENCOUNTER → 2022-08-11 11:05 | Outpatient (CLI) | payer OTHER, SELFPAY ==
[2021-09-17 12:08] VITALS: BMI 27.4
[2022-08-11 12:38] LABS: Add Manual Diff / Slide Review NO; Basophils Absolute Auto 0 /uL (0-100); Basophils Percent Auto 0.6 % (0-2); Eosinophils Absolute Auto 100 /uL (0-450); Eosinophils Percent Auto 1.8 % (2-4); Hematocrit 41.5 % (36-46); Hemoglobin 13.9 g/dL (12.0-16.0); Lymphocytes Absolute Auto 1100 /uL (1100-4500); Lymphocytes Percent Auto 16.7 % (25-40); Mean Corpuscular HGB Conc 33.4 % (30-36); Mean Corpuscular Volume 86.9 fL (80-100); Monocytes Absolute Auto 400 /uL (0-900); Neutrophils Absolute Auto 4900 /uL (1500-7000); Neutrophils Percent Auto 74.9 % (50-75); Platelet Count 168 X10^3/uL (150-400); Red Blood Cell Count 4.78 X10^6/uL (4.0-5.2); Red Cell Distribution Width 14.3 % (11.6-14.8); White Blood Cell Count 6.5 X10^3/uL (4.5-11.0)
[2022-08-11 12:54] LABS: Alanine Aminotransferase 34 IU/L (<35); Albumin 4.2 g/dL (3.5-5.0); Albumin Globulin Ratio 1.3 (1.0-2.8); Alkaline Phosphatase 100 U/L (38-126); Aspartate Aminotransferase 33 IU/L (14-36); BUN Creatinine Ratio 19.8 (6-22); Bilirubin Total 0.9 mg/dL (0.2-1.3); Blood Urea Nitrogen 20 mg/dL (7-17); Calcium 9.2 mg/dL (8.4-10.2); Carbon Dioxide 26 mmol/L (22-32); Chloride 105 mmol/L (98-107); Estimated Glomerular Filt Rate 57 mL/min (>60); Globulin 3.2 g/dL (1.7-4.1); Glucose 101 mg/dL (80-110); HEMOLYSIS < 15 (0-50); Potassium 4.7 mmol/L (3.4-5.1); Sodium 140 mmol/L (137-145); Total Protein 7.4 g/dL (6.3-8.2)
== END ==
PROVIDERS: Family Provider Nurse Practitioner; PCP Nurse Practitioner; Referring Provider Nurse Practitioner; Visit Provider Nurse Practitioner
DX: D64.9 Anemia, unspecified (principal); R79.89 Other specified abnormal findings of blood chemistry
CPT/HCPCS: 36415; 80053; 85025

== ENCOUNTER → 2023-02-24 11:00 | Outpatient (CLI) | payer OTHER, SELFPAY ==
[2023-02-23 13:02] VITALS: BMI 27.4
[2023-02-24 13:06] LABS: Add Manual Diff / Slide Review NO; Basophils Absolute Auto 0 /uL (0-100); Basophils Percent Auto 0.5 % (0-2); Eosinophils Absolute Auto 100 /uL (0-450); Eosinophils Percent Auto 2.4 % (2-4); Hematocrit 40.6 % (36-46); Hemoglobin 13.9 g/dL (12.0-16.0); Lymphocytes Absolute Auto 1000 /uL (1100-4500); Mean Corpuscular HGB Conc 34.2 % (30-36); Mean Corpuscular Hemoglobin 30.3 PG (26-34); Mean Corpuscular Volume 88.7 fL (80-100); Monocytes Absolute Auto 300 /uL (0-900); Monocytes Percent Auto 5.6 % (3-14); Neutrophils Absolute Auto 4300 /uL (1500-7000); Neutrophils Percent Auto 73.5 % (50-75); Platelet Count 176 X10^3/uL (150-400); Red Blood Cell Count 4.58 X10^6/uL (4.0-5.2); Red Cell Distribution Width 13.7 % (11.6-14.8); White Blood Cell Count 5.8 X10^3/uL (4.5-11.0)
[2023-02-24 13:28] LABS: HEMOLYSIS < 15 (0-50); Iron 125 ug/dL (37-170)
[2023-02-24 13:30] LABS: Alanine Aminotransferase 53 IU/L (<35); Albumin 4.3 g/dL (3.5-5.0); Albumin Globulin Ratio 1.5 (1.0-2.8); Alkaline Phosphatase 91 U/L (38-126); Aspartate Aminotransferase 44 IU/L (14-36); BUN Creatinine Ratio 24.8 (6-22); Bilirubin Total 0.7 mg/dL (0.2-1.3); Blood Urea Nitrogen 25 mg/dL (7-17); Calcium 9.6 mg/dL (8.4-10.2); Carbon Dioxide 28 mmol/L (22-32); Chloride 103 mmol/L (98-107); Estimated Glomerular Filt Rate 57 mL/min (>60); Globulin 2.8 g/dL (1.7-4.1); Glucose 92 mg/dL (80-110); HEMOLYSIS < 15 (0-50); Potassium 4.4 mmol/L (3.4-5.1); Sodium 140 mmol/L (137-145); Total Protein 7.1 g/dL (6.3-8.2)
[2023-02-24 13:39] LABS: Percent Iron Saturation 36 % (15-50); Total Iron Binding Capacity 347 ug/dL (265-497); Transferrin 279 mg/dL (206-381)
[2023-02-24 13:48] LABS: Free T3, Triiodothyronine Free 3.84 pg/mL (2.77-5.27); Free T4, Direct Thyroxine 1.33 ng/dL (0.78-2.19)
[2023-02-24 14:01] LABS: Thyroid Stimulating Hormone 0.373 uIU/mL (0.47-4.68)
[2023-02-24 14:18] LABS: Vitamin B12 781 pg/mL (239-931)
== END ==
PROVIDERS: Family Provider Nurse Practitioner; PCP Nurse Practitioner; Referring Provider Nurse Practitioner; Visit Provider Nurse Practitioner
DX: R07.89 Other chest pain (principal); Z86.2 Personal history of diseases of the blood and blood-forming organs and certain disorders involving the immune mechanism; R53.83 Other fatigue; I10 Essential (primary) hypertension
CPT/HCPCS: 36415; 80053; 82607; 83540; 83550; 84439; 84443; 84481; 85025; 93005

== ENCOUNTER → 2023-06-22 12:21 | Outpatient (CLI) | payer OTHER, SELFPAY ==
[2023-02-23 13:02] VITALS: BMI 27.4
--- NOTE | 2023-06-22 12:22 | DI.ECHO.S_ITS ---
[facility] +---------+ : : [address] : : : : [id number] : : : : Phone: [phone]+ Echocardiogram Report + + :Name: LENNY ROBLES Study Date: 06/22/2023 Height: 61.5 in: :[facility] ReadingLocation: Weight: 165 lb : : Gender: Female BSA: 1.8 m2 : :: 1945 Age: 78 yrs BP: 145/97 mmHg: :Reason For Study: CHEST PAIN/ PRESSURE AND FATIGUE : :Ordering Physician: STEVE, : :GRACE Performed By: Yvonne Pleitez : :Referring: GRACE WILSON : + + Interpretation Summary Normal left ventricle size with ejection fraction 65-70%. No significant valvular abnormality. Procedure: A two-dimensional transthoracic echocardiogram with color flow and Doppler was performed. The study quality was technically adequate. There is no prior echocardiogram noted for this patient. The patient was in sinus rhythm with heart rates between 68-76 bpm during the exam. Left Ventricle: The left ventricle is normal in size and wall thickness. The ejection fraction is estimated to be 65-70%. There are no focal wall motion abnormalities. Right Ventricle: The right ventricle is normal in size and function. Atria: The left atrial size is normal. Right atrial size is normal. There is no Doppler evidence for an interatrial shunt. Mitral Valve: There is mild mitral annular calcification. The mitral valve leaflets appear mildly thickened, but open well. There is mild mitral regurgitation. Aortic Valve: The aortic valve is trileaflet. The aortic valve opens well. There is mild aortic valve sclerosis. There is no aortic valve stenosis. No aortic regurgitation is present. Tricuspid Valve: The tricuspid valve is normal in structure and function. There is mild tricuspid regurgitation. The right ventricular systolic pressure is estimated to be at least 26 mmHg based on an estimated right atrial pressure of 3 mm Hg. Pulmonic Valve: The pulmonic valve leaflets are thin and pliable; valve motion is normal. There is no pulmonic valvular regurgitation. Great Vessels: The aortic root is normal size. The IVC is of normal diameter and collapses greater than 50% with a sniff. This suggests a low right atrial pressure of 3 mm Hg. Pericardium/ Pleura There is no pericardial effusion. There is no pleural effusion. MMode/2D Measurements & Calculations LVIDd: 4.4 cm LVOT diam: 1.9 cm LVIDs: 3.1 cm Ao root diam: 2.9 cm FS: 29.4 % asc Aorta Diam: 3.2 cm IVSd: 0.82 cm LVPWd: 0.78 cm LV perez. diameter/BSA (cm/m^2): 2.5 LV sys. diameter/BSA (cm/m^2): 1.8 LA A2 area: 17.4 cm2 RA long axis: 4.7 cm LA A4 area: 17.3 cm2 RA area: 15.6 cm2 LA length (vol): 5.4 cm RA vol: 44.0 ml LA vol: 47.2 ml RA : 25.1 ml/m2 LA vol index: 26.9 ml/m2 IVC diam: 1.4 cm RVD1 (basal): 4.4 cm TAPSE: 2.1 cm Doppler Measurements & Calculations Ao V2 max: 148.1 cm/sec LVOT Max [place]: 104.0 cm/sec Ao V2 mean: 115.7 cm/sec LV V1 max P.3 mmHg Ao max P.8 mmHg LV V1 VTI: 20.9 cm Ao mean P.7 mmHg MARCO(I,D): 1.8 cm2 Ao V2 VTI: 32.6 cm MARCO(V,D): 2.0 cm2 sev ratio: 0.64 MARCO indexed to BSA (cm^2/m^2): 1.0 MV E max chino: 70.1 cm/sec TR max chino: 242.5 cm/sec MV A max chino: 101.3 cm/sec TR max P.5 mmHg MV E/A: 0.69 PA V2 max: 88.2 cm/sec Med Peak E' [place]: 8.3 cm/sec PA V2 mean: 63.0 cm/sec E/E' med: 8.5 PA mean P.8 mmHg Lat Peak E' [place]: 6.4 cm/sec PA pr(Accel): 37.9 mmHg E/E' lat: 10.9 E/e' average: 9.7 MV dec time: 0.25 sec SV(LVOT): 59.3 ml Electronically signed by: Seble Cox on Reading Physician:06/22/2023 05:09 PM
== END ==
LOC: ECHO 12:21
PROVIDERS: Family Provider Nurse Practitioner; PCP Nurse Practitioner; Referring Provider Nurse Practitioner; Visit Provider Nurse Practitioner
DX: I08.3 Combined rheumatic disorders of mitral, aortic and tricuspid valves (principal); R07.89 Other chest pain; R53.83 Other fatigue; Z86.2 Personal history of diseases of the blood and blood-forming organs and certain disorders involving the immune mechanism
CPT/HCPCS: 93306

== ENCOUNTER → 2023-06-29 09:39 | Outpatient (CLI) | payer OTHER, SELFPAY ==
[2023-02-23 13:02] VITALS: BMI 27.4
[2023-06-29 13:05] LABS: Alanine Aminotransferase 48 IU/L (<35); Albumin 4.3 g/dL (3.5-5.0); Albumin Globulin Ratio 1.4 (1.0-2.8); Alkaline Phosphatase 104 U/L (38-126); Aspartate Aminotransferase 43 IU/L (14-36); BUN Creatinine Ratio 18.5 (6-22); Blood Urea Nitrogen 22 mg/dL (7-17); Calcium 9.5 mg/dL (8.4-10.2); Carbon Dioxide 28 mmol/L (22-32); Chloride 106 mmol/L (98-107); Cholesterol 143 mg/dL (140-199); Estimated Glomerular Filt Rate 47 mL/min (>60); Glucose 95 mg/dL (80-110); HDL Cholesterol 47 mg/dL (40-60); HEMOLYSIS < 15 (0-50); LDL Cholesterol Calculated 66 mg/dL (<100); Potassium 5.1 mmol/L (3.4-5.1); Sodium 142 mmol/L (137-145); Total Protein 7.3 g/dL (6.3-8.2); Triglycerides 148 mg/dL (35-150)
[2023-06-29 15:18] LABS: Microalbumi Creatinin Ratio Ur 15.3 ug/mg CR (<30); Microalbumin Urine Random 3.4 mg/dL (0-1.6)
== END ==
LOC: LAB 09:41
PROVIDERS: Family Provider Nurse Practitioner; PCP Nurse Practitioner; Referring Provider Nurse Practitioner; Visit Provider Nurse Practitioner
DX: I10 Essential (primary) hypertension (principal); E78.1 Pure hyperglyceridemia; N18.2 Chronic kidney disease, stage 2 (mild)
CPT/HCPCS: 36415; 80053; 80061; 82043; 82570

== ENCOUNTER → 2023-06-30 11:49 | Outpatient (CLI) | payer OTHER, SELFPAY ==
[2023-02-23 13:02] VITALS: BMI 27.4
== END ==
PROVIDERS: Family Provider Nurse Practitioner; PCP Nurse Practitioner; Referring Provider Nurse Practitioner; Visit Provider Nurse Practitioner
DX: R94.31 Abnormal electrocardiogram [ECG] [EKG] (principal)
CPT/HCPCS: 93005; 93010

== ENCOUNTER → 2023-07-01 14:33 | Outpatient (CLI) | payer OTHER, SELFPAY ==
[2023-02-23 13:02] VITALS: BMI 27.4
--- NOTE | 2023-07-01 14:34 | DI.RAD.S_ITS ---
PROCEDURE: XR LUMBAR SPINE 2-3V INDICATIONS: low back pain TECHNIQUE: 3 views of the lumbar spine were acquired. COMPARISON: [facility], CR, XR LUMBAR SPINE 2 OR 3 VIEWS, 11/24/2018, 10:41. [facility], CR, XR LUMBAR SPINE 2-3V, 01/26/2018, 13:07. FINDINGS: Bones: 5 [id number] vertebrae are present. There is normal bony alignment. Interval worsening of a L1 compression, of uncertain chronicity. Again noted is posterior lateral tayo and pedicle screw fixation of L5-S1 and interbody spacer placement. No evidence of hardware failure or loosening. Soft tissues: Overlying bowel gas pattern is normal. No suspicious soft tissue calcifications. IMPRESSION: Interval progression of a L1 compression, of uncertain chronicity. Dictated by: Suhail Hughes M.D. on 07/01/2023 at 17:26 Approved by: Suhail Hughes M.D. on 07/01/2023 at 17:29
--- NOTE | 2023-07-01 14:34 | DI.RAD.S_ITS ---
PROCEDURE: XR CERVICAL SPINE 2V OR 3V INDICATIONS: neck pain, previous surgery TECHNIQUE: 3 view(s) of the cervical spine were acquired. COMPARISON: None. FINDINGS: Bones: Expected appearance of ACDF at C3 through C5 with mature interbody fusion as well. No fractures or dislocations to the T1 level. The lateral masses of C1 appear intact on the odontoid view. No suspicious bony lesions. Severe cervical spondylitic change with multilevel facet arthropathy and severe disc height loss at C6-C7 with uncovertebral joint osteophytes. Soft tissues: No prevertebral soft tissue swelling. IMPRESSION: Expected appearance of ACDF. Severe cervical spondylosis. Dictated by: Suhail Hughes M.D. on 07/01/2023 at 17:30 Approved by: Suhail Hughes M.D. on 07/01/2023 at 17:35
== END ==
PROVIDERS: Family Provider Nurse Practitioner; PCP Nurse Practitioner; Referring Provider Nurse Practitioner; Visit Provider Nurse Practitioner
DX: M47.812 Spondylosis without myelopathy or radiculopathy, cervical region (principal); M43.8X6 Other specified deforming dorsopathies, lumbar region; M54.2 Cervicalgia; M54.50 Low back pain, unspecified; Z98.890 Other specified postprocedural states; Z98.1 Arthrodesis status
CPT/HCPCS: 72040; 72100

== ENCOUNTER → 2023-08-04 15:05 | Outpatient (CLI) | payer OTHER, SELFPAY ==
[2023-02-23 13:02] VITALS: BMI 27.4
--- NOTE | 2023-08-04 15:07 | DI.MRI.S_ITS ---
PROCEDURE: MR LUMBAR SPINE WO CON INDICATIONS: Low back pain s/p fusion TECHNIQUE: Noncontrast sagittal T1 spin echo and T2 fast echo, sagittal STIR, and T2 fast spin echo through the lumbar spine. In cases with scoliosis, additional coronal T2 fast spin echo may be performed. COMPARISON: [facility], , L-SPINE WITHOUT CONTRAST, 02/17/2017, 8:29. FINDINGS: Image quality: Excellent. Alignment and Curvature: Grade 1 anterolisthesis of L4 on L5. Bone Marrow: L4-5 posterior spinal fixation and discectomy. Degenerative endplate changes, most pronounced at L1-L2. Mild anterior wedging of the L1 vertebral body without associated edema. Marrow is of normal overall signal. No acute vertebral body compression fractures. Spinal Cord: Conus medullaris terminates at the L1 level. Visualized cord demonstrates normal signal and size. Paraspinous Soft Tissues: No paravertebral masses. T12-L1: Disc desiccation height loss. Diffuse disc bulge. Facet arthropathy. Mild central canal stenosis is progressed. Mild bilateral neural foraminal stenosis is progressed. L1-L2: Disc desiccation height loss. Diffuse disc bulge. Facet arthropathy and thickening of ligamentum flavum. Progression of moderate central canal stenosis and moderate to severe right neural foraminal stenosis. Stable mild left neural foraminal stenosis. L2-L3: Disc desiccation height loss. Diffuse disc bulge. Facet arthropathy and thickening of ligamentum flavum. Stable mild central canal stenosis. Progression of severe right and moderate left neural foraminal stenosis. L3-L4: Disc desiccation height loss. Diffuse disc bulge. Facet arthropathy and thickening of ligamentum flavum. Severe central canal stenosis is progressed. Moderate right and moderate to severe left neural foraminal stenosis is progressed. L4-L5: Postoperative changes. Mild residual central canal stenosis. Facet arthropathy. Improvement in moderate left and mild right neural foraminal stenosis. L5-S1: Disc desiccation and diffuse disc bulge. Facet arthropathy and thickening of ligamentum flavum. Stable mild central canal stenosis. Stable moderate bilateral neural foraminal stenosis. IMPRESSION: 1. Multilevel degenerative changes of the lumbar spine status post L4-5 posterior spinal fixation and discectomy. There is improvement in central canal and neural foraminal stenosis at this level. 2. Progression of degenerative changes involving the upper lumbar spine as described above. Dictated by: David Bean M.D. on 08/04/2023 at 16:52 Approved by: David Bean M.D. on 08/04/2023 at 16:57
--- NOTE | 2023-08-04 15:07 | DI.MRI.S_ITS ---
PROCEDURE: MR CERVICAL SPINE WO CON INDICATIONS: Neck pain s/p ACDF TECHNIQUE: Noncontrast sagittal T1 spin echo and T2 fast spin echo, sagittal STIR, foraminal oblique sagittal T2 fast spin echo, and axial gradient echo or T2 fast spin echo through the cervical spine. COMPARISON: [facility], MR, MR CERVICAL SPINE WO CON, 04/03/2019, 9:48. FINDINGS: Image quality: Excellent. Alignment and Curvature: Mild anterolisthesis of C7 on T1. Bone Marrow: C3 through C5 ACDF. Marrow demonstrates normal overall signal. Spinal Cord: Stable mild cord signal abnormality at C5. No cerebellar tonsillar herniation. Paraspinous Soft Tissues: No paravertebral masses. Prevertebral soft tissues are normal in thickness. C2-C3: Disc desiccation. No central canal stenosis. Facet and uncovertebral arthropathy. Mild neural foraminal stenosis is stable. C3-C4: Postoperative changes. Stable mild central canal stenosis. Stable severe bilateral neural foraminal stenosis. C4-C5: Postoperative changes. Stable severe central canal stenosis and severe bilateral neural foraminal stenosis. C5-C6: Disc desiccation and posterior disc osteophyte complex. Severe central canal stenosis. Facet and uncovertebral arthropathy . moderate bilateral neural foraminal stenosis is stable. C6-C7: Disc desiccation height loss. Posterior disc osteophyte complex. Stable moderate to severe central canal stenosis. Facet and uncovertebral arthropathy. Stable moderate left and no right neural foraminal stenosis. C7-T1: Disc desiccation. No central canal or neural foraminal stenosis. IMPRESSION: 1. Multilevel degenerative changes of the cervical spine status post C3 through C5 ACDF. 2. Multilevel high-grade central canal and neural foraminal stenosis as described above which are overall grossly similar in appearance compared to prior exam. Dictated by: David Bean M.D. on 08/04/2023 at 16:57 Approved by: David Bean M.D. on 08/04/2023 at 17:02
== END ==
LOC: MRI 15:06
PROVIDERS: Family Provider Nurse Practitioner; PCP Nurse Practitioner; Referring Provider Anesthesiology; Visit Provider Anesthesiology
DX: M47.812 Spondylosis without myelopathy or radiculopathy, cervical region (principal); M48.02 Spinal stenosis, cervical region; M47.816 Spondylosis without myelopathy or radiculopathy, lumbar region; M47.817 Spondylosis without myelopathy or radiculopathy, lumbosacral region; M48.061 Spinal stenosis, lumbar region without neurogenic claudication; M48.07 Spinal stenosis, lumbosacral region; M54.2 Cervicalgia; M54.50 Low back pain, unspecified; Z98.1 Arthrodesis status
CPT/HCPCS: 72141; 72148

== ENCOUNTER → 2023-09-28 15:33 | Outpatient (CLI) | payer OTHER, SELFPAY ==
[2023-02-23 13:02] VITALS: BMI 27.4
[2023-09-28 17:07] LABS: Add Manual Diff / Slide Review NO; Basophils Absolute Auto 0 /uL (0-100); Basophils Percent Auto 0.8 % (0-2); Eosinophils Absolute Auto 100 /uL (0-450); Eosinophils Percent Auto 2.2 % (2-4); Hematocrit 42.7 % (36-46); Hemoglobin 14.6 g/dL (12.0-16.0); Lymphocytes Absolute Auto 1700 /uL (1100-4500); Lymphocytes Percent Auto 27.8 % (25-40); Mean Corpuscular HGB Conc 34.2 % (30-36); Mean Corpuscular Hemoglobin 30.2 PG (26-34); Mean Corpuscular Volume 88.3 fL (80-100); Monocytes Absolute Auto 300 /uL (0-900); Monocytes Percent Auto 5.8 % (3-14); Neutrophils Absolute Auto 3800 /uL (1500-7000); Neutrophils Percent Auto 63.4 % (50-75); Platelet Count 168 X10^3/uL (150-400); Red Blood Cell Count 4.83 X10^6/uL (4.0-5.2); Red Cell Distribution Width 13.1 % (11.6-14.8)
[2023-09-28 17:13] LABS: Appearance Urine UA CLEAR; Bilirubin Urine UA NEGATIVE (NEGATIVE); Color Urine UA YELLOW; Glucose Urine UA NEGATIVE (Negative); Ketones Urine UA NEGATIVE (NEGATIVE); Leukocyte Esterase Urine UA NEGATIVE (NEGATIVE); Nitrite Urine UA NEGATIVE (Negative); Occult Blood Urine UA NEGATIVE (Negative); Protein Urine UA NEGATIVE (Negative); Specific Gravity Urine UA >=1.030 (1.000-1.035); Urobilinogen Urine UA 0.2 E.U./dL (0.2)
[2023-09-28 17:25] LABS: Urine Volume 10mL (spun)
[2023-09-28 17:26] LABS: Bacteria Urine Occasional (0-1); Culture Indicated Urine Cult Not Indicated; RBC Urine 1-5/HPF (0-5/HPF); Squamous Epithelial Cell Urine 1-5 /HPF (0-5/HPF); WBC Urine 1-5/HPF (0-5/HPF)
[2023-09-28 17:46] LABS: Alanine Aminotransferase 33 IU/L (<35); Albumin 4.8 g/dL (3.5-5.0); Albumin Globulin Ratio 1.8 (1.0-2.8); Alkaline Phosphatase 104 U/L (38-126); Aspartate Aminotransferase 40 IU/L (14-36); BUN Creatinine Ratio 25.2 (6-22); Bilirubin Total 0.5 mg/dL (0.2-1.3); Blood Urea Nitrogen 27 mg/dL (7-17); Calcium 9.6 mg/dL (8.4-10.2); Carbon Dioxide 27 mmol/L (22-32); Chloride 109 mmol/L (98-107); Creatinine Urine Random 106.13 mg/dL; Estimated Glomerular Filt Rate 53 mL/min (>60); Globulin 2.7 g/dL (1.7-4.1); Glucose 93 mg/dL (80-110); HEMOLYSIS < 15 (0-50); Sodium 141 mmol/L (137-145); Total Protein 7.5 g/dL (6.3-8.2)
[2023-09-28 17:49] LABS: Potassium 5.4 mmol/L (3.4-5.1)
[2023-09-28 18:06] LABS: Free T3, Triiodothyronine Free 3.42 pg/mL (2.77-5.27)
[2023-09-28 18:19] LABS: Thyroid Stimulating Hormone 0.944 uIU/mL (0.47-4.68)
== END ==
PROVIDERS: Family Provider Nurse Practitioner; PCP Nurse Practitioner; Referring Provider Nurse Practitioner; Visit Provider Nurse Practitioner
DX: N17.9 Acute kidney failure, unspecified (principal); R53.83 Other fatigue; F33.1 Major depressive disorder, recurrent, moderate; R30.0 Dysuria
CPT/HCPCS: 36415; 80053; 81001; 82043; 82570; 84439; 84443; 84481; 85025

== ENCOUNTER → 2024-04-07 11:35 | Outpatient (CLI) | payer OTHER, SELFPAY ==
[2023-02-23 13:02] VITALS: BMI 27.4
[2024-04-07 12:59] LABS: Alanine Aminotransferase 47 IU/L (<35); Albumin 4.4 g/dL (3.5-5.0); Albumin Globulin Ratio 1.9 (1.0-2.8); Alkaline Phosphatase 94 U/L (38-126); Aspartate Aminotransferase 60 IU/L (14-36); BUN Creatinine Ratio 16.7 (6-22); Bilirubin Total 0.7 mg/dL (0.2-1.3); Blood Urea Nitrogen 19 mg/dL (7-17); Calcium 9.3 mg/dL (8.4-10.2); Carbon Dioxide 23 mmol/L (22-32); Chloride 107 mmol/L (98-107); Cholesterol 126 mg/dL (140-199); Estimated Glomerular Filt Rate 49 mL/min (>60); Globulin 2.3 g/dL (1.7-4.1); Glucose 117 mg/dL (80-110); HDL Cholesterol 51 mg/dL (40-60); HEMOLYSIS < 15 (0-50); LDL Cholesterol Calculated 46 mg/dL (<100); Potassium 4.4 mmol/L (3.4-5.1); Sodium 139 mmol/L (137-145); Total Protein 6.7 g/dL (6.3-8.2); Triglycerides 146 mg/dL (35-150)
== END ==
PROVIDERS: Family Provider Nurse Practitioner; PCP Nurse Practitioner; Referring Provider Nurse Practitioner; Visit Provider Nurse Practitioner
DX: R79.9 Abnormal finding of blood chemistry, unspecified (principal); E87.5 Hyperkalemia; E86.0 Dehydration; R53.83 Other fatigue; E78.5 Hyperlipidemia, unspecified
CPT/HCPCS: 36415; 80053; 80061

== ENCOUNTER → 2024-04-22 14:33 | Outpatient (CLI) | payer OTHER, SELFPAY ==
[2023-02-23 13:02] VITALS: BMI 27.4
[2024-04-25 12:38] LABS: Fecal Immunochemical Test Positive (Negative)
== END ==
PROVIDERS: Family Provider Nurse Practitioner; PCP Internal Medicine; Referring Provider Internal Medicine; Visit Provider Internal Medicine
DX: Z12.11 Encounter for screening for malignant neoplasm of colon (principal)
CPT/HCPCS: 82274

== ENCOUNTER 2024-07-15 08:45 | Day surgery (SDC) | payer OTHER, SELFPAY ==
[2023-02-23 13:02] VITALS: BMI 27.4
[2024-07-15] VITALS (7 sets, daily range): BP systolic 99–149; BP diastolic 54–83; PULSE 73–84; RESP 13–20; TEMP 36.1–36.4; O2SAT 90–96
--- NOTE | 2024-07-15 10:40 | PM.HP.IH.1 ---
History of Present Illness History of Present Illness Date Patient Seen: 07/15/24 Time Patient Seen: 10:40 Chief complaint: Dx Colonoscopy w/poss bx PFSH Medical History Overweight DELONG (nonalcoholic steatohepatitis) Chronic kidney disease, stage 3a Osteopenia Mixed hyperlipidemia Essential hypertension Cervical spondylosis Lumbar spondylosis Lumbar spinal stenosis Cervical spinal stenosis Osteopenia determined by x-ray Joint pain Cervicogenic headache Cervical facet syndrome Anxiety disorder due to general medical condition Seasonal allergies Chronic pain syndrome DJD of right shoulder Breast screening declined Other usp (current) drug therapy Intolerance to cold Chronic neck pain Major depressive disorder, recurrent, mild Anxiety Depression Osteoarthritis Kidney infection Kidney stone Diverticulitis HTN (hypertension) Hyperlipidemia Numbness and tingling of both legs Back pain Osteoarthritis of shoulder GERD (gastroesophageal reflux disease) Hydronephrosis of left kidney Nephrolithiasis Ureterolithiasis Surgical History Status post cervical spinal fusion History of fusion of lumbar spine Hx of cervical discectomy Status post left hip replacement History of lumbar fusion (01/26/18) Status post lumbar and lumbosacral fusion by anterior technique History of total replacement of left shoulder joint Bryson teeth removed Hx of arthroscopy of right knee History of arthroscopy of right shoulder S/P cervical spinal fusion (06/08/12) History of arthroplasty of left shoulder Hx of tubal ligation Status post bilateral cataract extraction Social History details: 1993, 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, 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; 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 household members: none Smoking Status: Never smoker second hand exposure: Yes (childhood ) alcohol intake: current substance use type: does not use Meds Home Medications and Allergies Home Medications Medication Instructions Recorded Confirmed Type pzjswoc-buaktledkiqel-cjkqnnhn 250 1 tab PO ONCE PRN Migraine Headache 07/16/23 07/15/24 History mg-250 mg-65 mg tablet (Excedrin Migraine) cholecalciferol (vitamin D3) 50 50 mcg PO DAILY 07/16/23 07/15/24 History mcg (2,000 unit) capsule docosahexaenoic acid (dha)-epa 120 1 cap PO DAILY 07/16/23 07/15/24 History mg-180 mg capsule (Fish Oil) vitamin B complex 1 cap PO DAILY 07/16/23 07/13/24 History mirtazapine 15 mg tablet 7.5 mg (1/2 x 15 mg) PO BEDTIME 08/11/23 07/15/24 Rx #60 tabs metoprolol succinate 25 mg 25 mg PO DAILY for blood pressure 04/19/24 07/15/24 Rx tablet,extended release 24 hr #90 tabs rosuvastatin 10 mg tablet 10 mg PO ONCE PM for cholesterol 04/19/24 07/15/24 Rx #90 tabs hydrocodone 5 mg-acetaminophen 325 2 tab PO TID PRN pain #150 tabs 07/13/24 07/15/24 Rx mg tablet Allergies Allergy/AdvReac Type Severity Reaction Status Date / Time adhesive tape Allergy Severe Blisters Verified 07/15/24 09:34 chloramphenicol Allergy Mild joints Verified 07/15/24 09:34 [From CHLOROMYCETIN] itchy, red, swollen naproxen [From Aleve] Allergy Mild hands and Verified 07/15/24 09:34 face itching/ red Review of Systems Review of Systems Narrative: Alert and oriented, no acute distress, states bowel prep has been keeping her from sleep and has a sore bottom but it has been effective ROS: Yes All systems reviewed with the patient and are negative except as otherwise documented Exam Vital Signs (past 8 hours): - 07/15/24 09:37 Temperature 97.6 F Pulse Rate 81 Respiratory Rate 16 Blood Pressure 149/83 H Pulse Oximetry 96 Oxygen Delivery Method Room Air Oxygen Delivery Method Room Air Narrative Exam Narrative: Alert and oriented, no acute distress, Ativan benign Const General: cooperative Orientation: alert and awake [facility] Head: normal to inspection Assessment & Plan Assessment & Plan narrative: Positive fecal test, planning for colonoscopy today. Questions answered, consent signed Time-Based Coding :: [TOTAL MINUTES] spent with patient and on the chart (including review of chart, obtaining history, exam, reviewing outside data, placing orders, documenting exam and treatment plan, and counseling patient) on [DATE]. PROFEE Collections Agent Document charge(s): Yes
--- NOTE | 2024-07-15 11:20 | PM.OP.COLON ---
Operative Date/Time/Diagnoses Date of procedure: 07/15/24 Time of procedure: 11:20 Pre-op diagnosis: positive FIT Post-op diagnosis: same Procedure & Clinicians Study performed: abbreviated colonoscopy ER Same procedure as scheduled: Yes Indications: positive FIT Surgeon: Ronnie Branch Procedure Notes SCOAP/Timeout: performed Procedure in detail: Patient seen in the preop area, H and P updated, positive fecal occult testing. Patient reported prep was adequate. Patient brought back to procedure room, time-out was performed verifying correct patient procedure. she was given sedation. External rectal exam was performed with no identified fissures, or external hemorrhoids significance. Some EXCORIATION Digital rectal exam performed with no masses or blood. Colonoscope placed, colon insufflated, adequacy of prep was adequate but not perfect the scope was passed without difficulty to the splenic flexure. Splenic flexure was redundant. Multiple maneuvers with abdominal manipulation, rotating the patient, safely go past the splenic flexure. The patient was also intermittently having some discomfort through propofol and 1 brief period of apnea the recovered immediately. At this point further attempts to deliver the scope to the cecum I felt were unsafe, and a slow risk patient with no symptoms such as weight loss stool changes. The scope was withdrawn with circumferential view of the colon, areas occluded by bowel prep or cleaned as much as possible. No lesions were identified upon removal of the scope. The scope was retroflexed in the rectum and small internal hemorrhoids were identified air was withdrawn from the colon, scope was withdrawn, and the patient was brought to the recovery area in stable condition. Scope withdrawal time: 6min Specimen(s): none sent Complications: none Impression: Normal colonoscopy to the level splenic flexure Post-procedure Recommendations: Other recommendation(s) Plan for aftercare: Follow-up for discussion for screening colonography or necessity to screen the rest of the colon completely given age and comorbidities and history. Follow up: as needed Disposition: PACU
== END 2024-07-15 12:06 | disposition home or self-care (01) ==
PROVIDERS: Family Provider Nurse Practitioner; PCP Internal Medicine; Referring Provider Internal Medicine
DX: Z12.11 Encounter for screening for malignant neoplasm of colon (principal); R19.5 Other fecal abnormalities; Z53.9 Procedure and treatment not carried out, unspecified reason
CPT/HCPCS: G0121; J2704